=== PATIENT | female | born 1970 | race Caucasian/White ===

== ENCOUNTER → 2018-04-10 10:36 | Outpatient (REF) | payer MEDICAID, SELFPAY | LOC: LBN 10:36 | PROVIDERS: PCP Internal Medicine; Visit Provider Nurse Practitioner Family | DX: N30.90 Cystitis, unspecified without hematuria (principal) | CPT/HCPCS: 87077; 87086; 87186 ==

== ENCOUNTER 2019-05-18 11:45 | Outpatient (REF) | payer MEDICAID, SELFPAY ==
--- NOTE | 2019-05-18 10:34 | PAPFT_PTH ---
PATIENT: Giana Yeager LOC: [facility] U#:[id number] AGE/SX: 49/F ROOM: RE05/18/[address]: Elisha Martin NP : 1970 BED: DIS: 05/18/2019 SPEC #: [id number] RECD: 05/18/19 18:15 STATUS: JAYDENAugusto REQ #: [id number] CHIDI: 05/18/19 10:[address]: Elisha Martin NP DEPT: [facility] Cytology RECD BY: Brandy Allen ENTERED: 05/18/19 18:16 SP TYPE: PAPFT OTHR DR: Sonja Lopez MD Tissues: 1 - CX/ENDOCX FOR PAP SMEARS Procedures: PAP THIN PREP/UVM Screening HPV DNA PROBE Comments: [id number]
== END 2019-05-18 12:05 ==
LOC: LBN 11:45
PROVIDERS: PCP Internal Medicine; Visit Provider Nurse Practitioner Women's Health
DX: Z12.4 Encounter for screening for malignant neoplasm of cervix (principal); Z11.51 Encounter for screening for human papillomavirus (HPV)
CPT/HCPCS: 88142; 87624

== ENCOUNTER 2019-12-22 12:38 | Emergency (ER) | payer MEDICAID, SELFPAY ==
[2019-12-22 12:44] VITALS: BP 149/75; PULSE 84; RESP 16; TEMP 37; O2SAT 97
[2019-12-22] MEDS: Ondansetron O.D.T. 4 MG TABEF PO (12:54)
[2019-12-22] MEDS: HYDROmorphone 2 MG/ML VIAL 1 MG IM (12:54)
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
== END 2019-12-22 14:10 | disposition home or self-care (01) ==
LOC: ER 13:59
PROVIDERS: Emergency Provider Physician Assistant
DX: T24.211A Burn of second degree of right thigh, initial encounter (principal); T24.212A Burn of second degree of left thigh, initial encounter; T25.111A Burn of first degree of right ankle, initial encounter; X10.0XXA Contact with hot drinks, initial encounter
CPT/HCPCS: 16000; 96372; 99284

== ENCOUNTER 2020-03-10 13:31 | Emergency (ER) | payer MEDICAID, SELFPAY ==
[2020-03-10 13:50] VITALS: BP 126/77; PULSE 80; RESP 16; TEMP 36.7; O2SAT 97
--- NOTE | 2020-03-10 14:00 | DI.RAD_ITS ---
EXAM: XR FOREARM LT CLINICAL HISTORY: Pain, question foreign body TECHNIQUE: COMPARISON: No exams were available for comparison FINDINGS: Views were obtained. No bony abnormality seen. There is an apparent soft tissue defect over the ext ensor surface of the forearm. No foreign body seen. IMPRESSION:
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
[2020-03-10] MEDS: Cephalexin 500 MG CAP PO (14:35)
== END 2020-03-10 14:58 | disposition home or self-care (01) ==
PROVIDERS: Emergency Provider Emergency Medicine; PCP Nurse Practitioner Family
DX: S51.832A Puncture wound without foreign body of left forearm, initial encounter (principal); W45.0XXA Nail entering through skin, initial encounter
CPT/HCPCS: 90471; 99284; 73090; 99283

== ENCOUNTER 2020-05-30 01:39 | Outpatient (CLI) | payer MEDICAID, SELFPAY ==
[2020-05-30 08:59] LABS: Abs Immature Grans 0.03 10^3/uL (0.0-0.06); Absolute Basophil Count 0.02 10^3/uL (0.0-0.2); Absolute Eosinophil Count 0.17 10^3/uL (0.0-0.7); Absolute Lymphocyte Count 1.84 10^3/uL (1.2-3.4); Absolute Monocyte Count 0.57 10^3/uL (0.1-0.8); Absolute Neutrophil Count 4.82 10^3/uL (1.2-6.7); Basophils % 0.3; Eosinophils % 2.3; HCT 39.3 % (36.0-46.0); HGB 12.5 g/dL (11.2-15.7); Immature Grans % 0.4; Lymphocytes % 24.7; MCH 27.1 pg (27.0-33.0); MCHC 31.8 % (32.0-36.0); MCV 85.2 fL (80-95); MPV 9.3 fL (8.0-11.0); Monocytes % 7.7; Neutrophils % 64.6; Nucleated RBC 0 %; Platelet Count 340 10^3/uL (130-400); RBC 4.61 10^6/uL (3.93-5.22); RDW 14.1 % (11.7-14.6); RDW-SD 43.9 fL; WBC 7.45 10^3/uL (4.4-10.8)
[2020-05-30 09:02] LABS: PTT Activated 27.6 sec (21.0-31.4); Prothrombin Time 10.1 sec (9.3-11.0)
[2020-05-30 10:01] LABS: ALT 15 U/L (14-59); AST 24 U/L (15-37); Albumin 3.8 g/dL (3.4-5.0); Alkaline Phosphatase 69 U/L (46-116); Anion Gap 7.4 mmol/L (3-11); BUN 18 mg/dL (7-18); Bilirubin, Total 0.2 mg/dL (0.2-1.0); CO2 29.6 mmol/L (21.0-32.0); CREATININE 0.91 mg/dL (0.55-1.02); Calcium 9.1 mg/dL (8.5-10.1); Chloride 102 mmol/L (98-107); Glucose 60 mg/dL (74-106); Lipase 105 U/L (73-393); Potassium 4.2 mmol/L (3.5-5.1); Sodium 139 mmol/L (136-145); Total Protein 7.2 g/dL (6.4-8.2)
== END 2020-05-30 01:59 ==
PROVIDERS: PCP Nurse Practitioner Family; Visit Provider Physician Assistant
DX: R10.13 Epigastric pain (principal)
CPT/HCPCS: 36415; 80053; 83690; 85025; 85610; 85730

== ENCOUNTER 2020-07-08 15:13 | Outpatient (CLI) | payer MEDICAID, SELFPAY ==
[2020-07-12 15:51] LABS: Patient Race White; SARS-CoV-2 RNA Undetected (Undetected); SARS-CoV-2 Specimen Source Nasal
== END 2020-07-08 15:33 ==
PROVIDERS: PCP Nurse Practitioner Family; Visit Provider Nurse Practitioner Family
DX: Z11.59 Encounter for screening for other viral diseases (principal)
CPT/HCPCS: U0003

== ENCOUNTER 2020-11-10 09:03 | Outpatient (CLI) | payer MEDICAID, SELFPAY ==
[2020-11-11 13:08] LABS: COVID-19 RT-PCR UVMMC Result Negative (Negative)
== END 2020-11-10 09:04 | disposition home or self-care (01) ==
PROVIDERS: PCP Nurse Practitioner Family; Visit Provider Nurse Practitioner Family
DX: Z20.822 Contact with and (suspected) exposure to COVID-19 (principal)
CPT/HCPCS: U0003

== ENCOUNTER 2021-01-05 08:35 | Outpatient (CLI) | payer MEDICAID, SELFPAY ==
[2021-01-06 15:53] LABS: COVID-19 RT-PCR UVMMC Result Negative (Negative)
== END 2021-01-05 08:36 | disposition home or self-care (01) ==
LOC: LBO 08:35
PROVIDERS: PCP Nurse Practitioner Family; Visit Provider Nurse Practitioner Family
DX: Z20.822 Contact with and (suspected) exposure to COVID-19 (principal)
CPT/HCPCS: U0003

== ENCOUNTER 2021-01-10 01:49 | Outpatient (CLI) | payer MEDICAID, SELFPAY ==
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
== END 2021-01-10 02:09 ==
PROVIDERS: PCP Nurse Practitioner Family; Visit Provider Nurse Practitioner Family
DX: M67.472 Ganglion, left ankle and foot (principal); M20.12 Hallux valgus (acquired), left foot; M85.672 Other cyst of bone, left ankle and foot; M19.072 Primary osteoarthritis, left ankle and foot
CPT/HCPCS: 73630

== ENCOUNTER 2021-02-08 01:03 | Outpatient (CLI) | payer MEDICAID, SELFPAY ==
--- NOTE | 2021-02-08 06:45 | DI.MAMMO_ITS ---
Exam(s) MAMMO SCREENING EXAM: MAMMO SCREENING CLINICAL HISTORY: screening,Z12.39. TECHNIQUE: Bilateral full field digital CC and MLO mammographic images were obtained with 3D tomosyn thesis and utilizing computer aided detection (CAD). COMPARISON: Prior mammogram of 2017. FINDINGS: Fibroglandular tissue is dense, this somewhat decreasing the sensitivity mammogram for finding in und erlying lesions. There are no new obvious spiculated masses. Numerous benign-appearing microcalcifications are again noted scattered throughout both breasts. There are no new malignant-appearing microcalcification dian ups. There is no significant architectural distortion nor skin thickening-retraction. IMPRESSION: Dense bilateral fibroglandular tissue. Stable benign findings. No obvious radiographic evidence of malignancy. BI-RADS Category 2 - Benign Findings Breast Density - Category C - Heterogeneously dense Breast density Category C or D implies that the patient has dense breast tissue. Dense breast tissue can make it harder to find cancer on a mammogram. Dense breast tissue is also associated with an incr eased risk of breast cancer. This information about the result of the mammogram report was provided to the patient to raise their awareness. Use this report when you speak with the patient about their risks for breast cancer, which includes their family history. At that time, you may recommend additional screening tests (Ultrasoun d or MRI) as these tests may add significant information. A negative radiographic report should not delay biopsy if a dominant or clinically suspicious mass is present. Up to ten percent of cancers are not identified on mammography. A negative report may reinforce clinical impression. Adenosis and dense breasts may obscure an underlying neoplasm. False positive reports average 6 to 10%. Patient will receive a letter notifying them of these results.
== END 2021-02-08 01:23 ==
PROVIDERS: PCP Nurse Practitioner Family; Visit Provider Nurse Practitioner Family
DX: Z12.31 Encounter for screening mammogram for malignant neoplasm of breast (principal)
CPT/HCPCS: 77063; 77067

== ENCOUNTER 2021-11-22 02:53 | Outpatient (CLI) | payer MEDICAID, SELFPAY ==
[2021-11-22 10:20] LABS: Source Nasal/Nares
[2021-11-22 12:56] LABS: COVID-19 PCR Negative (Negative)
== END 2021-11-22 02:54 | disposition home or self-care (01) ==
LOC: LBO 02:53
PROVIDERS: PCP Nurse Practitioner Family; Visit Provider Surgery
DX: Z20.822 Contact with and (suspected) exposure to COVID-19 (principal)
CPT/HCPCS: 87635

== ENCOUNTER 2021-11-24 09:37 | Day surgery (SDC) | payer MEDICAID, SELFPAY ==
--- NOTE | 2021-11-23 15:13 | PDOC.DSDIS_ITS ---
Discharge Plan Disposition Patient Disposition: HOME Condition: Good Discharge Details Reason For Visit: colon scope Attending Provider: Vicenta Gordillo Primary Care Provider: Justina Juarez Home Meds and New Rx's Prescriptions: Continued cyanocobalamin (vitamin B-12) [Vitamin B-12] 1,000 MCG tablet extended release 1 tab PO DAILY 0RF cholecalciferol (vitamin D3) 1,000 UNIT capsule 1,000 unit PO DAILY 0RF Discontinued polyethylene glycol 3350 17 gram/dose powder 238 g PO ONCE Qty: 238 0RF Rx Instructions: take per colonoscopy instructions bisacodyl [Dulcolax (bisacodyl)] 5 mg tablet,delayed release (DR/EC) 5 mg PO ONCE Qty: 4 0RF Rx Instructions: take per colonoscopy instructions Discharge Instructions Additional Instructions: DSU Colonoscopy Post- Op Instructions Instructions for Everyone who is given Anesthesia: For your safety, please do the following for the next twenty-four (24) hours: *Do Not operate a motor vehicle (car, truck, motorcycle, etc.) *Do Not drink alcoholic beverages or use any recreational drugs for the first 24 hours or while taking pain medications. The medications in your body may have a reaction that can be dangerous. *Do Not make any important decisions or sign any important papers. Findings: x1 small polyps Follow up: -My office will send a letter in 2 to 3 weeks time detailing as to what type of polyp it was and when we want you to read the colonoscopy. Probably 7 to 10 years time. 1. No lifting over 20 pounds or strenuous activity for the first 24 hours after your procedure. After 24 hours there are no restrictions on your activity but you may feel fatigued for a few days. 2. After you arrive home you may have a light meal and return to your normal diet as you can tolerate it without feeling sick to your stomach. 3. You may have a bloated, gaseous feeling in your belly (abdomen) after a colonoscopy. Passing gas and belching will help. Walking or lying down on your left side with your knees flexed may relieve the discomfort. Call the office at [phone] (Office) or [phone] (Hospital) right away if you notice any of the following: a.Vomiting of blood or ?coffee ground stools?. b.Rectal bleeding 1Tbsp, blood clots or continuous bleeding. c.Severe belly (abdominal) pain. d.A hard distended belly (abdomen) and an inability to pass gas. 4. Please don?t expect to have a normal BM (bowel movement) for 2-3 days after your procedure. 5. If there are questions regarding the findings of your procedure, please contact your doctor 6. If you are unable to contact your doctor with a problem, contact the hospital at [phone]. 7. Continue all your regular medications unless directed otherwise. I understand the above instructions and have no questions. Signature of Patient or Adult Escort Name of Responsible Adult Escort Signature of Nurse Date/Time Activity:: see above Diet:: see above Discharge Orders Discharge Orders: Discharge Order (Routine); Ordered 11/23/21 Ordered By: Vicenta Gordillo
--- NOTE | 2021-11-23 15:13 | COLE_ITS ---
Colonoscopy Report Date of procedure: 11/24/21 Pre-op diagnosis general: crc screening Post-op diagnosis procedure note: other (small polyp) Surgeon: Vicenta Gordillo Anesthesia Type: General:No Airway Estimated blood loss (mL): 0 Pathology: other Complications: None Disposition: same day Prep: Miralax/Dulcolax Retraction Time: 10 Procedure Description: After informed consent was obtained the patient was taken to the procedure room and placed in a left decubitous position. Monitors were applied and a time out was done. The patients name, date of , procedure, allergies to medications and metal in their body was reviewed. The patient was then sedated. Once sedat ed and comfortable a rectal exam was done. External exam was normal. Internal exam revealed a normal sphincter tone and no palpable masses. The scope was then introduced and retrofelexed. NO internal hemorrhoids were identified. The scope was then advanced to the cecum w/out difficulty. The TI and appendiceal orifice were identified. The prep was bps 3 in all segments for a total of 9.. The scope was then slowly retracted over 10 minutes back into the rectum. Polyps were at 20 cm. It is a small flat 5 mm polyp. It is removed with one bite of cold forcep. All specimen is retrieved and no bleeding is noted. There are no AVMs or diverticula visualized today. Was removed and the patient was woken up and taken back to Same day surgery in stable condition. The patient tolerated the procedure well and there were no immediate complications. Follow up: The patient should follow up in 7-10 years, path pd, unless they develop changes in bowel habits or other new gastrointestinal complaints.
[2021-11-24 09:51] VITALS: BP 109/74; PULSE 77; RESP 18; TEMP 36.8; O2SAT 99
--- NOTE | 2021-11-24 10:12 | ANES.PREOP_ITS ---
General Info Date of Service Date Performed: 11/24/21 Height: 5 ft 7 in Weight: 88.6 kg Body Mass Index (BMI): 30.6 Surgical Procedure: Operation Date: 11/24/21 10:35 Proposed Procedure Side Surgeon silvio Gordillo, DO Meds Allergies and Home Medications Allergies Allergy/AdvReac Type Severity Reaction Status Date / Time NSAIDS (Non-Steroidal Allergy Unknown unexplained Unverified 11/24/21 10:09 Anti-Inflamma bleed post birthing Pyrazolones [Pyrazoles] Allergy Unknown unknown Unverified 11/24/21 10:09 Salicylates * Allergy Unknown unexplained Unverified 11/24/21 10:09 [Salicylates bleed post *RETIRED-02/20/16] birthing Home Medication Medication Instructions Recorded cyanocobalamin (vitamin B-12) 1 tab PO DAILY 12/16/12 1,000 mcg tablet,extended release (Vitamin B-12 ER) cholecalciferol (vitamin D3) 25 1,000 unit PO DAILY 03/22/16 mcg (1,000 unit) capsule Current Visit Medications: Current Medications Generic Name Dose Route Start Last Admin Trade Name Freq PRN Reason Stop Dose Admin Hyoscyamine Sulfate 0.125 mg 11/23/21 14:53 Hyoscyamine 0.125 Mg Sl/Oral/Chew SL 11/24/21 16:00 DIRECTED PRN Ringer's Solution 1,000 mls @ 80 mls/hr 11/24/21 06:00 IV 12/23/21 23:59 INFUSION [facility] IV Miscellaneous Supplies 1 each 11/24/21 06:00 Iv Access IV 12/23/21 23:59 DIRECTED [facility] Ondansetron HCl 4 mg 11/23/21 14:53 Ondansetron 4 Mg/2 Ml Vial IVP 11/24/21 16:00 Q4H PRN PRN Nausea / Vomiting Sodium Chloride 0 ml 11/24/21 06:00 Normal Saline Flush 10 Ml Syr IV 12/23/21 23:59 PRN PRN Sodium Chloride 0 ml 11/24/21 06:00 Normal Saline 10 Ml Vial IJ 12/23/21 23:59 DIRECTED PRN Sterile Water 0 ml 11/24/21 06:00 Water,Injection,Sterile 10 Ml Vial IJ 12/23/21 23:59 DIRECTED PRN PFSH Active Problems Active Problems: Problem Status Onset Code Hyperlipidemia E78.5 Vitamin D deficiency E55.9 GERD (gastroesophageal reflux disease) K21.9 Medical History Medical History Depressive disorder Gastrointestinal hemorrhage Post UGI. Small bowel F/thru=neg. Colonoscopy neg 08/2003 Migraine headache with aura Ocular migraine Vitamin B12 deficiency Surgical History Surgical History (Updated 11/24/21 @ 10:07 by Patricia Gomez RN) History of bilateral ligation of fallopian tubes History of repair of anterior cruciate ligament of left knee Hx of removal of cyst Left wrist (ovarian cyst), left ganglion cyst, left chest sebaceous cyst S/P section x3 Tobacco Smoking/Tobacco Use Status: Never Second hand exposure: Yes Alcohol Alcohol Intake: never Substance Use Substance use: Never Substance use type: does not use Prental History History 6 Para 3 Hx # Term Pregnancies Multiple births Hx # Pregnancies Ectopic pregnancies AB induced 3 Hx Number of Living Children 3 AB spontaneous Vital Signs and Lab Results Vital Signs Most Recent Vital Signs in EMR: Most Recent Vital Signs Temp Pulse Resp BP Pulse Ox 36.8 C 77 18 109/74 99 11/24/21 09:51 11/24/21 09:51 11/24/21 09:51 11/24/21 09:51 11/24/21 09:51 Lab Results Blood Type / Crossmatch: No Data to Display Complete Blood Count: No Data to Display Complete Metabolic Panel: No Data to Display Liver Function Panel: No Data to Display Coagulation Panel: No Data to Display Cardiac Panel: No Data to Display Arterial Blood Gas: No Data to Display Venous Blood Gas: No Data to Display Pancreas Panel: No Data to Display Thyroid Panel: No Data to Display Infectious Disease: Coronavirus (COVID-19)(PCR) Negative (Negative) 11/22/21 08:55 11/22/21 Coronavirus 2019 Source Nasal/Nares 11/22/21 08:55 11/22/21 Blood Cultures: No Data to Display Toxicology Panel: No Data to Display Panel: No Data to Display Anesthesia Assessment and Plan Anesthesia History Personal History: No History of Anesthesia Complications Family History: No Family History of Anesthesia Complications Exercise Tolerance Exercise Tolerance: Metabolic Equivalents>4 Pertinent Negatives Pertinent Negatives: No Symptoms of GERD (Remote hx), No Major Cardiovascular Symptoms or Complaints, No Major Pulmonary Symptoms or Complaints and No History of CVA/TIA Cardiac & Pulmonary Exam Cardiac Exam: Normal S1/S2 Heart Sounds Pulmonary Exam: Clear Bilateral Breath Sounds Implantable Cardiac Device Does patient have a Pacemaker or an ICD?: No Airway Exam Known Difficult Airway: No Mallampati Class: 1 Mouth Opening: Normal (> 3cm) Thyromental Distance: Greater than 3 cm Neck Range of Motion: Full ROM Neck Circumference: Normal Teeth Condition: Normal Dentition ASA Classification ASA Score: ASA 2 Emergency Case?: No NPO Status NPO Status: NPO Clears >2 hours, Solids >8 hours Status Status: Negative HCG Anesthesia Plan Resuscitation Status: Full Code Anesthesia Technique: General Anesthesia Airway Planned: Natural Airway Monitors Used: Standard Monitors
[2021-11-24 10:14] VITALS: BMI 30.6
[2021-11-24] MEDS: Lactated Ringers 1,000 ML 80 ML IV (10:20)
--- NOTE | 2021-11-24 10:57 | BOWEL_PTH ---
PATIENT: Giana Yeager LOC: [facility] U#:[id number] AGE/SX: 51/F ROOM: RE11/24/[address]: Vicenta Gordillo : 1970 BED: DIS: 11/24/2021 SPEC #: [id number] RECD: 11/24/21 12:32 STATUS: NATHANIEL REQ #: [id number] CHIDI: 11/24/21 10:[address]: Vicenta Gordillo DEPT: Surgical Specimen RECD BY: Brandy Allen ENTERED: 11/24/21 12:33 SP TYPE: Bowel OTHR DR: JUAN JOSÉ Hunter Tissues: 1 - BIOPSY BOWEL Procedures: GROSS AND MICRO LEVEL 4 Comments: [id number]
[2021-11-24 11:06] VITALS: BP 98/63; PULSE 77; RESP 16; TEMP 36.2; O2SAT 97
--- NOTE | 2021-11-24 11:21 | W.ANESPOSTOP ---
Postoperative Evaluation Date, Time and Location Date Performed: 11/24/21 Time Performed: 11:35 Patient Location: Day Surgery Unit Vital Signs Most Recent Imported Vital Signs: Most Recent Vital Signs Temp Pulse Resp BP Pulse Ox 36.2 C L 77 16 98/63 L 97 11/24/21 11:06 11/24/21 11:06 11/24/21 11:06 11/24/21 11:06 11/24/21 11:06 Pain Score Most Recent Pain Score: Most Recent Pain Score Pain Level 0 11/24/21 11:06 Assessment Mental Status: Awake (Alert & Oriented to Patient Baseline) Airway and Respiratory Function: Patent airway with normal (patient baseline) respiratory exam Cardiovascular Function: Hemodynamically Stable Hydration Status: Adequately Hydrated Nausea & Vomiting: No Nausea or Vomiting Pain: Pt. Denies Any Pain Peripheral Nerve Block: Patient did not receive a nerve block
[2021-11-24 11:36] VITALS: BP 104/67; PULSE 67; RESP 17; TEMP 36.3; O2SAT 99
== END 2021-11-24 12:28 | disposition home or self-care (01) ==
LOC: SUR 09:37
PROVIDERS: PCP Nurse Practitioner Family; Visit Provider Surgery
PROC: 0DJD8ZZ Inspection of Lower Intestinal Tract, Via Natural or Artificial Opening Endoscopic (ICD-10-PCS; CPT 45378; principal; 2021-11-24 10:30)
DX: Z12.11 Encounter for screening for malignant neoplasm of colon (principal); K63.5 Polyp of colon; E55.9 Vitamin D deficiency, unspecified; E78.5 Hyperlipidemia, unspecified; K21.9 Gastro-esophageal reflux disease without esophagitis
CPT/HCPCS: 45380; 81025; 88305

== ENCOUNTER → 2022-05-04 15:18 | Outpatient (CLI) | payer MEDICAID, SELFPAY ==
--- NOTE | 2022-05-04 10:30 | DI.RAD_ITS ---
Exam(s) XR FOOT LT COMPLETE EXAM: XR FOOT LT COMPLETE CLINICAL HISTORY: Left foot pain,m79.672. TECHNIQUE: 2D digital imaging was performed of the left foot. Three images were obtained. AP, obli que and lateral views were obtained. COMPARISON: CR XR FOOT LT COMPLETE from 01/10/2021 FINDINGS: BONES: No acute fracture is present. No bony destructive lesion is seen. There is a tiny spur at the plantar surface of the calcaneus. There is an enthesophyte at the Achilles insertion site. JOINTS: No dislocation present. There is a hallux valgus deformity. Moderate degenerative changes ar e seen at the 1st MTP joint. SOFT TISSUE: Normal. IMPRESSION: No acute abnormality. DATA REPOSITORY: RADIATION DOSE DELIVERED:
== END ==
PROVIDERS: PCP Nurse Practitioner Family; Visit Provider Nurse Practitioner Family
DX: M79.672 Pain in left foot (principal)
CPT/HCPCS: 73630

== ENCOUNTER 2022-06-06 02:21 | Outpatient (CLI) | payer MEDICAID, SELFPAY ==
[2022-06-06 10:15] LABS: Calculated LDL 190 mg/dL (<100); Cholesterol 276 mg/dL (<200); HDL Cholesterol 43 mg/dL (40-60); Triglyceride 218 mg/dL (<150); Vitamin B12 995 pg/mL (193-986)
== END 2022-06-06 02:22 | disposition home or self-care (01) ==
LOC: LBO 02:21
PROVIDERS: Nurse Practitioner; PCP Nurse Practitioner Family; Visit Provider Nurse Practitioner Family
DX: E78.5 Hyperlipidemia, unspecified (principal); E53.8 Deficiency of other specified B group vitamins
CPT/HCPCS: 36415; 80061; 82607

== ENCOUNTER 2023-03-12 01:26 | Outpatient (CLI) | payer MEDICAID, SELFPAY ==
--- NOTE | 2023-03-12 06:45 | DI.MAMMO_ITS ---
Exam(s) MAMMO SCREENING EXAM: MAMMO SCREENING CLINICAL HISTORY: screening,z12.39 TECHNIQUE: Bilateral full field digital CC and MLO mammographic images were obtained with 3D tomosyn thesis and utilizing computer aided detection (CAD). COMPARISON: Available for comparison. FINDINGS: Masses/Architectural Distortion: There is a 5 mm nodule in the upper posterior left breast on the MLO view not present on the prior examination. Microcalcifications: No suspicious pleomorphic-type are seen. Stable numerous punctate calcifications are seen throughout both breasts. Skin Thickening/Nipple Retraction: None. IMPRESSION: 1. New 5 mm nodule in the upper posterior left breast. 2. Spot compression views requested for further evaluation. Ultrasound may be indicated at that time . BI-RADS Category 0 - Assessment Incomplete: Need additional imaging evaluation Breast Density - Category C - Heterogeneously dense Breast density category C or D implies that the patient has dense breast tissue. Dense breast tissue is very common and is not abnormal but dense breast tissue can make it harder to find cancer on a ma mmogram. Also, dense breast tissue may increase their breast cancer risk. This information about the result of the mammogram report was provided to the patient to raise their awareness. Use this report when you speak with the patient about their risks for breast cancer, which includes their family hist ory. At that time, you may recommend for more screening tests (Ultrasound or MRI) as they might be us eful based on their risk. A negative radiographic report should not delay biopsy if a dominant or clinically suspicious mass is present. Up to ten percent of cancers are not identified on mammography. A negative report may reinforce clinical impression. Adenosis and dense breasts may obscure an underlying neoplasm. False positive reports average 6 to 10%. Patient will receive a letter notifying them of these results.
== END 2023-03-12 01:46 ==
LOC: DI 01:26
PROVIDERS: PCP Nurse Practitioner Family; Visit Provider Nurse Practitioner Family
DX: Z12.31 Encounter for screening mammogram for malignant neoplasm of breast (principal)
CPT/HCPCS: 77063; 77067

== ENCOUNTER 2023-03-18 03:21 | Outpatient (CLI) | payer MEDICAID, SELFPAY ==
--- NOTE | 2023-03-18 | DI.MAMMO_ITS ---
Exam(s) MG MAMMO SCREEN CALL BACK UNI US BREAST LT LIMITED EXAM: MG MAMMO SCREEN CALL BACK UNI and U/S breast LT limited CLINICAL HISTORY: 5 MM NODULE UPPER POSTERIOR LEFT BREAST R92.8 ABNL MAMMO. TECHNIQUE: Craniocaudal and mediolateral oblique Full Field Digital Mammography views of the left br east with Computer Aided Diagnosis followed by Tomosynthesis and left breast ultrasound. COMPARISON: Comparison is made with prior examinations. FINDINGS: Mammography/Tomosynthesis: Masses/Architectural Distortion: The nodule is not identified on the additional views. No evidence o f architectural distortion is seen. Microcalcifictions: No suspicious pleomorphic-type are seen. Skin Thickening/Nipple Retraction: None. Limited left breast US: Echotexture: Normal appearance of the glandular tissue. Shadowing: No suspicious foci. Cyst: There is a 0.3 cm cyst at the 1 o'clock position of the left breast 6 cm from the nipple. Solid lesions: None seen. Ductal dilation: None. IMPRESSION: 1. No evidence of malignancy is noted. 2. Unless there is more urgent need, follow-up screening mammography is recommended, as per [place] [employer] guidelines. 3. The findings were discussed with the patient on the date of the examination. BI-RADS Category 2 - Benign Findings Breast Density - Category C - Heterogeneously dense Breast density Category C or D implies that the patient has dense breast tissue. Dense breast tissue can make it harder to find cancer on a mammogram. Dense breast tissue is also associated with an incr eased risk of breast cancer. This information about the result of the mammogram report was provided to the patient to raise their awareness. Use this report when you speak with the patient about their risks for breast cancer, which includes their family history. At that time, you may recommend additional screening tests (Ultrasoun d or MRI) as these tests may add significant information. A negative radiographic report should not delay biopsy if a dominant or clinically suspicious mass is present. Up to ten percent of cancers are not identified on mammography. A negative report may reinforce clinical impression. Adenosis and dense breasts may obscure an underlying neoplasm. False positive reports average 6 to 10%. Patient will receive a letter notifying them of these results.
== END 2023-03-18 03:41 ==
LOC: DI 03:21
PROVIDERS: PCP Nurse Practitioner Family; Visit Provider Nurse Practitioner Family
DX: Z12.31 Encounter for screening mammogram for malignant neoplasm of breast (principal); R92.8 Other abnormal and inconclusive findings on diagnostic imaging of breast
CPT/HCPCS: 76642; 77063; 77067

== ENCOUNTER 2023-11-11 10:13 | Outpatient (REF) | payer MEDICAID, SELFPAY ==
[2023-11-12 14:20] LABS: Helicobacter pylori Ag, Feces Negative (Negative)
[2023-11-13 21:24] LABS: Calprotectin <50.0 mcg/g
== END 2023-11-11 10:14 | disposition home or self-care (01) ==
LOC: LBN 10:13
PROVIDERS: PCP Nurse Practitioner Family; Visit Provider Nurse Practitioner Family
DX: K62.5 Hemorrhage of anus and rectum (principal); R14.0 Abdominal distension (gaseous)
CPT/HCPCS: 87338; 83993

== ENCOUNTER 2023-11-13 05:06 | Outpatient (CLI) | payer MEDICAID, SELFPAY ==
[2023-11-13 08:34] LABS: Abs Immature Grans 0.04 10^3/uL (0.0-0.06); Absolute Basophil Count 0.03 10^3/uL (0.0-0.2); Absolute Eosinophil Count 0.11 10^3/uL (0.0-0.7); Absolute Lymphocyte Count 1.74 10^3/uL (1.2-3.4); Absolute Monocyte Count 0.65 10^3/uL (0.1-0.8); Absolute Neutrophil Count 4.69 10^3/uL (1.2-6.7); Basophils % 0.4; Eosinophils % 1.5; HCT 43.3 % (36.0-46.0); HGB 14.2 g/dL (11.2-15.7); Immature Grans % 0.6; MCH 29.3 pg (27.0-33.0); MCHC 32.8 % (32.0-36.0); MCV 90 fL (80-95); MPV 9.2 fL (8.0-11.0); Neutrophils % 64.5; Platelet Count 352 10^3/uL (130-400); RBC 4.84 10^6/uL (3.93-5.22); RDW-SD 42.4 fL; WBC 7.26 10^3/uL (4.4-10.8)
[2023-11-13 09:01] LABS: Hemoglobin A1C 6.1 % (<5.7)
[2023-11-13 09:30] LABS: ALT 20 U/L (14-59); AST 22 U/L (15-37); Albumin 4.1 g/dL (3.4-5.0); Alkaline Phosphatase 77 U/L (46-116); Anion Gap 10.1 mmol/L (3-11); BUN 13 mg/dL (7-18); Bilirubin, Total 0.3 mg/dL (0.2-1.0); CO2 29.9 mmol/L (21.0-32.0); CREATININE 0.7 mg/dL (0.55-1.02); Calcium 9.6 mg/dL (8.5-10.1); Chloride 103 mmol/L (98-107); Cholesterol 303 mg/dL (<200); Glucose 107 mg/dL (74-106); HDL Cholesterol 42 mg/dL (40-60); Potassium 3.9 mmol/L (3.5-5.1); Sodium 143 mmol/L (136-145); TSH (W/Ref FT4) 3.83 uIU/mL (0.36-3.74); Triglyceride 418 mg/dL (<150)
[2023-11-13 09:43] LABS: LDL CHOLESTEROL 171 mg/dL (<100)
[2023-11-13 10:03] LABS: Lipase 34 U/L (16-77)
[2023-11-13 18:00] LABS: FSH 47.4 mIU/mL (See Note)
[2023-11-14 10:52] LABS: IgA 195 mg/dL (85-499); Interpretation (See Note); Tissue Transglutaminase IgA <4.0 CU (<20.0)
== END 2023-11-13 05:07 | disposition home or self-care (01) ==
LOC: LBO 05:06
PROVIDERS: PCP Nurse Practitioner Family; Visit Provider Nurse Practitioner Family
DX: E78.5 Hyperlipidemia, unspecified (principal); R14.0 Abdominal distension (gaseous); R10.9 Unspecified abdominal pain; R79.89 Other specified abnormal findings of blood chemistry; K62.5 Hemorrhage of anus and rectum; R19.4 Change in bowel habit
CPT/HCPCS: 36415; 80053; 80061; 82784; 83516; 83690; 83721; 83001; 83002; 83036; 84439; 84443; 85025

== ENCOUNTER 2023-12-04 05:46 | Outpatient (CLI) | payer MEDICAID, SELFPAY ==
--- NOTE | 2023-12-04 14:38 | W.NUTRFU ---
Date of service: 12/04/23 Time of Service: 09:30 Nutrition Note NOTE: PT referred to nutrition for gas, unspecified abd pain. Pal looking for some help in managing and wondering if diet changes may help. She denies etoh use or tobacco use. 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 She reports lifelong belly stuffwith 1 BM per week as a kid - still deals with constipation but moves her bowels daily. likes to cook and enjoys food but gets abd pain easily. She takes a b12 and D3 supplement currently. She denies significant weight changes in the last 2 years. Reviewed with her that food intolerances (if that might be contributing) are best determined by keeping a journal of intake and symptoms to see if there are any specific foods. Sounds like most her her issues are from inconsistent fiber intake and possibly slower gut motility. Reviewed increasing fiber slowly to consistent 25grams per day and ensure good water intake with recommendation of 2L per day. Encouraged scheduled exercise at least 3 times per week and enjoy moving often with walks etc... REviewed drinking warm/hot beverages can help stimulate BM's and self abd massage going clockwise to follow colon Would consider motility stimulant if dietary and lifestyle measures dont help Time Spent in Nutritional Counseling and Treatment: 45 minutes
== END 2023-12-04 05:47 | disposition home or self-care (01) ==
LOC: DS 05:46
PROVIDERS: PCP Nurse Practitioner Family; Visit Provider Dietitian, Registered
DX: R10.9 Unspecified abdominal pain (principal); R14.0 Abdominal distension (gaseous); Z71.3 Dietary counseling and surveillance
CPT/HCPCS: 00123; 97802

== ENCOUNTER 2023-12-31 09:11 | Outpatient (REF) | payer MEDICAID, SELFPAY ==
[2024-01-02 18:49] LABS: Calprotectin <50.0 mcg/g
== END 2023-12-31 09:12 | disposition home or self-care (01) ==
LOC: LBN 09:11
PROVIDERS: PCP Nurse Practitioner Family; Visit Provider Surgery
DX: K62.5 Hemorrhage of anus and rectum (principal); R19.4 Change in bowel habit; R14.0 Abdominal distension (gaseous)
CPT/HCPCS: 83630; 83993

== ENCOUNTER 2024-03-04 14:02 | Outpatient (REF) | payer MEDICAID, SELFPAY ==
--- NOTE | 2024-03-04 13:00 | PAPFT_PTH ---
PATIENT: Giana Yeager LOC: [facility]#:[id number] AGE/SX: 53/F ROOM: RE03/04/[address]: JUAN JOSÉ Hunter : 1970 BED: DIS: 03/04/2024 SPEC #: [id number] RECD: 03/05/24 12:29 STATUS: NATHANIEL REShyanne #: [id number] CHIDI: 03/04/24 13:[address]: Justina Juarez DEPT: [facility] Cytology RECD BY: Monica Vee Tissues: 1 - CX/ENDOCX FOR PAP SMEARS Procedures: PAP THIN PREP/UVM Screening HPV DNA PROBE Comments: [id number] (HPV 16 & 18/45)
== END 2024-03-04 14:03 | disposition home or self-care (01) ==
LOC: LBN 14:02
PROVIDERS: PCP Nurse Practitioner Family; Visit Provider Nurse Practitioner Family
DX: Z00.00 Encounter for general adult medical examination without abnormal findings (principal); E78.5 Hyperlipidemia, unspecified; R73.03 Prediabetes; R14.0 Abdominal distension (gaseous); K62.5 Hemorrhage of anus and rectum; Z71.89 Other specified counseling; L91.8 Other hypertrophic disorders of the skin
CPT/HCPCS: 88142; 87624

== ENCOUNTER 2024-03-19 08:50 | Outpatient (REF) | payer MEDICAID, SELFPAY ==
--- NOTE | 2024-03-19 08:15 | SKI_PTH ---
PATIENT: Giana Yeager LOC: [facility] U#:[id number] AGE/SX: 54/F ROOM: RE03/19/[address]: JUAN JOSÉ Hunter : 1970 BED: DIS: 03/19/2024 SPEC #: [id number] RECD: 03/19/24 12:49 STATUS: NATHANIEL REShyanne #: [id number] CHIDI: 03/19/24 08:[address]: Justina Juarez DEPT: Surgical Specimen RECD BY: Brandy Allen Tissues: 1 - SKIN BIOPSY(SHAVE/PUNCH) Procedures: GROSS AND MICRO LEVEL 3 Comments: [id number]
--- OUTSIDE RECORDS SUMMARY | 2024-03-19 08:52 | XMS_ITS | Encounter Summary ---
Author Organization [facility] Address [facility] [place] [address] Care Team Providers Care Stone Unloader Name Role Phone Sonja Cannon MD Primary Care Provider [phone] Reason for Visit * Reason Comments Suture / Staple Removal Encounter Details Date Type Department Care Team (Latest Contact Info) Description 09/11/2019 1:00 PM EST Clinical Support Dermatology at [facility] [address] [place] [address] CallLeón MD [facility] DR KAM[place] [address] Visit for suture removal Social History Tobacco Use Types Packs/Day Years Used Date Smoking Tobacco: Never Smokeless Tobacco: Never Alcohol Use Standard Drinks/Week Comments No 0 (1 standard drink = 0.6 oz pur e alcohol) Sex and Gender Information Value Date Recorded Sex Assigned at Not on file Gender Identity Not on file Sexual Orientation Not on file documented as of this encounter Progress Notes * León Gibson - 09/11/2019 1:00 PM EST Images from the original note were not included. Date of service: 09/11/2019 Giana Yeager : 1970, 49 y.o. Suture Removal: 1. Here for scheduled suture removal, status post excision of: Location: Left chest Epidermal inclusion cyst prior pathology ?? History: Patient has had no problems or concerns since the procedure. ?? Examination: Wound edges show good apposition and a healthy wound. No sign of infection or dehiscence. ?? Diagnosis: 1. Appropriate for suture removal. ?? Plan/Procedure: 1. Sutures removed without complication. 2. Steri-strips placed for good measure. 3. Follow up as scheduled. ?? The following photos were obtained with patient consent: ??I was not present for this encounter during the suture removal although was directly available for any questions or concerns. Reviewed and signed by Addy Gibson MD Resident in Dermatology [facility] Staff player development manager: Angelica White MD Section of Dermatology [facility] ? Jerrica Whitney MD Section of Dermatology [facility] * Angelica White MD - 09/11/2019 1:00 PM EST I was the supervising physician working with dermatology resident Dr. Gibson in the dermatology clinic during this patient visit. The level of Resident supervision for this patient visit was indirect supervision with direct supervision immediately available. (definition: [facility] GME Policy Statement on G raduate Medical Education, Supervision of Graduate Medical Trainees) I was immediately available toDr. Gibson for questions and discussion regarding this visit. I have reviewed his encounter note details and level of service. Angelica White MD Staff Physician documented in this encounter Plan of Treatment Not on file documented as of this encounter Visit Diagnoses Diagnosis Visit for suture removal Encounter for removal of sutures documented in this encounter Care Teams Stone Unloader Relationship Specialty Start Date End Date Sonja Cannon MD [address] [place] [id number] PCP - General Internal Medicine 09/27/16 03/03/22 documented as of this encounter
--- OUTSIDE RECORDS SUMMARY | 2024-03-19 08:52 | XMS_ITS | Encounter Summary ---
Author Organization [facility] Address [address] [place] [address] Care Team Providers Care Acute Care Nurse Name Role Phone Sonja Causey MD Primary Care Provider [phone] Encounter Details Date Type Department Care Team (Late st Contact Info) Description 05/08/2016 Results Only [facility] [phone] Waleska Bender Jr., MD [address] [place] [phone] Social History Tobacco Use Types Packs/Day Years Used Date Smoking Tobacco: Never Assessed Sex and Gender Information Value Date Recorded Sex Assigned at Not on file Gender Identity Not on file Sexual Orientation Not on file documented as of this encounter Plan of Treatment Not on file documented as of this encounter Procedures Procedure Name Priority Date/Time Associated Diagnosis Comments SURGICAL PATHOLOGY Routine 05/08/2016 14 :55 EDT documented in this encounter Results * SURGICAL PATHOLOGY (05/08/2016 14:55 EDT) Pathology Report: SURGICAL PATHOLOGY REPORT Reports generated via electronic interface contain original data; however they are lacking the format of the original report. Caution should be taken when reading/interpreti ng unformatted reports. Name: ? GIANA YEAGER ? Accession #: ? [id number] ? : ? 1970 (Age: 46) ??F ? Collect Date: ? 05/08/2016 ? Location: ? [facility] ? Receive Date: ? 05/09/2016 ? Provider: WALESKA BENDER MD Copy to: SONJA MELENDEZ MD ? Final Pathologic Diagnosis: SOFT TISSUE OF WRIST, LEFT, CYST, EXCISION: - Ganglion cyst. Document reviewed and electronically signed by: CAROL WOODS MD Report ??Date: 05/11/2016 16:27 By the signature above, the attending physician certifies that he/she has personally conducted a gross and/or microscopic examination of the described specimens and rendered or confirmed the above diagnosis. Specimen(s) Received: Left wrist cyst Clinical History: Left wrist mass Gross Description: ? Received in formalin labelled with proper patient identification (initials O, T) and left wrist cyst are two pieces of glistening white fibromembranous tissue (0.8 cm and 1.9 cm in greatest dimension). The cut surface shows a cystic structure (0.1 cm in thickness) with a smooth surface. The specimens are entirely submitted as 1. Dr. Armenta 05/09/2016 4:26 PM End of Report [facility] 05/08/2016 14:5 5 EDT 05/09/2016 14:55 EDT Waleska Bender Jr., MD PATHOLO GY ORDERABLES [facility] [address] [place] [address] documented in this encounter Visit Diagnoses Not on filedocumented in this encounter Care Teams Acute Care Nurse Relationship Specialty Start Date End Date Sonja Causey MD [address] [place] [address] PCP - General 07/06/15 documented as of this encounter
--- OUTSIDE RECORDS SUMMARY | 2024-03-19 08:52 | XMS_ITS | Encounter Summary ---
Author Organization [facility] Address [address] [place] [address] Care Team Providers Care Tobacco Drummer Name Role Phone Unavailable Primary Care Provider Unavailabl e Encounter Details Date Type Department Care Team (Late st Contact Info) Description 09/08/2002 Results Only [facility] [address] [place] [address] Remington Alcala [address] [place] [address] Social History Tobacco Use Types Packs/Day Years Used Date Smoking Tobacco: Never Assessed Sex and Gender Information Value Date Recorded Sex Assigned at Not on file Gender Identity Not on file Sexual Orientation Not on file documented as of this encounter Plan of Treatment Not on file documented as of this encounter Procedures Procedure Name Priority Date/Time Associated Diagnosis Comments CYTOPATHOLOGY Routine 09/08/2002 0:00 EST documented in this encounter Results * CYTOPATHOLOGY (09/08/2002 0:00 EST) Pathology Report: CYTOPATHOLOGY REPORT Reports generated via electronic interface contain original data; however they are lacking the format of the original report. Caution should be taken when reading/interpreti ng unformatted reports. Name: ? GIANA YEAGER ? Accession #: ? [id number] : ? 1970 (Age: 32) ??F ?Collect Date: ? 09/08/2002 Location: ? [facility] ? Receive Date: ? 09/09/2002 Provider: ?HANGElgin GAYLA CNM Copy to: ? Specimen/Source: ?ThinPrep Pap Test, Cervix/Endocervix Last Menstrual Period: ? 07/07/02 Menstrual/Pregnanc y Status: ? SPECIMEN ADEQUACY ? Satisfactory for Evaluation - transformation zone component present GENERAL CATEGORIZATION ? Negative for Intraepithelial Lesion or Malignancy INTERPRETATION ? Fungal organisms present morphologically consistent with Denise species. ? Document reviewed and electronically signed by: ? ETHAN Robison(ASCP) ? Report Date: ??09/10/2002 10:31 End of Report SANDY PIERSON 09/08/2002 09/09/2002 Remington Alcala CNM PATHOLOGY ORDERABLES Performing Organization Address City/State/[facility] Co de Phone Number SANDY PIERSON [address] [place] [address] documented in this encounter Visit Diagnoses Not on filedocumented in this encounter
--- OUTSIDE RECORDS SUMMARY | 2024-03-19 08:52 | XMS_ITS | Encounter Summary ---
Author Organization [facility] Address [address] [place] [address] Care Team Providers Care Field Training Manager Name Role Phone Unavailable Primary Care Provider Unavailabl e Encounter Details Date Type Department Care Team (Late st Contact Info) Description 11/15/2014 Results Only [facility] [phone] Lani Martinez MD [address] [place] [address] Social History Tobacco Use Types Packs/Day Years Used Date Smoking Tobacco: Never Assessed Sex and Gender Information Value Date Recorded Sex Assigned at Not on file Gender Identity Not on file Sexual Orientation Not on file documented as of this encounter Plan of Treatment Not on file documented as of this encounter Procedures Procedure Name Priority Date/Time Associated Diagnosis Comments PAP TEST- RESULT ONLY Routine 11/15/2014 0:00 EDT documented in this encounter Results * PAP TEST- RESULT ONLY (11/15/2014 0:00 EDT) Pathology Report: CYTOPATHOLOGY REPORT Reports generated via electronic interface contain original data; however they are lacking the format of the original report. Caution should be taken when reading/interpreti ng unformatted reports. Name: ? MARCELL YEAGER ? Accession #: ? [id number] ? : ? 1970 (Age: 44) ??F ?Collect Date: ? 11/15/2014 ? Location: ? [facility] ? Receive Date: ? 11/16/2014 ? Provider: LANI MARTINEZ MD Copy to: ? Final Report SPECIMEN ADEQUACY ? Satisfactory for Evaluation - transformation zone component absent GENERAL CATEGORIZATION ? Negative for Intraepithelial Lesion or Malignancy ?? Specimen/Source: ??Pap Test, Cervix/Endocervix, ThinPrep Imaging System with manual evaluation Document reviewed and electronically signed by: ? ETHAN De La Vega(ASCP) ? Report ??Date: 11/19/2014 14:55 HPV with Pap Test ? Date Ordered: ? 11/19/2014 ? Status: ?? Signed Out ?Date Complete: ? 11/23/2014 ? By: ??System Interface ? Date Reported: ? 11/23/2014 ? Interpretation RESULT: Negative for HPV. No E6 or E7 mRNA is detected from HPV types 16,18,31,33,35, 39,45,51,52,56,58, 59,66, and 68 by sql ssis developer mediated amplification. Comments Document reviewed and electronically signed by: ? System Interface ? Report date: 11/23/2014 By the signature above, the attending physician certifies that he/she has personally conducted a gross and/or microscopic examination of the described specimens and rendered or confirmed the above diagnosis. End of Report [facility] 11/15/2014 11/16/2014 Lani Martinez MD PATHOLOGY ORDERABLES [facility] [address] [place] [address] documented in this encounter Visit Diagnoses Not on filedocumented in this encounter
--- OUTSIDE RECORDS SUMMARY | 2024-03-19 08:52 | XMS_ITS | Encounter Summary ---
Author Organization [facility] Address [facility] [place] [address] Care Team Providers Care Crankshaft Grinder Name Role Phone Justina Juarez APRN Primary Care Provider [phone] Reason for Visit * Reason Comments Advice Only BBR - has met previo usly for same thing * Consultation (Routine) - Closed Specialty Diagnoses / Procedures Referred By Tomasa t Referred To Contact Plastic Surgery Diagnoses Macromastia BBR Consult Justina Juarez APRN [address] [place] [address] [facility] [place] [place] Plastic Surg [address] [place] [address] Referral ID Status Reason Start Date Expiration Date V isits Requested Visits Authorized [id number] Closed Consult, Test & Treat PCP Updated and/or Approved 07/09/2022 07/09/2023 6 6 Encounter Details Date Type Department Care Team (Late st Contact Info) Description 01/10/2023 10:00 AM EDT Office [place] [address] [facility] [place] [address] Macromastia Social History Tobacco Use Types Packs/Day Years Used Date Smoking Tobacco: Never Smokeless Tobacco: Never Alcohol Use Standard Drinks/Week Comments No 0 (1 standard drink = 0.6 oz pur e alcohol) Sex and Gender Information Value Date Recorded Sex Assigned at Not on file Gender Identity Not on file Sexual Orientation Not on file documented as of this encounter Last Filed Vital Signs Vital Sign Reading Time Taken Comments Blood Pressure - - Pulse - - Temperature - - Respiratory Rate - - Oxygen Saturation - - Inhaled Oxygen Concentration - - Weight 92.5 kg (204 lb) 01/10/2023 10:13 AM EDT Height 170.2 cm (5' 7) 01/10/2023 10:13 AM EDT Body Mass Index 31.95 01/10/2023 10:13 AM EDT documented in this encounter Patient Instructions * Patient Instructions* Sandra Worthington RN - 01/10/2023 10:00 AM EDT Preoperative Instructions You have been scheduled to have plastic surgery. The instructions below are specific to your procedure. If you are a smoker, we ask that you stop at least 2 months prior to your surgical date and remain nicotine free for at least a month after surgery. Smoking can impair healing and increase your chance of infection. Due to a strong risk for delayed healing, we will preform a CO2 test on the day of your surgery to test for byproducts of smoking.If the test is positive your surgery will be cancelled. If you are 40 years old or older, please remember to have a mammogram with in one year prior to your upcoming breast reduction surgery as we advise not having one for at least six months after surgery. Two Weeks prior to Surgery Do not take any Aspirin or aspirin containing products for the 2 weeks leading up to surgery. You may resume taking 48 hours after surgery. Do not take medications containing Ibuprofen. Do not take any anti-steroidal's such as Advil, Aleve, Celebrex, Daypro, Indocin, Midol, Motrin, Naproxen, Nuprinand Toradol. These medications increase your risk of bleeding. You may resume taking any of these medications 48 hours after surgery. Stop Vitamin E, Garlic supplements, Ginseng, Fish Oil tablets, Ginkgo and Cher's Wort and any other herbals. You may resume taking 48 hours after surgery. If you need medication for pain, you may take Tylenol or extra strength Tylenol during this two week period. One Week prior to Surgery Please call if you feel ill, have cold or fever, have a rash or breaks in the skin near your surgical site. Stay hydrated. Avoid alcohol and recreational drugs Three Days before Surgery Do not shave near your surgical site One Day before Surgery Breast Surgery - Wash your chest and underarms for several minutes the night before and the morningof surgery using an antibacterial soap (Dial or Lever 2000) or Hibiclens wash. The Same Day Surgery Team will call you the business day before your surgery to give you instructions specific to your procedure and your surgical time. Generally, you will be asked not to eat any solids after midnight. You are allowed clear liquids (water, chloé joe, apple juice, black coffee andplain tea) until 2 hours prior to your surgery. Day of Surgery A van driver helper is required at time of discharge. If you are a Same Day procedure and do not have a driveryour surgery will be canceled. DO NOT wear any jewelry, makeup or artificial nails the day of surgery. DO NOT apply any lotions, powders or deodorants on or near the surgical site the day of surgery. Do wear comfortable, loose fitting clothes. Anesthesia will meet with you the morning of surgery. They will perform an assessment and review your history with you. Contact Information: During regular office hours (Saturday- Saturday, non-holiday 8:00 am- 5:00 pm) For an appointment or insurance questions For questions pertaining to your surgical date [phone] For nursing related questions [phone] On weekends, holidays or after office hours: Call and ask the chucking machine set up operator tool to page the Plastic Surgery Resident product introduction manager. documented in this encounter Progress Notes * Lesley Dailey MD - 01/10/2023 10:00 AM EDT Plastic Surgery Consultation Note Lesley Dailey MD. PCP: Justina Juarez APRN Requesting Physician: None CC: Symptomatic macromastia HPI: Trenholm Baylow Toy is a 52 y.o. female who presents today for evaluation of symptomaticmacromastia. Her PCP is Justina Juarez APRN and has requested the consultation. She is unaccompanied for today???s visit. She reports that she had consulted for this in 2017, however get nervous and cancelled her surgery. Patient admits to having back, neck, and shoulder pain, painful grooves in her shoulders from the weight of her breasts, rashes under her breasts, difficulty with vigorous activities, trouble finding bras and clothes that fit. She wears a 36M and would like to be a ~D cup. She reports that her cup size has been stable for at least 6 months. Her most recent mammogram was in the past year and was normal. She admits to a history of migraines, hypothyroidism, depression and hyperlipidemia. The patient isotherwise healthy. No heart, lung, breathing, liver, kidney, hepatitis, diabetes, seizure issues, bleeding or blood clotting disorder. The patient has had surgeries in the past, with no anesthesia com plications. She does house renovations with her . She has completed a breast specific questionnaire: 09/27/2016 9:46 AM PLASTICS BREAST QUESTIONS Headaches? Some of the time Pain in your breast area? A little of the time Lack of energy? Some of the time Difficulty doing vigorous physical activities (e.g. running or exercising)? Most of the time Feeling physically unbalanced? Most of the time Shoulder pain? None of the time Difficulty sleeping because of discomfort in your breast area? None of the time Neck pain? A little of the time Painful gouges or grooves in your shoulders from your bra straps? All of the time Feeling physically uncomfortable? Some of the time Rashes under your breasts? A little of the time Back pain? Most of the time Arm pain? A little of the time Pain, numbness or tingling in your hands because of your breast size? A little of the time Satisfaction with Breasts 34 PsychoSocial Well-being 51 Sexual Well-being 40 Physical Well-being 56 09/27/2016 9:46 AM Breast Q Reduction PreOp How your breasts look in clothes? Somewhat satisfied How your breast size matches the rest of your body? Somewhat dissatisfied The size of your breasts? Somewhat dissatisfied The shape of your breasts when you are wearing a bra? Somewhat satisfied How equal in size your breasts are to each other? Somewhat satisfied How comfortably your bras fit? Somewhat satisfied The shape of your breasts when you are not wearing a bra? Very dissatisfied How you look in the mirror clothed? Very dissatisfied How your breasts sit/hang on your chest? Very dissatisfied How normal your breasts look? Very dissatisfied How you look in the mirror unclothed? Very dissatisfied Confident in a social setting? Most of the time Of equal worth to other women? Some of the time Good about yourself? Some of the time Self-assured? Some of the time Confident in your clothes? Most of the time Accepting of your body? Most of the time Confident about your body? Some of the time Attractive? Most of the time Conservative Therapy Treatments: 09/27/2016 9:47 AM MYD-H PLASTICS CONSERVATIVE THERAPY TREATMENTS Physical therapy was effective at relieving my symptoms. No Relief How many months did you try this treatment? Less than 3 months Use of custom support bras relieved my symptoms. Never Tired Treatment by a chiropractor relieved my symptoms. Never Tried Weight loss relieved my symptoms. Some Relief How many months did you try this treatment? Less than 3 months Non-narcotic medications (such as Tylenol, Aspirin, Ibuprofen, Aleve, etc) have relieved my symptoms. Never Tried Narcotic pain relievers (such as Tylenol #3, Percocet, etc) have relieved my symptoms. Never Tried Other Treatments have relieved my symptoms. Never Tried Over the counter or prescription medication has relieved the rashes under my breasts. Some Relief How many months did you try this treatment? Less than 3 months Past Medical History: Diagnosis Date ??? 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 Pap smear abnormality of cervix 1998 ??? Urticaria ??? Vitamin B12 deficiency Past Surgical History: Procedure Laterality Date ??? SECTION ??? GYNECOLOGIC CRYOSURGERY 1998 ??? PRO DELIVERY ONLY 06/14/2011 ?? DELIVERY performed by V[facility]CTOR GOODWIN at [facility] ??? PRO LIGATE FALLOPIAN TUBE 06/14/2011 FALLOPIAN TUBE(S), TRANSECTION OR LIGATION, ABD APPROACH performed by VÍCTOR GOODWIN at [facility] ROS: HEENT, GI, /Renal, Psych, Card, Pulm, Endo, Heme, Immun, Neuro: negative Examination: BMI: Ht 170.2 cm (5' 7) Wt 92.5 kg (204 lb) BMI 31.95 kg/m?? BSA: Body surface area is 2.09 meters squared. General: On my examination today, the patient appears to be in good health. Her emotional outlook is positive and she asked appropriate questions throughout the visit. 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 BSA [employer]/[place] All other / Schnur 2.09 2.10 1000 750 Impression: Symptomatic bilateral breast hypertrophy. Bilateral breast reduction is medically indicated for relief of her breast-related symptoms. She watched the [facility] video on breast reduction, and was provided with an ASPS brochure and informed consent on breast reduction. It reviews the surgicalrisks, alternate skin incisions and pedicle versus free nipple graft techniques. It also discusses the option of volume reduction by liposuction alone, which does not alter the nipple-areolar complexposition. It talks about the impact of this surgery on decreasing breast cancer risk. We reviewed the timing of surgery relative to weight fluctuations and I've advised that surgery is best done at a realistic long-term stable weight. We talked about the outpatient nature of the surgery, drains, postoperative recovery, and time required off work. Post- operative restrictions include no lifting, pushing, or pulling more than 5lbs for 4-6 weeks. Walking is fine and encouraged. We discussed that they should expect 70% of their result at 3 month's post op. I discussed with the patient that I cannotguarantee a cup size after surgery. I think Giana Yeager would receive significant symptomatic relief from a bilateral breast reduction. We spoke about the expected outcomes as well as potential risks of surgery, includingwound healing complications and changes to nipple sensation. The following risks were reviewed in the video or in our discussion: Breast Feeding Discussion: Although, not all women experience difficulty with breast feeding after breast reduction, we discussed the potential risk. We also discussed the potential risk in breast enlargement, should she decide to have children in the future. Surgical Risks which are greater with open reduction: bleeding with risk of hematoma (<5%); numbness, which may be temporary or permanent; scarring, including abnormal scarring; infection (5-10%);fat necrosis resulting in a breast mass and possible need for revision. I stressed the likelihood of minor problems with delayed wound healing (~30%) and the rare complication of nippleareolar necrosis. She is also aware that there may be some residual pain after the surgery and that there may possibly be some asymmetry. Yepez, [place], or Spair Pattern Incision: More scarring on breast, but lower risk for scar revision.(She was informed that her insurer might not cover secondary revisions for scarring or asymmetry.) Pedicle Technique: volume of reduction may be limited by need to provide an adequate blood supply to the nipple. There is a very small risk of nipple loss. Most women (~60%) will be able to breast-feed. Free Nipple Graft: The grafts will initially have no sensation and once fully healed may not respond to temperature and touch as they do now. She has also been informed that they may not look entirely normal and may have patchy hypopigmentation. She will not be able to breast feed with this technique. After fully discussing the options, she has opted to pursue a: Bilateral Breast Reduction Yepez, Pedicle Bilateral Breast Reduction Yepez, Spair X Bilateral Breast Reduction Yepez, FNG She would like to proceed with surgery and I will inform her PCP of this plan. Surgical consent wassigned. Photos taken today with informed signed consent. Plan: 1. Schedule surgery. Surgical Grid: Duration: 2-2.5 hours Timeframe: Elective Procedure: Bilateral breast reduction CPT: 54395, 01883 Surgical Technique: Yepez, FNG Surgical site: Breasts Side: Bilateral Anesthesia: General Follow up: 7-10 days for HCK and possible drain removal with JULIUS PAT: H&P PCP Marla Karimi am acting as scribe for Dr. Dailey. All work documented was performed by Dr. Dailey. ILESLEY MD, performed the services which were documented by the scribe, and I agree withthe accuracy of the documentation in this encounter. documented in this encounter Plan of Treatment Not on file documented as of this encounter Visit Diagnoses Diagnosis Macromastia Hypertrophy of breast documented in this encounter Care Teams Crankshaft Grinder Relationship Specialty Start Date End Date Justina Juarez APRN [address] [place], [place] [address] [address] [place] [address] PCP - General Family Medicine 03/04/22 documented as of this encounter
--- OUTSIDE RECORDS SUMMARY | 2024-03-19 08:52 | XMS_ITS | Encounter Summary ---
Author Organization [facility] [place] [address] Care Team Providers Care Armhole Presser Name Role Phone Justina Juarez APRN Primary Care Provider Reason for Referral * Consultation (Routine) - Closed Specialty Diagnoses / Procedures Referred By Tomasa ledesma Referred To Contact Dermatology Diagnoses Melanocytic nevus, unspecified location Sofia Delaney APRN [address] [place] [address] [facility] Dermatology [address] [place] [address] Referral ID Status Reason Start Date Expiration Date V isits Requested Visits Authorized [id number] Closed Consult, Test & Treat PCP Updated and/or Approved 03/05/2022 03/05/2023 6 6 Encounter Details Date Type Department Care Team (Late st Contact Info) Description 03/05/2022 Transcribe Orders eDH Incoming Referrals [phone] Sofia Delaney APRN [address] [place], [place] [id number] Melanocytic nevus, unspecified location Social History Tobacco Use Types Packs/Day Years Used Date Smoking Tobacco: Never Smokeless Tobacco: Never Alcohol Use Standard Drinks/Week Comments No 0 (1 standard drink = 0.6 oz pur e alcohol) Sex and Gender Information Value Date Recorded Sex Assigned at Not on file Gender Identity Not on file Sexual Orientation Not on file documented as of this encounter Plan of Treatment Scheduled Referrals Name Type Priority Associated Diagnoses Orde r Schedule Referral to Dermatology Outpatient Referral Routine Melanocytic nevus, unspecified location Ordered: 03/05/2022 documented as of this encounter Visit Diagnoses Diagnosis Melanocytic nevus, unspecified location documented in this encounter Care Teams Armhole Presser Relationship Specialty Start Date End Date Justina Juarez APRN [address] [place] [address] [address] [place] [address] PCP - General Family Medicine 03/04/22 documented as of this encounter
--- OUTSIDE RECORDS SUMMARY | 2024-03-19 08:52 | XMS_ITS | Encounter Summary ---
Author Organization [facility] Address [address] [place] [address] Care Team Providers Care Plumbing Engineer Name Role Phone Sonja Causey MD Primary Care Provider [phone] Encounter Details Date Type Department Care Team (Latest Contact Info) Description 05/08/2016 11:26 EDT - 05/08/2016 23:59 EDT Hospital Encounter [address] [address] Unknown, Provider, Discharge Disposition: Auto Discharge Social History Tobacco Use Types Packs/Day Years Used Date Smoking Tobacco: Never Assessed Sex and Gender Information Value Date Recorded Sex Assigned at Not on file Gender Identity Not on file Sexual Orientation Not on file documented as of this encounter Discharge Diagnoses Diagnosis Z01.89 Encounter for other specified special examinations-Z01.89[ICD-10-CM] documented in this encounter Discharge Disposition Disposition Code Departure Means Destination Auto Discharge Home documented in this encounter Plan of Treatment Not on file documented as of this encounter Visit Diagnoses Not on filedocumented in this encounter Care Teams Plumbing Engineer Relationship Specialty Start Date End Date Sonja Causey MD [address] [place] [address] PCP - General 07/06/15 documented as of this encounter
--- OUTSIDE RECORDS SUMMARY | 2024-03-19 08:52 | XMS_ITS | Clinical Summary ---
[place] [address] Care Team Providers Care Physical Chemistry Professor Name Role Phone Justina Juarez APRN Primary Care Provider Allergies Active Allergy Reactions Criticality Noted Date Comments Aspirin Other (See Comments) High Unexplained GI bleed in 2002 Ibuprofen Other (See Comments) High unexplained GI bleed Nsaids (Non-Steroidal Anti-Inflammatory Drug) 07/02/2016 Other reaction(s): unexplained bleed post birthing Pyrazolones 07/02/2016 Other reaction(s): unknown Medications No known medications Active Problems Problem Noted Date Diagnosed Date Migraine headache 01/10/2023 Depression 01/10/2023 Hyperlipidemia 01/10/2023 Sciatica 01/10/2023 Macromastia 09/27/2016 Vitamin D deficiency 07/02/2016 Ganglion of wrist 03/26/2016 Acquired hypothyroidism 03/22/2016 Chronic urticaria 11/26/2012 Alopecia 11/26/2012 Rubella non-immune status 12/06/2010 Overview (12/06/2010): Needs to be offered MMR post Vitamin B12 deficiency 11/24/2010 Family or maternal historic risk of congenital anomaly, antepartum 11/24/2010 Overview (11/24/2010): First child: VSD Second child: club foot Assessment & Plan (01/23/2011 5:12 PM EDT): The patient's first child was born with a VSD that spontaneously closed. This places future pregnancies at risk and a echocardiogram is recommended. The feet could not be well visualized today secondary to position, but no clear evidence of clubbing was seen. 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 Gastrointestinal hemorrhage 04/26/2003 Immunizations Name Administration Dates Next Due Influenza PF, Split 05/24/2011 MMR Vaccine LIVE 06/16/2011 Td Adult, Absorbed, Preservative Free 06/16/2011 Tdap 06/16/2011 Family History Medical History Relation Comments Defects Son 1 club foot Congenital Anomalies Son 1 VSD Defects Son 2 VSD spontaneousl y closed Congenital Anomalies Son 2 club foot Angioedema Neg Hx Urticaria Neg Hx Relation Status Comments Son 1 Son 2 Social History Tobacco Use Types Packs/Day Years Used Date Smoking Tobacco: Never Smokeless Tobacco: Never Alcohol Use Standard Drinks/Week Comments No 0 (1 standard drink = 0.6 oz pur e alcohol) Sex and Gender Information Value Date Recorded Sex Assigned at Not on file Gender Identity Not on file Sexual Orientation Not on file Last Filed Vital Signs Vital Sign Reading Time Taken Comments Blood Pressure 113/68 11/26/2012 9:42 AM EDT Pulse 81 11/26/2012 9:42 AM EDT Temperature 37 ??C (98.6 ??F) 06/16/2011 9:00 AM EDT Respiratory Rate 20 11/26/2012 9:42 AM EDT Oxygen Saturation 98% 06/16/2011 9:00 AM EDT Inhaled Oxygen Concentration - - Weight 92.5 kg (204 lb) 01/10/2023 10:13 AM EDT Height 170.2 cm (5' 7) 01/10/2023 10:13 AM EDT Body Mass Index 31.95 01/10/2023 10:13 AM EDT Plan of Treatment Health Maintenance Due Date Last Done Comments CT Colonography 1971 Colonoscopy 1971 Colorectal Cancer Screening 1970 FIT DNA 1971 FIT 1971 Sigmoidoscopy (10 year) with FIT yearly 1971 Sigmoidoscopy 1971 Hepatitis C Screening 1989 Lipid Screening 1989 Hepatitis B vaccine (0-59 yrs) (1) 1990 Breast Cancer Share Decision Needed 2011 Breast Cancer screening 2011 PAP Smear 07/26/2014 07/26/2011 Diabetes Screening (HgbA1C or Glucose) 11/27/2015 Zoster vaccine (1 of 2) 2021 Tetanus vaccine 06/16/2021 06/16/2011, 06/16/2011 Covid-19 Vaccine (1 - 2022-24 season) 2023 Influenza (Flu) vaccine (1 o f 1 - Influenza standard series) 04/26/2024 05/24/2011 HIV screen Completed 12/05/2010 Tdap adult Completed 06/16/2011 Procedures Procedure Name Priority Date/Time Associated Diagnosis Comments COMPREHENSIVE METABOLIC PANEL (NON-FASTING) Routine 11/26/2012 11:21 AM EDT Chronic urticaria RECEPTIONIST NURSE CYTOLOGY FINAL REPORT Routine 07/26/2011 3:26 PM EST HIV SCREEN, 4TH GENERATION ([facility]/CGP/APD/NLH) Routine 12/05/2010 9:13 AM EDT from Last 3 Months or Most Recently Relevant to Health Maintenance Results * Comprehensive metabolic panel (non-fasting) (11/26/2012 11:21 AM EDT) Glucose Lvl 83 60 - 199 mg/dL CERNER MILLENNIUM Comment:Diabetes: >=200 mg/d L plus symptoms BUN 14 8 - 18 mg/dL CERNER MILLENNIUM Creatinine 0.70 0.70 - 1.20 mg/dL CERNER MILLENNIUM Comment: Please note that the pediatric reference intervals supplied above were not validated at [facility]. Results from pediatric patients should be interpreted in conjunction to the patient's age, height and muscle mass. Sodium 141 135 - 145 mmol/L CERNER MILLENNIUM Potassium 3.9 3.5 - 5.0 mmol/L CERNER MILLENNIUM Comment: Please note: ??Patients with WBC >100,000 may have falsely elevated Potassium levels. ??For accurate Potassium quantification in these patients send serum separator tube (gold top) for subsequent determinations. ??Contact the Clinical Chemistry Laboratory if there are any questions. Chloride 104 98 - 107 mmol/L CERNER MILLENNIUM CO2 26 22 - 31 mmol/L CERNER MILLENNIUM Anion Gap 11 5 - 15 mmol/L CERNER MILLENNIUM Calcium 9.1 8.5 - 10.5 mg/dL CERNER MILLENNIUM Total Protein 7.4 6.4 - 8.3 gm/dL CERNER MILLENNIUM Albumin 4.6 3.2 - 5.2 gm/dL CERNER MILLENNIUM AST 17 0 - 30 unit/L CERNER MILLENNIUM ALT 9 0 - 30 unit/L CERNER MILLENNIUM Alk Phos 66 40 - 104 unit/L CERNER MILLENNIUM Total Bilirubin 0.2 0.2 - 1.3 mg/dL CERNER MILLENNIUM Bili, Direct <0.1 0.0 - 0.3 mg/dL CERNER MILLENNIUM Estimated GFR >60 >=60 CERNER MILLENNIUM Comment: The National Kidney Disease Education Program (NKDEP) has recommended all laboratories report estimated GFR (eGFR) along with plasma creatinine measurements to assist you with recognition of early kidney disease. Caveats: ??Plasma creatinine should be at steady-state (unchanged within the past week). For patients multiply eGFR by 1.2. The MDRD equation was developed using patients between the ages of 18 and 70 years. ?? The MDRD equation has not been validated for patients < 18 years of age and should not be used to assess renal function in the pediatric population. ??The MDRD eGFR equation will also overestimate the true GFR of patients above the age of 70. ??This overestimation is variable but increases with age. At present, NKDEP does NOT recommend using the MDRD equation for drug dosing purposes and pharmacists should continue to use their current dosing methods. In addition, numerical eGFR values greater than 60 ml/min/1.73 square meters should be treated as > 60, and not an exact number due to greater inaccuracies at these higher values. Per NKDEP, they classify normal renal function as any GFR >60ml/min/1.73 square meters; chronic kidney disease when GFR <60, and renal failure when GFR <15. ??This calculation may not be valid for patients with atypical muscle mass (very lean or obese), acute renal failure, and in patients with diabetic kidney disease. References: http://nkdep.nih.gov/resources/NKDEP_Suggestn4Labs_0606_508.pdf http://www.kidney.org/professionals/kls/pdf/faq_gfr.pdf Yamile K, Harry NA, Ricardo AK, Ivan TS, Madhuri AD, Milly ZANE. Relative performance of the MDRD and CKD-EPI equations for estimating glomerular filtration rate among patients with varied clinical presentations. Clin J Am Soc Nephrol;6:1963-72. Blood specimen (specimen) 11/26/2012 11:21 AM EDT 11/26/2012 11:26 AM EDT Narrative Resulting Agency Comment Spec In Lab Tete Moseley MD CHEMISTRY ORDERABLES [facility] * RECEPTIONIST NURSE CYTOLOGY FINAL REPORT (07/26/2011 3:26 PM EST) Outside Collector Cytology Final Report ? [facility] ? Provider: ?? PSCHIRRER, E ?Pt. Name: ?? RAE YEAGERNAVDEEPMatilda GOLDMAN ?PRIYANKA ? Acc #: ?[id number] ?Pt. ? Col Date: ?? 07/26/2011 ? /Sex: ?1970,(41 years),Female ? Rec Date: ?? 07/26/2011 ? LOC: ?5L ? CYTOPATHOLOGY: ??RECEPTIONIST NURSE ? ---Adequacy--- ? Specimen submitted is satisfactory for evaluation. ??No endocervical ? component present . ? Note: ??Initial cross-sectional studies suggested that LAVON cells were more ? commonly identified when an endocervical component was present, however ? subsequent longitudinal studies fail to show that women lacking an ? endocervical component in a Pap smear are at increased risk for LAVON. ? ---Cytopathologic Diagnosis--- ? NORMAL ? Negative for Intraepithelial Lesion or Malignancy (NILM). ? 07/30/11 ?? Screened by: ??SLA ? 07/30/11 ?? Verified by: ??ETHAN Kenny(ASCP), Sonja Duarte - ? Staff Analyst ? ---Clinical Information--- ? HPV Option: ? Reflex HPV ? Preparation: ?Liquid Based Pap ? Specimen Source: ?Cervical Endocervical LBP ? LMP: ?Unknown ? Hormones?: ?No ? Hysterectomy?: ?No ?: ?Yes ?: ?No ? I.U.D.?: ?No ? Pelvic Radiation: ? No ? Prior RECEPTIONIST NURSE Therapy?: ? No ? Hist Abnl Pap/Biopsy?: ??No ? Hist of HPV Vaccine?: ?? No ? Hist of Smoking?: ? No ? Hist of MCKENZIE exposure?: ??No ? Clinical Data, Significant Therapy and Clinical Impression: ? Note: ? [facility] ? Provider: ?? PSCHIRRER, E ?Pt. Name: ?? MARCELL YEAGER ?PRIYANKA ? Acc #: ?[id number] ?Pt. ? Col Date: ?? 07/26/2011 ? /Sex: ?1970,(41 years),Female ? Rec Date: ?? 07/26/2011 ? LOC: ?5L ? The Pap test is a screening test for cervical cancer with an inherent ? false-negative rate dependent upon several variables. ??For further ? information please contact the [facility] Laboratory. ? CYTOPATHOLOGY: ??RECEPTIONIST NURSE ? Reference: ??Abendroth CS. ??Pharmacy Technologist of Pap Smear Results. ??In: ? Leonid BS, Juno [facility], ed. ??The Pap Smear. ??[place]: ??Hermelindo, 2002: ? 71-77. CERNER MILLENNIUM 07/26/2011 3:26 PM EST E Priyanka New MD PATHOLOGY/CYTOLOG Y ORDERABLES [facility] * HIV (12/05/2010 9:13 AM EDT) HIV 1/2 Ab Negative CERNER MILLENNIUM Blood specimen (specimen) 12/05/2010 9:13 AM EDT 12/05/2010 9:17 AM EDT Roshan Mcdaniel MD IMMUNOLOGY ORDERABLE S [facility] from Last 3 Months or Most Recently Relevant to Health Maintenance Advance Directives * Full Code (Latest Code Status on File) Date Activated Date Inactivated Comments 06/14/2011 10:15 AM 06/14/2011 4:04 PM Question Answer Comments Order Status: Initial Order Does patient have decision m aking capacity? Yes, Order is based on Patients wishes. Care Teams Physical Chemistry Professor Relationship Specialty Start Date End Date Jusitna Juarez APRN [address] [place] [address] [address] [place] [address] PCP - General Family Medicine 03/04/22
--- OUTSIDE RECORDS SUMMARY | 2024-03-19 08:52 | XMS_ITS | Encounter Summary ---
Author Organization [facility] Address [address] [place] [address] Care Team Providers Care Control Manager Name Role Phone Unavailable Primary Care Provider Unavailabl e Encounter Details Date Type Department Care Team (Late st Contact Info) Description 04/23/2003 Results Only [facility] - Maple conversion [address] [place] [address] Joey Mendoza, DO [address] [facility] [address] [place] [id number] Social History Tobacco Use Types Packs/Day Years Used Date Smoking Tobacco: Never Assessed Sex and Gender Information Value Date Recorded Sex Assigned at Not on file Gender Identity Not on file Sexual Orientation Not on file documented as of this encounter Plan of Treatment Not on file documented as of this encounter Procedures Procedure Name Priority Date/Time Associated Diagnosis Comments SURGICAL PATHOLOGY Routine 04/23/2003 0:00 EDT documented in this encounter Results * SURGICAL PATHOLOGY (04/23/2003 0:00 EDT) Pathology Report: SURGICAL PATHOLOGY REPORT Reports generated via electronic interface contain original data; however they are lacking the format of the original report. Caution should be taken when reading/interpreti ng unformatted reports. Name: ? TOYGIANA ? Accession #: ? [id number] ? : ? 1970 (Age: 33) ??F ? Collect Date: ? 04/23/2003 ? Location: ? [facility] ? Receive Date: ? 04/27/2003 ? Provider: JOEY MENDOZA DO Copy to: GLADYS CULP MD ? Final Pathologic Diagnosis: ? Stomach, antrum, biopsy: 1. ?Benign antral mucosa. ??See comment. 2. ?No evidence of Helicobacter pylori-like microorganisms on H&E-stained slide. Comment: ? Focal mild capillary congestion is seen in the subepithelial lamina propria. ??This area might have been seen as erythematous on endoscopic examination. ??([place])/[facility] Document reviewed and electronically signed by: Silvio Webber MD Report ??Date: 04/29/2003 14:52 By the signature above, the attending physician certifies that he/she has personally conducted a gross and/or microscopic examination of the described specimens and rendered or confirmed the above diagnosis. Specimen(s) Received: ? Antral biopsy Clinical History: ? Melena Gross Description: ? Received in Hollande's fixative labelled Pforzheimer and bx of antrum is a parikh-pink 0.3 x 0.2 x 0.2 cm soft tissue fragment. ??The specimen is entirely submitted in one cassette. ??([place])/[facility] End of Report SANDY PIERSON 04/23/2003 04/27/2003 15: 41 EDT Joey Mendoza DO PATHOLOGY ORDER FAVIO SANDY PIERSON [address] [place] [address] documented in this encounter Visit Diagnoses Not on filedocumented in this encounter
--- OUTSIDE RECORDS SUMMARY | 2024-03-19 08:52 | XMS_ITS | Encounter Summary ---
Author Organization [facility] Address [address] [place] [address] Care Team Providers Care Receiving Dock Checker Name Role Phone Unavailable Primary Care Provider Unavailabl e Encounter Details Date Type Department Care Team (Late st Contact Info) Description 02/05/2006 Results Only [facility] - Maple conversion [address] [place] [address] Argelia Willingham, [address] [place] [id number] Social History Tobacco Use Types Packs/Day Years Used Date Smoking Tobacco: Never Assessed Sex and Gender Information Value Date Recorded Sex Assigned at Not on file Gender Identity Not on file Sexual Orientation Not on file documented as of this encounter Plan of Treatment Not on file documented as of this encounter Procedures Procedure Name Priority Date/Time Associated Diagnosis Comments CYTOPATHOLOGY Routine 02/05/2006 0:00 EDT documented in this encounter Results * CYTOPATHOLOGY (02/05/2006 0:00 EDT) Pathology Report: CYTOPATHOLOGY REPORT Reports generated via electronic interface contain original data; however they are lacking the format of the original report. Caution should be taken when reading/interpreti ng unformatted reports. Name: ? RAE YEAGERCHENTENika Nixon ? Accession #: ? [id number] : ? 1970 (Age: 35) ??F ?Collect Date: ? 02/05/2006 Location: ? [facility] ? Receive Date: ? 02/06/2006 Provider: ?ARGELIA WILLINGHAM RADARMAN Copy to: ? Specimen/Source: ?ThinPrep Pap Test, Cervix/Endocervix, processed on [employer] ThinPrep Imaging System, with manual evaluation Last Menstrual Period: ? 12/15/05 Other: ? HPVA - HPV testing requested if ASC-US on the current ThinPrep Pap test. ? SPECIMEN ADEQUACY ? Satisfactory for Evaluation - transformation zone component present GENERAL CATEGORIZATION ? Negative for Intraepithelial Lesion or Malignancy INTERPRETATION ? Shift in aba present suggestive of bacterial vaginosis. ? Document reviewed and electronically signed by: ? ETHAN Dunn(ASCP) ? Report Date: ??02/11/2006 08:29 End of Report SANDY PIERSON 02/05/2006 02/06/2006 Argelia Willingham RADARMAN PATHOLOGY ORDERABLES [facility] [address] [place] [address] documented in this encounter Visit Diagnoses Not on filedocumented in this encounter
--- OUTSIDE RECORDS SUMMARY | 2024-03-19 08:52 | XMS_ITS | Encounter Summary ---
[place] [address] Care Team Providers Care Level Glass Forming Machine Operator Name Role Phone Justina Juarez APRN Primary Care Provider [phone] Reason for Referral * Consultation (Routine) - Closed Specialty Diagnoses / Procedures Referred By Tomasa ledesma Referred To Contact Plastic Surgery Diagnoses Macromastia BBR Consult Justina Juarez APRN [address] [place] [address] [facility] [place] [address] [address] Referral ID Status Reason Start Date Expiration Date V isits Requested Visits Authorized [id number] Closed Consult, Test & Treat PCP Updated and/or Approved 07/09/2022 07/09/2023 6 6 Encounter Details Date Type Department Care Team (Late st Contact Info) Description 07/09/2022 Transcribe Orders eDH Incoming Referrals [phone] Justina Juarez APRN [address] [place], [place] [id number] Macromastia Social History Tobacco Use Types Packs/Day [...] Associated Diagnoses Orde r Schedule Referral to Plastic Surgery Outpatient Referral Routine Macromastia Ordered: 07/09/2022 documented as of this encounter Visit Diagnoses Diagnosis Macromastia Hypertrophy of breast documented in this encounter Care Teams Level Glass Forming Machine Operator Relationship Specialty Start Date End Date Justina Juarez APRN [address] [place] [address] PCP - General Family Medicine 03/04/22 documented as of this encounter
--- OUTSIDE RECORDS SUMMARY | 2024-03-19 08:52 | XMS_ITS | Encounter Summary ---
Author Organization [facility] Address [address] [place] [address] Care Team Providers Care Rehabilitation Program Manager Name Role Phone Sonja Causey MD Primary Care Provider [phone] Encounter Details Date Type Department Care Team (Late st Contact Info) Description 01/05/2021 Lab Requisition [facility] Pathology & Laboratory Medicine - [address] [address] Outr Resulting Lab, Provider Social History Tobacco Use Types Packs/Day Years Used Date Smoking Tobacco: Never Assessed Sex and Gender Information Value Date Recorded Sex Assigned at Not on file Gender Identity Not on file Sexual Orientation Not on file documented as of this encounter Plan of Treatment Not on file documented as of this encounter Procedures Procedure Name Priority Date/Time Associated Diagnosis Comments [facility]COVID-19 TEST [facility] Today 01/05/2021 8:45 EDT COVID-19 TESTING Routine 01/05/2021 8:45 EDT documented in this encounter Results * COVID-19 TEST [facility] PCR (01/05/2021 8:45 EDT) Swab ENTIRE NASOPHARYNX / Unknown 01/05/2021 8:45 EDT 01/05/2021 17:10 EDT Provider Outr Resulting Lab MICROBIOLOGY - GENERAL ORDERABLES [facility] [address] [place] [address] * COVID-19 TESTING (01/05/2021 8:45 EDT) COVID-19 rt-PCR Result Negative Negative 01/06/2021 15:49 EDT [facility] Comment: This test has not been FDA cleared or approved. This test has been authorized by FDA under an EUA for use by authorized laboratories. This test has been authorized only for detection of nucleic acid from 2019-nCoV, not for any other viruses or pathogens. This test is only authorized for the duration of the declaration that circumstances exist justifying the authorization of emergency use of in vitro diagnostic tests for detection and/or diagnosis of 2019-nCoV under section 564(b)(1) of Act, 21 U.S.C ?? 360bbb-3(b) (1), unless the authorization is terminated or revoked sooner. Negative results do not preclude 2019-nCoV infection and should not be used as the sole basis for treatment or other patient management decisions. Negative results must be combined with clinical observations, patient history, and epidemiological information. This test was developed and its performance characteristics determined by [facility]. It has not been cleared or approved by the US Food and Drug Administration. FDA does not require this test to go through premarket FDA review. This test is used for clinical purposes. It should not be regarded as investigational or for research. This laboratory is certified under the Clinical Laboratory Improvement Amendments (CLIA) as qualified to perform high complexity clinical laboratory testing. This test is based on the [facility] COVID-19 Emergency Use Authorization (EUA) assay, with minor modification as defined by the FDA Performed on the [employer] 7 Flex RT-PCR System. Performing Lab [facility] 01/06/2021 15:49 EDT [facility] Swab 01/05/2021 8:45 EDT 01/05/2021 17:10 EDT Provider Outr Resulting Lab MICROBIOLOGY - GENERAL ORDERABLES [facility] [address] [place] [address] documented in this encounter Visit Diagnoses Not on filedocumented in this encounter Care Teams Rehabilitation Program Manager Relationship Specialty Start Date End Date Sonja Causey MD [address] [place] [address] PCP - General 07/06/15 documented as of this encounter
--- OUTSIDE RECORDS SUMMARY | 2024-03-19 08:52 | XMS_ITS | Encounter Summary ---
Author Organization [facility] Address [address] [place] [address] Care Team Providers Care Despatch Clerk Name Role Phone Sonja Causey MD Primary Care Provider [phone] Encounter Details Date Type Department Care Team (Late st Contact Info) Description 05/18/2019 Results Only [facility] [phone] Franca Briceno, ROADWAY ENGINEER [address] [place] [id number] Social History Tobacco Use Types Packs/Day Years [...] Diagnosis Comments PAP TEST- RESULT ONLY Routine 05/18/2019 0:00 EDT documented in this encounter Results * PAP TEST- RESULT ONLY (05/18/2019 0:00 EDT) Pathology Report: CYTOPATHOLOGY REPORT Reports generated via electronic interface contain original data; however they are lacking the format of the original report. Caution should be taken when reading/interpreti ng unformatted reports. Name: ? GIANA YEAGER ? Accession #: ? [id number] ? : ? 1970 (Age: 49) ??F ?Collect Date: ? 05/18/2019 ? Location: ? [facility] ? Receive Date: ? 05/19/2019 ? Provider: FRANCA BRICENO APRN Copy to: SONJA MAC MD ? Final Report SPECIMEN ADEQUACY ? Satisfactory for Evaluation - transformation zone component absent GENERAL CATEGORIZATION ? Negative for Intraepithelial Lesion or Malignancy INTERPRETATION ? Shift in aba present suggestive of bacterial vaginosis. Last Menstrual Period: 04/29/2019 Hormonal/Contracep tive status: Tubal ligation Specimen/Source: ??Pap Test, Cervix, ThinPrep Imaging System with manual evaluation Document reviewed and electronically signed by: ? Grover Antoine, [place](ASCP) ? Report ??Date: 05/20/2019 15:33 HPV with Pap Test ? Date Ordered: ? 05/20/2019 ? Status: ?? Signed Out ?Date Complete: ? 05/21/2019 ? By: ??System Interface ? Date Reported: ? 05/21/2019 ? Interpretation RESULT: Negative for HPV. No E6 or E7 mRNA is detected from HPV types 16,18,31,33,35, 39,45,51,52,56,58, 59,66, and 68 by internal grinder mediated amplification. Comments Document reviewed and electronically signed by: ? System Interface ? Report date: 05/21/2019 By the signature above, the attending physician certifies that he/she has personally conducted a gross and/or microscopic examination of the described specimens and rendered or confirmed the above diagnosis. End of Report [facility] 05/18/2019 05/19/2019 Franca Briceno APRN PATHOLOGY ORDERAB LES [facility] [address] [place] [address] documented in this encounter Visit Diagnoses Not on filedocumented in this encounter Care Teams Despatch Clerk Relationship Specialty Start Date End Date Sonja Causey MD [address] [place], [place] [id number] PCP - General 07/06/15 documented as of this encounter
--- OUTSIDE RECORDS SUMMARY | 2024-03-19 08:52 | XMS_ITS | Encounter Summary ---
Author Organization [facility] Address [facility] [place] [address] Care Team Providers Care Plaster Model And Mold Maker Name Role Phone Justina Juarez APRN Primary Care Provider Reason for Visit * Consultation (Routine) - Closed Specialty Diagnoses / Procedures Referred By Tomasa ledesma Referred To Contact Dermatology Diagnoses Melanocytic nevus, unspecified location Sofia Delaney L, WEATHERSEAL TECHNICIAN [address] [place] [address] [facility] Dermatology [address] [place] [address] Referral ID Status Reason Start Date Expiration Date V isits Requested Visits Authorized [id number] Closed Consult, Test & Treat PCP Updated and/or Approved 03/05/2022 03/05/2023 6 6 Encounter Details Date Type Department Care Team (Late st Contact Info) Description 03/29/2022 1:20 PM EDT Office Visit Dermatology at [facility] [address] [place] [address] Lashay Reed MD [facility] [address] [address] Multiple benign nevi; Seborrheic keratoses; Dermatofibroma; Chambers angioma; Inflamed seborrheic keratosis; Skin tags, multiple acquired Social History Tobacco Use Types Packs/Day Years Used Date Smoking Tobacco: Never Smokeless Tobacco: Never Alcohol Use Standard Drinks/Week Comments No 0 (1 standard drink = 0.6 oz pur e alcohol) Sex and Gender Information Value Date Recorded Sex Assigned at Not on file Gender Identity Not on file Sexual Orientation Not on file documented as of this encounter Progress Notes * Lashay Reed - 03/29/2022 1:20 PM EDT Images from the original note were not included. DEPARTMENT OF DERMATOLOGY [facility] D[facility]atology [facility] Provider: Lashay Reed MD Patient's preferred name Pal Preferred contact method for results []Phone []myD-H []Letter Detailed phone message OK? Are there any other people with whom we may discuss your care? Past Medical History Date, location, treatment Melanoma No Dysplastic nevi No SCC No BCC No No UV Exposure & Protection N Other relevant past medical history Cyst, left chest s/p excision 09/02/2019 Family History Details Melanoma No NMSC Other relevant family history Grandmother and mother - unknown NMSC Social History Occupation: Hobbies: Other: Pre-Procedure Screening Details Allergy to lidocaine, epinephrine, Dermabond, chlorhexidine, or adhesives Bleeding disorder or blood thinners Implanted devices (Pacemaker, defibrillator, deep brain stimulator, cochlear implant) History of Present Illness: Giana Yeager is a 52 y.o. Patient returns to clinic today for a FSE with the following concerns: - Spot on the left lower leg. Has previously been looked at - Many spots all over - back and legs - Skin tag in groin area that is irritated - Has noticed hair thinning Last visit at Dermatology: 09/11/2019 Last visit with this provider: Visit date not found Medications: Reviewed in eD-H Allergies: Reviewed in eD-H Skin Examination: Full skin examination: Patient asked to undress to their comfort level. Verbalized that the provider's preference is that patient remove all clothing and that the provider will not examine areas patient elects to keep covered. Examination of the scalp, hair, head, face, ears, neck, chest, axillae, abdomen, back, buttocks, and upper and lower extremities was normal with the exception of the findings below. Genitalia not examined. Assessment/Plan #. Dermatofibroma - firm pink papule with peripheral pigmentation on the right knee - Reviewed benign nature of these skin lesions. No treatment necessary. If they become irritated, punch removal is an option but would be trading the papule for a scar. - Patient opted for no treatment at this time. #. Inflamed seborrheic keratosis - stuck on rough papule with erythema located on the abdomen x 1, left mons pubis x 1 - Reassured of the benign nature of these lesions, given irritation plan on treatment with LN2 today - Will plan to treat irritated SK under the breasts at f/u Destruction with Liquid Nitrogen - two freeze thaw cycles Number of lesions - 2 The patient's verbal consent for liquid nitrogen was obtained. Risks and benefits were explained. The possible need for additional liquid nitrogen was reviewed. Risks of increased pigmentation, decreased pigmentation, blister formation, scar, infection, pain, and recurrence were all discussed. The patient tolerated the procedure well. Wound care was reviewed. #. Skin tags - pedunculated flesh colored papules located on the axillae - Reviewed benign nature of these lesions. Discussed treatment options and possible cost. #.Seborrheic Keratoses - stuck on, waxy papules on the trunk and extremities - Benign. No treatment needed. #. Benign Nevi - Scattered light to medium brown macules on the trunk and extremities with reassuring pigment pattern on dermoscopy. - Reassured of benign appearance on exam today. - Advised patient to watch for any new or changing lesions. - Reviewed warning signs of skin cancer. #. Chambers Angioma(s) - 0.2-0.4cm bright red, well-demarcated papule(s). - Benign. No treatment needed. #. Irritated Nevus - flesh colored, pedunculated papule on the mons pubis - Will plan to schedule removal at a later date due to national lidocaine shortage Other: ??? N/A RTC: PRN for irritated nevus/ISK removal [x]Note routed to secretary of state []Recall placed in scheduling system []Appointment scheduled at checkout Scribe attestation: Liliana Gregory has performed the documentation for this encounter in the presence of and acting as a scribe for Lashay Reed MD. I performed the above scribed service and agree with the accuracy of the documentation in this encounter. Reviewed and signed by: Lashay Reed MD Dermatology [facility] Patient seen and evaluated with staff freight sorter: Liliana Marrero MD Dermatology [facility] * Liliana Marrero MD - 03/29/2022 1:20 PM EDT I directly supervised the resident during this office visit. The resident physician presented the history and physical exam to me. I then saw and examined this patient with the resident. We reviewed the history and pertinent details and I confirmed the physical exam findings. I agree with the details of the history and physical exam as documented in the resident physician's note. Liliana Marrero MD Staff Physician [facility] documented in this encounter Plan of Treatment Scheduled Referrals Name Type Priority Associated Diagnoses Orde r Schedule Referral to Dermatology Outpatient Referral Routine Melanocytic nevus, unspecified location Ordered: 03/05/2022 documented as of this encounter Visit Diagnoses Diagnosis Multiple benign nevi Benign neoplasm of skin, site unspecified Seborrheic keratoses Dermatofibroma Benign neoplasm of skin, site unspecified Chambers angioma Nevus, non-neoplastic Inflamed seborrheic keratosis Skin tags, multiple acquired documented in this encounter Care Teams Plaster Model And Mold Maker Relationship Specialty Start Date End Date ShaylamaxineJustina sanKEVON [address] [place] [address] PCP - General Family Medicine 03/04/22 documented as of this encounter
--- OUTSIDE RECORDS SUMMARY | 2024-03-19 08:52 | XMS_ITS | Encounter Summary ---
Author Organization [facility] Address [address] [place] [address] Care Team Providers Care Finance Manager Name Role Phone Unavailable Primary Care Provider Unavailabl e Encounter Details Date Type Department Care Team (Late st Contact Info) Description 05/24/2008 Before PRISM Converted Visit (Maple) [facility] - Maple conversion [address] [place] [address] Sonja Causey MD [address] [place], [place] [id number] Social History Tobacco Use Types Packs/Day Years Used Date Smoking Tobacco: Never Assessed Sex and Gender Information Value Date Recorded Sex Assigned at Not on file Gender Identity Not on file Sexual Orientation Not on file documented as of this encounter Plan of Treatment Not on file documented as of this encounter Procedures Procedure Name Priority Date/Time Associated Diagnosis Comments HPV DETECTION, HIGH RISK TYPES Routine 05/24/2008 11:00 EDT CYTOPATHOLOGY Routine 05/24/2008 0:00 EDT documented in this encounter Results * HUMAN PAPILLOMA VIRUS DNA TEST (05/24/2008 11:00 EDT) Specimen Description Cervix, ThinPrep vial [facility] Result Negative for HPV types 16, 18, 31, 33, 35, 39, 45, 51, 52, 56, 58, 59, and 68. [facility] Report Status Final 06/03/2008 [facility] 05/24/2008 11:0 0 EDT 05/31/2008 11:00 EDT Sonja Causey MD MICROBIOLOGY - GENER AL ORDERABLES [facility] [address] [place] [address] * CYTOPATHOLOGY (05/24/2008 0:00 EDT) Pathology Report: CYTOPATHOLOGY REPORT ? Reports generated via electronic interface contain original data; ? however they are lacking the format of the original report. ? Caution should be taken when reading/interpreti ng unformatted reports. ? Name: ? GIANA YEAGER ? Accession #: ? [id number] ? : ? 1970 (Age: 38) ??F ?Collect Date: ? 05/24/2008 ? Location: ? [facility] ? Receive Date: ? 05/25/2008 ? Provider: ?SONJA GRESSER MD ? Copy to: ? Specimen/Source: ?Pap Test, Cervix/Endocervix, ThinPrep Imaging System ? with manual evaluation ? Last Menstrual Period: ? 09/12/08 ? Other: ? HPVDX - HPV testing requested regardless of diagnosis on current ThinPrep Pap ?? test. ? SPECIMEN ADEQUACY ? Satisfactory for Evaluation ? - transformation zone component present ? GENERAL CATEGORIZATION ? Negative for Intraepithelial Lesion or Malignancy ? INTERPRETATION ? Reactive cellular changes associated with inflammation present (includes ?? repair). ? Document reviewed and electronically signed by: ? Gosia L. Powers, MD ? Report Date: ??05/28/2008 15:34 ? End of Report ? [facility] 05/24/2008 05/25/2008 Sonja Causey MD PATHOLOGY ORDERABLES Performing Organization Address City/State/[facility] Co de Phone Number [facility] [address] [place] [address] documented in this encounter Visit Diagnoses Not on filedocumented in this encounter
--- OUTSIDE RECORDS SUMMARY | 2024-03-19 08:52 | XMS_ITS | Encounter Summary ---
Author Organization [facility] Address [address] [place] [address] Care Team Providers Care Mobility Architect Name Role Phone Sonja Causey MD Primary Care Provider [phone] Encounter Details Date Type Department Care Team (Late st Contact Info) Description 11/10/2020 Lab Requisition [facility] Pathology & Laboratory Medicine - [address] [address] Outr Resulting Lab, Provider Social History Tobacco [...] Priority Date/Time Associated Diagnosis Comments ZZCOVID-19 TEST [facility] PCR Today 11/10/2020 9:41 EDT COVID-19 TESTING Routine 11/10/2020 9:41 EDT documented in this encounter Results * COVID-19 TEST [facility] PCR (11/10/2020 9:41 EDT) Swab ENTIRE NASOPHARYNX / Unknown 11/10/2020 9:41 EDT 11/10/2020 16:16 EDT Provider Outr Resulting Lab MICROBIOLOGY - GENERAL ORDERABLES [facility] [address] [place] [address] * COVID-19 TESTING (11/10/2020 9:41 EDT) COVID-19 rt-PCR Result Negative Negative 11/11/2020 13:01 EDT [facility] Comment: This test has [...] developed and its performance characteristics determined by [facility]. It has not been cleared or approved [...] testing. This test is based on the [facility] COVID-19 Emergency Use Authorization (EUA) assay, with minor modification as defined by the FDA Performed on the TPACKo 7 Pro RT-PCR System. Performing Lab [facility] 11/11/2020 13:01 EDT [facility] Swab 11/10/2020 9:41 EDT 11/10/2020 16:16 EDT Provider Outr Resulting Lab MICROBIOLOGY - GENERAL ORDERABLES [facility] [address] [place] [address] documented in this encounter Visit Diagnoses Not on filedocumented in this encounter Care Teams Mobility Architect Relationship Specialty Start Date End Date Sonja Causey MD [address] [place] [address] PCP - General 07/06/15 documented as of this encounter
--- OUTSIDE RECORDS SUMMARY | 2024-03-19 08:52 | XMS_ITS | Encounter Summary ---
Author Organization [facility] Address [address] [place] [address] Care Team Providers Care Clinical Director Name Role Phone Unavailable Primary Care Provider Unavailabl e Encounter Details Date Type Department Care Team (Late st Contact Info) Description 02/17/2007 Results Only [facility] - Maple conversion [address] [place] [address] Sonja Charles MD [address] [place], [place] [id number] Social History Tobacco Use Types Packs/Day Years Used Date Smoking Tobacco: Never Assessed Sex and Gender Information Value Date Recorded Sex Assigned at Not on file Gender Identity Not on file Sexual Orientation Not on file documented as of this encounter Plan of Treatment Not on file documented as of this encounter Procedures Procedure Name Priority Date/Time Associated Diagnosis Comments CYTOPATHOLOGY Routine 02/17/2007 0:00 EDT documented in this encounter Results * CYTOPATHOLOGY (02/17/2007 0:00 EDT) Pathology Report: CYTOPATHOLOGY REPORT Reports generated via electronic interface contain original data; however they are lacking the format of the original report. Caution should be taken when reading/interpreti ng unformatted reports. Name: ? CHRISTELLEGIANA ? Accession #: ? [id number] : ? 1970 (Age: 36) ??F ?Collect Date: ? 02/17/2007 Location: ? [facility] ? Receive Date: ? 02/19/2007 Provider: ?SONJA CHARLES MD Copy to: ? Specimen/Source: ?ThinPrep Pap Test, Cervix/Endocervix, processed on [employer] ThinPrep Imaging System, with manual evaluation Last Menstrual Period: ? 02/01/07 Previous Gynecologic Pathology: ? ASC-US: 1998 Other: ? HPVA - HPV testing requested if ASC-US on the current ThinPrep Pap test. ? SPECIMEN ADEQUACY ? Satisfactory for Evaluation - transformation zone component present GENERAL CATEGORIZATION ? Negative for Intraepithelial Lesion or Malignancy INTERPRETATION ? Shift in aba present suggestive of bacterial vaginosis. ? Document reviewed and electronically signed by: ? ETHAN Rahman(ASCP) ? Report Date: ??02/27/2007 14:19 End of Report [facility] 02/17/2007 02/19/2007 Sonja Charles MD PATHOLOGY ORDERABLES [facility] [address] [place] [address] documented in this encounter Visit Diagnoses Not on filedocumented in this encounter
--- OUTSIDE RECORDS SUMMARY | 2024-03-19 08:52 | XMS_ITS | Encounter Summary ---
Author Organization [facility] Address [address] [place] [address] Care Team Providers Care Applications Sales Consultant Name Role Phone Sonja Causey MD Primary Care Provider [phone] Encounter Details Date Type Department Care Team (Late st Contact Info) Description 11/11/2023 Lab Requisition [facility] Pathology & Laboratory Medicine - [address] [address] Outr Resulting Lab, Provider Social History Tobacco [...] Procedure Name Priority Date/Time Associated Diagnosis Comments H. PYLORI ANTIGEN Routine 11/11/2023 6:45 EDT documented in this encounter Results * H. PYLORI ANTIGEN (11/11/2023 6:45 EDT) H. Pylori Negative Negative 11/12/2023 14:15 EDT [facility] Comment:Indicates the absenc e of H. pylori stool antigen, (or the level of antigen is below that which can be detected by the assay) Feces SPECIMEN FROM RECTUM / Unknown 11/11/2023 6:45 EDT 11/11/2023 21:38 EDT Narrative [facility] - 11/12/2023 14:15 EDT New Liaison XL testing method used as of 06/17/2023 Provider Outr Resulting Lab MICROBIOLOGY - GENERAL ORDERABLES [facility] [address] [place], [place] [address] documented in this encounter Visit Diagnoses Not on filedocumented in this encounter Care Teams Applications Sales Consultant Relationship Specialty Start Date End Date Sonja Causey MD [address] [place], [place] [address] PCP - General 07/06/15 documented as of this encounter
--- OUTSIDE RECORDS SUMMARY | 2024-03-19 08:52 | XMS_ITS | Encounter Summary ---
Author Organization [facility] Address [address] [place] [address] Care Team Providers Care Computed Tomography Technician Name Role Phone Sonja Causey MD Primary Care Provider [phone] Encounter Details Date Type Department Care Team (Late st Contact Info) Description 2024 Lab Requisition [facility] Pathology & Laboratory Medicine - [facility] [address] [place] [address] Adjovu, Justina, ACT ENGLISH TUTOR [address] [place] [address] Encounter for other general examination Social History Tobacco Use Types Packs/Day Years Used Date Smoking Tobacco: Never Assessed Sex and Gender Information Value Date Recorded Sex Assigned at Not on file Gender Identity Not on file Sexual Orientation Not on file documented as of this encounter Plan of Treatment Not on file documented as of this encounter Procedures Procedure Name Priority Date/Time Associated Diagnosis Comments PAP TEST Today 03/04/2024 13:00 EDT Encounter for other general examination HPV DNA DETECTION WITH GENOTYPING, PCR Today 03/04/2024 13:00 EDT Encounter for other general examination documented in this encounter Results * HPV DNA DETECTION WITH GENOTYPING, PCR (03/04/2024 13:00 EDT) HPV High Risk type 16, PCR Negative Negative 03/12/2024 14:24 EDT [facility] HPV High Risk type 18, PCR Negative Negative 03/12/2024 14:24 T [facility] HPV other High Risk types, PCR Negative Negative 03/12/2024 14:24 T [facility] Comment: The following Other High Risk HPV types were not detected: ??31,33, 35, 39, 45, 51, 52, 56, 58, 59, 66 and 68. Pap Test CERVIX UTERI STRUCTURE / Unknown 03/04/2024 13:00 EDT 03/11/2024 14:28 EDT uJstina Juarez NP MICROBIOLOGY - GENER AL ORDERABLES [facility] [address] [place], [place] [id number] * PAP TEST (03/04/2024 13:00 EDT) Specimens A. Cervix and/or Endocervix , ThinPrep Imaging System with Manual Evaluation 03/12/2024 14:24 [facility] Specimen Adequacy Satisfactory for Evaluation - transformation zone component present 03/12/2024 14:24 [facility] General Categorization Negative for intraepithelial lesion or malignancy 03/12/2024 14:24 [facility] Descriptive Diagnosis Reactive cellular changes associated with inflammation present (includes repair). 03/12/2024 14:24 [facility] Attestation By the signature below, the attending physician certifies that they have personally conducted a gross and/or microscopic examination of the described specimens and rendered or confirmed the above diagnosis. 03/12/2024 14:24 [facility] at 1424 Clinical History SEE BELOW 03/12/20 14:24 [facility] Performing Lab [facility] 03/12/2024 14:24 [facility] Scanned Images 03/12/2024 14:24 [facility] HPV High Risk type 16, PCR Negative 03/12/2024 14:24 EDT [facility] HPV High Risk type 18, PCR Negative 03/12/2024 14:24 EDT [facility] HPV Other High Risk Types, PCR Negative The following Other High Risk HPV types were not detected: 31,33, 35, 39, 45, 51, 52, 56, 58, 59, 66 and 68. 03/12/2024 14:24 EDT [facility] Pap Test CERVIX UTERI STRUCTURE / Unknown 03/04/2024 13:00 EDT 2024 11:27 EDT Justina Juarez ACT ENGLISH TUTOR PATHOLOGY ORDERABLES Performing Organization Address City/State/[facility] Co de Phone Number [facility] [address] [place] [phone] documented in this encounter Visit Diagnoses Diagnosis Encounter for other general examination documented in this encounter Care Teams Computed Tomography Technician Relationship Specialty Start Date End Date Sonja Causey MD [address] [place] [address] PCP - General 07/06/15 documented as of this encounter
--- OUTSIDE RECORDS SUMMARY | 2024-03-19 08:52 | XMS_ITS | Referral Summary ---
Author Organization [facility] Address [address] [place] [address] Care Team Providers Care Multimedia Designer Name Role Phone Sonja Causey MD Primary Care Provider [phone] Encounters Date Type Department Care Team Description 2024 Lab Requisition [facility] Pathology & Laboratory Medicine - [address] [address] Justina Juarez NP Encounter for other general examination from Last 3 Months Social History Tobacco Use Types Packs/Day Years Used Date Smoking Tobacco: Never Assessed Sex and Gender Information Value Date Recorded Sex Assigned at Not on file Gender Identity Not on file Sexual Orientation Not on file Plan of Treatment Not on file Procedures Procedure Name Priority Date/Time Associated Diagnosis Comments PAP TEST Today 03/04/2024 13:00 EDT Encounter for other general examination HPV DNA DETECTION WITH GENOTYPING, PCR Today 03/04/2024 13:00 EDT Encounter for other general examination from Last 3 Months Results * PAP TEST (03/04/2024 13:00 EDT) Specimens A. Cervix and/or Endocervix , ThinPrep Imaging System with Manual Evaluation 03/12/2024 14:24 EDT [facility] Specimen Adequacy Satisfactory for Evaluation - transformation zone component present 03/12/2024 14:24 EDT [facility] General Categorization Negative for intraepithelial lesion or malignancy 03/12/2024 14:24 EDT [facility] Descriptive Diagnosis Reactive cellular changes associated with inflammation present (includes repair). 03/12/2024 14:24 T [facility] Attestation By the signature below, the attending physician certifies that they have personally conducted a gross and/or microscopic examination of the described specimens and rendered or confirmed the above diagnosis. 03/12/2024 14:24 EDT [facility] at 1424 Clinical History SEE BELOW 03/12/20 14:24 EDT [facility] Performing Lab [facility] 03/12/2024 14:24 T [facility] Scanned Images 03/12/2024 14:24 [facility] HPV High Risk type 16, PCR Negative 03/12/2024 14:24 EDT [facility] HPV High Risk type 18, PCR Negative 03/12/2024 14:24 T [facility] HPV Other High Risk Types, PCR Negative The following Other High Risk HPV types were not detected: 31,33, 35, 39, 45, 51, 52, 56, 58, 59, 66 and 68. 03/12/2024 14:24 T [facility] Pap Test CERVIX UTERI STRUCTURE / Unknown 03/04/2024 13:00 EDT 2024 11:27 EDT Justina Juarez NP PATHOLOGY ORDERABLES Performing Organization Address City/State/[facility] Co de Phone Number [facility] [address] [place] [address] [phone] * HPV DNA DETECTION WITH GENOTYPING, PCR (03/04/2024 13:00 EDT) HPV High Risk type 16, PCR Negative Negative 03/12/2024 14:24 EDT [facility] HPV High Risk type 18, PCR Negative Negative 03/12/2024 14:24 EDT [facility] HPV other High Risk types, PCR Negative Negative 03/12/2024 14:24 EDT [facility] Comment: The following Other High Risk HPV types were not detected: ??31,33, 35, 39, 45, 51, 52, 56, 58, 59, 66 and 68. Pap Test CERVIX UTERI STRUCTURE / Unknown 03/04/2024 13:00 EDT 03/11/2024 14:28 EDT Justina Juarez AUTOMOTIVE GLASS SPECIALIST MICROBIOLOGY - GENER AL ORDERABLES [facility] [address] [place] [address] from Last 3 Months Care Teams Multimedia Designer Relationship Specialty Start Date End Date Sonja Causey MD [address] [place] [address] PCP - General 07/06/15
--- OUTSIDE RECORDS SUMMARY | 2024-03-19 08:52 | XMS_ITS | Encounter Summary ---
[place] [address] Care Team Providers Care Addiction Specialist Name Role Phone Justina Juarez APRN Primary Care Provider Encounter Details Date Type Department Care Team (Latest Contact Info) Description 01/10/2023 Travel Social History Tobacco Use Types Packs/Day Years [...] on filedocumented in this encounter Care Teams Addiction Specialist Relationship Specialty Start Date End Date Justina Juarez APRN [address] [place] [address] PCP - General Family Medicine 03/04/22 documented as of this encounter
--- OUTSIDE RECORDS SUMMARY | 2024-03-19 08:52 | XMS_ITS | Encounter Summary ---
Author Organization [facility] Address [address] [place] [id number] Care Team Providers Care [employer] Name Role Phone Unavailable Primary Care Provider Unavailabl e Encounter Details Date Type Department Care Team (Late st Contact Info) Description 09/02/2012 Results Only [facility] [phone] Lani Martinez MD [address] [place] [address] Social History Tobacco Use Types Packs/Day Years [...] Diagnosis Comments PAP TEST- RESULT ONLY Routine 09/02/2012 0:00 EST documented in this encounter Results * PAP TEST- RESULT ONLY (09/02/2012 0:00 EST) Pathology Report: CYTOPATHOLOGY REPORT Reports generated via electronic interface contain original data; however they are lacking the format of the original report. Caution should be taken when reading/interpreti ng unformatted reports. Name: ? GIANA YEAGER ? Accession #: ? [id number] ? : ? 1970 (Age: 42) ??F ?Collect Date: ? 09/02/2012 ? Location: ? [facility] ? Receive Date: ? 09/03/2012 ? Provider: LANI MARTINEZ MD Copy to: GLADYS CHARLES MD ? Final Report SPECIMEN ADEQUACY ? Satisfactory for Evaluation - transformation zone component present GENERAL CATEGORIZATION ? Negative for Intraepithelial Lesion or Malignancy ?? Specimen/Source: ??Pap Test, Cervix/Endocervix, ThinPrep Imaging System with manual evaluation Document reviewed and electronically signed by: ? ETHAN Robison(ASCP) ? Report ??Date: 09/05/2012 15:56 HPV with Pap Test ? Date Ordered: ? 09/05/2012 ? Status: ?? Signed Out ?Date Complete: ? 09/09/2012 ? By: ??System Interface ? Date Reported: ? 09/09/2012 ? Interpretation RESULT: Negative for HPV. No E6 or E7 mRNA is detected from HPV types 16,18,31,33,35, 39,45,51,52,56,58, 59,66, and 68 by activities concierge mediated amplification. Comments Document reviewed and electronically signed by: ? System Interface ? Report date: 09/09/2012 By the signature above, the attending physician certifies that he/she has personally conducted a gross and/or microscopic examination of the described specimens and rendered or confirmed the above diagnosis. End of Report [facility] 09/02/2012 09/03/2012 Lani Martinez MD PATHOLOGY ORDERABLES [facility] [address] [place] [address] documented in this encounter Visit Diagnoses Not on filedocumented in this encounter
--- OUTSIDE RECORDS SUMMARY | 2024-03-19 08:52 | XMS_ITS | Encounter Summary ---
Author Organization [facility] Address [address] [place] [address] Care Team Providers Care Amphibian Crewmember Name Role Phone Unavailable Primary Care Provider Unavailabl e Encounter Details Date Type Department Care Team (Late st Contact Info) Description 09/13/2003 Results Only [facility] [address] [place] [address] Pal Zuleta MD [address] [place] [address] Social History Tobacco Use Types Packs/Day Years Used Date Smoking Tobacco: Never Assessed Sex and Gender Information Value Date Recorded Sex Assigned at Not on file Gender Identity Not on file Sexual Orientation Not on file documented as of this encounter Plan of Treatment Not on file documented as of this encounter Procedures Procedure Name Priority Date/Time Associated Diagnosis Comments CYTOPATHOLOGY Routine 09/13/2003 0:00 EST documented in this encounter Results * CYTOPATHOLOGY (09/13/2003 0:00 EST) Pathology Report: CYTOPATHOLOGY REPORT Reports generated via electronic interface contain original data; however they are lacking the format of the original report. Caution should be taken when reading/interpreti ng unformatted reports. Name: ? GIANA YEAGER ? Accession #: ? [id number] : ? 1970 (Age: 33) ??F ?Collect Date: ? 09/13/2003 Location: ? [facility] ? Receive Date: ? 09/14/2003 Provider: ?PAL ZULETA MD Copy to: ? Specimen/Source: ?ThinPrep Pap Test, Source Not Provided Last Menstrual Period: ? Other: ? Additional clinical information: nl pap 09/08/02 ? SPECIMEN ADEQUACY ? Satisfactory for Evaluation - transformation zone component present GENERAL CATEGORIZATION ? Negative for Intraepithelial Lesion or Malignancy ? Document reviewed and electronically signed by: ? ETHAN Muñoz(ASCP) ? Report Date: ??09/20/2003 09:11 End of Report [facility] 09/13/2003 09/14/2003 Pal Zuleta MD PATHOLOGY ORDERABLES [facility] [address] [place] [address] documented in this encounter Visit Diagnoses Not on filedocumented in this encounter
--- OUTSIDE RECORDS SUMMARY | 2024-03-19 08:52 | XMS_ITS | Encounter Summary ---
[place] [address] Care Team Providers Care Flight Physician Name Role Phone Justina Juarez APRN Primary Care Provider Encounter Details Date Type Department Care Team (Late st Contact Info) Description 09/06/2022 Notes [place] [id number] Marla Barrett Social History Tobacco Use Types Packs/Day Years [...] on filedocumented in this encounter Care Teams Flight Physician Relationship Specialty Start Date End Date Justina Juarez APRN [address] [place], [place] [id number] PCP - General Family Medicine 03/04/22 documented as of this encounter
--- OUTSIDE RECORDS SUMMARY | 2024-03-19 08:52 | XMS_ITS | Encounter Summary ---
Author Organization [facility] Address [facility] [place] [address] Care Team Providers Care Pediatric Physical Therapy Assistant Name Role Phone Sonja Cannon MD Primary Care Provider [phone] Reason for Visit * Reason Comments Procedure Encounter Details Date Type Department Care Team (Latest Contact Info) Description 09/02/2019 11:00 AM EST Procedure visit Dermatology at [facility] [address] [place] [address] León Gibson MD [facility] [address] [address] Neoplasm of uncertain behavior of skin Social History Tobacco Use Types Packs/Day Years Used Date Smoking Tobacco: Never Smokeless Tobacco: Never Alcohol Use Standard Drinks/Week Comments No 0 (1 standard drink = 0.6 oz pur e alcohol) Sex and Gender Information Value Date Recorded Sex Assigned at Not on file Gender Identity Not on file Sexual Orientation Not on file documented as of this encounter Patient Instructions * Patient Instructions* Kathie Mathews LPN - 09/02/2019 11:00 AM EST Your staff surgeon today was León Gibson MD. Instructions for the post-operative period are as below. Please keep as a reference: After Surgery 1. Avoid tobacco, smoking/vapors, cigars, and cannabis (marijuana) for at least 3 weeks after your surgery. These prevent proper healing and lead to worse scarring. Cutting back on tobacco is helpfulif you cannot abstain completely. 2. Do not drink alcohol for roughly 3 days as this can slow healing or cause bleeding. 3. Do not participate in athletic activities for 1 week, unless you were told a different timeline during your visit. Athletic activity is a relative term, but this is considered to be anything that could potentially raise your heartrate or blood pressure. Elevating your heart rate and blood pressure increases the risk of swelling, bleeding, wound opening, and it could lead to worse scarring. Walk ing at a leisurely pace is fine for most people, but not if you are walking for the purpose of exercise. When in doubt, take it easy or call us. 4. Do not lift anything heavier than 10 pounds for the first week unless told differently. 5. Some pen and pencil repairer may need to be delayed or delegated such as vacuuming, mowing the lawn, snow shoveling, or caring for young children that need to be carried/lifted. Working any major muscle groups increases your heart rate and can increasing bleeding. 6. Avoid swimming, hot tubs, and direct water pressure for 3 weeks after surgery. You may shower, however, once your initial bandage comes off in 48 hours. 7. Avoid antibiotic ointments such as triple antibiotic creams. 8. Whenever possible, it is helpful to take photographs with your camera or cell phone of any problems or concerns you see with your wound. We often ask for photos when you call with questions. 9. Starting 2 months following surgery, you can begin firm massage to any areas of firm scar along your incision to soften the scar and reduce bumpiness. Do this 3 times per day, 3 minutes each time.Do not start massage before 2 months. 10. Your wound will appear almost completely healed soon after sutures are removed (about 1 week), but incisions can remain bright red for several weeks. Then the scarring and healing process continues under the skin for 6 months until to 2 years. The scar may become less red, less firm, and more subtle during this time; please note that the rate of improvement varies depending on the person. Most redness, discoloration, bumpiness resolves by 6 months, and most patients will look presentable within a few weeks after surgery. 11. Keep your follow-up appointments and make sure to continue to have your skin checked, as often as is recommended by your concrete tile machine operator, for new skin cancers. This is once per year for most patients. 12. Your can expect your scar to be red for several weeks with gradual fading of the redness. Your scar will also be raised and lumpy until the dissolvable sutures under the skin get absorbed by yourbody which can take 3-4 months. The scar will flatten eventually. a. If you have a skin condition called rosacea, the redness can last long-term, or you can get an increased appearance of red vessels to the skin. The appearance of vessels slightly improves, but tends to respond well to laser treatments. 13. Occasionally, about 10-20% of the time on the face, the stitches under the skin can spit out of the incision to the surface. It can start out looking like a pimple or blemish directly on your incision. Sometimes you can feel something poking through the incision. it can look also minic a small area of infection, so please let us know before you go to another provider for antibiotics. Thismeans that the suture may need to be trimmed or removed when you return for your wound check. This typically occurs a few weeks after surgery if it does occur. 14. To optimize your scar, and best cosmetic result, please avoid direct sunlight to your incision for the first 6 months following surgery. UV ray exposure to your incision may cause the redness to last longer, or to cause permanent darkening of your scar. You can avoid sun by covering your incision with a bandage when outdoors, wearing broad-rimmed hats, and wearing SPF 30 to 50 sunscreen (broad spectrum). 15. Your incision may still be healing up to 2 weeks after surgery. Because of this, avoid make-up and sunscreen until approximately 2 weeks after surgery. You can begin sooner if your skin edges look completely sealed. 16. Any time you have skin surgery or any type of surgery, you can experience mild sensation loss (numbness) in the area of surgery. Massage starting at 8 weeks after surgery can help. 17. Swelling and bruising is common, and expected, especially if your surgery site was on the forehead, cheeks, temples, nose, or eyelids. . Sometimes it can be quite profound, where the eyelids swell shut, or getting black eyes. This is especially true if you are on blood thinners such as aspirin. Swelling and bruising will peak at about 48 hours after surgery. Bruising and swelling will gradually resolve. You can use ice packs or a bag of frozen peas for 15-20 minutes, 20 minutes off, up to3-4 times daily to areas of swelling on the face. Use caution not to put the icy item directly ontoyour incision, or directly in contact with your skin as this can damage skin. Avoid prolonged use more than 20 minutes. The best way to use ice packs is over the bandage, or using a light cloth/papertowel barrier between the ice pack and your skin. You can ice for as many days as needed until swelling has resolved. Eyelid and lip swelling is typically the last type of swelling to resolve. Wound Care ??? Gently remove your initial bandage (after 48 hours from surgery). It is normal to have swellingand bruising. ??? Begin wound care as below. ??? If your initial bandage only stayed on for 24 hours (for example, falls off sooner), this is okay. Resume your wound care and bandaging instructions as below. ??? Change your bandage once a day (and whenever it becomes wet or soaks through) until your sutures are removed. If you have absorbable sutures, you do wound care for 1 week and then stop. ??? For bandage changes: o Wash hands with soap and water, or use gloves that you can purchase at a local pharmacy or drug store. o Clean the surgical area with cotton-tipped swabs or soft gauze dipped in soapy water (recommend liquid soap in clean room temperature water). Roll the cotton swab over the incision with soapy water, then with plain water, and then gently pat dry. Do not scrub the area with a washcloth. Do not putdirect shower water pressure onto your wound. Do not pick off any scabs. It is okay to allow soapy w ater to run over your wound in the shower, however. o If you cannot remove any bloody or crusted areas, you may soak the area with wet gauze first for 15 to 20 minutes to help soften it o Pat the area dry with clean gauze or cotton swabs. Do not rub. o Use a cotton swab to apply a generous layer of petrolatum over the incision lines and any open-wound areas. o Make sure your tube or jar of petrolatum is new or unused to prevent prior contamination from entering your wound. Avoid double dipping. o After applying petrolatum, use a clean nonstick gauze or other nonstick dressing, such as Telfa. This may be purchased over the counter at a drug store. Do not use regular gauze as it will stick toyour wound and can peel off healing skin with bandage changes. o Secure the bandage with paper tape or a bandage. Band-aids are okay, but typically have more adhesive that can irritate the skin compared to paper tape. This can be purchased at a drug store. o Continue this wound care daily until stitches are removed. This is typically for 5-7 days. If youhad absorbable stitches used, you will do wound care for 1 week then stop. Keep in mind that if you do not want to use a bandage at all due to difficulty, allergies, irritation of skin, cost, time, or inconvenience --- you can certainly avoid bandages altogether. However, it is imperative that you continue with topical petrolatum ointment or Aquaphor (plain, fragrance-free). This may need to be applied several times daily if it gets wiped off, washed off, or dries out. Things to purchase for wound care: -Nonstick gauze -A tube or tub of petrolatum jelly (fragrance-free, no dye, not lotion) -paper tape -cotton swabs -gloves (optional) -Dial or other antibacterial liquid soap If you have specific questions or instructions, it can be written/typed by your nurse or doctor here: Antibiotics: If you were given antibiotic prescription, it is important to start them the evening of your surgery date. However, most patients do not need antibiotics after surgery. For pain: Most patients of different ages do not require pain medications. If you do feel soreness, throbbingor sharp pains, start by taking over the counter extra strength acetaminophen (up to 3000 mg in a 24 hour period). Generally, we like you to avoid NSAIDS (non-steroid anti-inflammatory drugs such as ibuprofen) for the first 48 hours after surgery as this can increase risk of bleeding. However, if acetaminophen is not helping with pain, you can alternate acetaminophen with ibuprofen or other NSAID. Ice packs over your bandage without getting your bandage wet can also help with pain and swelling.Frozen peas work well as ice packs. THIS IS AN EXAMPLE OF A PAIN TREATMENT SCHEDULE: 1) You can take 500 mg acetaminophen one tablet by mouth at 6:00pm. This is over the counter. 2) You can take 400 mg of ibuprofen two hours later, at 8:00 pm, or other NSAID such as naproxen, as long as it does not interact with your other medications and your other doctors have not told you to avoid this. This is over the counter. Check to see how many milligrams (mg) each of your ibuprofen tablets are. Most of the time, ibuprofen comes in 200 mg tablets, so 400 mg would mean taking two of these tablets or capsules. 3) You can take 500 mg of acetaminophen at 10:00 pm. Keep track of your total acetaminophen in a 24hour period as your maximum should be 3000 mg total in a 24 hour period of this medication. 4) At midnight, you can take another 400 mg of ibuprofen. 5) you can continue on this schedule over the next 2 days, making sure to keep tabs of your total acetaminophen. If you are still in pain after trying the above, please call us. When to call your surgeon: ??? Fever of 100.4 degrees Fahrenheit or higher ??? Bleeding not controlled with direct firm pressure to your wound. Bleeding is most common in thefirst 48 hours. ??? Pain that is worsening and not relieved by over the counter medications such as acetaminophen (up to 3000 mg in a 24 hour period) ??? Wound reopening after stitching ??? Pus or bad odor from your wound ??? Worsening redness and warmth around your wound ??? If you think your surgery site is infected, please call us before seeking care or antibiotics from other providers ??? Please call us before seeking care in an emergency room or primary care. ??? If you do call, please leave your full name, phone number, date of , date of surgery, and medical record number if you have it. If after hours, please call the crystallizer operator or [phone] and ask for the concrete tile machine operator on-call. If you have any non-urgent questions or concerns, please feel free to call my office or contact me through our patient portal, [employer], at [email or web address] How to contact us during business hours Dermatology at [facility]: documented in this encounter Progress Notes * Kathie Mathews LPN - 09/02/2019 11:00 AM EST Pre Procedure Nurse Intake: Provider: León Gibson MD Giana Yeager is a 49 y.o. female presents to the clinic today for a procedure visit. Reviewed surgery expectations and after visit wound care instructions with patient. Patient verbalized understanding. Confirmed location with patient. Prepared patient for surgery. Kathie Mathews LPN * León Gibson - 09/02/2019 11:00 AM EST Images from the original note were not included. Dermatology Procedure Note Surgeon: León Gibson MD Managing Broker: Kathie Mathews LPN Preferred name: Giana Preferred contact method with results: Yes Message okay? Yes HPI/CC: Giana Yeager is a 49 y.o. female here today for treatment of a cyst. Examination & Findings: Skin exam: A focused skin exam was performed of the left chest. Skin findings: 2.8cm nodule on the left chest Time Out Questions: A time out was performed including patient full name, date of and site. YES//NO If YES: details Any blood thinners? no Defibrillator or pacemaker? no Artificial heart valves? no Prosthetic devices or implants? no Abx prior to procedure? no If yes: Time taken? Allergies: Local anesthetics? Latex? Glue/adhesive? Chlorhexidine? no Patient Counseling & Consent: I previously explained the diagnosis to Giana and discussed treatment options. I explained the risks associated with his procedure, including but not limited to: incomplete removal, recurrence, scar, keloid/hypertrophic scar, bleeding, infection, nerve damage, and bruising. A mutual decision wasmade to proceed after Giana expressed verbal understanding and agreement. Written consent obtained today. Procedure Details: Name of procedure Excision w/ intermediate repair Location Left chest Pre-op diagnosis EIC Size (maximal) (cm) 2.8 cm Margins (cm) No margins Size + margins (cm) 2.8 cm Sterile prep Chloraprep Anesthesia 1% lidocaine with epinephrine 10 cc Suture (adipose/dermis) Monocryl Suture (epidermis) Prolene Final wound length 4.0 cm Procedure Notes: The patient was prepared and draped in a sterile manner. Anesthesia was administered by local infiltration. A fusiform shape was drawn around the lesion, and the margins were incised to the level of the fat with a # 15 blade. The tissue was removed with sharp and blunt dissection. The lateral margins of the the resulting defect were minimally undermined with sharp and blunt dissection, and hemostasis was obtained with electrocautery. The deeper layers of the defect including subcutaneous fat were approximated to reduce tension on the suture line. A layered wound closure was performed, as above. Post-Operative Details: Specimen in formalin and sent to Pathology Yes Wound dressing Vaseline and pressure dressing Post-op pain 0/10 Complications None Blood loss <1mL Suture removal (days) 10 days Post-Operative Photo: Patient Instructions: Wound care reviewed with patient and AVS provided. In the event of a suspected infection, the patient knows to call the clinic or the on-call concrete tile machine operator over the weekend. Follow up: 10 days for suture removal or sooner as needed. Instructed patient to call with any questions or concerns. Signatures: Kathie Karimi LPN, have performed the documentation for this encounter in the presence of andacting as a scribe for León Gibson MD. Reviewed and signed by Addy Gibson MD Resident in Dermatology [facility] Patient seen in conjunction with staff concrete tile machine operator: Jerrica Aviles MD Section of Dermatology [facility] * Jerrica Aviles MD - 09/02/2019 11:00 AM EST I directly supervised Dr. Gibson during this office visit. Dr. Gibson presented the history and physical exam to me. I then saw and examined this patient with Dr. Gibson. We reviewed the history and pertinent details and I confirmed the physical findings. I agree with the details of the history and physical exam as documented in Dr. Gibson's note. JERRICA AVILES MD Staff Physician documented in this encounter Plan of Treatment Not on file documented as of this encounter Procedures Procedure Name Priority Date/Time Associated Diagnosis Comments SURGICAL PATHOLOGY REPORT Routine 09/02/2019 1:43 PM EST SPECIMEN TO PATHOLOGY Routine 09/02/2019 1:43 PM EST Neoplasm of uncertain behavior of skin documented in this encounter Results * Surgical Pathology Report (09/02/2019 1:43 PM EST) FINAL DIAGNOSIS (AP) [id number] ? Location: [facility] The signing pathologist has (i) examined the relevant preparation(s) for the specimen(s) and (ii) rendered or confirmed the diagnosis(es). . ?Surgical Pathology DIAGNOSIS A. Skin, left chest, ?? excision: - Epidermal inclusion cyst with rupture and inflammatory reaction Electronically signed by: ??Charley Chin MD Verified: ??09/05/2019 ?Dermatopatholo gist Performed at: ??-[facility] Dept. [place], [place], [place] CLINICAL INFORMATION Specimen Submitted: A - Skin, left chest, excision (1) Clinical History and Diagnosis: 2.8 cm nodule on the left chest; rule out epidermal inclusion cyst SPECIMEN PROCESSING A - Labeled/Fixative : Patient demographics, formalin. Quantity/Size: ??Single, 3.5 x 2.0 x 1.5 cm. Tissue Description: Narrow ellipse of parikh-white skin and underlying fatty subcutaneous tissue. No definitive cystic structure is grossly identified. Sections/Process ing: Entirely submitted in 8 cassettes labeled A1-A8. ??ejr 09/05/2019 2:40 PM EST [facility] 09/02/2019 1:43 PM EST León Gibson MD PATHOLOGY/CYTOLOGY O JOSE Performing Organization Address [facility] Co de Phone Number [facility] [place] [address] * Specimen to Pathology (09/02/2019 1:43 PM EST) AP Specimen 09/02/2019 1:43 PM EST 09/03/2019 10:01 AM EST Narrative [facility] - 09/03/2019 10:01 AM EST Specimen requisition ordered. ??Separate Pathology report to follow Resulting Agency Comment Spec In Lab Jerrica Aviles MD PATHOLOGY/CYTOLOGY Ezio GARCIA Performing Organization Address [facility] Co de Phone Number [facility] [place] [address] documented in this encounter Visit Diagnoses Diagnosis Neoplasm of uncertain behavior of skin documented in this encounter Care Teams Pediatric Physical Therapy Assistant Relationship Specialty Start Date End Date Sonja Cannon MD [address] [place] [address] PCP - General Internal Medicine 09/27/16 03/03/22 documented as of this encounter
--- OUTSIDE RECORDS SUMMARY | 2024-03-19 08:52 | XMS_ITS | Encounter Summary ---
Author Organization [facility] Address [address] [place] [address] Care Team Providers Care Primer Waterproofing Machine Adjuster Name Role Phone Unavailable Primary Care Provider Unavailabl e Encounter Details Date Type Department Care Team (Late st Contact Info) Description 10/13/2004 Results Only [facility] [address] [place] [address] Pal Zuleta MD [address] [place] [address] Social History Tobacco Use Types Packs/Day Years Used Date Smoking Tobacco: Never Assessed Sex and Gender Information Value Date Recorded Sex Assigned at Not on file Gender Identity Not on file Sexual Orientation Not on file documented as of this encounter Plan of Treatment Not on file documented as of this encounter Procedures Procedure Name Priority Date/Time Associated Diagnosis Comments CYTOPATHOLOGY Routine 10/13/2004 0:00 EST documented in this encounter Results * CYTOPATHOLOGY (10/13/2004 0:00 EST) Pathology Report: CYTOPATHOLOGY REPORT Reports generated via electronic interface contain original data; however they are lacking the format of the original report. Caution should be taken when reading/interpreti ng unformatted reports. Name: ? GIANA YEAGER ? Accession #: ? [id number] : ? 1970 (Age: 34) ??F ?Collect Date: ? 10/13/2004 Location: ? [facility] ? Receive Date: ? 10/16/2004 Provider: ?PAL ZULETA MD Copy to: ? Specimen/Source: ?ThinPrep Pap Test, Cervix/Endocervix Last Menstrual Period: ? 09/16/04 Other: ? Additional clinical information: 09/13/03 normal pap HPVA - HPV testing requested if ASC-US on the current ThinPrep Pap test. ? SPECIMEN ADEQUACY ? Satisfactory for Evaluation - transformation zone component absent GENERAL CATEGORIZATION ? Negative for Intraepithelial Lesion or Malignancy INTERPRETATION ? Fungal organisms present morphologically consistent with Denise species. ? Document reviewed and electronically signed by: ? ETHAN Muñoz(ASCP) ? Report Date: ??10/18/2004 11:44 End of Report [facility]ERSON 10/13/2004 10/16/2004 Pal Zuleta MD PATHOLOGY ORDERABLES Performing Organization Address City/State/[facility] Co de Phone Number [facility] PIERSON [address] [place] [address] documented in this encounter Visit Diagnoses Not on filedocumented in this encounter
--- OUTSIDE RECORDS SUMMARY | 2024-03-19 08:52 | XMS_ITS | Encounter Summary ---
Author Organization [facility] Address [address] [place] [address] Care Team Providers Care Culinary Arts Instructor Name Role Phone Sonja Causey MD Primary Care Provider [phone] Encounter Details Date Type Department Care Team (Late st Contact Info) Description 11/24/2021 Lab Requisition [facility] Pathology & Laboratory Medicine - [facility] [address] [place] [address] Vicenta Gordillo, DO [address] [place], [place] [id number] Encounter for other general examination Social History [...] Priority Date/Time Associated Diagnosis Comments SURGICAL PATHOLOGY Today 11/24/2021 10 :57 EDT Encounter for other general examination documented in this encounter Results * SURGICAL PATHOLOGY (11/24/2021 10:57 EDT) Note to Patient The following pathology results have been interpreted by your pathologist and may be available to you before your health provider has had the opportunity to review them. Please allow time for your provider to receive these results and explore management options, if applicable. 11/30/2021 13:13 [facility] Final Diagnosis A. COLON, 20CM, BIOPSY: - Hyperplastic polyp 11/30/2021 13:13 [facility] Attestation By the signature below, the attending physician certifies that they have 1) personally conducted a gross and/or microscopic examination of the described specimen(s), and/or personally interpreted the results of laboratory testing of the described specimen(s), and 2) personally rendered or confirmed the above diagnosis. 11/30/2021 13:13 [facility] at 1313 Clinical History CRC screen 11/30/2021 13:13 [facility] Gross Description A. Received in formalin labelled with proper patient identification (initials O, T) and polyp at 20 cm is a single fragment of parikh soft tissue (0.3 x 0.2 x 0.2 cm). The specimen is entirely submitted in A1. VILMA ELIZONDO(ASCP) 11/27/2021 11:34 11/30/2021 13:13 [facility] Performing Lab [facility] 11/30/2021 13:13 [facility] Scanned Images 11/30/2021 13:13 [facility] Tissue ENTIRE COLON / Unknown 11/24/2021 10:57 EDT 11/24/2021 16:53 EDT Vicenta Gordillo DO PATHOLOGY ORDERABLES [facility] [address] [place] [address] documented in this encounter Visit Diagnoses Diagnosis Encounter for other general examination documented in this encounter Care Teams Culinary Arts Instructor Relationship Specialty Start Date End Date Sonja Causey MD [address] [place] [address] PCP - General 07/06/15 documented as of this encounter
--- OUTSIDE RECORDS SUMMARY | 2024-03-19 08:52 | XMS_ITS | Encounter Summary ---
Author Organization [facility] Address [address] [place] [address] Care Team Providers Care Mud Analysis Operator Name Role Phone Sonja Causey MD Primary Care Provider [phone] Encounter Details Date Type Department Care Team (Late st Contact Info) Description 04/19/2005 Before PRISM Converted Visit ([facility] conversion [address] [place] [address] Pal Mantilla MD Social History Tobacco Use Types Packs/Day Years Used Date Smoking Tobacco: Never Assessed Sex and Gender Information Value Date Recorded Sex Assigned at Not on file Gender Identity Not on file Sexual Orientation Not on file documented as of this encounter Plan of Treatment Not on file documented as of this encounter Procedures Procedure Name Priority Date/Time Associated Diagnosis Comments LONG TERM DETAILED 04/19/2005 16:57 EDT documented in this encounter Results * LONG TERM DETAILED (04/19/2005 16:57 EDT) Anatomical Region Laterality Modality Other 04/19/2005 16:5 7 EDT Narrative 03/31/2009 5:21 EDT detailed Please refer to the separate [facility] report. Please see separate Echocardiography report. Procedure Note Maria Del Carmen Alcala MD - 03/31/2009 detailed Please refer to the separate [facility] report. Please see separate Echocardiography report. Pal Mantilla MD IMG US LONG TERM ORDERABLE S documented in this encounter Visit Diagnoses Not on filedocumented in this encounter Care Teams Mud Analysis Operator Relationship Specialty Start Date End Date Sonja Causey MD [address] [place] [address] PCP - General 07/06/15 documented as of this encounter
--- OUTSIDE RECORDS SUMMARY | 2024-03-19 08:52 | XMS_ITS | Clinical Summary ---
Author Organization [facility] Address [address] [place] [address] Care Team Providers Care Philosophy Professor Name Role Phone oSnja Causey MD Primary Care Provider Encounters Date Type Department Care Team Description 2024 Lab Requisition [facility] Pathology & Laboratory Medicine - [address] [address] Justina Juarez NP Encounter for other general examination from Last 3 Months Social History Tobacco Use Types Packs/Day Years Used Date Smoking Tobacco: Never Assessed Sex and Gender Information Value Date Recorded Sex Assigned at Not on file Gender Identity Not on file Sexual Orientation Not on file Plan of Treatment Health Maintenance Due Date Last Done Comments Hepatitis C Screen 1970 Hepatitis B Vaccine (1 of 3 - 19+ 3-dose series) 03/06 COVID-19 Vaccine ( season) 2023 Procedures Procedure Name Priority Date/Time Associated Diagnosis Comments PAP TEST Today 03/04/2024 13:00 EDT Encounter for other general examination HPV DNA DETECTION WITH GENOTYPING, PCR Today 03/04/2024 13:00 EDT Encounter for other general examination from Last 3 Months Results * PAP TEST (03/04/2024 13:00 EDT) Specimens A. Cervix and/or Endocervix , ThinPrep Imaging System with Manual Evaluation 03/12/2024 14:24 [facility] Specimen Adequacy Satisfactory for Evaluation - transformation zone component present 03/12/2024 14:24 [facility] General Categorization Negative for intraepithelial lesion or malignancy 03/12/2024 14:24 [facility] Descriptive Diagnosis Reactive cellular changes associated with inflammation present (includes repair). 03/12/2024 14:24 [facility] Attestation By the signature below, the attending physician certifies that they have personally conducted a gross and/or microscopic examination of the described specimens and rendered or confirmed the above diagnosis. 03/12/2024 14:24 [facility] at 1424 Clinical History SEE BELOW 03/12/20 14:24 [facility] Performing Lab [facility] 03/12/2024 14:24 [facility] Scanned Images 03/12/2024 14:24 [facility] HPV High Risk type 16, PCR Negative 03/12/2024 14:24 [facility] HPV High Risk type 18, PCR Negative 03/12/2024 14:24 [facility] HPV Other High Risk Types, PCR Negative The following Other High Risk HPV types were not detected: 31,33, 35, 39, 45, 51, 52, 56, 58, 59, 66 and 68. 03/12/2024 14:24 [facility] Pap Test CERVIX UTERI STRUCTURE / Unknown 03/04/2024 13:00 EDT 2024 11:27 EDT Justina Juarez NP PATHOLOGY ORDERABLES [facility] [address] [place] [address] * HPV DNA DETECTION WITH GENOTYPING, PCR (03/04/2024 13:00 EDT) HPV High Risk type 16, PCR Negative Negative 03/12/2024 14:24 T [facility] HPV High Risk type 18, PCR Negative Negative 03/12/2024 14:24 EDT [facility] HPV other High Risk types, PCR Negative Negative 03/12/2024 14:24 EDT [facility] Comment: The following Other High Risk HPV types were not detected: ??31,33, 35, 39, 45, 51, 52, 56, 58, 59, 66 and 68. Pap Test CERVIX UTERI STRUCTURE / Unknown 03/04/2024 13:00 EDT 03/11/2024 14:28 EDT Justina Juarez ACCOUNT SUPPORT SPECIALIST MICROBIOLOGY - GENER AL ORDERABLES [facility] [address] [place] [address] from Last 3 Months Care Teams Philosophy Professor Relationship Specialty Start Date End Date Sonja Causey MD [address] [place], [place] [id number] PCP - General 07/06/15
--- OUTSIDE RECORDS SUMMARY | 2024-03-19 08:52 | XMS_ITS | Encounter Summary ---
[place] [address] Care Team Providers Care Production Miner Name Role Phone Justina Juarez APRN Primary Care Provider Encounter Details Date Type Department Care Team (Late st Contact Info) Description 10/19/2022 Telephone [place] [id number] Marla Barrett Social History Tobacco Use Types Packs/Day Years Used Date Smoking Tobacco: Never Smokeless Tobacco: Never Alcohol Use Standard Drinks/Week Comments No 0 (1 standard drink = 0.6 oz pur e alcohol) Sex and Gender Information Value Date Recorded Sex Assigned at Not on file Gender Identity Not on file Sexual Orientation Not on file documented as of this encounter Miscellaneous Notes * Telephone Encounter - Marla Barrett - 10/19/2022 11:22 AM EST jean-pierre info. documented in this encounter Plan of Treatment Not on file documented as of this encounter Visit Diagnoses Not on filedocumented in this encounter Care Teams Production Miner Relationship Specialty Start Date End Date Justina Juarez APRN [address] [place] [address] PCP - General Family Medicine 03/04/22 documented as of this encounter
--- OUTSIDE RECORDS SUMMARY | 2024-03-19 08:52 | XMS_ITS | Encounter Summary ---
Author Organization [facility] Address [address] [place] [address] Care Team Providers Care Career Education Teacher Name Role Phone Sonja Causey MD Primary Care Provider [phone] Encounter Details Date Type Department Care Team (Late st Contact Info) Description 11/13/2023 Lab Requisition [facility] Pathology & Laboratory Medicine - [address] [address] Outr Resulting Lab, Provider Social History Tobacco [...] Procedure Name Priority Date/Time Associated Diagnosis Comments CELIAC DISEASE PANEL Routine 11/13/2023 8:21 EDT LH Routine 11/13/2023 8:21 EDT FSH Routine 11/13/2023 8:21 EDT documented in this encounter Results * LH (11/13/2023 8:21 EDT) Luteinizing Hormone 24.0 See Note mIU/mL 11/13/2023 17:55 EDT [facility] Comment: NOTE: Female Reference Ranges: Pre-Pubertal: ?<6.0 mIU/mL Menstruating: Follicular Phase(-12 to -4 days: ??1.9 - 12.5 mIU/mL Midcycle(-3 to +2 days): ?8.7 - 76.3 mIU/mL Luteal Phase(+4 to +12 days): ? 0.5 - 16.9 mIU/mL Post Menopausal: 15.9 - 54.0 mIU/mL Blood VENOUS BLOOD / Unknown 11/13/2023 8:21 EDT 11/13/2023 16:58 EDT Provider Outr Resulting Lab CHEMISTRY & BLOOD GAS ORDERABLES [facility] [address] [place] [id number] * FSH (11/13/2023 8:21 EDT) FSH 47.4 See Note mIU/mL 11/13/2023 17:55 EDT [facility] Blood VENOUS BLOOD / Unknown 11/13/2023 8:21 EDT 11/13/2023 16:58 EDT Narrative [facility] - 11/13/2023 17:55 EDT NOTE: Female FSH Reference Ranges (Menstruating): PHYSIOLOGICAL STATUS ? REFERENCE RANGE ? Follicular (-12 to -4 days): ?? 2.5 - 10.2 mIU/mL Midcycle (-3 to +2 days): ?3.4 - 33.4 mIU/mL Luteal (+4 to +12 days): ? 1.5 - 9.1 mIU/mL Postmenopausal: ?23.0 - 116.3 mIU/mL Reference Ranges for pediatric non-menstruating female patients have not been established. Provider Outr Resulting Lab CHEMISTRY & BLOOD GAS ORDERABLES Performing Organization Address [facility] Co de Phone Number [facility] [address] [place] [address] * CELIAC DISEASE PANEL (11/13/2023 8:21 EDT) Tissue Transglutaminase Antibody, IgA <4.0 <20.0 CU 11/14/2023 10:48 EDT [facility] Comment: A negative result may be due to IgA deficiency and does not rule out celiac disease. Negative: <20.0 CU Weak Positive: 20.0-30.0 CU Positive: >30.0 CU Results were obtained with the JybeA Flash h-tTG IgA chemiluminescent immunoassay. Values obtained with different manufacturers' assay methods may not be used interchangeably. IgA 195 85 - 499 mg/dL 11/14/2023 10:48 EDT [facility] Celiac Disease Interpretation Negative Serology. Celiac disease unlikely. Approximately 10% of patients with celiac disease are seronegative. Patients who are already adhering to a gluten-free diet may also be seronegative. If celiac disease is highly clinically suspected, referral to gastroenterology for additional evaluation is recommended. 11/14/2023 10:48 EDT [facility] Blood VENOUS BLOOD / Unknown 11/13/2023 8:21 EDT 11/13/2023 16:58 EDT Provider Outr Resulting Lab IMMUNOLOGY A ND SEROLOGY ORDERABLES Performing Organization Address [facility] Co de Phone Number [facility] [address] [place] [address] documented in this encounter Visit Diagnoses Not on filedocumented in this encounter Care Teams Career Education Teacher Relationship Specialty Start Date End Date Sonja Causey MD [address] [place], [place] [address] PCP - General 07/06/15 documented as of this encounter
--- OUTSIDE RECORDS SUMMARY | 2024-03-19 08:52 | XMS_ITS | Encounter Summary ---
Author Organization [facility] Address [facility] [place] [address] Care Team Providers Care Machine Clothing Man Name Role Phone Sonja Cannon MD Primary Care Provider Reason for Visit * Reason Comments Wound Check Encounter Details Date Type Department Care Team (Late st Contact Info) Description 09/07/2019 11:00 AM EST Office Visit Dermatology at [facility] [address] [place] [address] León Gibson MD [facility] [address] KAMALA [place] [address] Hematoma Social History Tobacco Use Types Packs/Day Years [...] encounter Progress Notes * León Gibson - 09/07/2019 11:00 AM EST Images from the original note were not included. DERMATOLOGY - ESTABLISHED PATIENT FOLLOW-UP Date of service: 09/07/2019 Giana Yeager : 1970, 49 y.o. Chief Complaint: Chief Complaint Patient presents with ??? Wound Check HPI: Giana Yeager is a 49 y.o. female last seen by myself on 09/02/2019. Ms. Yeager returns today for a check of a previously removed cyst from the left chest, it was excised on 09/02/2019, she notes that it was swollen this morning though it has gone down since then, she notes that the wound has been healing well except since last night it has been sore, no drainage. Relevant Skin History: - Skin cancer (including type): None - Okay to leave a detailed message with results? Yes - Cyst, left check s/p excision 09/02/2019 ?? Family History: Melanoma: None Grandmother on nose, Mother on the eyelid: unknown type ?? 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 levothyroxine (SYNTHROID) 50 mcg Tablet Daily ??? cholecalciferol, Vitamin D3, 400 unit Capsule Take by mouth. ??? MULTIVITAMIN ORAL ??? CYANOCOBALAMIN, VITAMIN B-12, (VITAMIN B-12 ORAL) No current facility-administered medications for this visit. Allergies: Allergies Allergen Reactions ??? Aspirin Other (See Comments) Unexplained GI bleed in 2002 ??? Ibuprofen Other (See Comments) unexplained GI bleed Review of Systems: - General: Feels well. - Skin: No other skin concerns. Examination: - Constitutional: Patient was alert, well-appearing and in no noticeable distress. - Skin: Skin examination of the left chest was normal with the exception of the findings listed below. - A female nurse was present and on standby during my examination. Diagnosis/Skin findings/Assessment/Plan: # Favor small stable hematoma vs seroma -left chest: tender subtle subcutaneous nodule next to medial superior portion of the incision, top sutures are intact although incision is slightly edematous along this portion. No fluctuance appreciated. No warmth, purulence, or signs of infection. - Joint decision made to treat symptomatically today with ILK and recommended warm compresses dailyat home - Kenalog 5 mg/mL injected intralesionally, total 0.3 mL. Discussed indication for this procedure and potential side effects including ulceration and skin atrophy. LOT: [id number] EXP: December 2020 RTC: 09/11/2019 for suture removal The following photos were obtained with patient consent: Note initiated by CHEYANNE Romano. I, CHEYANNE Romano, have performed the documentation for this encounter in the presence of and acting as a scribe for León Gibson MD. I performed the services which were documented by the scribe, and I agree with the accuracy of the documentation in this encounter. León Gibson MD Reviewed and signed by: León Gibson MD Resident in Dermatology [facility] Patient seen and evaluated with staff calendering supervisor: Johny Tolbert MD Section of Dermatology [facility] * Johny Tolbert MD - 09/07/2019 11:00 AM EST I directly supervised Dr. Gibson during this office visit. Dr. Gibson presented the history and physical exam to me. I then saw and examined this patient with Dr. Gibson. We reviewed the history and pertinent details and I confirmed the physical findings. I agree with the details of the history and physical exam as documented in Dr. Gibson's note. JOHNY TOLBERT MD Staff Physician documented in this encounter Plan of Treatment Not on file documented as of this encounter Visit Diagnoses Diagnosis Hematoma Contusion of unspecified site documented in this encounter Care Teams Machine Clothing Man Relationship Specialty Start Date End Date Sonja Cannon MD [address] [place] [address] PCP - General Internal Medicine 09/27/16 03/03/22 documented as of this encounter
--- OUTSIDE RECORDS SUMMARY | 2024-03-19 08:53 | XMS_ITS | Encounter Summary ---
Author Organization [facility] [place] [address] Care Team Providers Care Stock Fitter Name Role Phone Sonja Causey MD Primary Care Provider [phone] Reason for Visit * Reason Comments Pre-op Exam 1 WEEK , H&P FOR C/S f/u u/s Encounter Details Date Type Department Care Team (Late st Contact Info) Description 06/07/2011 2:00 PM EDT Routine Obstetrics [place] [address] Dilma Desai MD [facility] OBSTETRICS & [place] [address] GA: 38w2d Discharge Disposition: Home Social History Tobacco Use Types Packs/Day Years Used Date Smoking Tobacco: Never Smokeless Tobacco: Never Alcohol Use Standard Drinks/Week Comments No 0 (1 standard drink = 0.6 oz pur e alcohol) Comments Yes Sex and Gender Information Value Date Recorded Sex Assigned at Not on file Gender Identity Not on file Sexual Orientation Not on file documented as of this encounter Last Filed Vital Signs Vital Sign Reading Time Taken Comments Blood Pressure 126/66 06/07/2011 2:38 PM EDT Pulse 72 06/07/2011 2:38 PM EDT Temperature 36.7 ??C (98.1 ??F) 06/07/2011 2:38 PM ED T Respiratory Rate 18 06/07/2011 2:38 PM EDT Oxygen Saturation - - Inhaled Oxygen Concentration - - Weight 101 kg (222 lb 9.6 oz) 06/07/2011 2:38 PM EDT Height 170.2 cm (5' 7) 06/07/2011 2:38 PM EDT Body Mass Index 34.86 06/07/2011 2:38 PM EDT documented in this encounter Progress Notes * Dilma Desai MD - 06/13/2011 4:22 PM EDT Attempted to edit not but unable to edit due to eDH. Date of ERCS is 06/14 not 07/15 as I erroneously documented. * Dilma Desai MD - 06/13/2011 4:19 PM EDT * Dilma Desai MD - 06/07/2011 4:51 PM EDT No c/o's today. Had US today. AMIRA 10cm, cephalic, RUPERT myometrial thickness 4.6- 5.2mm. Still desiresVBAC. She has reviewed a study on myometrial thickness and uterine rupture and quoted that a myometrial > 3mm was lower risk of uterine rupture. I reviewed that the literature is limited and likely based on a small sample. This is the last that she plans and is planning a BTL. Just wants to be given a chance to deliver vaginally. I explained that all of the [facility] providers recommend against trial of labor but that we would not force her to have against her will. I explained that the risks associated with failed trail of labor are higher than a scheduled ERCS. She is currently scheduled for ERCS BTL on 07/15. She thought the date was 07/16 and preferred 07/16. There are no available slots on 07/16. Completed H&P and consent for ERCS/ BTL. documented in this encounter H&P Notes * Dilma Desai MD - 06/08/2011 10:41 AM EDT Marcell Yeager is a 41 y.o. year old female with an LEORA of 06/19/2011 who is at 39 weeks gestation being admitted for ERCS BTL. General ROS Review of Systems No c/o's Obstetric ROS Total Weight Gain this 16.148 kg (35 lb 9.6 oz) Movement: normal Contractions: No c/o's Leaking: Denies Bleeding; None Preeclampsia signs and symptoms: None Active Problems There are no hospital problems to display for this patient. Active Non-Hospital Problems Diagnoses ??? Tubal ligation status ??? Low Sherly-A 0.29 MoM ??? Second trimester bleeding ??? Pelviectasis ??? Threatened labor ??? state, incidental ??? Rubella non-immune status ??? Vitamin B12 deficiency ??? AMA (advanced maternal age) multigravida 35+ ??? Previous delivery affecting , antepartum ??? Family or maternal historic risk of congenital anomaly, antepartum Past Medical History Past Medical History Diagnosis Date ??? Pap smear abnormality of cervix ??? Vitamin B12 deficiency ??? 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 Gynecologic cryosurgery ??? section OB History OB History Grav Para Term Abortions TAB SAB Ect Mult Living 3 2 2 2 # Outc Date GA Lbr Milton/2nd Wgt Sex Del Anes PTL Lv 1 TRM 03/28 38w0d 3.515kg(1oz06gt) M LTCS Spinal Yes Comments: congenital VSD 2 TRM 06/30 39w0d 3.685kg(8lb2oz) M LTCS Spinal Yes Comments: failed - child has club foot 3 CUR Prior to Admission Medications (Not in a hospital admission) Allergies Allergies Allergen Reactions ??? Ibuprofen Other (See Comments) unexplained GI bleed ??? Aspirin Other (See Comments) Unexplained GI bleed Family History Family History Problem Relation Age of Onset ??? Congenital Anomalies Son VSD ??? Defects Son club foot ??? Congenital Anomalies Son club foot ??? Defects Son VSD spontaneously closed Social History Social History Occupational History ??? Not on file. Social History Main Topics ??? Smoking status: Never Smoker ??? Smokeless tobacco: Never Used ??? Alcohol Use: No ??? Drug Use: No ??? Sexually Active: Not on file Relevant Immunizations Immunization History Administered Date(s) Administered ??? Influenza PF, Split 05/24/2011 Last Set of Vitals: BP 126/66 Pulse 72 Temp(Src) 36.7 ??C (98.1 ??F) (Oral) Resp 18 Ht 170.2 cm (5' 7) Wt 100.971 kg (222 lb 9.6 oz) BMI 34.86 kg/m2 LMP 09/12/2010 Weight - Scale: 100.971 kg (222 lb 9.6 oz) Physical Exam NAD Lungs CTA CV RRR no MRG Abdomen soft, NT, gravid Uterus 41cm, FHR 140's Pelvis: deferred Lab Review Recent Labs Basename 03/21/11 12/05/10 0913 11/23/10 1445 11/23/10 1315 ??? ABORH -- A Pos -- -- ??? HEPBDNAQUANT -- -- -- -- ??? HCT -- 35.1 -- -- ??? HGB -- 12.2 -- -- ??? MCV -- 86.7 -- -- ??? RUBLIGG -- Negative* -- -- ??? URINECULTURE -- -- -- Patient Name: MARCELL YEAGER Ordered By: SULEMA PAM NEWJOSE MR#: [id number] LOC: 5L /Sex: 1970 (40 years), Female PROCEDURE: Urine Culture SOURCE: T CC COLLECTED: 11/23/2010 13:15 STARTED: 11/23/2010 14:36 FINAL REPORT Final Report Verified:11/24/2010 08:48 1,000-9,000 cfu/ml Gram Positive organisms , probable contaminant ??? HIV12 -- Negative -- -- ??? TSH -- -- -- -- ??? GCAMP -- -- Negative -- ??? CHLMGENE -- -- Negative -- ??? GLUCFASTING -- -- -- -- ??? LJLY6IO 116 -- -- -- ??? HA1C -- -- -- -- ??? H60FYEAGOJ -- -- -- -- ??? M12OJCJZ -- -- -- -- ??? AST -- -- -- -- ??? ALT -- -- -- -- ??? URICACID -- -- -- -- Recent Labs Basename 01/01/11 1113 12/05/10 0913 ??? IST1 -- See Note ??? IST2 Screen Negative -- ??? SEQ1 -- -- ??? SEQ2 -- -- ??? AFPMS -- -- ??? TRIM1 -- -- ??? AFP4 -- -- ??? CFREPORT -- -- Most Recent Ultrasound Date: 06/07/2011 Amniotic fluid volume 10cm, RUPERT thickness 4.2-5.2mm Assessment 41 y.o. year old female with an EDC 06/19/2011 who is at 39 weeks gestation being admitted for ERCS BTL. Consents signed Plan: ERCS BTL on 06/14/2011 DILMA DESAI MD 06/07/2011 * Dilma Desai MD - 06/07/2011 5:22 PM EDT Obstetrical Term Admission Note Marcell Yeager is a 41 y.o. year old female with an LEORA of 06/19/2011 who is at 39 weeks gestation being admitted for ERCS BTL. General ROS Review of Systems No c/o's Obstetric ROS Total Weight Gain this 16.148 kg (35 lb 9.6 oz) Movement: normal Contractions: No c/o's Leaking: Denies Bleeding; None Preeclampsia signs and symptoms: None Active Problems There are no hospital problems to display for this patient. Active Non-Hospital Problems Diagnoses ??? Tubal ligation status ??? Low Sherly-A 0.29 MoM ??? Second trimester bleeding ??? Pelviectasis ??? Threatened labor ??? state, incidental ??? Rubella non-immune status ??? Vitamin B12 deficiency ??? AMA (advanced maternal age) multigravida 35+ ??? Previous delivery affecting , antepartum ??? Family or maternal historic risk of congenital anomaly, antepartum Past Medical History Past Medical History Diagnosis Date ??? Pap smear abnormality of cervix ??? Vitamin B12 deficiency ??? 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 Gynecologic cryosurgery ??? section OB History OB History Grav Para Term Abortions TAB SAB Ect Mult Living 3 2 2 2 # Outc Date GA Lbr Milton/2nd Wgt Sex Del Anes PTL Lv 1 TRM 8 38w0d 3.515kg(0hs65nx) M LTCS Spinal Yes Comments: congenital VSD 2 TRM 11/ 39w0d 3.685kg(8lb2oz) M LTCS Spinal Yes Comments: failed - child has club foot 3 CUR Prior to Admission Medications (Not in a hospital admission) Allergies Allergies Allergen Reactions ??? Ibuprofen Other (See Comments) unexplained GI bleed ??? Aspirin Other (See Comments) Unexplained GI bleed Family History Family History Problem Relation Age of Onset ??? Congenital Anomalies Son VSD ??? Defects Son club foot ??? Congenital Anomalies Son club foot ??? Defects Son VSD spontaneously closed Social History Social History Occupational History ??? Not on file. Social History Main Topics ??? Smoking status: Never Smoker ??? Smokeless tobacco: Never Used ??? Alcohol Use: No ??? Drug Use: No ??? Sexually Active: Not on file Relevant Immunizations Immunization History Administered Date(s) Administered ??? Influenza PF, Split 05/24/2011 Last Set of Vitals: BP 126/66 Pulse 72 Temp(Src) 36.7 ??C (98.1 ??F) (Oral) Resp 18 Ht 170.2 cm (5' 7) Wt 100.971 kg (222 lb 9.6 oz) BMI 34.86 kg/m2 LMP 09/12/2010 Weight - Scale: 100.971 kg (222 lb 9.6 oz) Physical Exam NAD Lungs CTA CV RRR no MRG Abdomen soft, NT, gravid Uterus 41cm, FHR 140's Pelvis: deferred Lab Review Recent Labs Basename 03/21/11 12/05/10 0913 11/23/10 1445 11/23/10 1315 ??? ABORH -- A Pos -- -- ??? HEPBDNAQUANT -- -- -- -- ??? HCT -- 35.1 -- -- ??? HGB -- 12.2 -- -- ??? MCV -- 86.7 -- -- ??? RUBLIGG -- Negative* -- -- ??? URINECULTURE -- -- -- Patient Name: MARCELL YEAGER Ordered By: PAM LEONE MR#: [id number] LOC: 5L /Sex: 1970 (40 years), Female PROCEDURE: Urine Culture SOURCE: Augusto MAYS COLLECTED: 11/23/2010 13:15 STARTED: 11/23/2010 14:36 FINAL REPORT Final Report Verified:11/24/2010 08:48 1,000-9,000 cfu/ml Gram Positive organisms , probable contaminant ??? HIV12 -- Negative -- -- ??? TSH -- -- -- -- ??? GCAMP -- -- Negative -- ??? CHLMGENE -- -- Negative -- ??? GLUCFASTING -- -- -- -- ??? CMNG4ZT 116 -- -- -- ??? HA1C -- -- -- -- ??? K14UHZGANQ -- -- -- -- ??? J02IGBGJ -- -- -- -- ??? AST -- -- -- -- ??? ALT -- -- -- -- ??? URICACID -- -- -- -- Recent Labs Basename 01/01/11 1113 12/05/10 0913 ??? IST1 -- See Note ??? IST2 Screen Negative -- ??? SEQ1 -- -- ??? SEQ2 -- -- ??? AFPMS -- -- ??? TRIM1 -- -- ??? AFP4 -- -- ??? CFREPORT -- -- Most Recent Ultrasound Date: 06/07/2011 Amniotic fluid volume 10cm, RUPERT thickness 4.2-5.2mm Assessment 41 y.o. year old female with an 06/19/2011 who is at 39 weeks gestation being admitted for ERCS BTL. Consents signed Desires but advised against it by MFM given 2 prior C/S, failed attempted and documented thin RUPERT at prior Plan: ERCS BTL on 07/15/2011 T+S on admission Prior GI bleed following , avoid NSAID's DILMA DESAI MD 06/07/2011 documented in this encounter Plan of Treatment Not on file documented as of this encounter Visit Diagnoses Diagnosis Unspecified high-risk - Primary documented in this encounter Care Teams Stock Fitter Relationship Specialty Start Date End Date Sonja Causey MD [address] [place] [address] PCP - General 07/18/10 09/26/16 documented as of this encounter
--- OUTSIDE RECORDS SUMMARY | 2024-03-19 08:53 | XMS_ITS | Encounter Summary ---
Author Organization [facility] Address [facility] [place] [address] Care Team Providers Care Lead Producer Name Role Phone Sonja Cannon MD Primary Care Provider Reason for Visit * Reason Comments Advice Only BBR * Consultation (Routine) - Closed Specialty Diagnoses / Procedures Referred By Tomasa ldeesma Referred To Contact Plastic Surgery Diagnoses Breast reduction Mariama Dugan APRN [address] [facility] [place] [address] [facility] Pl[facility] Surg [address] [place] [address] Referral ID Status Reason Start Date Expiration Date V isits Requested Visits Authorized [id number] Closed Evaluate and [facility] 07/03/2016 07/03/2017 1 1 Encounter Details Date Type Department Care Team (Late st Contact Info) Description 09/27/2016 9:30 AM EST Office [place] [address] Riki Berkowitz MD [facility] [place] [address] Macromastia Social History Tobacco Use Types Packs/Day [...] - Inhaled Oxygen Concentration - - Weight 86.6 kg (191 lb) 09/27/2016 9:59 AM EST Height 170.2 cm (5' 7) 09/27/2016 9:59 AM EST Body Mass Index 29.91 09/27/2016 9:59 AM EST documented in this encounter Patient Instructions * Patient Instructions* Clair Magana RN - 09/27/2016 9:30 AM EST You were given written and verbal preoperative instructions today. To prepare for your upcoming surgery, please review the Pre-Operative Instruction brochure that youwere given at today's appointment. Feel free to call our office [phone] if you have any questions or concerns. We monitor the phones from 8-5 Saturday through Saturday. documented in this encounter Progress Notes * Riki Berkowitz MD - 09/27/2016 9:30 AM EST Plastic Surgery Consultation Note Riki berkowitz MD. PCP: Sonja Cannon MD Requesting Physician: as above Reason for office visit: Symptomatic macromastia HPI: Giana Yeager is a 46 y.o. female who presents today for evaluation of symptomaticmacromastia. Her PCP is Sonja Cannon MD and has requested the consultation. She is unaccompanied for today???s visit. She reports that she went to a doctor when she was 20 years old for a breast red uction. She learned that she may not be able to breastfeed post operatively and decided to postponesurgery until after having children. She has had three children and is unable to have any more. Shefinds it difficult to exercise because the weight and size of her breasts. She has tried weight loss in the past but it did not change the size of her breasts. She has engaged in physical therapy which has not provided her with much relief. She would like to proceed with surgical correction. She has completed a breast specific questionnaire: Pertinent findings to emphasize are: PLASTICS BREAST QUESTIONS 09/27/2016 Headaches? Some of the time Pain in [...] 51 Sexual Well-being 40 Physical Well-being 57 Conservative Therapy Treatments: MYD-H PLASTICS CONSERVATIVE THERAPY TREATMENTS 09/27/2016 Physical therapy was effective at relieving my [...] treatment? Less than 3 months Past Medical History Diagnosis Date ??? 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 Pap smear abnormality of cervix 1998 ??? Urticaria ??? Vitamin B12 deficiency Past Surgical History Procedure Laterality Date ??? Gynecologic cryosurgery 1998 ??? section ??? Pro delivery only 06/14/2011 ?? DELIVERY performed by V[facility]CTOR GOODWIN at [facility] ??? Pro ligate fallopian tube 06/14/2011 FALLOPIAN TUBE(S), TRANSECTION OR LIGATION, ABD APPROACH performed by VÍCTOR GOODWIN at [facility] Family History Problem Relation Age of Onset ??? Congenital Anomalies Son VSD ??? Defects Son club foot ??? Congenital Anomalies Son club foot ??? Defects Son VSD spontaneously closed ??? Urticaria Neg Hx ??? Angioedema Neg Hx ROS: System Constitutional neg Eye neg ENT neg CV neg Resp neg GI neg neg Skin neg Allergy neg Endocrine neg Neurologic neg Musculoskeletal neg Lymph neg Psych neg Y N All other systems reviewed and negative. x Examination: BMI: Ht 170.2 cm (5' 7) Wt 86.6 kg (191 lb) BMI 29.91 kg/m2 BSA: Body surface area is 2.02 meters squared. General: On my examination today, the patient appears to be in good health. Her emotional outlook is positive and she asked appropriate questions throughout the visit. Breasts: Bra size: 38 H Breast Measurements Right Left SN-N (cm) 34 33 Base diameter 19 18 NAC 6 7 Shoulder grooves ++ ++ Rash - - Breast Vol (estimate in cc) Impression: Symptomatic bilateral breast hypertrophy. Bilateral breast reduction is indicated for relief of her breast-related symptoms. She watched the [employer] video on breast reduction, and was provided with an [facility] brochure and informed consent on breast reduction. It reviews the surgical risks, alternate skin incisions and pedicle versus free nipple graft techniques. It also discusses the option of volume reduction by liposuction alone, which does not alter the nipple-areolar complex position. It talks about the impact of this surgery on decreasing breast cancer risk. We reviewed the timingof surgery relative to weight fluctuations and I've advised that surgery is best done at a realistic mcfp stable weight. We talked about the outpatient nature of the surgery, drains, postoperative recovery, and time required off work. I explained that we will need a letter of support from her PCP explaining that this procedure is medically necessary. I also suggest she obtain a letter from her physical therapist for insurance reasons. I explained that because her breasts are so large, she would most likely need a free nipple graft in order to obtain the best result. The following risks were reviewed in the video or in our discussion: Surgical Risks which are greater with open [...] that there may possibly be some asymmetry. Vertical or Lollipop Incision: Less scarring on breast, but slightly greater risk for delayed healing and desire for scar revision. (She was informed that her insurer might not cover secondary revisions for scarring or asymmetry.) Yepez or [place] Pattern Incision: More scarring on breast, but lower risk for scar revision. (She was informed that her insurer might not [...] opted to pursue a: Bilateral Breast Reduction Vertical, Pedicle Bilateral Breast Reduction Yepez, Pedicle X Bilateral Breast Reduction Yepez, FNG Anticipated resection: 1100 grams right breast 1100 grams left breast BSA [employer]/[place] Medicaid All other / Schnur 2.00 [id number] 2.01 950 2.02 965 2.03 985 She would like to proceed with surgery and I will inform her PCP of this plan. Photos taken today with informed signed consent Surgery Booking Information: Surgeon: Woo Duration: 3 hours Timeframe: Elective Procedure: Bilateral breast reduction CPT: 02995 Surgical Technique: Yepez w/ FNG Surgical site: Breasts Side: Bilateral Anesthesia: General Follow up: 1-3 days for drain removal; 7-10 days for HCK ( FNG 1-3 day f/u for drain removal and a 4-7 day f/u for bolster removal) PAT: Charlotte Karimi, Terrie Briones, am acting as scribe for Dr. Berkowitz. All work documented was performed by Dr. Berkowitz. ???I performed the above scribed service and agree with the accuracy of the note?? RIKI BERKOWITZ MD. * Clair Magana RN - 09/27/2016 9:30 AM EST Pre-Op Teaching for Surgery Surgery: BBR Written and verbal pre-operative instructions were given and reviewed with patient: Patient was advised to perform the pre-op scrub, and to coordinate a ride home following surgery. Smoking status and medications were further reviewed to rule out/address current use of Nicotine, Coumadin, Plavix, Estrogen or Tamoxifen. Photos were taken Patient was instructed to call the clinic at with any questions or concerns prior tosurgery. documented in this encounter Plan of Treatment Not on file documented as of this encounter Visit Diagnoses Diagnosis Macromastia Hypertrophy of breast documented in this encounter Care Teams Lead Producer Relationship Specialty Start Date End Date Sonja Cannon MD [address] [place] [address] PCP - General Internal Medicine 09/27/16 03/03/22 documented as of this encounter
--- OUTSIDE RECORDS SUMMARY | 2024-03-19 08:53 | XMS_ITS | Encounter Summary ---
Author Organization [facility] Address [facility] Scarlett sánchezann[place] [address] Care Team Providers Care Marina Sales And Service Supervisor Name Role Phone Sonja Cannon MD Primary Care Provider [phone] Reason for Visit * Reason Comments Cyst * Consultation (Routine) - Closed Specialty Diagnoses / Procedures Referred By Tomasa ledesma Referred To Contact Dermatology Diagnoses skin lesion of chest wall Kalpana Holcomb J, CAMPUS COORDINATOR [address] [place] [address] [facility] Dermatology [address] [place] [address] Referral ID Status Reason Start Date Expiration Date V isits Requested Visits Authorized [id number] Closed Consult, Test & Treat Connection Center 07/08/2018 07/08/2019 1 1 Encounter Details Date Type Department Care Team (Late st Contact Info) Description 08/13/2018 10:30 AM EST Office Visit Dermatology at [address] [place] [address] Lexi Araujo MD [facility] [address] [place] [address] Sharri Ayala PA [facility] [address] [place] [address] Seborrheic keratoses; EIC (epidermal inclusion cyst) Social History Tobacco Use Types Packs/Day Years Used Date Smoking Tobacco: Never Smokeless Tobacco: Never Alcohol Use Standard Drinks/Week Comments No 0 (1 standard drink = 0.6 oz pur e alcohol) Sex and Gender Information Value Date Recorded Sex Assigned at Not on file Gender Identity Not on file Sexual Orientation Not on file documented as of this encounter Progress Notes * Sharri Ayala PA - 08/13/2018 10:30 AM EST Images from the original note were not included. DERMATOLOGY - NEW PATIENT CONSULT NOTE Date of service: 08/13/2018 Giana Yeager : 1970, 48 y.o. CC: Chief Complaint Patient presents with ??? Cyst HPI: Giana Yeager is a 48 y.o. female seen in consultation at the request of Kalpana Holcomb for a skin lesion on the chest. She reports that it seemed to become infected in April or May. She would also like a waist up exam today. Relevant Skin History: - Okay to leave detailed message with results? Yes - None Medications: Current Outpatient Medications Medication Sig Dispense Refill ??? levothyroxine (SYNTHROID) 50 mcg Tablet Daily ??? cholecalciferol, Vitamin D3, 400 unit Capsule Take by mouth. ??? UNKNOWN TO PATIENT Indications: thyroid medication ??? MULTIVITAMIN ORAL ??? CYANOCOBALAMIN, VITAMIN B-12, [...] and in no noticeable distress. - Skin: Examination of skin from the waist up was performed. This includes examination of the skin of the face, ears, neck, chest, axillae, left and right upper extremities, hands, back, and abdomen. Diagnosis/Skin findings/Assessment/Plan: 1. Epidermal inclusion cyst (EIC) - Left upper chest: 1.5cm cyst. - Patient reassured of benign nature. - Patient declines treatment with [place] Kenalog at this time. - Discussed excision if the lesion becomes bothersome or irritated. Photos taken (by Luciana Ayala) and documented with patient consent. 2. Seborrheic keratoses - Scattered: Multiple 0.4-0.6cm brown papules with waxy, stuck-on appearance. Milia-like cysts, comedone-like openings and/or fissuring on dermoscopy. - Patient reassured of benign nature. - Advised patient to call if areas become inflamed or irritated. LOS: [id number] RTC: PRN Note initiated by Bridget Echeverria CMA. I, Carolyn Simon, have performed the documentation for this encounter in the presence of and acting as a scribe for Sharri Ayala PA-C (Bri). I performed the services which were documented by the scribe, and I agree with the accuracy of the documentation in this encounter. Sharri Ayala PA-C (Bri) Reviewed and signed by Sharri Ayala PA-C [facility] Patient seen in conjunction with staff mail courier: Lexi Araujo MD Section of Dermatology [facility] * Lexi Araujo MD - 08/13/2018 10:30 AM EST Patient referred for approx 1.5 cm EIC on the left upper chest Discussed dx, tx options, currently asymptomatic and no intervention today Otherwise benign waist up skin exam including SKs and few benign nevi as outlined in PA note Patient seen in conjunction with Sharri Ayala PA-C (Bri) Signed by: LEXI ARAUJO MD Section of Dermatology [facility] documented in this encounter Plan of Treatment Not on file documented as of this encounter Visit Diagnoses Diagnosis Seborrheic keratoses Other seborrheic keratosis EIC (epidermal inclusion cyst) Sebaceous cyst documented in this encounter Care Teams Marina Sales And Service Supervisor Relationship Specialty Start Date End Date Sonja Cannon MD [address] [place] [address] [address] [place] [address] PCP - General Internal Medicine 09/27/16 03/03/22 documented as of this encounter
--- OUTSIDE RECORDS SUMMARY | 2024-03-19 08:53 | XMS_ITS | Encounter Summary ---
Author Organization [facility] [place] [address] Care Team Providers Care Employee Relations Director Name Role Phone Sonja Causey MD Primary Care Provider [phone] Reason for Visit * Reason Onset Date Comments Emesis 04/07/2011 Encounter Details Date Type Department Care Team (Late st Contact Info) Description 04/07/2011 Telephone Obstetrics [place] [address] Fernando Cummings MD [facility] DR OBSTETRICS & [place] [address] Emesis Social History Tobacco Use Types Packs/Day Years Used Date Smoking Tobacco: Never Alcohol Use Standard Drinks/Week Comments No 0 (1 standard drink = 0.6 oz pur e alcohol) Comments Yes Sex and Gender Information Value Date Recorded Sex Assigned at Not on file Gender Identity Not on file Sexual Orientation Not on file documented as of this encounter Miscellaneous Notes * Telephone Encounter - Fernando Cummings - 04/07/2011 10:01 AM EDT TELEPHONE NOTE Date of call: 04/07/2011 Time of call: 9:57 AM Caller: Patient Reason for call: Patient is 29w4d . She had one episode of vomiting and diarrhea last night. She is feeling well this morning. She denies other symptoms. No fever. No one else in the family has been sick. She has not had any take out food or undercooked food. She has not had any unpasteurized dairy products. She reports active movement and denies vaginal bleeding. Assessment: Reassured that most likely symptoms were due to a viral illness. Plan/Instructions: Instructed to make sure she keeps well hydrated. If she starts to feel unwell again or notes reduced movement or other symptoms, she will call back. FERNANDO CUMMINGS 04/07/2011 documented in this encounter Plan of Treatment Not on file documented as of this encounter Visit Diagnoses Not on filedocumented in this encounter Care Teams Employee Relations Director Relationship Specialty Start Date End Date Sonja Causey MD [address] [place] [address] PCP - General 07/18/10 09/26/16 documented as of this encounter
--- OUTSIDE RECORDS SUMMARY | 2024-03-19 08:53 | XMS_ITS | Encounter Summary ---
Author Organization [facility] [place] [address] Care Team Providers Care Client Account Representative Name Role Phone Sonja Causey MD Primary Care Provider [phone] Reason for Visit * Reason Comments Skin Lesion left face and back Skin Check Encounter Details Date Type Department Care Team (Late st Contact Info) Description 04/08/2012 1:00 PM EDT [place] [address] Orville Ahumada MD [facility] DR [address]AM[place] [address] SK (seborrheic keratosis) (Primary Dx); FH: skin cancer; Congenital nevus of face Discharge Disposition: Home Social History Tobacco Use [...] as of this encounter Progress Notes * Alejandro Dias III, MD - 04/09/2012 10:56 AM EDT I directly supervised Dr. Ahumada during this office visit. Dr. Ahumada presented the historyand physical exam to me. I then saw and examined this patient with Dr. Ahumada . We reviewed thehistory and pertinent details and I confirmed the physical findings. I agree with the details of the history and physical exam as documented in Dr. Ahumada's note. * Orville Ahumada MD - 04/08/2012 1:10 PM EDT DERMATOLOGY - NEW PATIENT NOTE Date of service: 04/08/2012 Giana Yeager : 1970 Dermatology Resident Note: Orville Ahumada MD Chief Problem: spot check and skin exam Chief Complaint Patient presents with ??? Skin Lesion left face HPI: Ms. Giana Yeager is a 42 y.o. female, new patient to me, seen in consultation at the request of Sonja Causey specifically for the evaluation and management of the lesion on her left face and back. She was previously seen by Drs. Dias and Corie in 2009. Today she reports that she is concerned about a spot on the left side of her nose. This spot has been present since and the patient does not feel like it has significantly changed in size. She does endorse that for the past 4-6 weeks it has started bleeding with minimal trauma. The patient is also concerned about a very dark spot on the back of her neck. This spot has been present for over one year and has not changed in size. It does not itch and is not painful. She is frequently outside gardening but endorses poor compliance with sun protection. Past Skin History: No prior skin cancers Medical History: Patient Active Problem List Diagnoses Code ??? Vitamin B12 deficiency 266.2AM ??? Family or maternal historic risk of congenital anomaly, antepartum 655.23G ??? Rubella non-immune status V49.89CX Medications: Current outpatient prescriptions ordered prior to encounter Medication Sig Dispense Refill ??? MULTIVITAMIN ORAL ??? CYANOCOBALAMIN, VITAMIN B-12, (VITAMIN B-12 ORAL) Allergies: Allergies Allergen Reactions ??? Ibuprofen Other (See Comments) unexplained GI bleed ??? Aspirin Other (See Comments) Unexplained GI bleed Family History: No family h/o melanoma, Grandmother and Mother have H/O of Non Melanoma Skin Cancer Social/Occupational History: , 3 children, does not smoke, lives in [facility] Does not smoke Review of Systems: General: Feels well Skin: As per HPI; no other skin concerns Examination: Constitutional: Patient was alert, well-appearing and in no noticeable distress. Skin: A full skin examination was performed. This includes the head, neck, face and scalp includingbehind the ears. The chest, abdomen, back, and axillae, as well as the arms, hands, palms, fingers.Legs, feet, toes and soles were also examined. Genitalia were not examined. Specific skin findings: 1. 0.4 cm hyperkeratotic, dark brown papule on the left posterior neck with clinical and dermoscopic appearance of seborrheic keratosis 2. 0.3 cm erythematous papule with scattered pigment 3. 0.3-0.6 cm scattered hyperkeratotic, stuck on appearing papules consistent with seborrheic keratosis Diagnosis/Assessment/Treatment Plan: 1. Seborrheic Keratosis - reassured about benign nature of these skin findings. 2. 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 The presence of bleeding with minimal trauma is concerning however and suggests that this may be a skin neoplasm. Discussed shave biopsy with patient but she does not wish to have the lesion removed at this time. She wishes to continue to watch it clinically and follow up in 1-2 months if it continues to bleed and be irritated. The nature of sun-induced photo-aging and skin cancers is discussed. Sun avoidance, protective clothing, and the use of 30-SPF sunscreens is advised. Observe closely for skin damage/changes, and callif such occurs. Follow-up: RTC 2 months . Instructed to call for questions or concerns. Orville Ahumada MD Resident in Dermatology [facility] Patient seen and evaluated with staff stitch cleaner: Alejandro Dias MD Section of Dermatology [facility] documented in this encounter Plan of Treatment Not on file documented as of this encounter Visit Diagnoses Diagnosis SK (seborrheic keratosis)- Primary Other seborrheic keratosis FH: skin cancer Family history of other specified malignant neoplasm Congenital nevus of face Benign neoplasm of skin of other and unspecified parts of face documented in this encounter Care Teams Client Account Representative Relationship Specialty Start Date End Date Sonja Causey MD [address] [place] [address] PCP - General 07/18/10 09/26/16 documented as of this encounter
--- OUTSIDE RECORDS SUMMARY | 2024-03-19 08:53 | XMS_ITS | Encounter Summary ---
Author Organization [facility] [place] [address] Care Team Providers Care Manager Of It Name Role Phone Sonja Causey MD Primary Care Provider [phone] Encounter Details Date Type Department Care Team (Late st Contact Info) Description 03/16/2011 1:00 PM EDT Routine [address] [address] Dilma Gallego MD [facility] OBSTETRICS & [place] [address] GA: 26w3d Discharge Disposition: Home Social History Tobacco Use [...] Sign Reading Time Taken Comments Blood Pressure 102/58 03/16/2011 1:50 PM EDT Pulse - - Temperature - - Respiratory Rate - - Oxygen Saturation - - Inhaled Oxygen Concentration - - Weight 95.2 kg (209 lb 12.8 oz) 03/16/2011 1:50 PM EDT Height - - Body Mass Index 31.9 01/24/2011 3:57 PM EDT documented in this encounter Progress Notes * Dilma Gallego MD - 03/16/2011 1:52 PM EDT No c/o. Reports good movement, denies LOF, bleeding and cramping. US today EFW 1131gm, AMIRA cm Needs 1hr GCT but would like it done in [facility]. Plan f/u US in ~ 6 weeks. documented in this encounter Plan of Treatment Not on file documented as of this encounter Visit Diagnoses Diagnosis Threatened labor Threatened premature labor, unspecified as to episode of care Pelviectasis Hydronephrosis Second trimester bleeding Unspecified antepartum hemorrhage, unspecified as to episode of care macrosomia Excessive growth affecting management of mother, antepartum Low Sherly-A 0.29 MoM Abnormal findings on screening documented in this encounter Care Teams Manager Of It Relationship Specialty Start Date End Date Sonja Causey MD [address] [place] [address] PCP - General 07/18/10 09/26/16 documented as of this encounter
--- OUTSIDE RECORDS SUMMARY | 2024-03-19 08:53 | XMS_ITS | Encounter Summary ---
[place] [address] Care Team Providers Care Inspector Wreath Name Role Phone Sonja Causey MD Primary Care Provider [phone] Encounter Details Date Type Department Care Team (Late st Contact Info) Description 06/22/2011 Telephone Obstetrics [place] [address] Fernando Cummings MD [facility] DR OBSTETRICS & [place] [address] Social History Tobacco Use Types Packs/Day Years [...] encounter Miscellaneous Notes * Telephone Encounter - Rosie Victoria MD - 06/24/2011 1:29 PM EDT I agree with Dr. Cummings's suggestions and plan. * Telephone Encounter - Fernando Cummings - 06/22/2011 6:44 PM EDT TELEPHONE NOTE Date of call: 06/22/2011 Time of call: 6:39 PM Caller: Patient Reason for call: 'Fever and cramps'. She is POD#8 s/p scheduled repeat section. She was feeling well up until today. She calls with feeling of chills and a temperature of 100.1. She states she has some cramps. She has minimal bleeding (using 2 pads per day). She had her quoc removed yesterday without difficulty and says that her incision does not appear red. She denies dysuria or flank pain. She is and states this is going well. Her infant is well. She does not have any breast pain or redness. She also states that she has had mastitis in the past and does not think she has that now. She denies any leg swelling or pain. She has no cough or URT symptoms. Assessment: 41 y.o. female POD#8 with cramps and low grade temp. She [place] [address] [place] from the hospital. Possible endometritis versus viral infection. Plan/Instructions: Recommended Tylenol initially, consider antibiotics - will call back in the morning if she is not feeling better, and would then need further assessment. FERNANDO CUMMINGS MD 06/22/2011 documented in this encounter Plan of Treatment Not on file documented as of this encounter Visit Diagnoses Diagnosis Threatened labor Threatened premature labor, unspecified as to episode of care Pelviectasis Hydronephrosis Second trimester bleeding Unspecified antepartum hemorrhage, unspecified as to episode of care Endometritis Unspecified inflammatory disease of uterus documented in this encounter Care Teams Inspector Wreath Relationship Specialty Start Date End Date Sonja Causey MD [address] [place] [address] PCP - General 07/18/10 09/26/16 documented as of this encounter
--- OUTSIDE RECORDS SUMMARY | 2024-03-19 08:53 | XMS_ITS | Encounter Summary ---
[place] [address] Care Team Providers Care Patient Flow Coordinator Name Role Phone Sonja Causey MD Primary Care Provider [phone] Encounter Details Date Type Department Care Team (Late st Contact Info) Description 03/16/2011 2:00 PM EDT Clinical Support Obstetrics [place] [address] Social History Tobacco Use Types Packs/Day Years [...] on filedocumented in this encounter Care Teams Patient Flow Coordinator Relationship Specialty Start Date End Date Sonja Causey MD [address] [place] [address] PCP - General 07/18/10 09/26/16 documented as of this encounter
--- OUTSIDE RECORDS SUMMARY | 2024-03-19 08:53 | XMS_ITS | Encounter Summary ---
Author Organization [facility] [place] [address] Care Team Providers Care Security Control Room Officer Name Role Phone Sonja Causey MD Primary Care Provider Encounter Details Date Type Department Care Team (Latest Contact Info) Description 02/07/2011 1:02 PM EDT - 02/07/2011 11:59 PM EDT Hospital Encounter Non-[place] [phone] CARDIO, ECHO SIXTY MIN APPT None Renzo Martinez MD [facility] [place] [address] Family or maternal historic risk of congenital anomaly, antepartum Discharge Disposition: Home Social History Tobacco Use Types Packs/Day Years Used Date Smoking Tobacco: Never Alcohol Use Standard Drinks/Week Comments No 0 (1 standard drink = 0.6 oz pur e alcohol) Comments Yes Sex and Gender Information Value Date Recorded Sex Assigned at Not on file Gender Identity Not on file Sexual Orientation Not on file documented as of this encounter Medications at Time of Discharge Medication Sig Dispensed Refills Start Date End Date docusate sodium (COLACE) 100 mg capsule Take 1 capsule by mouth 2 times daily for 10 days. 20 capsule 2 06/16/2011 06/26/2011 OXYcodone (ROXICODONE) 5 mg immediate release tablet Take 1 tablet by mouth every 4 hours as needed for Pain. 30 tablet no 06/16/2011 07/26/2011 MULTIVITAMIN ORAL 04/20/2010 01/10/2023 CYANOCOBALAMIN, VITAMIN B-12, (VITAMIN B-12 ORAL) 04/20/2010 01/10/2023 documented as of this encounter Plan of Treatment Not on file documented as of this encounter Procedures Procedure Name Priority Date/Time Associated Diagnosis Comments ECHOCARDIOGRAM Routine 02/07/2011 1:56 PM EDT Family or maternal historic risk of congenital anomaly, antepartum documented in this encounter Results * Echocardiogram (02/07/2011 1:56 PM EDT) Anatomical Region Laterality Modality Other 02/09/2011 Narrative 02/09/2011 8:32 AM EDT Procedure: ? Pediatric Echocardiogram ? Patient: ? CHRISTELLE GOLDMAN ? (Age): 1970(40) Med Rec#: ?[id number] ?Sex: ?F ? Site Loc: ?[facility] ?Ht / Wt: ??(cm)/(kg) ? Pt. Loc: ? Echo Lab ?BSA: ? Study Date: ?02/07/2011 ?Pt. Type: Outpatient Study Quality: ? Tape: ? Referring: Renzo Martinez Design Cell Engineer: Carlin Amado Diagnosis:CPT Code(s): ?? Echo Full (68888), ?? Doppler Full (87082), ??Color Doppler (15550), Indication(s): ??Family hx of CHD Rhythm: SUMMARY: 1. A echocardiogram was performed at 21 weeks gestation due to history of prior child with ventricular septal defect. ??Yshq-uf-[id number] quality images were obtained. ?? 2. No cardiac structural abnormalities are identified. ??Chamber sizes, ventricular function, arterial and venous connections are all normal. The Doppler exam is normal. ??No arrhythmias are noted during the exam. There is no evidence of hydrops. ??This is a normal echocardiogram. ?? 3. The limitations of echocardiography include the inability to diagnose patent ductus arteriosus, some atrial and ventricular septal defects, minor valve abnormalities and coarctation. ??No specific or cardiac follow-up is required on the basis of this study. FINDINGS: Atria And Veins ?At least one pulmonary vein from each side enters the left atrium. ?No pulmonary venous anomalies are detected. Atrioventricular Valves ?The tricuspid valve appears normal. ?The annulus measures approximately 6 mm. (Z-Score: 0.06). ?No tricuspid valve structural abnormality is identified. ?The mitral valve structure appears normal. ?The annulus measures approximately 5.7 mm. (Z-Score: -0.38). ?No mitral valve structural abnormality is identified. Ventricles ?The right ventricle is normal sized. ?Right ventricular systolic function is normal. ?The left ventricle is normal sized. ?Left ventricular systolic function is normal. Ventricular Septum ?The interventricular septum appears to be intact. Semilunar Valves ?No pulmonary valve structural abnormalities seen. ?No aortic valve structural abnormalities seen. Great Vessels ?The great arteries appear normally related. ?The aortic arch appears to be intact. Effusion ?There is no evidence of a pericardial effusion. ?No evidence of hydrops. All Z scores are estimated This report has been electronically signed by: Jass ??Alessandra Allen MD ? 02/09/2011 08:31:26 Images reviewed and interpretation verified [facility] Cardiac Ultrasound Laboratory Procedure Note 02/09/2011 Procedure: Pediatric Echocardiogram Patient: CHRISTELLE GOLDMAN (Age): 1970(40) Med Rec#: [id number] Sex: F [place] Loc: [facility] Ht / Wt: (cm)/(kg) Pt. Loc: Echo Lab BSA: Study Date: 02/07/2011 Pt. Type: Outpatient Study Quality: Tape: Referring: Renzo Martinez Design Cell Engineer: Carlin Amado Diagnosis:CPT Code(s): Echo Full (28511), Doppler Full (19756), Color Doppler (04678), Indication(s): Family hx of CHD Rhythm: SUMMARY: 1. A echocardiogram was performed at 21 weeks gestation due to history of prior child with ventricular septal defect. Oyzw-cr-[id number] quality images were obtained. 2. No cardiac structural abnormalities are identified. Chamber sizes, ventricular function, arterial and venous connections are all normal. The Doppler exam is normal. No arrhythmias are noted during the exam. There is no evidence of hydrops. This is a normal echocardiogram. 3. The limitations of echocardiography include the inability to diagnose patent ductus arteriosus, some atrial and ventricular septal defects, minor valve abnormalities and coarctation. No specific or cardiac follow-up is required on the basis of this study. FINDINGS: Atria And Veins At least one pulmonary vein from each side enters the left atrium. No pulmonary venous anomalies are detected. Atrioventricular Valves The tricuspid valve appears normal. The annulus measures approximately 6 mm. (Z-Score: 0.06). No tricuspid valve structural abnormality is identified. The mitral valve structure appears normal. The annulus measures approximately 5.7 mm. (Z-Score: -0.38). No mitral valve structural abnormality is identified. Ventricles The right ventricle is normal sized. Right ventricular systolic function is normal. The left ventricle is normal sized. Left ventricular systolic function is normal. Ventricular Septum The interventricular septum appears to be intact. Semilunar Valves No pulmonary valve structural abnormalities seen. No aortic valve structural abnormalities seen. Great Vessels The great arteries appear normally related. The aortic arch appears to be intact. Effusion There is no evidence of a pericardial effusion. No evidence of hydrops. All Z scores are estimated This report has been electronically signed by: Jass Allen MD 02/09/2011 08:31:26 Images reviewed and interpretation verified [facility] Cardiac Ultrasound Laboratory Renzo Martinez MD ECHO ORDERABLES documented in this encounter Visit Diagnoses Diagnosis Family or maternal historic risk of congenital anomaly, antepartum Hereditary disease in family possibly affecting fetus, affecting management of mother, antepartum condition or complication documented in this encounter Care Teams Security Control Room Officer Relationship Specialty Start Date End Date Sonja Causey MD [address] [place] [address] PCP - General 07/18/10 09/26/16 documented as of this encounter
--- OUTSIDE RECORDS SUMMARY | 2024-03-19 08:53 | XMS_ITS | Encounter Summary ---
[place] [address] Care Team Providers Care Tea Tree Farm Worker Name Role Phone Sonja Causey MD Primary Care Provider [phone] Encounter Details Date Type Department Care Team (Latest Contact Info) Description 06/07/2011 12:57 PM EDT - 06/07/2011 11:59 PM EDT Hospital [place] [phone] Previous section Social History Tobacco Use Types Packs/Day Years [...] Procedure Name Priority Date/Time Associated Diagnosis Comments US OB FOLLOW UP Routine 06/07/2011 2:35 PM EDT Previous section documented in this encounter Results * US OB follow up evaluation (06/07/2011 2:35 PM EDT) Anatomical Region Laterality Modality Pelvis, Abdomen Ultrasound 06/07/2011 2:35 PM EDT Narrative 06/07/2011 2:39 PM EDT ?OBSTETRICS REPORT ? (Signed Final 06/07/2011 02:39 pm) Patient Info ID: ? [id number] ? : ??[birth year] (41 yrs) Name: ? MARCELL GOLDMAN ? Visit Date: 06/07/2011 02:21 pm ? TOY Performed By Performed By: ?? ALICIA Haas ??Madelyn Attending: ?Naty CLINTON, Julieta Mcleod Referred By: ?BURAK Kahn MD Accession#: ? [id number] Service(s) Provided UOBFOL - Efw - Growth - Reevaluation - Carney ?[id number] - [id number] Indications Patient would like assessment of the width of lower uterine segment for her to decide on mode of delivery as she has had 2 previous cesarian sections. Evaluation Num Of Fetuses: ?1 Heart Rate: ??132 ?bpm Presentation: ?Cephalic Placenta: ?Anterior AMIRA Sum: ? 10.85 ?? cm ? Larg Pckt: ?3.63 ??cm RUQ: ?? 3.63 ?cm ?LUQ: ?? 2.5 ?cm RLQ: ?? 2.72 ?cm ?LLQ: ?? 2 ?cm -------- Biometry -------- Gestational Age LMP: ? 38w 2d ?Date: ??09/12/10 ? LEORA: ?? 06/19/11 Best: ?38w 2d ?? Det. By: ??LMP ??(09/12/10) ?LEORA: ?? 06/19/11 ------- Anatomy ------- Stomach: ?Visualized Kidneys: ?Visualized Bladder: ?Visualized Spine: ?Visualized Impression 3rd Trimester Summary Single intrauterine with a gestational age of 38w 2d based on LMP. Amniotic fluid volume is , AMIRA = 10.85 cm Anatomical survey is limited due to the late gestational age, however no structural abnormalities are noted. Lower uterine segment ??wall measured 4.2mm to 5.2mm. I ??viewed the images and agree with the above interpretation. Thank you for allowing us to participate in the care of MARCELL YEAGER. Please do not hesitate to call if you have any questions. ? Julieta Gomez MD Electronically Signed Final Report ?? 06/07/2011 02:39 pm Procedure Note Julieta Gaxiola MD - 06/07/2011 OBSTETRICS REPORT (Signed Final 06/07/2011 02:39 pm) Patient Info ID: [id number] : [birth year] (41 yrs) Name: MARCELL GOLDMAN Visit Date: 06/07/2011 02:21 pm TOY Performed By Performed By: ALICIA Haas Attending: Julieta Alfonso MD Referred By: BURAK Kahn MD Service(s) Provided UOBFOL - Efw - Growth - Reevaluation - Carney [id number] - [id number] Indications Patient would like assessment of the width of lower uterine segment for her to decide on mode of delivery as she has had 2 previous cesarian sections. Evaluation Num Of Fetuses: 1 Heart Rate: 132 bpm Presentation: Cephalic Placenta: Anterior AMIRA Sum: 10.85 cm Larg Pckt: 3.63 cm RUQ: 3.63 cm LUQ: 2.5 cm RLQ: 2.72 cm LLQ: 2 cm -------- Biometry -------- Gestational Age LMP: 38w 2d Date: 09/12/10 LEORA: 06/19/11 Best: 38w 2d Det. By: LMP (09/12/10) LEORA: 06/19/11 ------- Anatomy ------- Stomach: Visualized Kidneys: Visualized Bladder: Visualized Spine: Visualized Impression 3rd Trimester Summary Single intrauterine with a gestational age of 38w 2d based on LMP. Amniotic fluid volume is , AMIRA = 10.85 cm Anatomical survey is limited due to the late gestational age, however no structural abnormalities are noted. Lower uterine segment wall measured 4.2mm to 5.2mm. I viewed the images and agree with the above interpretation. Thank you for allowing us to participate in the care of [facility] CENTER[facility]ilda GOLDMAN TOY. Please do not hesitate to call if you have any questions. Julieta Gomez MD Electronically Signed Final Report 06/07/2011 02:39 pm Angelica Monroe MD IMG OB ORDERABLES documented in this encounter Visit Diagnoses Diagnosis Previous section Other postprocedural status documented in this encounter Care Teams Tea Tree Farm Worker Relationship Specialty Start Date End Date Sonja Causey MD [address] [place] [address] PCP - General 07/18/10 09/26/16 documented as of this encounter
--- OUTSIDE RECORDS SUMMARY | 2024-03-19 08:53 | XMS_ITS | Encounter Summary ---
[place] [address] Care Team Providers Care Community Product Specialist Name Role Phone Sonja Causey MD Primary Care Provider [phone] Reason for Visit * Reason Onset Date Comments Care 06/21/2011 Encounter Details Date Type Department Care Team (Late st Contact Info) Description 06/21/2011 Telephone [place]stetrics [place] [phone] Jeimy Lion, recreation establishment manager Care Social History Tobacco Use Types Packs/Day Years [...] encounter Miscellaneous Notes * Telephone Encounter - Jeimy Lion RN - 06/21/2011 10:12 AM EDT Team Julián/Kim, delivered by repeat c/section with BTL on 06/14/11, male Pal reports that everything is OK. There are some weight concerns with the baby and she will be bringing him today to the customer accounts advisor for the third time for a weight check. She is experienced at nursing and doesn't feel there is a latching problem, but she does have a sore on one nipple. She is applying a balm to it and it is improving and healing. She will also be going to her PCP to have her quoc removed. Her incision is dry and seems to be healing well. Her post op pain is minimal. Pal does note her lochia is still moderate and bright red. We discussed that this may be due to her activity level. Her Mom is here for a few days and this will allow her to focus on just resting and nursing. She is aware that she should call if she is soaking her heavy pads or passes plum size clots. We discussed post blues/depression and she is in good spirits. She did not have any problems with post depression with either of her previous pregnancies. documented in this encounter Plan of Treatment Not on file documented as of this encounter Visit Diagnoses Diagnosis Threatened labor Threatened premature labor, unspecified as to episode of care Pelviectasis Hydronephrosis Second trimester bleeding Unspecified antepartum hemorrhage, unspecified as to episode of care documented in this encounter Care Teams Community Product Specialist Relationship Specialty Start Date End Date Sonja Causey MD [address] [place] [address] PCP - General 07/18/10 09/26/16 documented as of this encounter
--- OUTSIDE RECORDS SUMMARY | 2024-03-19 08:53 | XMS_ITS | Encounter Summary ---
Author Organization [facility] Address [facility] [place] [address] Care Team Providers Care Commercial Real Estate Assistant Name Role Phone Sonja Cannon MD Primary Care Provider [phone] Reason for Visit * Reason Comments Skin Lesion Encounter Details Date Type Department Care Team (Late st Contact Info) Description 08/11/2019 9:00 AM EST Office Visit Dermatology at [facility] [address] [place] [address] León Gibson MD [facility] [address] [address] EIC (epidermal inclusion cyst) Social History Tobacco [...] encounter Progress Notes * León Gibson - 08/11/2019 9:00 AM EST Images from the original note were not included. DERMATOLOGY - ESTABLISHED PATIENT FOLLOW-UP Date of service: 08/11/2019 Giana Yeager : 1970, 49 y.o. Chief Complaint: Chief Complaint Patient presents with ??? Skin Lesion HPI: Giana Yeager is a 49 y.o. female last seen by Lexi Rai on 08/13/2018. Ms. Yeager returns today for painful cyst on the left chest that has been inflamed for a few days now. Relevant Skin History: - Skin cancer (including type): None - Okay to leave a detailed message with results? 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 - Skin: Focused skin examination of the left chest was normal with the exception of the findings listed below. - A female nurse was present and on standby during my examination. Diagnosis/Skin findings/Assessment/Plan: 1. Epidermal Inclusion Cyst- 2 cm subcutaneous flesh colored cystic nodule with central punctum on the left chest. Painful and inflamed at this time. - Discussed treatment options, and patient elects to have Kenalog injection today and to follow up with surgery. Procedure Note Kenalog injection:? Location: Left chest Kenalog??10 mg/mL, total??0.4 mL Verbal consent obtained. Reviewed side effects of skin atrophy, telangiectasia, hypopigmentation, and striae.??The area was cleaned with alcohol and kenalog injected intralesionally.??The patient tolerated the procedure well and follow up care reviewed.? RTC: Follow up as needed. The following photos were obtained with patient consent: Note initiated by Kathie Mathews LPN. I, Kathie Mathews LPN, have performed the documentation for this encounter in the presence of andacting as a scribe for León Gibson MD. I performed the services which were documented by the scribe, and I agree with the accuracy of the documentation in this encounter. León Gibson MD Reviewed and signed by: León Gibson MD Resident in Dermatology [facility] Patient seen and evaluated with staff almond cutting machine tender: Johny Tolbert MD Section of Dermatology [facility] * Johny Tolbert MD - 08/11/2019 9:00 AM EST I directly supervised Dr. Gibson [...] as of this encounter Visit Diagnoses Diagnosis EIC (epidermal inclusion cyst) Sebaceous cyst documented in this encounter Administered Medications Inactive Administered Medications - up to 3 most recent administrations Medication Order MAR Action Action Date Dose Rate Site triamcinolone acetonide (KENALOG) injection 10 mg 10 mg, Intra-Lesional, ONCE, 1 dose, On Sat08/11/19 at 0945, Routine Given 08/11/2019 9:28 AM EST 10 mg documented in this encounter Care Teams Commercial Real Estate Assistant Relationship Specialty Start Date End Date Sonja Cannon MD [address] [place] [address] PCP - General Internal Medicine 09/27/16 03/03/22 documented as of this encounter
--- OUTSIDE RECORDS SUMMARY | 2024-03-19 08:53 | XMS_ITS | Encounter Summary ---
Author Organization [facility] Address [facility] [place] [address] Care Team Providers Care Dry Clipper Tender Name Role Phone Sonja Causey MD Primary Care Provider [phone] Encounter Details Date Type Department Care Team (Late st Contact Info) Description 06/14/2011 12:40 PM EDT - 06/14/2011 2:28 PM EDT [place] [id number] Rosie Hastings MD [facility] [place] [address] @ DELIVERY (WRVU 16.13) Social History Tobacco Use Types Packs/Day Years [...] Sign Reading Time Taken Comments Blood Pressure 110/57 06/16/2011 9:00 AM EDT Pulse 68 06/16/2011 9:00 AM EDT Temperature 37 ??C (98.6 ??F) 06/16/2011 9:00 AM EDT Respiratory Rate 16 06/16/2011 9:00 AM EDT Oxygen Saturation 98% 06/16/2011 9:00 AM EDT Inhaled Oxygen Concentration - - Weight 85.8 kg (189 lb 1.4 oz) 11/23/2010 1:40 P M EDT Height 170.2 cm (5' 7) 11/23/2010 1:40 PM EDT Body Mass Index 29.62 11/23/2010 1:40 PM EDT documented in this encounter Discharge Instructions * Discharge Instructions* Paige Rashid RN - 06/16/2011 10:51 AM EDT Nursing Inpatient Progress C - Section Follow-up Follow-ups: You will be mailed out a 6 week follow up. Immunizations Received: [ x] MMR [x ] Tdap Additional Instructions: Call PCP or [facility] to have your quoc removed on Saturday or Sat next week. If any questions or concerns, please don't hesitate to call. Maternal Discharge Instructions: May continue to take Tylenol 1000mg every 6hr as needed for pain, as well as Oxycodone 5mg every 4-6hr as needed for more acute pain. Continue the stool softner as needed and drink plenty of water. Rest: Although it may seem impossible to get enough rest, simple planning will help. Try to get at least one four hour block of uninterrupted sleep in 24 hours; then plan to rest, and/or sleep when your baby does. Limiting visitors also helps. Fathers and other family members can help by doing housework, caring for other children and/or helping limit visitors. Activity: After delivery, it is safe to climb stairs at home. Do not lift anything heavierthan your baby for two weeks. Do not drive for two weeks or while taking pain medicine that contains a narcotic as your reaction time may be decreased. Nutrition: Your diet following the of your baby is as important as it was before the baby wasborn. Drink a minimum of 6-8 glasses a day. Do not attempt to lose weight during the first six weeks. Continue taking your vitamins until they are gone. Lochia: (Flow) Your flow should be no heavier than a normal period. It will be bright red for 2-3 days and then pinkish and finally colorless. If your flow becomes bright red again, decrease your activity. Do not use tampons until your care provider advises you it is OK. Incision: Wash the incision with soap and water and pat dry. It is normal to have clear or pinkish fluid seep from the incision. Gauze pads or sanitary napkins may help to keep the incision dry if itis located in a fold under your tummy. If the incision has more redness, yellow drainage, or becomes more painful, contact the obstetrics clinic. Breast feeding mothers: Practice careful positioning and frequent feeding as demonstrated in the hospital. The printed information in your packet covers this in detail. Call your doctor or assistant manager airside operations for: Fever more than 100.5 Heavy bleeding that saturates a pad an hour Clots larger than a plum Increased abdominal pain, nausea, shaking chills Increased redness or soreness over your incision Breast with hot, hard, tender areas on the breast plus flu-like symptom depression occurs in a large percentage of women. We encourage you to contact your provider or a member of the nursing staff if you are feeling so overwhelmed that you are unable to care for yourself or your baby. Keep your follow up appointment. You may call the [facility] at any time for guidance or for answers to questions that come up prior to you follow up appointment. Your [facility] Provider can be reached during office hours at [facility] Follow[facility]up Clinic AFTER OFFICE HOURS for the weighter or assistant manager airside operations technical sales consultant Provider electronic signature confirms that discharge instructions were reviewed with the patient. A copy was printed and given to the patient. documented in this encounter Medications at Time of Discharge [...] 04/20/2010 01/10/2023 documented as of this encounter Progress Notes * Nash Beaulieu MD - 06/16/2011 7:50 AM EDT OB Note Giana Yeager is a 41 y.o. POD#2 s/p ERCS and BTL at 39w4d. S: Patient doing well today. Reports minimal incisional site pain, well controlled with pain medications. She is complaining of bloating and gas pain. She has been ambulatory without dizziness/weakness. Tolerating regular diet, denies nausea/vomiting. Has not had BM, but reports flatus. Urinating without difficulty. Reports reducing vaginal bleeding. She denies SOB/CP/calf tenderness or ankle edema. She is well. Had a bilateral tubal ligation for contraception. O: Last value Range last 24 hrs Temperature Temp: 37 ??C (98.6 ??F) Temp: [36.7 ??C (98.1 ??F)-37 ??C (98.6 ??F)] Heart Rate Heart Rate: 68 Heart Rate: [68-93] Blood Pressure BP: 114/51 mmHg BP: (104-114)/(51-58) Respiratory Rate Resp: 18 Resp: [18] SpO2 SpO2: 95 % SpO2: [95 %] Heart: RRR, normal S1 S2 Lungs: CTAB, no wheezes/crackles Abdomen: active BS, soft, mildly tender to palpation near incision site, uterine fundus firm, dressing removed - incision site clean, well-healing with quoc intact Extremities: no tenderness/edema noted A/P: Giana Yeager is a 41 y.o. POD#2 s/p ERCS and BTL at 39w4d. Recovering well 1) Pain - Currently well controlled on tylenol, oxycodone prn pain. 2) CVS - HR/BP within normal limits 3) Resp - Encourage ambulation 4) GI/FEN - Regular diet. Simethicone written for gas pain. 5) - Voiding spontaneously 6) - Going well 7) Routine care - anticipate d/c on POD#3 8) Contraceptive plan - s/p BTL Patient discussed on rounds. PERLA SIBLEY 06/16/2011 Maternal Medicine Note: I have personally reviewed the patient's symptoms, history and physical status and agreewith the resident physician's assessment and plan as documented. Nash Beaulieu MD, MS 06/16/2011 * Jeimy Kuhn RN - 06/15/2011 2:27 PM EDT Care Management Assessment Patient Information has been reviewed in multi-disciplinary rounds with OB and pediatric providers,in medical record, and through patient interview. Introduced self and CRC role to patient and services accepted. Living Situation: Pal is a 41 y.o. delivered by Repeat C/Section at term on 06/14/11. Her was complicated by: 2 prior C/Sections, + CF carrier With Whom: Jerome and two older sons Martha and Doreen Where: [place], [place] Approx time in community: Years Social Resources: Intact couple. employed. 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 Have [place] Medicaid and WIC in place. Have local family support : Grandparents. Extended family in area for support: YES Cognitive Resources: Intact Childbirth Education: Yes/No Educational level: High School Functional Status: Ambulatory, Independent, Without limitations. C/S recovery with limitations on lifting/driving x 2 weeks. Complications requiring follow-up: Financial Resources: [place] Health Insurance Coverage: [place] Medicaid Fashion Buying Internship Chosen: Dr. James Mathews MD Baby's Name: Patrick Yeager Anticipated Continuing Care Needs: Physical: Recovery from . Initiation of . Emotional: Adjustment to period Psychological: No known hx of anxiety/depression. Educational: Parenting Continuing Care Plan Development: At home resources/Discharge supports suggested. Printed materials and suggested community resourcesprovided to patient: Visiting Nurse visits: Offered services of VNA post discharge. Patient declined (has with first child, does not feel necessary this time.) [facility] (n/a) [facility]: Referral to [facility]: [facility] DME ordered : None Breast Pump: N/A Other: Have car seat, own transportation, and adequate family support. No direct referrals made at this time. . CRC: Rosie Kuhn RNC/ Jackelyn Flores. Beeper [id number] * Nash Beaulieu MD - 06/15/2011 5:36 AM EDT Delivery Note Patient ID: Pal Yeager is a 41 year old who is PPD#1 after an elective repeat cs and BTL. Subjective: Very little pain, is not taking medication. Light lochia, no nausea, has not yet had a full meal. Argueta still in, has ambulated. General ROS: Review of Systems Abdominal pain, as above Lochia: moderate Physical Exam: Last Set of Vitals and range of vital over past 24 hours: BP 94/55 Pulse 95 Temp(Src) 36.8 ??C (98.2 ??F) (Oral) Resp 18 Ht 170.2 cm (5' 7) Wt 85.77 kg (189 lb 1.4 oz) BMI 29.62 kg/m2 SpO2 99% LMP 09/12/2010 Physical Exam Gen: CV: Regular rate and rhythm, no murmurs, rubs or gallops. Pulm: breath sounds heard in all larson, clear to auscultation bilaterally. Abd: soft, non-distended, tender to palpation, dressing clean dry and intact Ext: no edema, SCDs off. Significant Labs: None to report Assessment: Pal Yeager is a 41 year old who is PPD#1 after an elective repeat cs and BTL. Recovering well. Plan: - continue routine care - anticipate dc PPD#3 -6 wk PPV This patient was seen and discussed on rounds. PATTY JONES MD 06/15/2011 Maternal Medicine Note: I have personally reviewed the patient's symptoms, history and physical status and agreewith the resident physician's assessment and plan as documented. Nash Beaulieu MD, MS 06/15/2011 documented in this encounter H&P Notes * Rosie Victoria MD - 06/14/2011 1:02 PM EDT Inpatient EARLY CHILDHOOD EDUCATOR AIDE - Admission Interval Note I have reviewed the pre-procedure H&P completed by Dr. Gallego on 06/08/2011. (X) Condition unchanged since H&P originally performed. Proceed with planned repeat section and BTL PERLA SIBLEY MD 06/14/2011 I evaluated the patient prior to her scheduled R C/S and BLT. I have reviewed the resident's and prior attending (Dr. Gallego's) history and confirmed it with the pateint and I agree with the detailsas written. The patient is here for a R C/S #2 (this will be her third C/S) and desires BTL. The patient had a failed attempt and though she desired TOLAC, she was advised against after findingsnoted in her last C/S including a very thin lower segment of her uterus. The patient was given a opportunity to ask questions about the scheduled C/S and BLT. We reviewed the risks of BTL again, suchas regret, failure, risk of ectopic but the patient elects to continue with the plan. documented in this encounter Miscellaneous Notes * Miscellaneous - Provider, Michelle - 08/17/2011 9:05 AM EST * Discharge Summary - Faye Huffman - 06/16/2011 12:00 AM EDT Patient Name: Giana Yeager Admit date: 06/14/2011 Discharge date: 06/16/2011 Attending Physician: Dr. Beaulieu [facility] Term Delivery Discharge Summary Discharge Diagnoses: Primary Diagnosis: term IUP, history of prior delivery times 2 Secondary Diagnosis: see below Operations and Major Procedures this Hospitalization: repeat low trasverse section and bilateral tubal ligation Problem List: No resolved problems to display. Active Hospital Problems Diagnoses ??? Tubal ligation status ??? Low Sherly-A 0.29 MoM ??? Second trimester bleeding ??? Pelviectasis ??? Threatened labor ??? state, incidental ??? Rubella non-immune status ??? Vitamin B12 deficiency ??? AMA (advanced maternal age) multigravida 35+ ??? Previous delivery affecting , antepartum ??? Family or maternal historic risk of congenital anomaly, antepartum Resolved Hospital Problems Diagnoses Date Resolved History of Presentation: per admit note Pt was admitted for scheduled delivery at 39 2/7 weeks gestation. She had a reactive NST on admission. She was without complaint on admission and denied contractions, bleeding or loss of fluid. Hospital Course: Pal was admitted and underwent uncomplicated delivery and tubal ligation. Her course was uncomplicated. She was ambulating, tolerating a regular diet and voiding. At her request she was discharge to home on POD #[address] her [address] in place. Her pain was well c ontrolled Pertinent Studies and Lab Data: Lab Results Component Value Date WBC 14.0* 06/15/2011 RBC 3.30* 06/15/2011 HGB 9.3* 06/15/2011 HCT 27.7* 06/15/2011 MCV 83.9 06/15/2011 MCH 28.2 06/15/2011 MCHC 33.6 06/15/2011 PLATELET 251 06/15/2011 RDWCV 14.5* 06/15/2011 Pending Studies and Lab Data at Discharge: placental pathology Discharge Medications Giana Yeager Home Medication Instructions TAMIR:[id number] Printed on:06/17/11 3759 Medication Information MULTIVITAMIN ORAL CYANOCOBALAMIN, VITAMIN B-12, (VITAMIN B-12 ORAL) OXYcodone (ROXICODONE) 5 mg immediate release tablet Take 1 tablet by mouth every 4 hours as needed for Pain. docusate sodium (COLACE) 100 mg capsule Take 1 capsule by mouth 2 times daily for 10 days. Allergies at Discharge Allergies Allergen Reactions ??? Ibuprofen Other (See Comments) unexplained GI bleed ??? Aspirin Other (See Comments) Unexplained GI bleed Contraception Plans: s/p tubal ligation Provider Instructions None General Instructions Nursing Inpatient Progress C - Section Follow-up Follow-ups: You will be mailed out a 6 week follow up. Immunizations Received: [ x] MMR [x ] Tdap Additional Instructions: Call PCP or [facility] to have your quoc removed on Saturday or Sat week. If any questions or concerns, please don't hesitate to call. Maternal Discharge Instructions: May continue to take Tylenol 1000mg every 6hr as needed for pain, as well as Oxycodone 5mg every 4-6hr as needed for more acute pain. Continue the stool softner as needed and drink plenty of water. Rest: Although it may seem impossible to get enough rest, simple planning will help. Try to get at least one four hour block of uninterrupted sleep in 24 hours; then plan to rest, and/or sleep when your baby does. Limiting visitors also helps. Fathers and other family members can help by doing housework, caring for other children and/or helping limit visitors. Activity: After delivery, it is safe to climb stairs at home. Do not lift anything heavierthan your baby for two weeks. Do not drive for two weeks or while taking pain medicine that contains a narcotic as your reaction time may be decreased. Nutrition: Your diet following the of your baby is as important as it was before the baby wasborn. Drink a minimum of 6-8 glasses a day. Do not attempt to lose weight during the first six weeks. Continue taking your vitamins until they are gone. Lochia: (Flow) Your flow should be no heavier than a normal period. It will be bright red for 2-3 days and then pinkish and finally colorless. If your flow becomes bright red again, decrease your activity. Do not use tampons until your care provider advises you it is OK. Incision: Wash the incision with soap and water and pat dry. It is normal to have clear or pinkish fluid seep from the incision. Gauze pads or sanitary napkins may help to keep the incision dry if itis located in a fold under your tummy. If the incision has more redness, yellow drainage, or becomes more painful, contact the obstetrics clinic. Breast feeding mothers: Practice careful positioning and frequent feeding as demonstrated in the hospital. The printed information in your packet covers this in detail. Call your doctor or assistant manager airside operations for: Fever more than 100.5 Heavy bleeding that saturates a pad an hour Clots larger than a plum Increased abdominal pain, nausea, shaking chills Increased redness or soreness over your incision Breast with hot, hard, tender areas on the breast plus flu-like symptom depression occurs in a large percentage of women. We encourage you to contact your provider or a member of the nursing staff if you are feeling so overwhelmed that you are unable to care for yourself or your baby. Keep your follow up appointment. You may call the [facility] at any time for guidance or for answers to questions that come up prior to you follow up appointment. Your [facility] Provider can be reached during office hours at [facility] Follow[facility]up Clinic AFTER OFFICE HOURS for the weighter or assistant manager airside operations technical sales consultant Provider electronic signature confirms that discharge instructions were reviewed with the patient. A copy was printed and given to the patient. * Miscellaneous - Provider, Scanning - 06/15/2011 3:25 PM EDT * OR Attestation - Rosie Victoria MD - 06/15/2011 2:40 PM EDT Attestation: Case Date: 06/14/2011 I was present and I participated during the entire procedure (does not need to include opening and closing). ROSIE VICTORIA MD 06/15/2011 I supervised the delivery described above. I was present and I participated during the entire delivery (does not to include opening and closing) and there were no overlapping cases. * Op Note - Faye Huffman - 06/14/2011 4:09 PM EDT [facility] Operative Note Patient Name: Giana Yeager : [id number] MR#: [id number] Case Date: 06/14/2011 Surgeon: Surgeon(s) and Role: * PERLA SIBLEY MD - Resident-Surgeon Jesse * FAYE HUFFMAN MD - Resident-Surgeon Chief * ROSIE VICTORIA MD - Primary Preoperative diagnosis: prior delivery times 2, desires permanent sterilization Postoperative diagnosis: same Procedure(s): Repeat low transverse DELIVERY FALLOPIAN TUBE(S), TRANSECTION OR LIGATION, ABD APPROACH Other Estimated Blood Loss: 1000cc Drains: Argueta - UOP 100cc clear urine at end of procedure Disposition: To LDRP room in stable condition Condition: doing well without problems (Please see the Surgical Encounter Summary for any Implant and Specimen details pertinent to this patient.) Findings 1. 3640 gram male infant with 's of 8 and 9. 2. Placenta intact with a three-vessel cord 3. Normal appearing uterus, tubes, and ovaries. 4. Intact prior scar although very thin lower uterine segment. Specimens: Placenta and 3 vessel cord Bilateral segments of fallopian tubes Procedure in Detail: The patient was taken to the operating room with her IV running. Spinal anesthesia was induced. She was then placed in the dorsal supine position with a leftward tilt and a Foleycatheter was inserted in her bladder. She was prepped and draped in the usual sterile fashion and asurgical timeout was performed with all members of the team in agreement. After spinal anesthesia was confirmed adequate, a Pfannenstiel incision was made and carried down to the underlying fascia. The fascia was sharply incised in the midline and the incision was extendedbilaterally with curved Greenfield scissors. Superior aspect of the fascial incision was grasped with Eric clamps and elevated. The rectus muscles were dissected off with the Bovie. Attention was then turned to the inferior aspects of the fascial incision and this was grasped with Eric clamps, elevated, and the underlying rectus muscle was again dissected off with the Bovie. There was thick scarring of the rectus muscles in the midline and this was with the scalpel. The peritoneum was scarred to the rectus muscles and was entered at the same time. The metzenbaum scissors were then used to separate the remainder of the peritoneum. A bladder blade was then inserted. The bladder was noted to be slightly tacked up on the uterus but not adherent to the anterior uterine wall. The vesicouterine peritoneum was grasped with pickups and entered sharply with Metzenbaum scissors. This incision was extended laterally and bladder flap created digitally The bladder blade was then replaced. The lower uterine segment was bulging and quite thin. A low-transverse incision was made in the uterus with the scalpel. Hysterotomy reveals clear fluid. The hysterotomy was then stretched to accommodate the head, a hand was inserted into the uterus, grasped the head and the head was delivered with the help of fundal pressure. The shoulders and body followed easily. The cord was then clamped and cut and the was handed off to pediatricians. The placenta was extracted and the uterus cleaned out with a dry lap. The uterine incision was repaired with 0-Vicryl in a continuous locking fashion. In the middle of the hysterotomy on the lower aspect of the incision a thin area was r einforced with a running locked suture of 3-0 Chromic as the Vicryl had pulled through. There was not sufficient tissue to allow for imbrication. The hysterotomy was noted to be hemostatic and a piece of gel foam was placed over the lower aspect of the hysterotomy. At this time bilateral tubal ligation was performed [facility]. The fallopian tubes were individually identified and followed to their fimbriated ends. The mid isthmic portion of the tube was grasped with a [place] and elevated to form a knuckle of tube. Two sutures of 3-0 chromic were placed to form a knuckle of tube. The tube was transected with the metzenbaum scissors. The ends were noted to be hemostatic. The fascia was closed with 0-Vicryl and the skin closed with quoc. Sterile bandages were placed. The uterus was expressed and clot was removed. She was then transferred off the operating table, and returned to her room in stable condition with her infant. All counts were correct times two. Dr. Victoria was present for and participated in the whole procedure without conflicting clinical responsibility. FAYE HUFFMAN MD * L&D Delivery Note - Perla Sibley - 06/14/2011 3:37 PM EDT Delivery Note Giana Yeager is a 41 y.o. year old woman at 39w2d weeks gestational age, presenting for elective repeat section and bilateral tubal ligation. Please see OP note for operative details. Delivery Summary for Giana Yeager Labor Events: labor: Rupture date: 06/14/2011 Rupture time: 1:58 PM Rupture type: Artificial Fluid Color: Clear Induction: Augmentation: None Complications: Cervical ripening: Delivery: Episiotomy: Lacerations: Repair suture: Repair # of packets: Blood loss (ml): 1000 Information for the patient's : Gio Yeager [[id number]] Delivery 06/14/2011 1:58 PM by Lower Segment Transverse Sex: male Gestational Age: <None> Delivery Clinician: Rosie Victoria Living?: Yes APGARS One minute Five minutes Ten minutes Skin color: 0 1 Heart rate: 2 2 Grimace: 2 2 Muscle tone: 2 2 Breathin 2 Totals: 8 9 Presentation/position: Vertex Right Occiput Anterior Resuscitation: Suctioning Cord information: 3 Vessels Disposition of cord blood: Lab Blood gases sent? No Complications: None Placenta: Delivered: appearance [place] Measurements: Weight: 8 lb 0.4 oz (3640 g) Height: 20.08 Head circumference: 36 cm Chest circumference: Other providers: Delivery Assist Delivery Nurse Registered Nurse Lockstitch Sleeve Maker Surgeon Fashion Buying Internship Faye Arora Additional information: Forceps: Vacuum: Breech: Observed anomalies documented in this encounter Plan of Treatment Not on file documented as of this encounter Procedures Procedure Name Priority Date/Time Associated Diagnosis Comments DIFFERENTIAL, AUTOMATED Routine 06/15/2011 5:10 AM EDT CBC (WITH DIFF) Routine 06/15/2011 5:10 AM EDT SURGICAL PATHOLOGY REPORT Routine 06/14/2011 4:12 PM EDT SPECIMEN TO PATHOLOGY Routine 06/14/2011 4:10 PM EDT SPECIMEN TO PATHOLOGY Routine 06/14/2011 4:03 PM EDT SPECIMEN TO PATHOLOGY Routine 06/14/2011 4:03 PM EDT SPECIMEN TO PATHOLOGY Routine 06/14/2011 1:52 PM EDT SPECIMEN TO PATHOLOGY Routine 06/14/2011 1:49 PM EDT FALLOPIAN TUBE(S), TRANSECTION OR LIGATION, ABD APPROACH (WRVU 5.91) 06/14/2011 1:22 PM EDT pepeat c/s with bitubal ligation @ DELIVERY (WRVU 16.13) 06/14/2011 1:22 PM EDT pepeat c/s with bitubal ligation DIFFERENTIAL, AUTOMATED Routine 06/14/2011 10:50 AM EDT ABO/RH TYPING Routine 06/14/2011 10:50 AM EDT CBC (WITH DIFF) Routine 06/14/2011 10:50 AM EDT ANTIBODY SCREEN Routine 06/14/2011 10:50 AM EDT TYPE AND SCREEN ([facility] [place]/CGP/GIUSEPPE) Routine 06/14/2011 10:50 AM EDT SURGICAL PATHOLOGY REPORT Routine 06/14/2011 10:23 AM EDT documented in this encounter Results * (ABNORMAL) A-DIFF (06/15/2011 5:10 AM EDT) Neutrophils % 82.0(H) 34.0 - 71.0 % JULIUS MILLENNIUM Neutr Abs (ANC) 11.46(H) 1.50 - 6.30 x10(3)/mc L CERNER MILLENNIUM Lymphocytes % 8.7(L) 19.0 - 53.0 % CERNER MILLENNIUM Lymphocytes Abs 1.2 1.0 - 3.6 x10(3)/mc L CERNER MILLENNIUM Monocytes % 8.4 4.0 - 13.0 % CERNER MILLENNIUM Monocyte Abs 1.2(H) 0.2 - 1.0 x10(3)/mc L CERNER MILLENNIUM Eosinophils % 0.6 0.0 - 7.0 % CERNER MILLENNIUM Eosinophils Abs 0.1 0.0 - 0.5 x10(3)/mc L CERNER MILLENNIUM Basophils % 0.1 0.0 - 2.0 % CERNER MILLENNIUM Basophils Abs 0.0 0.0 - 0.2 x10(3)/mc L CERNER MILLENNIUM Immature Gran % 0.20 0.00 - 0.66 % CERNER MILLENNIUM Comment: Immature granulocytes(IG's)percentage and absolute count will include metamyelocytes, myelocytes, and promyelocytes. Blood smears from CBCs yielding IG's will be scanned manually for concordance. If this scan disagrees with the automated IG or if promyelocytes are noted, a manual differential will be performed. Calli Gran Abs 0.03 0.00 - 0.05 x10(3)/mc L CERNER MILLENNIUM Blood specimen (specimen) 06/15/2011 5:10 AM EDT 06/15/2011 5:23 AM EDT Rosie Hastings MD HEMATOLOGY ORDERABL ES CERNER PIETROENNIUM * (ABNORMAL) CBC (with Diff) (06/15/2011 5:10 AM EDT) WBC 14.0(H) 4.0 - 10.0 x10(3)/mcL CERNER MILLENNIUM RBC 3.30(L) 3.93 - 5.22 x10(6)/mcL CERNER MILLENNIUM Hemoglobin 9.3(L) 11.2 - 15.7 gm/dL CERNER MILLENNIUM Hematocrit 27.7(L) 34.0 - 45.0 % CERNER MILLENNIUM MCV 83.9 79.0 - 94.0 fL JULIUS WESTBROOKENNIUM MCH 28.2 26.6 - 32.2 pg JULIUS WESTBROOKENNIUM MCHC 33.6 32.0 - 36.5 gm/dL JULIUS WESTBROOKENNIUM Platelets 251 145 - 370 x10(3)/mcL CERDAVID WESTBROOKENNIUM RDWSD 44.5 35.0 - 46.0 fL JULIUS WESTBROOKENNIUM RDWCV 14.5(H) 10.9 - 14.4 % JULIUS WESTBROOKENNIUM MPV 10.2 9.0 - 12.0 fL JULIUS WESTBROOKENNIUM Blood specimen (specimen) 06/15/2011 5:10 AM EDT 06/15/2011 5:23 AM EDT Rosie Hastings MD HEMATOLOGY ORDERABL ES JULIUS CRUM * Surgical Pathology Report (06/14/2011 4:12 PM EDT) Surgical Pathology Report [id number] ? Location: BP; BP18; B The signing pathologist has (i) examined the relevant preparation(s) for the specimen(s) and (ii) rendered or confirmed the diagnosis(es). . ?Pathology Surgical Pathology Final Report Clinical Information Specimen Submitted: A - R fallopian tube B - L fallopian tube Clinical History/Diagnos is: Bilateral tubal ligation Gross Description A - Labeled/Fixativ e: R, formalin. Qty/Size/Weight : ?One, 1.3 x 1.0 x 0.6 cm. Tissue Description: ?? Dunne-pink tubular portion of tissue. Sections/Proces sing: ??(R1) B - Labeled/Fixativ e: L, formalin. Qty/Size/Weight : ?One, 2.0 x 1.0 x 0.6 cm. Tissue Description: ?? Dunne-pink tubular portion of tissue. ??Also received in ?the same container is a 0.4-cm, white, nodular soft ?tissue. Sections/Proces sing: ??(R1) ??aje/SNS Microscopic Description Slides reviewed, microscopic description not recorded. Diagnosis A - Right fallopian tube: ?Benign fallopian tube; complete cross-section represented. B - Left fallopian tube: ?Benign fallopian tube; complete cross-section represented. CR-0 06/15/11 SAVANAH 06/15/11 Verified by: ? Lon CLINTON, Alexandre Pantoja ?Pathologist ?(Electronic Signature) The attending pathologist whose signature appears on this report has reviewed all diagnostic slides and has edited the gross and/or microscopic portion of the report in rendering the final pathologic diagnosis. JULIUS CRUM 06/14/2011 4:12 PM EDT Rosie Hastings MD PATHOLOGY/CYTOLOGY ORDERABLES Performing Organization Address [facility] de Phone Number JULIUS CRUM * Specimen to Pathology (surgical or derm) (06/14/2011 4:10 PM EDT) AP Specimen 06/14/2011 4:10 PM EDT 06/14/2011 4:10 PM EDT Narrative CERNER MILLENNIUM - 06/14/2011 4:10 PM EDT Specimen requisition ordered. ??Separate Pathology report to follow Rosie Hastings MD PATHOLOGY/CYTOLOGY ORDERABLES Performing Organization Address [facility] Co de Phone Number JULIUS CRUM * Specimen to Pathology (surgical or derm) (06/14/2011 4:03 PM EDT) AP Specimen 06/14/2011 4:03 PM EDT 06/14/2011 4:04 PM EDT Narrative JULIUS SMITHIUM - 06/14/2011 4:04 PM EDT Specimen requisition ordered. ??Separate Pathology report to follow Rosie Hastings MD PATHOLOGY/CYTOLOGY ORDERABLES Performing Organization Address [facility] de Phone Number JULIUS CRUM * Specimen to Pathology (surgical or derm) (06/14/2011 4:03 PM EDT) AP Specimen 06/14/2011 4:03 PM EDT 06/14/2011 4:04 PM EDT Narrative JULIUS SMITHIUM - 06/14/2011 4:04 PM EDT Specimen requisition ordered. ??Separate Pathology report to follow Rosie Hastings MD PATHOLOGY/CYTOLOGY ORDERABLES Performing Organization Address [facility] Phone Number [facility] * Specimen to Pathology (surgical or derm) (06/14/2011 1:52 PM EDT) AP Specimen 06/14/2011 1:52 PM EDT 06/14/2011 1:52 PM EDT Narrative JULIUS SMITHIUM - 06/14/2011 1:52 PM EDT Specimen requisition ordered. ??Separate Pathology report to follow Rosie Hastings MD PATHOLOGY/CYTOLOGY ORDERABLES Performing Organization Address [facility] Phone Number [facility] * Specimen to Pathology (surgical or derm) (06/14/2011 1:49 PM EDT) AP Specimen 06/14/2011 1:49 PM EDT 06/14/2011 1:49 PM EDT Narrative JULIUS SMITHIUM - 06/14/2011 1:49 PM EDT Specimen requisition ordered. ??Separate Pathology report to follow Rosie Hastings MD PATHOLOGY/CYTOLOGY ORDERABLES Performing Organization Address [facility] de Phone Number [facility] * (ABNORMAL) A-DIFF (06/14/2011 10:50 AM EDT) Neutrophils % 77.0(H) 34.0 - 71.0 % CERNER MILLENNIUM Neutr Abs (ANC) 7.63(H) 1.50 - 6.30 x10(3)/mc L CERNER MILLENNIUM Lymphocytes % 13.5(L) 19.0 - 53.0 % CERNER MILLENNIUM Lymphocytes Abs 1.3 1.0 - 3.6 x10(3)/mc L CERNER MILLENNIUM Monocytes % 8.2 4.0 - 13.0 % CERNER MILLENNIUM Monocyte Abs 0.8 0.2 - 1.0 x10(3)/mc L CERNER MILLENNIUM Eosinophils % 0.8 0.0 - 7.0 % CERNER MILLENNIUM Eosinophils Abs 0.1 0.0 - 0.5 x10(3)/mc L CERNER MILLENNIUM Basophils % 0.2 0.0 - 2.0 % CERNER MILLENNIUM Basophils Abs 0.0 0.0 - 0.2 x10(3)/mc L CERNER MILLENNIUM Immature Gran % 0.30 0.00 - 0.66 % CERNER MILLENNIUM Comment: Immature granulocytes(IG's)percentage and absolute count will include metamyelocytes, myelocytes, and promyelocytes. Blood smears from CBCs yielding IG's will be scanned manually for concordance. If this scan disagrees with the automated IG or if promyelocytes are noted, a manual differential will be performed. Calli Gran Abs 0.03 0.00 - 0.05 x10(3)/mc L CERNER PIETROENNIUM Blood specimen (specimen) 06/14/2011 10:50 AM EDT 06/14/2011 11:13 AM EDT Rosie Hastings MD HEMATOLOGY ORDERABL ES JULIUS SMITHIUM * ANTIBODY SCREEN (06/14/2011 10:50 AM EDT) Ab Screen Interp Negative CERNER PIETROENNIUM Expires at [id number] on: [id number] UNANER PIETROENNIUM Blood specimen (specimen) 06/14/2011 10:50 AM EDT 06/14/2011 11:13 AM EDT Rosie Hastings MD BLOOD BANK LAB ARIJonathan WARREN CERDAVID [facility]OOK[facility] * ABO/RH TYPING (06/14/2011 10:50 AM EDT) ABORH Type A Pos CERNER MILLENNIUM Blood specimen (specimen) 06/14/2011 10:50 AM EDT 06/14/2011 11:13 AM EDT Rosie Hastings MD BLOOD BANK LAB ORDJonathan ALISADONG Performing Organization Address [facility]/ZIP Co de Phone Number CERDAVID MILLENNIUM * (ABNORMAL) CBC (with Diff) (06/14/2011 10:50 AM EDT) WBC 9.9 4.0 - 10.0 x10(3)/mcL CERNER MILLENNIUM RBC 3.99 3.93 - 5.22 x10(6)/mcL CERNER MILLENNIUM Hemoglobin 11.3 11.2 - 15.7 gm/dL CERNER MILLENNIUM Hematocrit 33.5(L) 34.0 - 45.0 % CERNER MILLENNIUM MCV 84.0 79.0 - 94.0 fL CERNER MILLENNIUM MCH 28.3 26.6 - 32.2 pg CERNER MILLENNIUM MCHC 33.7 32.0 - 36.5 gm/dL CERNER MILLENNIUM Platelets 298 145 - 370 x10(3)/mcL CERNER MILLENNIUM RDWSD 43.9 35.0 - 46.0 fL CERNER MILLENNIUM RDWCV 14.4 10.9 - 14.4 % CERNER MILLENNIUM MPV 10.6 9.0 - 12.0 fL CERNER MILLENNIUM Blood specimen (specimen) 06/14/2011 10:50 AM EDT 06/14/2011 11:13 AM EDT Rosie Hastings MD HEMATOLOGY ORDERABL ES Performing Organization Address City/[facility]/ZIP Co de Phone Number CERDAVID WESTBROOKENNIUM * Surgical Pathology Report (06/14/2011 10:23 AM EDT) Surgical Pathology Report [id number] ? Location: BP; BP18; B The signing pathologist has (i) examined the relevant preparation(s) for the specimen(s) and (ii) rendered or confirmed the diagnosis(es). . ?Pathology Surgical Pathology Final Report Clinical Information Specimen Submitted: A - Placenta Clinical History/Diagnosis: 41-yr-old S/P ERCS Gross Description Labeled/Fixative: ? Placenta, fresh. Qty/Size/Weight: ?Single, 17.0 x 15.5 x 2.4 cm, 477 g. Tissue Description: ?? Carney discoid placenta. ?? Membranes: ? [place], semitransparent with marginal insertion. ?? Cord: ?62.0 x 1.4 cm; three vessels; eccentric insertion. ?? Surface: ? [place]-purple, smooth, and glistening, with prominent ?vasculature, unremarkable. ?? Maternal Surface: ??Intact, red-brown, and spongy with diffuse ?calcification. ?? Parenchyma: ?The specimen is serially sectioned at 0.5-cm to ?1.0-cm intervals. ??Sections show red, hemorrhagic, ?spongy, unremarkable parenchyma. Sections/Processing : ??[employer] sections are submitted as follows: ?(1) membrane roll; (2) cord; (3) surface; (4) ?maternal surface. ??(R4) ??aje/EGJ Microscopic Description Slides reviewed, microscopic description not recorded. Diagnosis Third trimester placenta, cord and membranes: Negative for chorioamnionitis or funisitis. CR-0 06/22/11 KO 06/22/11 Verified by: ? Leticia Mejia MD ?Pathologist ?(Electronic Signature) The attending pathologist whose signature appears on this report has reviewed all diagnostic slides and has edited the gross and/or microscopic portion of the report in rendering the final pathologic diagnosis. [facility] 06/14/2011 10:2 3 AM EDT Rosie Hastings MD PATHOLOGY/CYTOLOGY ORDERABLES Performing Organization Address City/State/[facility] Co de Phone Number [facility] documented in this encounter Visit Diagnoses Not on filedocumented in this encounter Active and Recently Administered Medications Times are shown in EDT. Scheduled Medication Order 06/14/2011 06/15/2011 06/16/2011 ceFAZolin (ANCEF) 1g in dextrose 5% 50mL (COMPLETED) 1,000 mg (1 g), Intravenous, ONCE, 1 dose, On Emelia 06/14/11 at 1030, Administer over 30 Minutes, For section prophylaxis 1030 (Due)1314 (New Bag - Provider: Paige Rashid, BONY) citric acid-sodium citrate (BICITRA) oral solution 30 mL (CANCELED) 30 mL, Oral, CADASTRAL SURVEYOR TO O.R., On Emelia 06/14/11 at 1030, Routine 1030 (Due)1314 (Given - Provider: Paige Rashid, BONY) docusate sodium (COLACE) capsule 100 mg 100 mg, Oral, 2 TIMES DAILY, First dose on Emelia 11 at 2100, Until Discontinued, Routine 2100 (Not Given - Provider: Rosalia Hale RN - Reason: See comment - Comment: pt nauseated) 0103 (Given - Provider: Renzo Villafana RN)0810 (Given - Provider: Tequila Parmar RN) 0900 (Given - Provider: Paige Rashid, BONY) lactated ringers 500 mL IV bolus (COMPLETED) 500 mL, at 500 mL/hr, Intravenous, ONCE, 1 dose, On Emelia 06/14/11 at 1030, Prior to epidural placement or concerning heart rate pattern or maternal condition 1050 (Given - Provider: Paige Rashid, BONY) PRN Medication Order 06/14/2011 06/15/2011 06/16/2011 acetaminophen (TYLENOL) tablet 1,000 mg (CANCELED)(Linked Group 1) 1,000 mg, Oral, EVERY 6 HOURS PRN, Starting on Emelia 06/14/11 at 1503, Until 06/16/11 at 1611, Pain, moderate pain, Maximum dose of acetaminophen is 4000 mg from all sources in 24 hours., Routine 0810 (Given - Provider: Tequila Parmar RN)1610 (Given - Provider: Tequila Parmar RN)2300 (Given - Provider: Renzo Villafana RN) measles, mumps and rubella vaccine (MMR) vaccine injection 0.5 mL (COMPLETED) 0.5 mL, Subcutaneous, PRIOR TO DISCHARGE, 1 dose, Starting on Emelia 06/14/11 at 1604, Until 06/16/11 at 0944, Per Protocol, Routine 0944 (Given - Provider: Paige Rashid, BONY) ondansetron (ZOFRAN) injection 4 mg (CANCELED) 4 mg, Intravenous, EVERY 8 HOURS PRN, Starting on Emelia 06/14/11 at 1848, Until 06/16/11 at 1611, Nausea, Routine 1409 (Given by Other - Provider: Paige Rashid RN - Comment: Given intra-op by Anesthesiologist)1900 (Due) OXYcodone (ROXICODONE) immediate release tablet 5 mg 5 mg, Oral, EVERY 4 HOURS PRN, Starting on Emelia 1011 at 1609, Until 06/16/11 at 1611, Pain, Routine 1025 (Given - Provider: Tequila Parmar RN) 0102 (Given - Provider: Renzo Villafana RN)0940 (Given - Provider: Paige Rashid, BONY) simethicone (MYLICON) chewable tablet 40 mg (CANCELED) 40 mg, Oral, EVERY 6 HOURS PRN, Starting on 06/16/11 at 0755, Until 06/16/11 at 1611, Cramping, Routine 0927 (Given - Provider: Paige Rashid RN) Linked Groups Order Group 1: acetaminophen (TYLENOL) tablet 650 mg (CANCELED) 650 mg, Oral, EVERY 4 HOURS PRN, Starting on Emelia 06/14/11 at 1503, Until 06/16/11 at 1611, Pain, mild pain, Maximum dose of acetaminophen is 4000 mg from all sources in 24 hours., Routine Or acetaminophen (TYLENOL) tablet 1,000 mg (CANCELED)Jump to med 1,000 mg, Oral, EVERY 6 HOURS PRN, Starting on Emelia 06/14/11 at 1503, Until 06/16/11 at 1611, Pain, moderate pain, Maximum dose of acetaminophen is 4000 mg from all sources in 24 hours., Routine documented in this encounter Care Teams Dry Clipper Tender Relationship Specialty Start Date End Date Sonja Causey MD [address] [place] [address] PCP - General 07/18/10 09/26/16 documented as of this encounter
--- OUTSIDE RECORDS SUMMARY | 2024-03-19 08:53 | XMS_ITS | Encounter Summary ---
[place] [address] Care Team Providers Care Marketing Operations Consultant Name Role Phone Sonja Cannon MD Primary Care Provider [phone] Encounter Details Date Type Department Care Team (Late st Contact Info) Description 06/04/2017 [place] [address] Kaitlyn Aguirre Social History Tobacco Use Types Packs/Day Years [...] on filedocumented in this encounter Care Teams Marketing Operations Consultant Relationship Specialty Start Date End Date Sonja Cannon MD [address] [place] [address] PCP - General Internal Medicine 09/27/16 03/03/22 documented as of this encounter
--- OUTSIDE RECORDS SUMMARY | 2024-03-19 08:53 | XMS_ITS | Encounter Summary ---
[place] [address] Care Team Providers Care Cabinet Assembler Name Role Phone Sonja Causey MD Primary Care Provider [phone] Encounter Details Date Type Department Care Team (Late st Contact Info) Description 04/12/2011 Abstract [place]stetrics [place] [address] Dilma Paul, RN Social History Tobacco Use Types Packs/Day Years [...] on filedocumented in this encounter Care Teams Cabinet Assembler Relationship Specialty Start Date End Date Sonja Causey MD [address] [place] [address] PCP - General 07/18/10 09/26/16 documented as of this encounter
--- OUTSIDE RECORDS SUMMARY | 2024-03-19 08:53 | XMS_ITS | Encounter Summary ---
[place] [address] Care Team Providers Care Shellfish Checker Name Role Phone Sonja Causey MD Primary Care Provider [phone] Reason for Visit * Reason Comments Routine Visit Encounter Details Date Type Department Care Team (Latest Contact Info) Description 05/31/2011 2:00 PM EDT Routine Obstetrics [place] [address] Angelica Monroe MD [facility] [place] [address] GA: [id number] Discharge Disposition: Home Social History Tobacco Use [...] Sign Reading Time Taken Comments Blood Pressure 114/70 05/31/2011 1:51 PM EDT Pulse - - Temperature - - Respiratory Rate - - Oxygen Saturation - - Inhaled Oxygen Concentration - - Weight 98.8 kg (217 lb 14.4 oz) 05/31/2011 1:51 PM EDT Height - - Body Mass Index 33.13 01/24/2011 3:57 PM EDT documented in this encounter Progress Notes * Angelica Monroe MD - 05/31/2011 2:17 PM EDT Denies bleeding, leaking of fluid, pain or contractions. No gush of fluid, occasional mildly wet underwear. Not when she wakes up. documented in this encounter Plan of Treatment Not on file documented as of this encounter Results * US OB follow up evaluation (06/07/2011 2:35 PM EDT) Anatomical Region Laterality Modality Pelvis, Abdomen Ultrasound 06/07/2011 2:35 PM EDT Narrative 06/07/2011 2:39 PM EDT ?OBSTETRICS REPORT ? (Signed Final 06/07/2011 02:39 pm) Patient Info ID: ? [id number] ? : ??[birth year] (41 yrs) Name: ? GIANA GOLDMAN ? Visit Date: 06/07/2011 02:21 pm ? [facility]ELLE Performed By Performed By: ?? ALICIA Haas ??Madelyn Attending: ?Naty CLINTON, Julieta Mcleod Referred By: ?BURAK Kahn MD Accession#: ? [id number] Service(s) Provided UOBFOL - Efw - Growth - Reevaluation - Carney ?[id number] - [id number] Indications Patient would like assessment of the width of lower uterine segment for her to decide on mode of delivery as she has had 2 previous cesarian sections. Evaluation Num Of Fetuses: ?1 Heart Rate: ??132 ?bpm Presentation: ?Cephalic Placenta: ?Anterior AMIRA Sum: ? 10.85 ?? cm ? Kelsie Pckt: ?3.63 ??cm RUQ: ?? 3.63 ?cm [...] us to participate in the care of GIANA YEAGER. Please do not hesitate to call if you have any questions. ? Julieta Gomez MD Electronically Signed Final Report ?? 06/07/2011 02:39 pm Procedure Note Julieta Gaxiola MD - 06/07/2011 OBSTETRICS REPORT (Signed Final 06/07/2011 02:39 pm) Patient Info ID: [id number] : [birth year] (41 yrs) Name: GIANA GOLDMAN Visit Date: 06/07/2011 02:21 pm CHRISTELLE Performed By Performed By: ALICIA Haas Attending: Julieta Alfonso MD Referred By: BURAK Kahn MD Service(s) Provided UOBFOL - Efw - Growth - Reevaluation - Carney [id number] - [id number] Indications Patient would like assessment of the [...] us to participate in the care of GIANA YEAGER. Please do not hesitate to call if you have any questions. Julieta Gomez MD Electronically Signed Final Report 06/07/2011 02:39 pm Angelica Monroe MD IMG US OB ORDERABLES documented in this encounter Visit Diagnoses Diagnosis Previous section- Primary Other postprocedural status Previous section Other postprocedural status documented in this encounter Care Teams Shellfish Checker Relationship Specialty Start Date End Date Sonja Causey MD [address] [place] [address] PCP - General 07/18/10 09/26/16 documented as of this encounter
--- OUTSIDE RECORDS SUMMARY | 2024-03-19 08:53 | XMS_ITS | Encounter Summary ---
[place] [address] Care Team Providers Care Paperboard Machine Operator Name Role Phone Sonja Cannon MD Primary Care Provider [phone] Reason for Visit * Reason Comments Skin Check Encounter Details Date Type Department Care Team (Late st Contact Info) Description 10/09/2016 10:00 AM EST Office Visit Dermatology at [address] [phone] Nikhil Calles MD [address] [facility] [place] [address] Nevus; Seborrheic keratosis Social History Tobacco Use Types Packs/Day Years Used Date Smoking Tobacco: Never Smokeless Tobacco: Never Alcohol Use Standard Drinks/Week Comments No 0 (1 standard drink = 0.6 oz pur e alcohol) Sex and Gender Information Value Date Recorded Sex Assigned at Not on file Gender Identity Not on file Sexual Orientation Not on file documented as of this encounter Progress Notes * Nikhil Calles MD - 10/09/2016 10:00 AM EST PROBLEM: Skin checkup. Pal is a 46-year-old woman who would like to have a general skin checkup. She is not aware of any personal history of skin cancer or melanoma. Has noticed numerous new nevi developing. They do not bleed or scab. They are asymptomatic. Physical examination reveals a brown-eyed, dark-haired woman with type IV Solorzano pigmentation who has benign melanocytic nevi present on her arms, her legs. These seem to be junctional, small, unremarkable by the ABC criteria. She is also developing some seborrheic keratoses, the largest of which is on her right flank. 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 Fortunately, careful examination of the head and the neck, the chest and the back, hands, arms, forearms, legs and calves is benign. ASSESSMENT/PLAN: Skin examination. a. Reassured about benign skin examination. b. Reinforced sun avoidance precautions. c. Reviewed recognition of skin cancer and [employer] brochure on skin cancer and melanoma was given today. Return to clinic p.r.n. CC: MD Mariama Bowman NP documented in this encounter Plan of Treatment Not on file documented as of this encounter Visit Diagnoses Diagnosis Nevus Benign neoplasm of skin, site unspecified Seborrheic keratosis Other seborrheic keratosis documented in this encounter Care Teams Paperboard Machine Operator Relationship Specialty Start Date End Date Sonja Cannon MD [address] [place] [address] PCP - General Internal Medicine 09/27/16 03/03/22 documented as of this encounter
--- OUTSIDE RECORDS SUMMARY | 2024-03-19 08:53 | XMS_ITS | Encounter Summary ---
Author Organization Formerly [facility] [place] [address] Care Team Providers Care Machining Manager Name Role Phone Sonja Causey MD Primary Care Provider [phone] Reason for Visit * Reason Comments Urticaria Encounter Details Date Type Department Care Team (Late st Contact Info) Description 11/26/2012 9:15 AM EDT [place] [address] Tete Moseley MD [facility] [address] [place] [address] Chronic urticaria (Primary Dx); Alopecia Discharge Disposition: Home Social History Tobacco Use [...] Pulse 81 11/26/2012 9:42 AM EDT Temperature - - Respiratory Rate 20 11/26/2012 9:42 AM EDT Oxygen Saturation - - Inhaled Oxygen Concentration - - Weight 79.4 kg (175 lb) 11/26/2012 9:42 AM EDT Height 171.5 cm (5' 7.5) 11/26/2012 9:42 AM EDT Body Mass Index 27 11/26/2012 9:42 AM EDT documented in this encounter Progress Notes * Tete Moseley MD - 11/26/2012 11:05 AM EDT I have seen the patient and reviewed the resident's above history and I agree with the details as written. The assessment and plan were formulated in discussion with me and I agree with them as documented. Summary of outside records: Pt seen by Dr. Causey on 02/05/12 for abnormal moles. She was not on any medications at the time. She is allergic to NSAIDs. No hives noted on exam. Patient referred to dermatology for management of abnormal moles on face. Pertinent History: Patient with chronic urticaria since May 2011. Occur 2-4 times per week. No change in severity. Started 2-3 weeks after delivering her son. Continues to breastfeed. No associated angioedema, respiratory symptoms, abdominal pain, diarrhea or joint swelling. Last <24h. No scars or bruises. Worse at antecubital fossae, underarms, shoulders, abdomen and back of neck. Occur mostly in the evening. No association with NSAID use, exercise, stress, foods or meds. 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 No changes in menstrual cycle. Tried Claritin but stopped because of nausea and concern of excretion into breastmilk. Has thinning of hair since teens. No patches of alopecia. No personal or family history of autoimmune or thyroid disorder, hematologic malignancy, chronic urticaria or angioedema. Pertinent Exam: Physical Exam: Vital signs reviewed. Normal Except General: - No apparent distress Eyes: - Conjunctivae without injection; - No eyelid swelling ENT: - No erythema of the tympanic membranes - Normal external ear canals - Nl nasal mucosa, septum, and turbinates; - Oropharynx well hydrated without lesions or exudates; Neck: - Symmetrical, no masses, trachea midline; Resp: - Unlabored breathing with symmetrical and equal bilateral expansion; - CTA w/o wheezes, rales, or rhonchi; CV: - Regular rate and rhythm - No pedal swelling GI: - Abdomen soft - Bowel sounds present - No hepatosplenomegaly Lymph: - No significant cervical, supraclavicular, infraclavicular, axillary or inguinal lymphadenopathy Musculoskeletal: - Nl gait and station Extremities: - No clubbing, cyanosis, or edema Skin: - No rashes - No dermatographism - Thinning hair. No patches of alopecia. Neuro/Psych: - Nl and age appropriate mood and affect - Judgement and insight intact Major issues addressed: Patient has chronic urticaria. Reviewed that most cases are idiopathic. Herhives primarily occur at pressure sites, but are not limited to those areas, thus pressure urticaria is included in the differential. Underlying systemic disorder including thyroid, autoimmune, hematologic, renal or hepatic disorder can be present in patients with chronic urticaria. An underlying autoimmune disease is possible considering her history of alopecia and associated joint pain. Allergic triggers can present with hives. Also, hormonal changes which occur post and during can trigger hives. Discussed medical management including antihistamines. Advised patient that ant ihistamines are excreted into the breastmilk. Ms. Yeager declined medical therapy, since she is . Plan: - Will check: CU index, TSH, TPO ab, CBC with diff, FRANNIE, CMP, IgE, IgE- cat, dog, dust mites - Return to clinic if hives worsen and patient is interested in medical therapy Outside records were reviewed. Written instructions were reviewed and provided to the patient. No learning barriers were identified. The patient understood and agreed with what was discussed. All questions were answered. * Star Martínez MD - 11/26/2012 9:46 AM EDT Subjective: Patient ID: Giana Yeager is a 42 y.o. female. HPI 42 yo F presenting for evaluation of hives. Essentially has had hives off and on since giving to son last May 2011 - started a few weeks after he was born. Now gets these 4 Times a week. Last occurrence was 5 days ago - they happen in evening and disappear by morning leaving no scar. None today. Looks like raised lesions or sometimes a cluster/plaque, raised red itchy lesions, sometimes painful, enlarge to the point of causing achy joints. Under bra strap, or on side, or feet, back of neck. Never on legs, but has had them on ankles. Mostly shoulders and elbow, and one time so swollen thought it was cellulitis. First one was over C section scar. No ingestion of specific food in evening or winter, no new medications, no temperature changes in the evening, no emotion, no exercise at evening. No tongue or lip swelling, no throat tightness or shortness of breath. No nausea, vomiting or crampy abdominal pain but is constantly bloated and gassy. Does not take anything because she breast feeds, also tried Claritin once and it made her sick and feel awful - nausea etc. Had hives once as a child, does not rememebr why. Never took NSAIDS even before GI bleed in 2002 (now listed as a severe allergy). No recent travel. Has 2 cats and a 1 dog no reactions to these, has had them for years. Works as a kim at home. No documented allergies but sometimes during hay season gets stuffier. looked online and saw something about women who breastfeed getting hives. She does not knowhow much longer she is planning to breast feed. She breast fed her first son for 2.5 years and the second one for 3.5 years. Current Outpatient Prescriptions on File Prior to Visit Medication Sig Dispense Refill ??? MULTIVITAMIN ORAL ??? CYANOCOBALAMIN, VITAMIN B-12, (VITAMIN B-12 ORAL) Allergies Allergen Reactions ??? Aspirin Other (See Comments) Unexplained GI bleed in 2002 ??? Ibuprofen Other (See Comments) unexplained GI bleed Family History Problem Relation Age of Onset ??? Congenital Anomalies Son VSD ??? Defects Son club foot ??? Congenital Anomalies Son club foot ??? Defects Son VSD spontaneously closed History Social History ??? Marital Status: Spouse Name: N/A Number of Children: N/A ??? Years of Education: N/A Occupational History ??? Not on file. Social History Main Topics ??? Smoking status: Never Smoker ??? Smokeless tobacco: Never Used ??? Alcohol Use: No ??? Drug Use: No ??? Sexually Active: Not on file Other Topics Concern ??? Not on file Social History Narrative ??? No narrative on file Past Medical History Diagnosis Date ??? Pap smear abnormality of cervix 1998 ??? Vitamin B12 deficiency ??? 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 Gynecologic cryosurgery 1998 ??? section ??? delivery only 06/14/2011 ?? DELIVERY performed by VÍCTOR GOODWIN at [facility] ??? Ligate fallopian tube 06/14/2011 FALLOPIAN TUBE(S), TRANSECTION OR LIGATION, ABD APPROACH performed by VÍCTOR GOODWIN at [facility] Review of Systems Constitutional: Negative for fever, chills, appetite change and fatigue. HENT: Positive for congestion. Negative for sore throat, rhinorrhea, sneezing, trouble swallowing and postnasal drip. Eyes: Negative for pain, discharge, redness and itching. Respiratory: Negative for cough, chest tightness, wheezing and stridor. Gastrointestinal: Positive for abdominal distention. Negative for nausea, vomiting and abdominal pain. Bloating common, a lot Belly feels like she has gas that she cannot get out Genitourinary: Negative for urgency and difficulty urinating. Musculoskeletal: Negative for myalgias and arthralgias. Skin: Negative for rash. Neurological: Negative for dizziness, light-headedness and headaches. Hematological: Bruises/bleeds easily. Objective: Physical Exam Constitutional: She appears well-developed. No distress. HENT: Mouth/Throat: No oropharyngeal exudate. Eyes: No scleral icterus. Neck: No JVD present. Cardiovascular: Normal rate and regular rhythm. No murmur heard. Pulmonary/Chest: Effort normal and breath sounds normal. No respiratory distress. She has no wheezes. She has no rales. She exhibits no tenderness. Abdominal: Soft. Bowel sounds are normal. She exhibits no distension and no mass. There is no tenderness. There is no rebound and no guarding. Musculoskeletal: Normal range of motion. She exhibits no edema and no tenderness. Lymphadenopathy: She has no cervical adenopathy. Neurological: She is alert. Skin: Skin is warm and dry. No rash noted. She is not diaphoretic. Psychiatric: She has a normal mood and affect. Her behavior is normal. Filed Vitals: 11/26/12 0942 BP: 113/68 Pulse: 81 Resp: 20 Assessment and Plan: 42 yo F with history of urticaria x 18 months which started after the of her 3rd child. No issues of hives prior to this. Usually happen over joints, elbows and shoulders, usually where she lifts her baby, and sounds like pressure could be the trigger, furthermore gets them under breasts, andover where she ties her belt and wears boots. She is and does not wish to take an antihistamine as these get excreted into breast milk, therefore will hold off on antihistamine for now which is what she is requesting anyway. She is a middle aged female therefore will obtain frannie to rule out autoimmune disorder, especially in setting of hair thinning/loss which she says was evaluated by way of a TSH but we do not have those results, therefore will repeat those, as well as TPO antibody as this can cause hives as well. Will do some RAST testing as well to make sure pets are not contributing to this. - CBC with diff - CMP - Chronic Uritcaria Index - TSH - TPO antibody - FRANNIE - IgE to house dust mites, cat and dog - RTC prelen Andersen) MD Mauricio PGY-2 Internal Medicine, Allergy/Immunology Elective Pager [phone] documented in this encounter Plan of Treatment Not on file documented as of this encounter Procedures Procedure Name Priority Date/Time Associated Diagnosis Comments [facility] Routine 11/26/2012 1 :06 PM EDT MISCELLANEOUS LAB REQUEST Routine 11/26/2012 11:21 AM EDT Chronic urticaria IMMUNOGLOBULIN E (IGE) Routine 3 11:21 AM EDT Chronic urticaria HOUSE DUST MITES/D.F., IGE Routine 11/26/2012 11:21 AM EDT Chronic urticaria HOUSE DUST MITES/D.P., IGE Routine 11/26/2012 11:21 AM EDT Chronic urticaria DIFFERENTIAL, AUTOMATED Routine 11/27/19 13 11:21 AM EDT THYROID PEROXIDASE ANTIBODY Routine 11/26/2012 11:21 AM EDT Chronic urticaria DOG EPITHELIUM IGE Routine 11/26/2012 11 :21 AM EDT Chronic urticaria CAT EPITHELIUM IGE Routine 11/26/2012 11 :21 AM EDT Chronic urticaria CBC (WITH DIFF) Routine 11/26/2012 11:21 AM EDT Chronic urticaria FRANNIE ANTIBODY SCREEN Routine 11/26/2012 1 1:21 AM EDT Chronic urticaria TSH Routine 11/26/2012 11:21 AM EDT Chronic urticaria COMPREHENSIVE METABOLIC PANEL (NON-FASTING) Routine 11/26/2012 11:21 AM EDT Chronic urticaria documented in this encounter Results * [facility] (11/26/2012 1:06 PM EDT) Pathologist [facility] Test ?Result ?Flag ??Unit ??RefValue --- CU Index ?2.4 ? <10.0 The CU Index test is the second generation Functional Anti-FcER test. Patients with a CU Index > or = 10 have basophil reactive factors in their serum which supports an autoimmune basis for disease. This test was developed and its performance characteristics determined by the [facility]. It has not been cleared or approved by the FDA. Test Performed by: [facility] [address] [place] [address] [facility] Blood specimen (specimen) 11/26/2012 1:06 PM EDT 11/26/2012 1:30 PM EDT Narrative Resulting Agency Comment Spec In Lab Tete Moseley MD CHEMISTRY ORDERABLES CERNER MILLENNIUM * Differential, Automated (11/26/2012 11:21 AM EDT) Neutrophils % 64.4 34.0 - 71.0 % CERNER MILLENNIUM Neutr Abs (ANC) 5.47 1.50 - 6.30 x10(3)/mcL CERNER MILLENNIUM Lymphocytes % 25.8 19.0 - 53.0 % CERNER MILLENNIUM Lymphocytes Abs 2.2 1.0 - 3.6 x10(3)/mcL CERNER MILLENNIUM Monocytes % 8.1 4.0 - 13.0 % CERNER MILLENNIUM Monocyte Abs 0.7 0.2 - 1.0 x10(3)/mcL CERNER MILLENNIUM Eosinophils % 1.4 0.0 - 7.0 % CERNER MILLENNIUM Eosinophils Abs 0.1 0.0 - 0.5 x10(3)/mcL CERNER MILLENNIUM Basophils % 0.2 0.0 - 2.0 % CERNER MILLENNIUM Basophils Abs 0.0 0.0 - 0.2 x10(3)/mcL CERNER MILLENNIUM Immature Gran % 0.10 0.00 - 0.66 % CERNER MILLENNIUM Comment: Immature granulocytes(IG's)percentage and absolute count will include metamyelocytes, myelocytes, and promyelocytes. Blood smears from CBCs yielding IG's will be scanned manually for concordance. If this scan disagrees with the automated IG or if promyelocytes are noted, a manual differential will be performed. Calli Gran Abs 0.01 0.00 - 0.05 x10(3)/mcL [facility] MILLENNIUM Blood specimen (specimen) 11/26/2012 11:21 AM EDT 11/26/2012 11:26 AM EDT Tete Moseley MD HEMATOLOGY ORDERABLE S JULIUS SMITHIUM * Miscellaneous Lab request (11/26/2012 11:21 AM EDT) Pathologist [facility] Result Request received in lab. CERNER MILLENNIUM Specimen of unknown material (specimen) 11/26/2012 11:21 AM EDT 11/26/2012 11:26 AM EDT Tete Moseley MD HEMATOLOGY ORDERABLE S CERNER MILLENNIUM * Comprehensive metabolic panel (non-fasting) (11/26/2012 11:21 AM EDT) [facility] Glucose Lvl 83 60 - 199 mg/dL CERNER MILLENNIUM Comment:Diabetes: >=200 mg/d L plus symptoms BUN 14 8 - 18 mg/dL CERNER MILLENNIUM Creatinine 0.70 0.70 - 1.20 mg/dL CERNER MILLENNIUM Comment: Please note that the pediatric reference intervals supplied above were not validated at [facility]. Results from pediatric patients should be interpreted [...] mg/dL CERNER MILLENNIUM Estimated GFR >60 >=60 [facility] Comment: The National Kidney Disease Education Program [...] In Lab Tete Moseley MD CHEMISTRY ORDERABLES [facility] * House Dust Mites/D.P., IgE (11/26/2012 11:21 AM EDT) Mites/D.P. IgE <0.35 kU/L CERNE R MILLENNIUM Comment: Class 0 (Negative <0.35) Test Performed by: [place] [address] Lead Nurse: Miko Clarke III, M.D. Blood specimen (specimen) 11/26/2012 11:21 AM EDT 11/26/2012 1:07 PM EDT Narrative Resulting Agency Comment Spec In Lab Tete Moseley MD IMMUNOLOGY ORDERABLE S Performing Organization Address City/[facility] Co de Phone Number [facility] * House Dust Mites/D.F., IgE (11/26/2012 11:21 AM EDT) Mites/D.F. IgE <0.35 kU/L CERNE R MILLENNIUM Comment: Class 0 (Negative <0.35) Test Performed by: [place] [address] Lead Nurse: Miko Clarke III, M.D. Blood specimen (specimen) 11/26/2012 11:21 AM EDT 11/26/2012 1:07 PM EDT Narrative Resulting Agency Comment Spec In Lab Tete Moseley MD IMMUNOLOGY ORDERABLE S Performing Organization Address City/[facility] Co de Phone Number [facility] * Dog Epithelium IgE (11/26/2012 11:21 AM EDT) Dog Epi IgE <0.35 kU/L CERNER MILLENNIUM Comment: Class 0 (Negative <0.35) Test Performed by: [place] [address] Lead Nurse: Miko Clarke III, M.D. Blood specimen (specimen) 11/26/2012 11:21 AM EDT 11/26/2012 1:07 PM EDT Narrative Resulting Agency Comment Spec In Lab Tete Moseley MD IMMUNOLOGY ORDERABLE S Performing Organization Address City/[facility]/ZIP Co de Phone Number JULIUS CRUM * Cat Epithelium IgE (11/26/2012 11:21 AM EDT) Cat Epi IgE <0.35 kU/L CERNER MILLENNIUM Comment: Class 0 (Negative <0.35) Test Performed by: [place] [address] Lead Nurse: Miko Clarke III, M.D. Blood specimen (specimen) 11/26/2012 11:21 AM EDT 11/26/2012 1:07 PM EDT Narrative Resulting Agency Comment Spec In Lab Tete Moseley MD IMMUNOLOGY ORDERABLE S Performing Organization Address [facility] de Phone Number JULIUS CRUM * Immunoglobulin E (IgE) (11/26/2012 11:21 AM EDT) IgE 15.9 kU/L [facility] Comment: -- REFERENCE VALUE -- Mean ??13.2 +1SD ??41.0 +2SD 127.0 Test Performed by: [place] [address] Lead Nurse: Miko Clarke III, M.D. REVISED RESULTS -- REFERENCE VALUE -- Mean ??13.2 +1SD ??41.0 +2SD 127.0 REVISED REPORT, Previously reported as: 13.2 (Reported 11/27/2012 09:32) Test Performed by: [place] [address] Lead Nurse: Miko Clarke III, M.D. Corrected from 13.2 kU/L [NA] on 12/01/12 17:26:21 EDT by Contributor_system, [place]. Blood specimen (specimen) 11/26/2012 11:21 AM EDT 11/26/2012 1:07 PM EDT Narrative Resulting Agency Comment Spec In Lab Tete Moseley MD IMMUNOLOGY ORDERABLE S CERNER PIETROENNIUM * FRANNIE (11/26/2012 11:21 AM EDT) FRANNIE Neg Neg CERNER MILLENNIUM Blood specimen (specimen) 11/26/2012 11:21 AM EDT 11/26/2012 2:19 PM EDT Narrative Resulting Agency Comment Spec In Lab Tete Moseley MD IMMUNOLOGY ORDERABLE S [facility] * Thyroid peroxidase antibody (11/26/2012 11:21 AM EDT) Thyroperox Ab <10 <=34 IU/mL CERNE R MILLENNIUM Blood specimen (specimen) 11/26/2012 11:21 AM EDT 11/26/2012 2:19 PM EDT Narrative Resulting Agency Comment Spec In Lab Tete Moseley MD IMMUNOLOGY ORDERABLE S [facility] * TSH (11/26/2012 11:21 AM EDT) TSH 3.58 0.27 - 4.20 mcIU/mL CERNER MILLENNIUM Blood specimen (specimen) 11/26/2012 11:21 AM EDT 11/26/2012 11:26 AM EDT Narrative Resulting Agency Comment Spec In Lab Tete Moseley MD CHEMISTRY ORDERABLES [facility] * CBC (with Diff) (11/26/2012 11:21 AM EDT) WBC 8.5 4.0 - 10.0 x10(3)/mcL CERNER MILLENNIUM RBC 4.71 3.93 - 5.22 x10(6)/mcL CERNER MILLENNIUM Hemoglobin 14.0 11.2 - 15.7 gm/dL CERNER MILLENNIUM Hematocrit 41.7 34.0 - 45.0 % CERNER MILLENNIUM MCV 88.5 79.0 - 94.0 fL CERNER MILLENNIUM MCH 29.7 26.6 - 32.2 pg CERNER MILLENNIUM MCHC 33.6 32.0 - 36.5 gm/dL CERNER MILLENNIUM Platelets 355 145 - 370 x10(3)/mcL CERNER MILLENNIUM RDWSD 42.5 35.0 - 46.0 fL CERNER MILLENNIUM RDWCV 13.1 10.9 - 14.4 % CERNER MILLENNIUM MPV 9.7 9.0 - 12.0 fL CERNER MILLENNIUM Blood specimen (specimen) 11/26/2012 11:21 AM EDT 11/26/2012 11:26 AM EDT Narrative Resulting Agency Comment Spec In Lab Tete Moseley MD HEMATOLOGY ORDERABLE S JULIUS CRUM documented in this encounter Visit Diagnoses Diagnosis Chronic urticaria- Primary Other specified urticaria Alopecia Alopecia, unspecified documented in this encounter Care Teams Machining Manager Relationship Specialty Start Date End Date Sonja Causey MD [address] [place] [address] PCP - General 07/18/10 09/26/16 documented as of this encounter
--- OUTSIDE RECORDS SUMMARY | 2024-03-19 08:53 | XMS_ITS | Encounter Summary ---
Author Organization Replaced By [facility] [place] [address] Care Team Providers Care Restaurant And Bar Manager Name Role Phone Sonja Causey MD Primary Care Provider [phone] Encounter Details Date Type Department Care Team (Latest Contact Info) Description 06/14/2011 8:53 AM EDT - 06/16/2011 2:09 PM EDT [place] [id number] Susanne Kerr MD [facility] OBSTETRICS & [place] [address] Rosie Hastings MD [facility] [place] [address] Discharge Disposition: Home Social History Tobacco Use [...] Sign Reading Time Taken Comments Blood Pressure 104/52 06/15/2011 12:30 PM EDT Pulse 86 06/15/2011 12:30 PM EDT Temperature 36.8 ??C (98.2 ??F) 06/15/2011 12:30 PM E DT Respiratory Rate 18 06/15/2011 12:30 PM EDT Oxygen Saturation 99% 06/15/2011 5:00 AM EDT Inhaled Oxygen Concentration - - [...] this in detail. Call your doctor or respiratory care faculty for: Fever more than 100.5 Heavy bleeding [...] follow up appointment. You may call the [facility] at any time for guidance or for answers to questions that come up prior to you follow up appointment. Your [facility] Provider can be reached during office hours at [facility] Follow-up Clinic AFTER OFFICE HOURS for the wage analyst or respiratory care faculty push button switch assembler Provider electronic signature confirms that discharge instructions [...] two older sons Martha and Doreen Where: [place], [place] Approx time in community: Years Social Resources: Intact couple. employed. 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 Have [place] Medicaid and WIC in place. Have local family support : Grandparents. Extended family in area for support: YES Cognitive Resources: Intact Childbirth Education: Yes/No Educational level: High School Functional Status: Ambulatory, Independent, Without limitations. C/S recovery with limitations on lifting/driving x 2 weeks. Complications requiring follow-up: Financial Resources: [place] Health Insurance Coverage: [place] Medicaid Renovator Machine Operator Chosen: Dr. James Mathews MD Baby's Name: [...] time.) [facility] (n/a) [facility] Babies: Referral to [facility]: [facility]; [facility] DME ordered : None Breast Pump: N/A Other: Have car seat, own transportation, and adequate family support. No direct referrals made at this time. . CRC: Rosie Kuhn RNC/ Jackelyn Flores. Beeper 6050 * Nash Beaulieu MD - 06/15/2011 5:36 [...] MD - 06/14/2011 1:02 PM EDT Inpatient APPLIER - Admission Interval Note I have reviewed [...] encounter Miscellaneous Notes * Miscellaneous - Provider, Scanning - 08/17/2011 9:05 AM EST * Discharge Summary - Faye Huffman Janay - 06/16/2011 12:00 AM EDT Patient Name: Giana Yeager Admit date: 06/14/2011 Discharge date: 06/16/2011 Attending Physician: Dr. Beaulieu [facility] Term Delivery Discharge Summary Discharge Diagnoses: Primary [...] Discharge Medications Giana Yeager Home Medication Instructions TAMIR:[id number] Printed on:06/17/11 6565 Medication Information MULTIVITAMIN ORAL CYANOCOBALAMIN, VITAMIN B-12, [...] this in detail. Call your doctor or respiratory care faculty for: Fever more than 100.5 Heavy bleeding [...] follow up appointment. You may call the [facility] at any time for guidance or for answers to questions that come up prior to you follow up appointment. Your [facility] Provider can be reached during office hours at [facility] Follow-up Clinic AFTER OFFICE HOURS for the wage analyst or respiratory care faculty push button switch assembler Provider electronic signature confirms that discharge instructions [...] Faye Huffman - 06/14/2011 4:09 PM EDT [facility] Operative Note Patient Name: Giana Yeager : [id number] MR#: [id number] Case Date: 06/14/2011 Surgeon: Surgeon(s) and Role: [...] this patient.) Findings 1. 3640 gram male with 's of 8 and 9. 2. [...] this time [facility] The fallopian tubes were individually identified and followed to their fimbriated ends. The mid isthmic portion of the tube was grasped with a Pala and elevated to form a knuckle of [...] All counts were correct times two. Dr. Vcitoria was present for and participated in the [...] Information for the patient's : Gio Yeager [[id number]] Delivery 06/14/2011 1:58 PM by Lower Segment [...] sent? No Complications: None Placenta: Delivered: appearance Measurements: Weight: 8 lb 0.4 oz (3640 g) Height: 20.08 Head circumference: 36 cm Chest circumference: Other providers: Delivery Assist Delivery Nurse Registered Nurse Circulation Manager Surgeon Renovator Machine Operator Faye Arora Additional information: Forceps: Vacuum: Breech: [...] 06/14/2011 10:50 AM EDT TYPE AND SCREEN ([facility]P/GIUSEPPE) Routine 06/14/2011 10:50 AM EDT SURGICAL PATHOLOGY REPORT Routine 06/14/2011 10:23 AM EDT documented in this encounter Results * (ABNORMAL) A-DIFF (06/15/2011 5:10 AM EDT) Neutrophils % 82.0(H) 34.0 - 71.0 % CERNER MILLENNIUM Neutr Abs (ANC) 11.46(H) 1.50 - [...] EDT Rosie Hastings MD HEMATOLOGY ORDERABL ES CERDAVID WESTBROOKENNIUM * (ABNORMAL) CBC (with Diff) (06/15/2011 5:10 AM EDT) WBC 14.0(H) 4.0 - 10.0 x10(3)/mcL CERNER MILLENNIUM RBC 3.30(L) 3.93 - 5.22 x10(6)/mcL CERNER MILLENNIUM Hemoglobin 9.3(L) 11.2 - 15.7 gm/dL CERNER MILLENNIUM Hematocrit 27.7(L) 34.0 - 45.0 % CERNER MILLENNIUM MCV 83.9 79.0 - 94.0 fL CERNER MILLENNIUM MCH 28.2 26.6 - 32.2 pg CERNER MILLENNIUM MCHC 33.6 32.0 - 36.5 gm/dL CERNER MILLENNIUM Platelets 251 145 - 370 x10(3)/mcL CERNER MILLENNIUM RDWSD 44.5 35.0 - 46.0 fL CERNER MILLENNIUM RDWCV 14.5(H) 10.9 - 14.4 % CERNER MILLENNIUM MPV 10.2 9.0 - 12.0 fL CERNER MILLENNIUM Blood specimen (specimen) 06/15/2011 5:10 AM EDT 06/15/2011 5:23 AM EDT Rosie Hastings MD HEMATOLOGY ORDERABL ES JULIUS CRUM * Surgical Pathology Report (06/14/2011 4:12 PM EDT) Surgical Pathology Report [id number] ? Location: ; [facility]; B The signing pathologist has (i) examined [...] in rendering the final pathologic diagnosis. JULIUS PIETROVAL 06/14/2011 4:12 PM EDT Rosie Hastings MD PATHOLOGY/CYTOLOGY ORDERABLES Performing Organization Address [facility] de Phone Number [facility] * Specimen to Pathology (surgical or derm) (06/14/2011 4:10 PM EDT) AP Specimen 06/14/2011 4:10 PM EDT 06/14/2011 4:10 PM EDT Narrative [facility] - 06/14/2011 4:10 PM EDT Specimen requisition ordered. ??Separate Pathology report to follow Rosie Hastings MD PATHOLOGY/CYTOLOGY ORDERABLES Performing Organization Address [facility] de Phone Number [facility] * Specimen to Pathology (surgical or derm) (06/14/2011 4:03 PM EDT) AP Specimen 06/14/2011 4:03 PM EDT 06/14/2011 4:04 PM EDT Narrative JULIUS CRUM - 06/14/2011 4:04 PM EDT Specimen requisition ordered. ??Separate Pathology report to follow Rosie Hastings MD PATHOLOGY/CYTOLOGY ORDERABLES Performing Organization Address [facility] de Phone Number JULIUS CRUM * Specimen to Pathology (surgical or derm) (06/14/2011 4:03 PM EDT) AP Specimen 06/14/2011 4:03 PM EDT 06/14/2011 4:04 PM EDT Narrative UNADAVID CRUM - 06/14/2011 4:04 PM EDT Specimen requisition ordered. ??Separate Pathology report to follow Rosie Hastings MD PATHOLOGY/CYTOLOGY ORDERABLES Performing Organization Address [facility] de Phone Number JULIUS CRUM * Specimen to Pathology (surgical or derm) (06/14/2011 1:52 PM EDT) AP Specimen 06/14/2011 1:52 PM EDT 06/14/2011 1:52 PM EDT Narrative JULIUS CRUM - 06/14/2011 1:52 PM EDT Specimen requisition ordered. ??Separate Pathology report to follow Rosie Hastings MD PATHOLOGY/CYTOLOGY ORDERABLES Performing Organization Address [facility] de Phone Number JULIUS CRUM * Specimen to Pathology (surgical or derm) (06/14/2011 1:49 PM EDT) AP Specimen 06/14/2011 1:49 PM EDT 06/14/2011 1:49 PM EDT Narrative JULIUS CRUM - 06/14/2011 1:49 PM EDT Specimen requisition ordered. ??Separate Pathology report to follow Rosie Hastings MD PATHOLOGY/CYTOLOGY ORDERABLES Performing Organization Address [facility] de Phone Number JULIUS CRUM * (ABNORMAL) A-DIFF (06/14/2011 10:50 AM EDT) [...] x10(3)/mc L CERNER MILLENNIUM Blood specimen (specimen) 06/14/2011 10:50 AM EDT 06/14/2011 11:13 AM EDT Rosie Hastings MD HEMATOLOGY ORDERABL ES JULIUS WESTBROOKENNIUM * ANTIBODY SCREEN (06/14/2011 10:50 AM EDT) Ab Screen Interp Negative CERNER PIETROENNIUM Expires at [id number] on: [id number] CERNER MILLENNIUM Blood specimen (specimen) 06/14/2011 10:50 AM EDT 06/14/2011 11:13 AM EDT Rosie Hastings MD BLOOD BANK LAB VIVI ALISADONG Performing Organization Address [facility] de Phone Number CERNER PIETROENNIUM * ABO/RH TYPING (06/14/2011 10:50 AM EDT) ABORH Type A Pos CERNER MILLENNIUM Blood specimen (specimen) 06/14/2011 10:50 AM EDT 06/14/2011 11:13 AM EDT Rosie Hastings MD BLOOD BANK LAB VIVI WARREN Performing Organization Address [facility] Phone Number CERNER MILLENNIUM * (ABNORMAL) CBC (with Diff) (06/14/2011 [...] Rosie Hastings MD HEMATOLOGY ORDERABL ES JULIUS Garza Surgical Pathology Report (06/14/2011 10:23 AM EDT) Surgical Pathology Report [id number] ? Location: BP; BP18; B The signing [...] ?? Carney discoid placenta. ?? Membranes: ? Devers, semitransparent with marginal insertion. ?? Cord: ?62.0 x 1.4 cm; three vessels; eccentric insertion. ?? Surface: ? Devers-purple, smooth, and glistening, with prominent ?vasculature, unremarkable. ?? Maternal Surface: ??Intact, red-brown, and spongy with diffuse ?calcification. ?? Parenchyma: ?The specimen is serially sectioned at 0.5-cm to ?1.0-cm intervals. ??Sections show red, hemorrhagic, ?spongy, unremarkable parenchyma. Sections/Processing : ??Audio Tape Librarian sections are submitted as follows: ?(1) membrane [...] in rendering the final pathologic diagnosis. [facility] 06/14/2011 10:2 3 AM EDT Rosie Hastings MD PATHOLOGY/CYTOLOGY ORDERABLES [facility] documented in this encounter Visit Diagnoses Not on filedocumented in this encounter Administered Medications Inactive Administered Medications - up to 3 most recent administrations Medication Order MAR Action Action Date Dose Rate Site acetaminophen (TYLENOL) tablet 1,000 mg 1,000 mg, Oral, EVERY 6 HOURS PRN, Starting on Emelia 06/14/11 at 1503, Until 06/16/11 at 1611, Pain, moderate pain, Maximum dose of acetaminophen is 4000 mg from all sources in 24 hours., Routine Given 06/15/2011 11:00 PM EDT 1,000 mg Given 06/15/2011 4:10 PM EDT 1,000 mg Given 06/15/2011 8:10 AM EDT 1,000 mg ceFAZolin (ANCEF) 1g in dextrose 5% 50mL 1,000 mg (1 g), Intravenous, ONCE, 1 dose, On Emelia 06/14/11 at 1030, Administer over 30 Minutes, For section prophylaxis New Bag 06/14/2011 1:14 PM EDT 1,000 mg 100 mL/hr citric acid-sodium citrate (BICITRA) oral solution 30 mL 30 mL, Oral, APPLIANCE INSTALLER TO O.R., On Emelia 06/14/11 at 1030, Routine Given 06/14/2011 1:14 PM EDT 30 mLs docusate sodium (COLACE) capsule 100 mg 100 mg, Oral, 2 TIMES DAILY, First dose on Emelia 06/14/11 at 2100, Until Discontinued, Routine Given 06/16/2011 9:00 AM EDT 100 mg Given 06/15/2011 8:10 AM EDT 100 mg Given 06/15/2011 1:03 AM EDT 100 mg lactated ringers 500 mL IV bolus 500 mL, at 500 mL/hr, Intravenous, ONCE, 1 dose, On Emelia 06/14/11 at 1030, Prior to epidural placement or concerning heart rate pattern or maternal condition Given 06/14/2011 10:50 AM EDT 500 mLs 500 mL/hr measles, mumps and rubella vaccine (MMR) vaccine injection 0.5 mL 0.5 mL, Subcutaneous, PRIOR TO DISCHARGE, 1 dose, Starting on Emelia 06/14/11 at 1604, Until 06/16/11 at 0944, Per Protocol, Routine Given 06/16/2011 9:44 AM EDT 0.5 mLs Left Arm ondansetron (ZOFRAN) injection 4 mg 4 mg, Intravenous, EVERY 8 HOURS PRN, Starting on Emelia 06/14/11 at 1848, Until 06/16/11 at 1611, Nausea, Routine Given by Other 06/14/2011 2:09 PM EDT 8 mg OXYcodone (ROXICODONE) immediate release tablet 5 mg 5 mg, Oral, EVERY 4 HOURS PRN, Starting on Emelia 06/14/11 at 1609, Until 06/16/11 at 1611, Pain, Routine Given 06/16/2011 9:40 AM EDT 5 mg Given 06/16/2011 1:02 AM EDT 5 mg Given 06/15/2011 10:25 AM EDT 5 mg simethicone (MYLICON) chewable tablet 40 mg 40 mg, Oral, EVERY 6 HOURS PRN, Starting on 06/16/11 at 0755, Until 06/16/11 at 1611, Cramping, Routine Given 06/16/2011 9:27 AM EDT 40 mg documented in this encounter Active and Recently Administered [...] solution 30 mL (CANCELED) 30 mL, Oral, APPLIANCE INSTALLER TO O.R., On Emelia 06/14/11 at 1030, Routine 1030 (Due)1314 (Given - Provider: Paige Rashid, RN) docusate sodium (COLACE) capsule 100 mg 100 mg, Oral, 2 TIMES DAILY, First dose on Emelia 06/14/11 at 2100, Until Discontinued, Routine 2100 (Not Given - Provider: Rosalia Hale RN - Reason: See comment - Comment: pt nauseated) 0103 (Given - Provider: Renzo Villafana, BONY)0810 (Given - Provider: Tequila Parmar RN) 0900 [...] Tequila Parmar RN)2300 (Given - Provider: Renzo L Broderick, RN) measles, mumps and rubella vaccine (MMR) vaccine injection 0.5 mL (COMPLETED) 0.5 mL, Subcutaneous, PRIOR TO DISCHARGE, 1 dose, Starting on Emelia 06/14/11 at 1604, Until 06/16/11 at 0944, Per Protocol, Routine 0944 (Given - Provider: Paige Rashid, RN) ondansetron (ZOFRAN) injection 4 mg (CANCELED) 4 mg, Intravenous, EVERY 8 HOURS PRN, Starting on Emelia 06/14/11 at 1848, Until 06/16/11 at 1611, Nausea, Routine 1409 (Given by Other - Provider: Paige Rashid, RN - Comment: Given intra-op by Anesthesiologist)1900 (Due) OXYcodone (ROXICODONE) immediate release tablet 5 mg 5 mg, Oral, EVERY 4 HOURS PRN, Starting on Emelia 06/14/11 at 1609, Until 06/16/11 at 1611, Pain, Routine 1025 (Given - Provider: Tequila Parmar RN) 0102 (Given - Provider: Renzo Villafana, BONY)0940 (Given - Provider: Paige Rashid, RN) simethicone (MYLICON) chewable tablet 40 mg (CANCELED) 40 mg, Oral, EVERY 6 HOURS PRN, Starting on 06/16/11 at 0755, Until 06/16/11 at 1611, Cramping, Routine 0927 (Given - Provider: Paige Rashid, BONY) Linked Groups Order Group 1: acetaminophen (TYLENOL) [...] EVERY 6 HOURS PRN, Starting on Emelia 11 at 1503, Until 06/16/11 at 1611, Pain, moderate pain, Maximum dose of acetaminophen is 4000 mg from all sources in 24 hours., Routine documented in this encounter Care Teams Restaurant And Bar Manager Relationship Specialty Start Date End Date Sonja Causey MD [address] [place] [address] PCP - General 07/18/10 09/26/16 documented as of this encounter
--- OUTSIDE RECORDS SUMMARY | 2024-03-19 08:53 | XMS_ITS | Encounter Summary ---
[place] [address] Care Team Providers Care Business Systems Architect Name Role Phone Sonja Causey MD Primary Care Provider [phone] Reason for Visit * Reason Comments Routine Visit Encounter Details Date Type Department Care Team (Latest Contact Info) Description 05/15/2011 3:30 PM EDT Routine Obstetrics [place] [address] Angelica Monroe MD [facility] [address] OBSTETRICS & [place] [address] GA: [id number] Discharge Disposition: Home Social History Tobacco Use [...] Sign Reading Time Taken Comments Blood Pressure 124/66 05/15/2011 3:07 PM EDT Pulse - - Temperature - - Respiratory Rate - - Oxygen Saturation - - Inhaled Oxygen Concentration - - Weight 98 kg (216 lb 1.6 oz) 05/15/2011 3:07 PM EDT Height - - Body Mass Index 32.86 01/24/2011 3:57 PM EDT documented in this encounter Progress Notes * Angelica Monroe MD - 05/15/2011 3:46 PM EDT Denies bleeding, leaking of fluid, pain or painful contractions. Does have intermittent ctx. I reviewed with her again the magnitude of risk associated with given her 2 prior and the verythin lower uterine segment. I recommended that she have a repeat section. She agreed to this. Will schedule for 06/14. Will need H&P. I encouraged her that even if she presents in labor and delivery is not imminent, I recommend a . RTC 1 week documented in this encounter Plan of Treatment Not on file documented as of this encounter Visit Diagnoses Diagnosis Previous section- Primary Other postprocedural status documented in this encounter Care Teams Business Systems Architect Relationship Specialty Start Date End Date Sonja Causey MD [address] [place] [address] PCP - General 07/18/10 09/26/16 documented as of this encounter
--- OUTSIDE RECORDS SUMMARY | 2024-03-19 08:53 | XMS_ITS | Encounter Summary ---
Author Organization Formerly [facility] [place] [address] Care Team Providers Care Phytopathology Teacher Name Role Phone Sonja Causey MD Primary Care Provider [phone] Reason for Visit * Reason Comments Routine Visit Encounter Details Date Type Department Care Team (Latest Contact Info) Description 05/24/2011 1:15 PM EDT Routine Obstetrics [place] [address] Aimee Beaulieu MD [facility] OBSTETRICS & [place] [address] GA: [id number] Discharge Disposition: Home Social History Tobacco Use [...] Sign Reading Time Taken Comments Blood Pressure 122/68 05/24/2011 1:24 PM EDT Pulse - - Temperature - - Respiratory Rate - - Oxygen Saturation - - Inhaled Oxygen Concentration - - Weight 98.9 kg (218 lb) 05/24/2011 1:24 PM EDT Height - - Body Mass Index 33.15 01/24/2011 3:57 PM EDT documented in this encounter Progress Notes * Aimee Beaulieu MD - 05/24/2011 1:47 PM EDT Feels well, some pressure in pelvis Reiterated recommendation for GBS today Agrees influenza vaccine * Madelyn Simpson LPN - 05/24/2011 1:35 PM EDT 37 wk pack with BF tips and LS documented in this encounter Plan of Treatment Not on file documented as of this encounter Procedures Procedure Name Priority Date/Time Associated Diagnosis Comments GROUP B STREP CULTURE SCREEN Routine 05/24/2011 2:00 PM EDT Flu (influenza vaccination) Previous delivery affecting , antepartum AMA (advanced maternal age) multigravida 35+ POCT URINE DIPSTICK Routine 05/24/2011 Flu (influenza vaccination) documented in this encounter Results * Group B Strep Culture Screen (05/24/2011 2:00 PM EDT) Group B Streptococcus Culture ? Patient Name: GIANA YEAGER ?Ordered By: AIMEE BEAULIEU ? [place] ? MR#: [id number] ?LOC: ??5L ? /Sex: ??1970 (41 years), ? Female ? PROCEDURE: Group B Streptococcus Culture ?SOURCE: Vag/Rectal ? COLLECTED: 05/24/2011 14:00 ? STARTED: 05/24/2011 15:43 ? FINAL REPORT ? Final Report ? Verified: 011 10:07 ? No Group B Streptococci isolated ? PRELIMINARY REPORT ? Preliminary Report ? Verified: 011 11:05 ? Culture in progress ? [facility] Pooled specimen from vaginal introitus and rectal swab (specimen) 05/24/2011 2:00 PM EDT 05/24/2011 3:42 PM EDT Aimee Beaulieu MD MICROBIOLOGY - GENER AL ORDERABLES [facility] * POCT urine dipstick (05/24/2011) POC Sp [place] 1.002 - 1.030 POC pH, UA 5.0 - 8.5 POC Leuk, UA Negative - Negative POC Nitrite, UA Negative - Negative POC Protein, UA neg Negative - Negative mg/dL POC Glucose, UA neg Normal - Normal mg/dL POC Ketone, UA Negative - Negative POC Urobil, UA 0.2 - 1.0 mg/dL POC Bili, UA Negative - Negative POC Blood, UA Negative - Negative connor/uL Aimee Beaulieu MD POINT OF CARE TEST O RDERABLES documented in this encounter Visit Diagnoses Diagnosis Flu (influenza vaccination)- Primary Need for prophylactic vaccination and inoculation against influenza state, incidental Previous delivery affecting , antepartum Previous delivery, antepartum condition or complication AMA (advanced maternal age) multigravida 35+ Elderly multigravida with antepartum condition or complication Need for prophylactic vaccination and inoculation against influenza documented in this encounter Care Teams Phytopathology Teacher Relationship Specialty Start Date End Date Sonja Causey MD [address] [place] [address] PCP - General 07/18/10 09/26/16 documented as of this encounter
--- OUTSIDE RECORDS SUMMARY | 2024-03-19 08:53 | XMS_ITS | Encounter Summary ---
[place] [address] Care Team Providers Care Title I Assistant Name Role Phone Sonja Causey MD Primary Care Provider [phone] Reason for Visit * Reason Comments LOW TAMMY-A Encounter Details Date Type Department Care Team (Late st Contact Info) Description 01/24/2011 11:00 AM EDT Office Visit Obstetrics [place] [address] Simi Gleason, [facility] OBSTETRICS & [place] [address] Positive screening test (Primary Dx) Social History Tobacco Use Types Packs/Day Years Used Date Smoking Tobacco: Never Alcohol Use Standard Drinks/Week Comments No 0 (1 standard drink = 0.6 oz pur e alcohol) Comments Yes Sex and Gender Information Value Date Recorded Sex Assigned at Not on file Gender Identity Not on file Sexual Orientation Not on file documented as of this encounter Progress Notes * Simi Nicole, MS - 02/21/2011 3:49 PM EDT Genetic Counseling Note I met with Giana Aguillon Toy for 25 minutes. history: Giana Aguillon is a 40 y.o. year old, currently 19.1wekks. Family history: Giana Aguillon's family history includes Defects in her sons and Congenital Anomalies in her sons. The remainder of the family history was unremarkable for any individuals withmental retardation, defects, recurrent loss, or known genetic conditions. Consanguinity denied.Giana Aguillon is of Nauruan, Chadian, Bangladeshi, Caodaism decent and Jerome is of Bangladeshi montserratian, Chadian,Nauruan and decent. Assessment and Plan: The patient???s screen revealed a low TAMMY-A level of 0.29 MoM, which is less than the first percentile (?0.29 MoM). In addition to its utility in aneuploidy screening, low TAMMY-A has been associated with an increased risk for adverse outcomes including spontaneous loss, low weight, preeclampsia, gestational hypertension, and . Follow-upultrasounds at 28 and 32 weeks may be indicated to assess growth. She came in today to discuss the implications of these results further. documented in this encounter Plan of Treatment Not on file documented as of this encounter Visit Diagnoses Diagnosis Positive screening test- Primary Abnormal findings on screening documented in this encounter Care Teams Title I Assistant Relationship Specialty Start Date End Date Sonja Causey MD [address] [place] [address] PCP - General 07/18/10 09/26/16 documented as of this encounter
--- OUTSIDE RECORDS SUMMARY | 2024-03-19 08:53 | XMS_ITS | Encounter Summary ---
[place] [address] Care Team Providers Care Heat Pump Installer Name Role Phone Sonja Causey MD Primary Care Provider [phone] Encounter Details Date Type Department Care Team (Late st Contact Info) Description 02/07/2011 2:18 PM EDT - 02/07/2011 11:59 PM EDT Hospital Encounter [place] [id number] Social History Tobacco Use Types Packs/Day Years [...] Priority Date/Time Associated Diagnosis Comments US OB LIMITED Routine 02/07/2011 2:43 PM EDT documented in this encounter Results * US OBS LIMITED (02/07/2011 2:43 PM EDT) Anatomical Region Laterality Modality Pelvis, Abdomen Ultrasound 02/07/2011 2:43 PM EDT Narrative 02/07/2011 2:52 PM EDT ?OBSTETRICS REPORT ? (Signed Final 02/07/2011 02:51 pm) Patient Info ID: ? [id number] ? : ??[birth year] (40 yrs) Name: ? MARCELL GOLDMAN ? Visit Date: 02/07/2011 02:39 pm ? CHRISTELLE Performed By Performed By: ?? ALICIA Haas ??Madelyn Attending: ?Pauly CLINTON, Anyi Bassett Referred By: ?HYACINTH Skaggs MD Accession#: ? [id number] Procedures UOBTV - Viability - Cervical Length - Transvaginal - ??[id number] UOBLIM - Amira - Postion Only ( 1 or more fetuses) - ?[id number] Indications Viability, transvaginal AFV only Evaluation Gest. Sac: ? Visualized Yolk Sac: ?Visualized Heart Rate: ??132 ?bpm Cardiac Activity: ??Observed, normal rhythm Presentation: ?Cephalic Placenta: ?Anterior Amniotic Fluid AMIRA FV: ?Appropriate for gestational age -------- Biometry -------- Gestational Age LMP: ? 21w 1d ?Date: ??09/12/10 ? LEORA: ?? 06/19/11 Best: ?21w 1d ?? Det. By: ??LMP ??(09/12/10) ?LEORA: ?? 06/19/11 ------- Anatomy ------- Heart: ?Limited Views Stomach: ?Visualized Kidneys: ?See below Bladder: ?Visualized Limbs: ?Limited views Targeted Anatomy Abdomen Lt Kidney: ?Pelviectasis, 6 mm Rt Kidney: ?Renal pelvis, 3 mm Cervix Uterus Adnexa Cervix: ?Closed, ??Length (cm)= 3.1 with fundal pressure ?(cm)= 3.2 Left Ovary: ?Not visualized Right Ovary: ?? Not visualized Impression 2nd Trimester - Cervical Length - Summary Single intrauterine with a gestational age of 21w 1d based on LMP. Amniotic fluid volume is subjectively appropriate for gestational age. Cervix closed, ??measures 3.1 cm in length, no change with fundal pressure. Stable left renal pelviectasis at 6 mm, slight decrease in right renal pelviectasis now 3 mm, both measurements within normal limits for gestational age. I ??viewed the images and agree with the above interpretation. Thank you for allowing us to participate in the care of MARCELL YEAGER. Please do not hesitate to call if you have any questions. ?Anyi Coats MD Electronically Signed Final Report ?? 02/07/2011 02:51 pm Procedure Note Anyi Coats MD - 02/07/2011 OBSTETRICS REPORT (Signed Final 02/07/2011 02:51 pm) Patient Info ID: [id number] : 72 (40 yrs) Name: MARCELL GOLDMAN Visit Date: 02/07/2011 02:39 pm CHRISTELLE Performed By Performed By: ALICIA Haas Attending: Anyi Coats MD Referred By: HYACINTH Skaggs MD Procedures UOBTV - Viability - Cervical Length - Transvaginal - [id number] UOBLIM - Amira - Postion Only ( 1 or more fetuses) - [id number] Indications Viability, transvaginal AFV only Evaluation Gest. Sac: Visualized Yolk Sac: Visualized Heart Rate: 132 bpm Cardiac Activity: Observed, normal rhythm Presentation: Cephalic Placenta: Anterior Amniotic Fluid AMIRA FV: Appropriate for gestational age -------- Biometry -------- Gestational Age LMP: 21w 1d Date: 09/12/10 LEORA: 06/19/11 Best: 21w 1d Det. By: LMP (09/12/10) LEORA: 06/19/11 ------- Anatomy ------- Heart: Limited Views Stomach: Visualized Kidneys: See below Bladder: Visualized Limbs: Limited views Targeted Anatomy Abdomen Lt Kidney: Pelviectasis, 6 mm Rt Kidney: Renal pelvis, 3 mm Cervix Uterus Adnexa Cervix: Closed, Length (cm)= 3.1 with fundal pressure (cm)= 3.2 Left Ovary: Not visualized Right Ovary: Not visualized Impression 2nd Trimester - Cervical Length - Summary Single intrauterine with a gestational age of 21w 1d based on LMP. Amniotic fluid volume is subjectively appropriate for gestational age. Cervix closed, measures 3.1 cm in length, no change with fundal pressure. Stable left renal pelviectasis at 6 mm, slight decrease in right renal pelviectasis now 3 mm, both measurements within normal limits for gestational age. I viewed the images and agree with the above interpretation. Thank you for allowing us to participate in the care of RAYMONMatilda JONES YEAGER. Please do not hesitate to call if you have any questions. Anyi Coats MD Electronically Signed Final Report 02/07/2011 02:51 pm Nash Beaulieu MD IMG OB ORDERABLES documented in this encounter Visit Diagnoses Diagnosis state, incidental documented in this encounter Care Teams Heat Pump Installer Relationship Specialty Start Date End Date Sonja Causey MD [address] [place] [address] PCP - General 07/18/10 09/26/16 documented as of this encounter
--- OUTSIDE RECORDS SUMMARY | 2024-03-19 08:53 | XMS_ITS | Encounter Summary ---
[place] [address] Care Team Providers Care Shank Boner Name Role Phone Sonja Causey MD Primary Care Provider [phone] Reason for Visit * Reason Onset Date Comments Results 12/05/2012 Encounter Details Date Type Department Care Team (Late st Contact Info) Description 12/05/2012 [place] [phone] Tete Moseley MD [facility] [place] [address] Results Social History Tobacco Use Types Packs/Day Years [...] encounter Miscellaneous Notes * Telephone Encounter - Tete Moseley MD - 12/05/2012 2:56 PM EDT Office Visit on 11/26/2012 Component Date Value Range Status ??? WBC 11/26/2012 8.5 4.0 - 10.0 x10(3)/mcL Final ??? RBC 11/26/2012 4.71 3.93 - 5.22 x10(6)/mcL Final ??? Hemoglobin 11/26/2012 14.0 11.2 - 15.7 gm/dL Final ??? Hematocrit 11/26/2012 41.7 34.0 - 45.0 % Final ??? MCV 11/26/2012 88.5 79.0 - 94.0 fL Final ??? MCH 11/26/2012 29.7 26.6 - 32.2 pg Final ??? MCHC 11/26/2012 33.6 32.0 - 36.5 gm/dL Final ??? Platelets 11/26/2012 355 145 - 370 x10(3)/mcL Final ??? RDWSD 11/26/2012 42.5 35.0 - 46.0 fL Final ??? RDWCV 11/26/2012 13.1 10.9 - 14.4 % Final ??? MPV 11/26/2012 9.7 9.0 - 12.0 fL Final ??? TSH 11/26/2012 3.58 0.27 - 4.20 mcIU/mL Final ? ? Thyroperox Ab 11/26/2012 <10 <=34 IU/mL Final ??? FRANNIE 11/26/2012 Neg Neg Final ??? IgE 11/26/2012 15.9 Corrected Comment: -- REFERENCE VALUE -- Mean 13.2 +1SD 41.0 +2SD 127.0 Test Performed by: [place] [address] Caramel Cutter Hand: Miko Clarke III, M.D. REVISED RESULTS -- REFERENCE VALUE -- Mean 13.2 +1SD 41.0 +2SD 127.0 REVISED REPORT, Previously reported as: 13.2 (Reported 11/27/2012 09:32) Test Performed by: [place] [address] Caramel Cutter Hand: Miko Clarke III, M.D. Corrected from 13.2 kU/L [NA] on 12/01/12 17:26:21 EDT by Contributor_system, ELM MOTT. ? ? Cat Epi IgE 11/26/2012 <0.35 Final Comment: Class 0 (Negative <0.35) Test Performed by: [place] [address] Caramel Cutter Hand: Miko Clarke III, M.D. ? ? Dog Epi IgE 11/26/2012 <0.35 Final Comment: Class 0 (Negative <0.35) Test Performed by: [place] [address] Caramel Cutter Hand: Miko Clarke III, M.D. ? ? Mites/D.F. IgE 11/26/2012 <0.35 Final Comment: Class 0 (Negative <0.35) Test Performed by: [place] [address] Caramel Cutter Hand: Miko Clarke III, M.D. ? ? Mites/D.P. IgE 11/26/2012 <0.35 Final Comment: Class 0 (Negative <0.35) Test Performed by: [place] [address] Caramel Cutter Hand: Miko Clarke III, M.D. ??? Glucose Lvl 11/26/2012 83 60 - 199 mg/dL Final Diabetes: >=200 mg/dL plus symptoms ??? BUN 11/26/2012 14 8 - 18 mg/dL Final ??? Creatinine 11/26/2012 0.70 0.70 - 1.20 mg/dL Final Comment: Please note that the pediatric reference intervals supplied above were not validated at [facility]. Results from pediatric patients should be interpreted in conjunction to the patient's age, height and muscle mass. ??? Sodium 11/26/2012 141 135 - 145 mmol/L Final ??? Potassium 11/26/2012 3.9 3.5 - 5.0 mmol/L Final Comment: Please note: Patients with WBC >100,000 may have falsely elevated Potassium levels. For accurate Potassium quantification in these patients send serum separator tube (gold top) for subsequent determinations. Contact the Clinical Chemistry Laboratory if there are any questions. ??? Chloride 11/26/2012 104 98 - 107 mmol/L Final ??? CO2 11/26/2012 26 22 - 31 mmol/L Final ??? Anion Gap 11/26/2012 11 5 - 15 mmol/L Final ??? Calcium 11/26/2012 9.1 8.5 - 10.5 mg/dL Final ??? Total Protein 11/26/2012 7.4 6.4 - 8.3 gm/dL Final ??? Albumin 11/26/2012 4.6 3.2 - 5.2 gm/dL Final ??? AST 11/26/2012 17 0 - 30 unit/L Final ??? ALT 11/26/2012 9 0 - 30 unit/L Final ??? Alk Phos 11/26/2012 66 40 - 104 unit/L Final ??? Total Bilirubin 11/26/2012 0.2 0.2 - 1.3 mg/dL Final ? ? Bili, Direct 11/26/2012 <0.1 0.0 - 0.3 mg/dL Final ? ? Estimated GFR 11/26/2012 >60 >=60 Final Comment: The National Kidney Disease Education Program (NKDEP) has recommended all laboratories report estimated GFR (eGFR) along with plasma creatinine measurements to assist you with recognition of early kidney disease. Caveats: Plasma creatinine should be at steady-state (unchanged within the past week). For patients multiply eGFR by 1.2. The MDRD equation was developed using patients between the ages of 18 and 70 years. The MDRD equation has not been validated for patients < 18 years of age and should not be used to assess renal function in the pediatric population. The MDRD eGFR equation will also overestimate the true GFR of patients above the age of 70. This overestimation is variable but increases with age. [...] <60, and renal failure when GFR <15. This calculation may not be valid for patients [...] clinical presentations. Clin J Am Soc Nephrol;6:1963-72. ??? Misc Lab Result 11/26/2012 Request received in lab. Final ??? Neutrophils % 11/26/2012 64.4 34.0 - 71.0 % Final ??? Neutr Abs (ANC) 11/26/2012 5.47 1.50 - 6.30 x10(3)/mcL Final ??? Lymphocytes % 11/26/2012 25.8 19.0 - 53.0 % Final ??? Lymphocytes Abs 11/26/2012 2.2 1.0 - 3.6 x10(3)/mcL Final ??? Monocytes % 11/26/2012 8.1 4.0 - 13.0 % Final ??? Monocyte Abs 11/26/2012 0.7 0.2 - 1.0 x10(3)/mcL Final ??? Eosinophils % 11/26/2012 1.4 0.0 - 7.0 % Final ??? Eosinophils Abs 11/26/2012 0.1 0.0 - 0.5 x10(3)/mcL Final ??? Basophils % 11/26/2012 0.2 0.0 - 2.0 % Final ??? Basophils Abs 11/26/2012 0.0 0.0 - 0.2 x10(3)/mcL Final ??? Immature Gran % 11/26/2012 0.10 0.00 - 0.66 % Final Comment: Immature granulocytes(IG's)percentage and absolute count will include metamyelocytes, myelocytes, and promyelocytes. Blood smears from CBCs yielding IG's will be scanned manually for concordance. If this scan disagrees with the automated IG or if promyelocytes are noted, a manual differential will be performed. ??? Calli Gran Abs 11/26/2012 0.01 0.00 - 0.05 x10(3)/mcL Final ??? Misc [place] 11/26/2012 Final Value: Test Result Flag Unit RefValue CU Index 2.4 <10.0 The CU Index test is the second generation Functional Anti-FcER test. Patients with a CU Index > or = 10 have basophil reactive factors in their serum which supports an autoimmune basis for disease. This test was developed and its performance characteristics determined by the [facility]. It has not been cleared or approved by the FDA. Test Performed by: [facility] [address] [place] [address] Test results reviewed with Ms. Yeager. Her CU index, TSH, TPO ab level, CMP, CBC with diff, FRANNIE,IgE- cat, dog and dust mites are unremarkable. It is unlikely that an underlying thyroid, renal, hepatic, autoimmune, or perennial allergies are contributing to her hives. She continues to have daily hives. She is not interested in medical therapy at the current time. The patient was contacted with the test results and recommendations. The patient understood and agreed with what was discussed. All questions were answered. documented in this encounter Plan of Treatment Not on file documented as of this encounter Visit Diagnoses Not on filedocumented in this encounter Care Teams Shank Boner Relationship Specialty Start Date End Date Sonja Causey MD [address] [place] [address] PCP - General 07/18/10 09/26/16 documented as of this encounter
--- OUTSIDE RECORDS SUMMARY | 2024-03-19 08:53 | XMS_ITS | Encounter Summary ---
Author Organization [facility] Address [facility] [place] [address] Care Team Providers Care Gastroenterology Nurse Name Role Phone Sonja Causey MD Primary Care Provider [phone] Encounter Details Date Type Department Care Team (Late st Contact Info) Description 05/24/2011 2:03 PM EDT - 05/24/2011 11:59 PM EDT Hospital Encounter ZUNSCHEDULED Angelica Monroe MD [facility] OBSTETRICS & [place] [address] Discharge Disposition: Home Social History Tobacco Use [...] on filedocumented in this encounter Care Teams Gastroenterology Nurse Relationship Specialty Start Date End Date Sonja Causey MD [address] [place] [address] PCP - General 07/18/10 09/26/16 documented as of this encounter
--- OUTSIDE RECORDS SUMMARY | 2024-03-19 08:53 | XMS_ITS | Encounter Summary ---
Author Organization [facility] [place] [address] Care Team Providers Care Back Joiner Name Role Phone Sonja Causey MD Primary Care Provider [phone] Reason for Visit * Reason Comments Routine Visit follow up ultraso und Encounter Details Date Type Department Care Team (Latest Contact Info) Description 02/07/2011 3:30 PM EDT Routine Obstetrics [place] [phone] CLINIC, Jonathan Malone MD [facility] OBSTETRICS [place] [address] GA: 21w1d Discharge Disposition: Home Social History Tobacco Use [...] Sign Reading Time Taken Comments Blood Pressure 104/58 02/07/2011 3:14 PM EDT Pulse - - Temperature - - Respiratory Rate - - Oxygen Saturation - - Inhaled Oxygen Concentration - - Weight 92.6 kg (204 lb 1.6 oz) 02/07/2011 3:14 P M EDT Height - - Body Mass Index 31.03 01/24/2011 3:57 PM EDT documented in this encounter Progress Notes * Jonathan New MD - 02/07/2011 3:43 PM EDT Good movement. No contractions/ leaking fluid / bleeding / pain. No bleeding since before last appointment with [facility]. Nl cervical length today. Reviewed recommendation for repeat delivery. Patient desires BTL at time of repeat c/s. Reviewed tubal ligation risks, benefits, alternatives, concepts of permanence, regret, and failure rate. Patient states she definitively desires no future fertility. RTC 5 weeks for PNV and f/u ultrasound for growth. documented in this encounter Plan of Treatment Not on file documented as of this encounter Results * US OB follow up evaluation (03/16/2011 1:46 PM EDT) Anatomical Region Laterality Modality Pelvis, Abdomen Ultrasound 03/16/2011 1:46 PM EDT Narrative 03/16/2011 2:04 PM EDT ? OBSTETRICS REPORT ? (Signed Final 03/16/2011 01:39 pm) Patient Info ID: ?[id number] ?: ??[birth year] (41 yrs) Name: ?MARCELL GOLDMAN ?Visit Date: 03/16/2011 01:21 pm ?CHRISTELLE Performed By Performed By: ?? Natividad Brock [facility] Associate: ?Martín CLINTON, Tish Cruz Attending: ?Julián CLINTON, Dilma Arce Referred By: ?KARLOS MATHEW MD Accession#: ? [id number] Procedures UOBFOL - Efw - Growth - Reevaluation - Carney ?[id number] - [id number] Indications Low TAMMY-A Evaluation Num Of Fetuses: ?1 Preg. Location: ?Uterus Gest. Sac: ? Visualized Heart Rate: ??138 ? bpm Cardiac Activity: ??Observed, normal rhythm Presentation: ?Cephalic Placenta: ?Anterior P. Cord ?Within Normal Limits Insertion: Amniotic Fluid AMIRA FV: ?Normal AMIRA Sum: ? 15.03 ?? cm ? Larg Pckt: ?? 4.33 ?? cm RUQ: ?? 3.74 ?? cm ? LUQ: ?? 4.33 ?? cm RLQ: ?? 3.88 ?? cm ? LLQ: ?? 3.08 ?? cm -------- Biometry -------- BPD: ?68.5 ??mm ?G. Age: ?? 27w 4d ? 77 ??% OFD: ?87.7 ??mm HC: ?247.7 ??mm ?G. Age: ?? 26w 6d ? 40 ??% AC: ?234.8 ??mm ?G. Age: ?? 27w 5d ? 80 ??% FL: ? 53 ??mm ?G. Age: ?? 28w 1d ? 83 ??% HUM: ?47.2 ??mm ?G. Age: ?? 27w 5d ? 76 ??% CI: ?78.1 ??% ? 70 - 86 FL/HC: ? 21.4 ??% ? 18.6 - 20.4 HC/AC: ? 1.05 ?1.04 - 1.22 FL/BPD: ?77.4 ??% ? 71 - 87 FL/AC: ? 22.6 ??% ? 20 - 24 Est. FW: ?1131 ??gm ?2 lb 8 oz ? 93 ??% Gestational Age LMP: ? 26w 3d ?Date: ??09/12/10 ? LEORA: ?? 06/19/11 U/S Today: ? 27w 4d ?LEORA: ?? 06/11/11 Best: ?26w 3d ?? Det. By: ??LMP ??(09/12/10) ?LEORA: ?? 06/19/11 ------- Anatomy ------- Cranium: ? Visualized Cavum: ? Visualized Ventricles: ?Visualized Choroid Plexus: ?Visualized Cerebellum: ?Visualized Posterior Fossa: ?? Limited Views Nuchal Fold: ? Not evaluated at this gestational age. Face: ?Limited Views Heart: ? 4-chamber view appears normal RVOT: ?Visualized LVOT: ?Visualized Diaphragm: ? Visualized Stomach: ? Visualized Abdomen: ? Within Normal Limits Abdominal Wall: ?Cord Insertion - WNL Cord Vessels: ?3-vessels- WNL Kidneys: ? Visualized Bladder: ? Visualized Spine: ? Limited views Limbs: ? Limited views Cervix Uterus Adnexa Left Ovary: ?? Not visualized Right Ovary: ??Not visualized Impression 2nd Trimester - Summary Single intrauterine with a gestational age of 26w 3d based on LMP. ??Composite age based on the current ultrasound alone is 27w 4d. ?? Current growth parameters are consistent indicating normal growth. Amniotic fluid volume is Normal, AMIRA = 15.03 cm. Limited anatomic evaluation was performed. I ??viewed the images and agree with the above interpretation. Thank you for allowing us to participate in the care of MARCELL YEAGER. Please do not hesitate to call if you have any questions. ? Dilma Gallego MD Electronically Signed Final Report ?? 03/16/2011 01:39 pm Film and interpretation reviewed by the attending Procedure Note Dilma Gallego MD - 03/16/2011 OBSTETRICS REPORT (Signed Final 03/16/2011 01:39 pm) Patient Info ID: [id number] : [birth year] (41 yrs) Name: MARCELL GOLDMAN Visit Date: 03/16/2011 01:21 pm CHRISTELLE Performed By Performed By: Natividad Brock [facility] Associate: Tish Resendiz MD Attending: Dilma Gallego MD Referred By: KARLOS MATHEW MD Procedures UOBFOL - Efw - Growth - Reevaluation - Carney [id number] - [id number] Indications Low TAMMY-A Evaluation Num Of Fetuses: 1 Preg. Location: Uterus Gest. Sac: Visualized Heart Rate: 138 bpm Cardiac Activity: Observed, normal rhythm Presentation: Cephalic Placenta: Anterior P. Cord Within Normal Limits Insertion: Amniotic Fluid AMIRA FV: Normal AMIRA Sum: 15.03 cm Larg Pckt: 4.33 cm RUQ: 3.74 cm LUQ: 4.33 cm RLQ: 3.88 cm LLQ: 3.08 cm -------- Biometry -------- BPD: 68.5 mm G. Age: 27w 4d 77 % OFD: 87.7 mm HC: 247.7 mm G. Age: 26w 6d 40 % AC: 234.8 mm G. Age: 27w 5d 80 % FL: 53 mm G. Age: 28w 1d 83 % HUM: 47.2 mm G. Age: 27w 5d 76 % CI: 78.1 % 70 - 86 FL/HC: 21.4 % 18.6 - 20.4 HC/AC: 1.05 1.04 - 1.22 FL/BPD: 77.4 % 71 - 87 FL/AC: 22.6 % 20 - 24 Est. FW: 1131 gm 2 lb 8 oz 93 % Gestational Age LMP: 26w 3d Date: 09/12/10 LEORA: 06/19/11 U/S Today: 27w 4d LEORA: 06/11/11 Best: 26w 3d Det. By: LMP (09/12/10) LEORA: 06/19/11 ------- Anatomy ------- Cranium: Visualized Cavum: Visualized Ventricles: Visualized Choroid Plexus: Visualized Cerebellum: Visualized Posterior Fossa: Limited Views Nuchal Fold: Not evaluated at this gestational age. Face: Limited Views Heart: 4-chamber view appears normal RVOT: Visualized LVOT: Visualized Diaphragm: Visualized Stomach: Visualized Abdomen: Within Normal Limits Abdominal Wall: Cord Insertion - WNL Cord Vessels: 3-vessels- WNL Kidneys: Visualized Bladder: Visualized Spine: Limited views Limbs: Limited views Cervix Uterus Adnexa Left Ovary: Not visualized Right Ovary: Not visualized Impression 2nd Trimester - Summary Single intrauterine with a gestational age of 26w 3d based on LMP. Composite age based on the current ultrasound alone is 27w 4d. Current growth parameters are consistent indicating normal growth. Amniotic fluid volume is Normal, AMIRA = 15.03 cm. Limited anatomic evaluation was performed. I viewed the images and agree with the above interpretation. Thank you for allowing us to participate in the care of MARCELL YEAGER. Please do not hesitate to call if you have any questions. Dilma Gallego MD Electronically Signed Final Report 03/16/2011 01:39 pm Film and interpretation reviewed by the attending E Dalila New MD IMG OB ORDERAB LES documented in this encounter Visit Diagnoses Diagnosis - Primary state, incidental state, incidental documented in this encounter Care Teams Back Joiner Relationship Specialty Start Date End Date Gresser, Sonja, MD [address] [place] [address] PCP - General 07/18/10 09/26/16 documented as of this encounter
--- OUTSIDE RECORDS SUMMARY | 2024-03-19 08:53 | XMS_ITS | Encounter Summary ---
Author Organization [facility] Address [facility] [place] [address] Care Team Providers Care Economic Research Analyst Name Role Phone Sonja Causey MD Primary Care Provider [phone] Reason for Visit * Reason Comments Routine Visit Encounter Details Date Type Department Care Team (Latest Contact Info) Description 01/24/2011 4:00 PM EDT Routine Obstetrics [place] [address] Nash Beaulieu MD [facility] OBSTETRICS & [place] [address] GA: 19w1d Discharge Disposition: Home Social History Tobacco Use [...] Sign Reading Time Taken Comments Blood Pressure 110/64 01/24/2011 3:57 PM EDT Pulse - - Temperature - - Respiratory Rate - - Oxygen Saturation - - Inhaled Oxygen Concentration - - Weight 90.8 kg (200 lb 1.6 oz) 01/24/2011 3:57 P M EDT Height 172.7 cm (5' 8) 01/24/2011 3:57 PM EDT Body Mass Index 30.43 01/24/2011 3:57 PM EDT documented in this encounter Progress Notes * Nash Beaulieu MD - 01/24/2011 4:33 PM EDT Stable Pt has had no bleeding in past 3 days. Some spotting previously Had Genetic Counselor visit today. Will recheck cervical status in two weeks documented in this encounter Plan of Treatment Not on file documented as of this encounter Visit Diagnoses Diagnosis state, incidental documented in this encounter Care Teams Economic Research Analyst Relationship Specialty Start Date End Date Sonja Causey MD [address] [place] [address] PCP - General 07/18/10 09/26/16 documented as of this encounter
--- OUTSIDE RECORDS SUMMARY | 2024-03-19 08:53 | XMS_ITS | Encounter Summary ---
[place] [address] Care Team Providers Care Gas Welder Apprentice Name Role Phone Sonja Charles MD Primary Care Provider [phone] Reason for Visit * Reason Comments Care Encounter Details Date Type Department Care Team (Latest Contact Info) Description 07/26/2011 11:30 AM EST Visit Obstetrics [place] [address] Jonathan New MD [facility] DR OBSTETRICS & [place] [address] care and examination (Primary Dx) Discharge Disposition: Home Social History Tobacco Use [...] Sign Reading Time Taken Comments Blood Pressure 120/76 07/26/2011 11:47 AM EST Pulse - - Temperature - - Respiratory Rate - - Oxygen Saturation - - Inhaled Oxygen Concentration - - Weight 87.5 kg (193 lb) 07/26/2011 11:47 AM EST Height - - Body Mass Index 30.23 06/07/2011 2:38 PM EDT documented in this encounter Progress Notes * Jonathan New MD - 07/26/2011 1:54 PM EST Subjective: The patient presents for a examination at 6 weeks after repeat . Her was complicated by history of two prior deliveries. Her delivery was uncomplicated. Since delivery she reports low grade fevers: 99 - 100. Her mood has been good. She has no symptoms of urine or fecal incontinence. She is breast feeding. Her menses have not resumed. She hasnot resumed intercourse. BTL for contraception. Ms. Yeager has a past medical history of Pap smear abnormality of cervix; Vitamin B12 deficiency; and Cystic fibrosis gene carrier. Shehas past surgical history that includes Gynecologic cryosurgery; section; Delivery Only (86335) (06/14/2011); and Ligate Fallopian Tube (35897) (06/14/2011). Patient Active Problem List Diagnoses Date Noted ??? Hospital-Rubella non-immune status [V49.89CX] 12/06/2010 ??? Hospital-Vitamin B12 deficiency [266.2AM] 11/24/2010 ??? Hospital-Family or maternal historic risk of congenital anomaly, antepartum [655.23G] 11/24/2010 OB History Grav Para Term Abortions TAB SAB Ect Mult Living 3 3 3 3 # Outc Date GA Lbr [place]/2nd Wgt Sex Del Anes PTL Lv 1 TRM 03/28 38w0d 3.515kg(0gu87kk) M LTCS Spinal Yes Comments: congenital VSD 2 TRM 06/30 39w0d 3.685kg(8lb2oz) M LTCS Spinal Yes Comments: failed - child has club foot 3 TRM 06/05 39w2d 00:00 3.64kg(8lb0.4oz) M LWR SEG ARZATE COMBINED SPI Yes Comments: BTL Objective: Filed Vitals: 07/26/11 1147 BP: 120/76 Examination General: Well appearing woman in no distress Abdomen: Nontender. No mass or HSM. Incision: Well healed. No erythema, exudate or induration. Pelvic: External normal, Speculum - normal discharge, cervix without lesions, uterus normal size, mobile, nontender, no adnexal masses. Extremities: No edema Assessment: Normal recovery from and delivery. Plan: Resume routine health maintenance care. Pap smear done today Contraception: S/p BTL at time of delivery. The patient was counseled regarding routine breast self exam, the age related recommendations re: mammogram screening, and the need for periodic pap smears and gynecologic evalation. The importance of good nutrition, maintaining weight control, and regular exercise were stressed. Ms. Yeager plans to resume routine BAIT DIGGER care with her PCP. Serina New MD, MPH Cc:SONJA CHARLES MD [address] / [facility] [address] documented in this encounter Miscellaneous Notes * Miscellaneous - Oscar Terminal Make Up Operator - 08/02/2011 11:26 AM EST documented in this encounter Plan of Treatment Not on file documented as of this encounter Procedures Procedure Name Priority Date/Time Associated Diagnosis Comments BAIT DIGGER CYTOLOGY FINAL REPORT Routine 07/26/2011 3:26 PM EST CYTOPATHOLOGY GYNECOLOGICAL Routine 07/26/2011 1:42 PM EST care and examination documented in this encounter Results * BAIT DIGGER CYTOLOGY FINAL REPORT (07/26/2011 3:26 PM EST) Manager Internet Retails Sales Cytology Final Report ? [facility] ? Provider: ?? Jonathan NEW ?Pt. Name: ?? MARCELL YEAGER ?PRIYANKA ? Acc #: ?[id number] ?Pt. ? Col Date: ?? 07/26/2011 ? /Sex: ?1970,(41 years),Female ? Rec Date: ?? 07/26/2011 ? LOC: ?5L ? CYTOPATHOLOGY: ??BAIT DIGGER ? ---Adequacy--- ? Specimen submitted is satisfactory [...] by: ??ETHAN Kenny(ASCP), Sonja Duarte - ? Senior Water/Wastewater Engineer ? ---Clinical Information--- ? HPV Option: ? Reflex HPV ? Preparation: ?Liquid Based Pap ? Specimen Source: ?Cervical Endocervical LBP ? LMP: ?Unknown ? Hormones?: ?No ? Hysterectomy?: ?No ?: ?Yes ?: ?No ? I.U.D.?: ?No ? Pelvic Radiation: ? No ? Prior BAIT DIGGER Therapy?: ? No ? Hist Abnl Pap/Biopsy?: ??No ? Hist of HPV Vaccine?: ?? No ? Hist of Smoking?: ? No ? Hist of MCKENZIE exposure?: ??No ? Clinical Data, Significant Therapy and Clinical Impression: ? Note: ? [facility] ? Provider: ?? Jonathan NEW ?Pt. Name: ?? MARCELL YEAGER ?PRIYANKA ? Acc #: ?[id number] ?Pt. ? Col Date: ?? 07/26/2011 ? /Sex: ?1970,(41 years),Female ? Rec Date: ?? 07/26/2011 ? LOC: ?5L ? The Pap test is a screening test for cervical cancer with an inherent ? false-negative rate dependent upon several variables. ??For further ? information please contact the [facility]. ? CYTOPATHOLOGY: ??BAIT DIGGER ? Reference: ??Mai CS. ??Paratransit Operator of Pap Smear Results. ??In: ? Leonid BS, [facility], ed. ??The Pap Smear. ??[place]: ??Hermelindo, 2002: ? 71-77. JULIUS SMITHCOSTA 07/26/2011 3:26 PM EST E Priyanka New MD PATHOLOGY/CYTOLOG Y ORDERABLES JULIUS CRUM * Cytopathology Gynecological (07/26/2011 1:42 PM EST) AP Specimen 07/26/2011 1:42 PM EST 07/26/2011 1:42 PM EST Narrative JULIUS CRUM - 07/26/2011 1:42 PM EST Specimen requisition ordered. ??Separate Pathology report to follow E Priyanka New MD PATHOLOGY/CYTOLOG Y ORDERABLES JULIUS [facility] documented in this encounter Visit Diagnoses Diagnosis care and examination- Primary Routine follow-up documented in this encounter Care Teams Gas Welder Apprentice Relationship Specialty Start Date End Date Sonja Charles MD [address] [place] [address] PCP - General 07/18/10 09/26/16 documented as of this encounter
--- OUTSIDE RECORDS SUMMARY | 2024-03-19 08:53 | XMS_ITS | Encounter Summary ---
[place] [address] Care Team Providers Care Customer Complaint Service Supervisor Name Role Phone Sonja Causey MD Primary Care Provider [phone] Encounter Details Date Type Department Care Team (Late st Contact Info) Description 03/16/2011 1:00 PM EDT - 03/16/2011 11:59 PM EDT Hospital [place] [id number] Social History Tobacco Use Types Packs/Day Years [...] Diagnosis Comments US OB FOLLOW UP Routine 03/16/2011 1:46 PM EDT documented in this encounter Results * US OB follow up evaluation (03/16/2011 1:46 PM EDT) Anatomical Region Laterality Modality Pelvis, Abdomen Ultrasound 03/16/2011 1:46 PM EDT Narrative 03/16/2011 2:04 PM EDT ? OBSTETRICS REPORT ? (Signed Final 03/16/2011 01:39 pm) Patient Info ID: ?[id number] ?: ??[birth year] (41 yrs) Name: ?MARCELL GOLDMAN ?Visit Date: 03/16/2011 01:21 pm ?CHRISTELLE Performed By Performed By: ?? Natividad Brock [facility] Associate: ?Martín CLINTON, Tish Cruz Attending: ?Julián CLINTON, Dilma Arce Referred By: ?KARLOS MATHEW MD Accession#: ? [id number] Procedures UOBFOL - Efw - Growth - Reevaluation - Carney ?[id number] - [id number] Indications Low TAMMY-A Evaluation Num Of Fetuses: [...] Final 03/16/2011 01:39 pm) Patient Info ID: [id number] : [birth year] (41 yrs) Name: MARCELL GOLDMAN Visit Date: 03/16/2011 01:21 pm CHRISTELLE Performed By Performed By: Natividad Brock [facility] Associate: Tish Resendiz MD Attending: Dilma Gallego MD Referred By: KARLOS MATHEW MD Procedures UOBFOL - Efw - Growth - Reevaluation - Carney [id number] - [id number] Indications Low TAMMY-A Evaluation Num Of Fetuses: [...] normal growth. Amniotic fluid volume is Normal, AMIAR = 15.03 cm. Limited anatomic evaluation was [...] the attending E Dalila New MD IMG US OB ORDERAB LES documented in this encounter Visit Diagnoses Diagnosis state, incidental documented in this encounter Care Teams Customer Complaint Service Supervisor Relationship Specialty Start Date End Date Sonja Causey MD [address] [place] [address] PCP - General 07/18/10 09/26/16 documented as of this encounter
--- OUTSIDE RECORDS SUMMARY | 2024-03-19 08:53 | XMS_ITS | Encounter Summary ---
[place] [address] Care Team Providers Care Supervisor Prop Making Name Role Phone Sonja Causey MD Primary Care Provider [phone] Encounter Details Date Type Department Care Team (Late st Contact Info) Description 04/16/2011 External Results Obstetrics [place] [address] Renzo Baptiste, RN Social History Tobacco Use Types Packs/Day [...] Procedure Name Priority Date/Time Associated Diagnosis Comments GLUCOSE 1 HOUR POST PRANDIAL Routine 03/21/2011 documented in this encounter Results * Glucose 1 Hour Post Prandial (03/21/2011) Glucose, 1Hr PP 116 Blood specimen (specimen) 03/21/2011 Dilma Gallego MD CHEMISTRY ORDERABL ES documented in this encounter Visit Diagnoses Not on filedocumented in this encounter Care Teams Supervisor Prop Making Relationship Specialty Start Date End Date Sonja Causey MD [address] [place] [address] PCP - General 07/18/10 09/26/16 documented as of this encounter
--- OUTSIDE RECORDS SUMMARY | 2024-03-19 08:53 | XMS_ITS | Encounter Summary ---
[place] [address] Care Team Providers Care Jelly Filter Tender Name Role Phone Sonja Causey MD Primary Care Provider [phone] Encounter Details Date Type Department Care Team (Late st Contact Info) Description 04/27/2011 3:15 PM EDT - 04/27/2011 11:59 PM EDT Hospital En[place] [id number] Social History Tobacco Use Types Packs/Day Years [...] Diagnosis Comments US OB FOLLOW UP Routine 04/27/2011 3:37 PM EDT documented in this encounter Results * US OB FOLLOW UP EVALUATION (04/27/2011 3:37 PM EDT) Anatomical Region Laterality Modality Pelvis, Abdomen Ultrasound 04/27/2011 3:37 PM EDT Narrative 04/27/2011 3:52 PM EDT ?OBSTETRICS REPORT ? (Signed Final 04/27/2011 03:51 pm) Patient Info ID: ? [id number] ? : ??[birth year] (41 yrs) Name: ? GIANA GOLDMAN ? Visit Date: 04/27/2011 03:36 pm ? CHRISTELLE Performed By Performed By: ?? Janina Edward RDMS Associate: ?Randolph CLINTON, Obdulio Lake Attending: ?Pauly CLINTON, Anyi Bassett Referred By: ?CALDERON Kahn MD Accession#: ? [id number] Procedures UOBFOL - Efw - Growth - Reevaluation - Carney ?[id number] - [id number] Indications Efw, Growth Evaluation Heart Rate: ??138 ?bpm Cardiac Activity: ??Observed, normal rhythm Presentation: ?Cephalic Placenta: ?Anterior Amniotic Fluid AMIRA FV: ?Normal AMIRA Sum: ? 15.88 ?? cm ? Larg Pckt: ? 6.2 ??cm RUQ: ?? 1.87 ?cm ?LUQ: ?? 6.2 ?cm RLQ: ?? 2.96 ?cm ?LLQ: ?? 4.85 ?? cm -------- Biometry -------- BPD: ?85.2 ??mm ?G. Age: ?? 34w 2d ? 90 ??% HC: ? 305 ?? mm ?G. Age: ?? 33w 6d ? 53 ??% AC: ? 297 ?? mm ?G. Age: ?? 33w 5d ? 82 ??% FL: ? 64.6 ??mm ?G. Age: ?? 33w 2d ? 62 ??% HUM: ?59.3 ??mm ?G. Age: ?? 34w 2d ? 94 ??% CI: ? 78.12 ??% ? 70 - 86 FL/HC: ? 21.2 ??% ? 19.1 - 21.3 HC/AC: ? 1.03 ?0.96 - 1.17 FL/BPD: ?75.8 ??% ? 71 - 87 FL/AC: ? 21.8 ??% ? - Est. FW: ?2248 ?? gm ?? 4 lb 15 oz ?88 ??% Gestational Age LMP: ? 32w 3d ?Date: ??09/12/10 ? LEORA: ?? 06/19/11 U/S Today: ? 33w 6d ?LEORA: ?? 06/09/11 Best: ?32w 3d ?? Det. By: ??LMP ??(09/12/10) ?LEORA: ?? 06/19/11 ------- Anatomy ------- Cranium: ?Visualized Cavum: ?Visualized Ventricles: ? Limited Views Choroid Plexus: ? Limited Views Cerebellum: ? Limited Views Posterior Fossa: ?Limited Views Nuchal Fold: ?Not evaluated at this gestational age Face: ? Limited views Heart: ?Limited Views Stomach: ?Visualized Abdomen: ?Within Normal Limits Kidneys: ?Visualized Spine: ?Limited views Limbs: ?Limbs seen but limited views of hands and feet Other: ?? gender: Male Cervix Uterus Adnexa Left Ovary: ?Not visualized Right Ovary: ?? Not visualized Impression 3rd Trimester Summary Single intrauterine with a gestational age of 32w 3d based on LMP. Composite age based on the current ultrasound alone is 33w 6d. Estimated weight corresponds to the 88th percentile for 32w 3d. Current growth parameters are consistent indicating normal growth. Amniotic fluid volume is Normal, AMIRA = 15.88 cm Anatomical survey is limited due to the late gestational age.. I ??viewed the images and agree with the above interpretation. Thank you for allowing us to participate in the care of GIANA YEAGER. Please do not hesitate to call if you have any questions. ?Anyi Coats MD Electronically Signed Final Report ?? 04/27/2011 03:51 pm Film and interpretation reviewed by the attending Procedure Note Anyi Coats MD - 04/27/2011 OBSTETRICS REPORT (Signed Final 04/27/2011 03:51 pm) Patient Info ID: [id number] : [birth year] (41 yrs) Name: GIANA GOLDMAN Visit Date: 04/27/2011 03:36 pm CHRISTELLE Performed By Performed By: Janina Edward RDMS Associate: Obdulio Dickson MD Attending: Anyi Coats MD Referred By: CALDERON Kahn MD Procedures UOBFOL - Efw - Growth - Reevaluation - Carney [id number] - [id number] Indications Efw, Growth Evaluation Heart Rate: 138 bpm Cardiac Activity: Observed, normal rhythm Presentation: Cephalic Placenta: Anterior Amniotic Fluid AMIRA FV: Normal AMIRA Sum: 15.88 cm Larg Pckt: 6.2 cm RUQ: 1.87 cm LUQ: 6.2 cm RLQ: 2.96 cm LLQ: 4.85 cm -------- Biometry -------- BPD: 85.2 mm G. Age: 34w 2d 90 % HC: 305 mm G. Age: 33w 6d 53 % AC: 297 mm G. Age: 33w 5d 82 % FL: 64.6 mm G. Age: 33w 2d 62 % HUM: 59.3 mm G. Age: 34w 2d 94 % CI: 78.12 % 70 - 86 FL/HC: 21.2 % 19.1 - 21.3 HC/AC: 1.03 0.96 - 1.17 FL/BPD: 75.8 % 71 - 87 FL/AC: 21.8 % 20 - 24 Est. FW: 2248 gm 4 lb 15 oz 88 % Gestational Age LMP: 32w 3d Date: 09/12/10 LEORA: 06/19/11 U/S Today: 33w 6d LEORA: 06/09/11 Best: 32w 3d Det. By: LMP (09/12/10) LEORA: 06/19/11 ------- Anatomy ------- Cranium: Visualized Cavum: Visualized Ventricles: Limited Views Choroid Plexus: Limited Views Cerebellum: Limited Views Posterior Fossa: Limited Views Nuchal Fold: Not evaluated at this gestational age Face: Limited views Heart: Limited Views Stomach: Visualized Abdomen: Within Normal Limits Kidneys: Visualized Spine: Limited views Limbs: Limbs seen but limited views of hands and feet Other: gender: Male Cervix Uterus Adnexa Left Ovary: Not visualized Right Ovary: Not visualized Impression 3rd Trimester Summary Single intrauterine with a gestational age of 32w 3d based on LMP. Composite age based on the current ultrasound alone is 33w 6d. Estimated weight corresponds to the 88th percentile for 32w 3d. Current growth parameters are consistent indicating normal growth. Amniotic fluid volume is Normal, AMIRA = 15.88 cm Anatomical survey is limited due to the late gestational age.. I viewed the images and agree with the above interpretation. Thank you for allowing us to participate in the care of GIANA YEAGER. Please do not hesitate to call if you have any questions. Anyi Coats MD Electronically Signed Final Report 04/27/2011 03:51 pm Film and interpretation reviewed by the attending Renzo Martinez MD IMG US OB ORDERABLES documented in this encounter Visit Diagnoses Not on filedocumented in this encounter Care Teams Jelly Filter Tender Relationship Specialty Start Date End Date Sonja Causey MD [address] [place] [address] PCP - General 07/18/10 09/26/16 documented as of this encounter
--- OUTSIDE RECORDS SUMMARY | 2024-03-19 08:53 | XMS_ITS | Encounter Summary ---
Author Organization [facility] [place] [address] Care Team Providers Care Sheet Metal Engineer Name Role Phone Sonja Causey MD Primary Care Provider [phone] Encounter Details Date Type Department Care Team (Late st Contact Info) Description 06/14/2011 1:13 PM EDT Anesthesia [place] [phone] Kirill Blandon MD [facility] DR [place] [address] Anesthesia Record Procedure Summary Procedure Name Responsible Anesthesiologist Anesthesia Start Time Anesthesia Stop Time @ DELIVERY (WRVU 16.13) (Abdomen) Kirill Blandon MD 06/14/11 1313 06/14/11 1459 Events Date Time Event Comment 06/14/2011 1313 Start 1343 1459 Stop Meds * Agents No agents on file. * Blood No blood administrations on file. Lines, Drains, and Airways Type Details Placement Removal (RETIRED) Peripheral IV Line - Single Lumen 06/14/11; 1050; 06/16/11; 1038 06/14/11 1050 by Paige Rashid, BONY 06/16/11 1038 by Paige Rashid RN (Retired) Epidural Lumbar 06/14/11 1333 by Aleja Almeida V, TRAVELING REPRESENTATIVE 06/16/11 1038 by Paige Rashid RN Urethral Catheter 06/14/11; 1336; indwelling double lumen catheter; 100% silicone; 16; inserted; 1; leg bag to dependent drainage; 06/15/11; 0636 06/14/11 1336 by Aleja Almeida V, TRAVELING REPRESENTATIVE 06/15/11 0636 by Pagie Adan RN documented in this encounter Social History Tobacco Use Types Packs/Day Years Used Date Smoking Tobacco: Never Smokeless Tobacco: Never Alcohol Use Standard Drinks/Week Comments No 0 (1 standard drink = 0.6 oz pur e alcohol) Comments Yes Sex and Gender Information Value Date Recorded Sex Assigned at Not on file Gender Identity Not on file Sexual Orientation Not on file documented as of this encounter OR Notes * Anesthesia Postprocedure Evaluation - Marla Whitney - 06/15/2011 9:06 AM EDT Patient: Giana Yeager Procedure(s) Performed: ?? DELIVERY - combined spinal/epidural; FALLOPIAN TUBE(S), TRANSECTION OR LIGATION, ABD APPROACH - combined spinal/epidural Patient location: Labor and Delivery Post-op pain: Adequate analgesia Post-op nausea: no nausea or vomiting Last Vitals: Filed Vitals: 06/15/11 0600 BP: Pulse: Temp: Resp: 18 Post-op cardiovascular and respiratory status: is stable Level of consciousness: awake, alert and oriented Complications: no apparent complications and tolerated the procedure well. Pt denies any numbness or weakness in LE. She is urinating without difficulty. She denies any symptoms similar to her radiculopathy after her last neuraxial anesthetic. Fluid Status: normal * Anesthesia Preprocedure Evaluation - Kirill Blandon MD - 06/14/2011 11:24 AM EDT Anesthesia Evaluation Patient summary reviewed and Nursing notes reviewed Hx of anesthetic complications (Pt had left leg symptoms consistent with TNS after an earlier spinal. for . She believes that this was done elsewhere (not at [facility]). No record of TNS at her last , which was done at [facility] [facility]. ) Airway Mallampati: II Dental - normal exam Pulmonary - negative ROS Cardiovascular - negative ROS Neuro/Psych GI/Hepatic/Renal (+) GERD, Endo/Other Abdominal (-) obese Anesthesia Plan ASA 2 Spinal and epidural with intravenous induction Discusses CSE with patient who agrees with this plan, and understands the risks. Discussed her history of likely TNS symptoms and that there is a risk of having those symptoms again, although unlikely given that we will use bupivicaine for her spinal. Pt is in agreement with this. Anesthetic plan and risks discussed with spouse and patient. Plan discussed with attending. documented in this encounter Miscellaneous Notes * Addendum Note - Jelly Frausto - 06/15/2011 2:28 PM EDT Addendum created 06/15/11 1428 by Jelly Frausto Modules edited:Anesthesia Events, Anesthesia Responsible Staff documented in this encounter Plan of Treatment Not on file documented as of this encounter Visit Diagnoses Not on filedocumented in this encounter Care Teams Sheet Metal Engineer Relationship Specialty Start Date End Date Sonja Causey MD [address] [place] [address] PCP - General 07/18/10 09/26/16 documented as of this encounter
--- OUTSIDE RECORDS SUMMARY | 2024-03-19 08:53 | XMS_ITS | Encounter Summary ---
[place] [address] Care Team Providers Care Elementary Instructional Coach Name Role Phone Sonja Causey MD Primary Care Provider [phone] Reason for Visit * Reason Comments Routine Visit Encounter Details Date Type Department Care Team (Latest Contact Info) Description 04/27/2011 4:15 PM EDT Routine Obstetrics [place] [address] Brian Mancera MD [facility] OBSTETRICS [place] [address] GA: 32w3d Discharge Disposition: Home Social History Tobacco Use [...] Sign Reading Time Taken Comments Blood Pressure 112/62 04/27/2011 4:27 PM EDT Pulse - - Temperature - - Respiratory Rate - - Oxygen Saturation - - Inhaled Oxygen Concentration - - Weight 97.3 kg (214 lb 8 oz) 04/27/2011 4:27 PM EDT Height - - Body Mass Index 32.61 01/24/2011 3:57 PM EDT documented in this encounter Progress Notes * Brian Mancera MD - 04/27/2011 4:44 PM EDT No complaints, good FM. Has an episode of abdominal pain this am that resovled BTL consent signed. US today normal growth adn fluid, no mention of pelviectasis. Previous delivery affecting , antepartum - BRIAN MANCERA MD 04/27/11 04:46 PM Signed consent signed today. Wants if JODI prior to scheduled c/s date. documented in this encounter Miscellaneous Notes * Assessment & Plan Note - Brian Mancera MD - 04/27/2011 4:46 PM EDT Associated Problem(s): Previous delivery affecting , antepartum (Deleted) consent signed today. Wants if JODI prior to scheduled c/s date. documented in this encounter Plan of Treatment Not on file documented as of this encounter Visit Diagnoses Diagnosis Previous delivery affecting , antepartum Previous delivery, antepartum condition or complication state, incidental Tubal ligation status Advanced maternal age in Elderly multigravida unspecified as to episode of care or not applicable documented in this encounter Care Teams Elementary Instructional Coach Relationship Specialty Start Date End Date Sonja Causey MD [address] [place] [address] PCP - General 07/18/10 09/26/16 documented as of this encounter
--- OUTSIDE RECORDS SUMMARY | 2024-03-19 08:53 | XMS_ITS | Encounter Summary ---
Author Organization [facility], [facility] [place] [address] Care Team Providers Care Litigation Associate Name Role Phone Sonja Causey MD Primary Care Provider [phone] Reason for Visit * Reason Comments Routine Visit Encounter Details Date Type Department Care Team (Latest Contact Info) Description 04/13/2011 4:45 PM EDT Routine Obstetrics [place] [address] Brian Mancera MD [facility] OBSTETRICS [place] [address] GA: 30w3d Discharge Disposition: Home Social History Tobacco Use [...] Sign Reading Time Taken Comments Blood Pressure 110/60 04/13/2011 4:54 PM EDT Pulse - - Temperature - - Respiratory Rate - - Oxygen Saturation - - Inhaled Oxygen Concentration - - Weight 96 kg (211 lb 11.2 oz) 04/13/2011 4:54 PM EDT Height - - Body Mass Index 32.19 01/24/2011 3:57 PM EDT documented in this encounter Progress Notes * Brian Mancera MD - 04/13/2011 5:16 PM EDT Good FM. 50 gram is 116. Hgb 12.5. Has had no problems, no further bleeding. Discussed indications for c/s with a CORRINE. Previous delivery affecting , antepartum - BRIAN MANCERA MD 04/13/11 05:09 PM Signed Had a repeat c/s with second delivery secondary to intolerance of labor. Desires a repeat delivery. Very thin lower segment described in operative report. Reveiwed Risks of uterine rupture and 10% chance of of catastrophic damage to leighton child. We discussed risk factors, wihich are 2 prior c/s and that maternal age of 41 may be another risk factor. The patient and her partner have different opinions. has f/u in 2 weeks. documented in this encounter Miscellaneous Notes * Assessment & Plan Note - Brian Mancera MD - 04/13/2011 5:09 PM EDT Associated Problem(s): Previous delivery affecting , antepartum (Deleted) Had a repeat c/s with second delivery secondary to intolerance of labor. Desires a repeat delivery. Very thin lower segment described in operative report. Reveiwed Risks of uterine rupture and 10% chance of of catastrophic damage to leighton child. We discussed risk factors, wihich are 2 prior c/s and that maternal age of 41 may be another risk factor. The patient and her partner have different opinions. documented in this encounter Plan of Treatment Not on file documented as of this encounter Visit Diagnoses Diagnosis Previous delivery affecting , antepartum Previous delivery, antepartum condition or complication documented in this encounter Care Teams Litigation Associate Relationship Specialty Start Date End Date Sonja Causey MD [address] [place] [address] PCP - General 07/18/10 09/26/16 documented as of this encounter
--- OUTSIDE RECORDS SUMMARY | 2024-03-19 08:54 | XMS_ITS | Encounter Summary ---
Author Organization [facility] [place] [address] Care Team Providers Care Trucker Hand Name Role Phone Sonja Causey MD Primary Care Provider [phone] Encounter Details Date Type Department Care Team (Late st Contact Info) Description 12/05/2010 Orders Only Obstetrics [place] [address] Roshan Mcdaniel MD [facility] OBSTETRICS & [place] [address] Social History Tobacco Use Types Packs/Day Years [...] Priority Date/Time Associated Diagnosis Comments US OB NUCHAL TRANSLUCENCY Routine 12/05/2010 8:46 AM EDT documented in this encounter Results * US OB NUCHAL TRANSLUCENCY (12/05/2010 8:46 AM EDT) Anatomical Region Laterality Modality Pelvis, Abdomen Ultrasound 12/05/2010 8:46 AM EDT Narrative 12/05/2010 9:50 AM EDT ?OBSTETRICS REPORT ? (Signed Final 12/05/2010 09:49 am) Patient Info ID: ? [id number] ? : ??[birth year] (40 yrs) Name: ? GIANA GOLDMAN ? Visit Date: 12/05/2010 08:45 am ? CHRISTELLE Performed By Performed By: ?? Kaitlyn Jules RDMS Associate: ?Jesus CLINTON, Mo Attending: ?Allen CLINTON, César White Referred By: ?SULEMA OROZCO MD Accession#: ? [id number] Procedures UNT - Nuchal Translucency - First Trimester ? 82326 Screening - [id number] Indications First ??Trimester Screening - Check Nuchal Translucency Evaluation Gest. Sac: ? Visualized Heart Rate: ??161 ?bpm Cardiac Activity: ??Observed, normal rhythm Presentation: ?Variable Placenta: ?Too early to evaluate Amniotic Fluid AMIRA FV: ?Too early to evaluate -------- Biometry -------- CRL: ?58 ??mm ?G. Age: ?? 12w 2d ?LEORA: ?? 06/17/11 NT: ?1.1 ??mm Gestational Age LMP: ? 12w 0d ?Date: ??09/12/10 ? LEORA: ?? 06/19/11 Best: ?12w 0d ?? Det. By: ??LMP ??(09/12/10) ?LEORA: ?? 06/19/11 Cervix Uterus Adnexa Left Ovary: ?Visualized Right Ovary: ?? Visualized Impression 1st Trimester NT Summary Single living intrauterine with a gestational age of 12w 0d based on LMP. The crown rump length corresponds to a gestational age of 12w 2d. Nuchal translucency examination was performed. ??The measurement is 1.1 mm. I ??viewed the images and agree with the above interpretation. Thank you for allowing us to participate in the care of [facility]. Please do not hesitate to call if you have any questions. ?César Villa MD Electronically Signed Final Report ?? 12/05/2010 09:49 am Film and interpretation reviewed by the attending Procedure Note César Villa MD - 12/05/2010 OBSTETRICS REPORT (Signed Final 12/05/2010 09:49 am) Patient Info ID: [id number] : [birth year] (40 yrs) Name: GIANA GOLDMAN Visit Date: 12/05/2010 08:45 am CHRISTELLE Performed By Performed By: Kaitlyn Jules RDMS Associate: Mo Lee MD Attending: César Villa MD Referred By: SULEMA OROZCO MD Procedures UNT - Nuchal Translucency - First Trimester 14649 Screening - [id number] Indications First Trimester Screening - Check Nuchal Translucency Evaluation Gest. Sac: Visualized Heart Rate: 161 bpm Cardiac Activity: Observed, normal rhythm Presentation: Variable Placenta: Too early to evaluate Amniotic Fluid AMIRA FV: Too early to evaluate -------- Biometry -------- CRL: 58 mm G. Age: 12w 2d LEORA: 06/17/11 NT: 1.1 mm Gestational Age LMP: 12w 0d Date: 09/12/10 LEORA: 06/19/11 Best: 12w 0d Det. By: LMP (09/12/10) LEORA: 06/19/11 Cervix Uterus Adnexa Left Ovary: Visualized Right Ovary: Visualized Impression 1st Trimester NT Summary Single living intrauterine with a gestational age of 12w 0d based on LMP. The crown rump length corresponds to a gestational age of 12w 2d. Nuchal translucency examination was performed. The measurement is 1.1 mm. I viewed the images and agree with the above interpretation. Thank you for allowing us to participate in the care of GIANA YEAGER. Please do not hesitate to call if you have any questions. César Villa MD Electronically Signed Final Report 12/05/2010 09:49 am Film and interpretation reviewed by the attending Roshan Mcdaniel MD IMG US OB ORDERABLES documented in this encounter Visit Diagnoses Not on filedocumented in this encounter Care Teams Trucker Hand Relationship Specialty Start Date End Date Sonja Causey MD [address] [place] [address] PCP - General 07/18/10 09/26/16 documented as of this encounter
--- OUTSIDE RECORDS SUMMARY | 2024-03-19 08:54 | XMS_ITS | Encounter Summary ---
[place] [address] Care Team Providers Care Door Maker Name Role Phone Sonja Causey MD Primary Care Provider [phone] Encounter Details Date Type Department Care Team (Late st Contact Info) Description 01/19/2011 Orders Only Obstetrics [place] [address] Corrie Alvarez MD [facility] [address] OBSTETRICS & [place] [address] (Primary Dx) Social History Tobacco Use Types [...] as of this encounter Visit Diagnoses Diagnosis - Primary state, incidental documented in this encounter Care Teams Door Maker Relationship Specialty Start Date End Date Sonja Causey MD [address] [place] [address] PCP - General 07/18/10 09/26/16 documented as of this encounter
--- OUTSIDE RECORDS SUMMARY | 2024-03-19 08:54 | XMS_ITS | Encounter Summary ---
[place] [address] Care Team Providers Care Fashion Design Professor Name Role Phone Sonja Causey MD Primary Care Provider [phone] Reason for Visit * Reason Comments Vaginal Bleeding spotting @ 18wks Encounter Details Date Type Department Care Team (Latest Contact Info) Description 01/19/2011 11:30 AM EDT Routine Obstetrics [place] [address] Linh Zimmer, [facility] OBSTETRICS & [place] [address] GA: 18w3d Discharge Disposition: Home Social History Tobacco Use [...] Sign Reading Time Taken Comments Blood Pressure 98/56 01/19/2011 11:48 AM EDT Pulse - - Temperature - - Respiratory Rate - - Oxygen Saturation - - Inhaled Oxygen Concentration - - Weight 89.9 kg (198 lb 4.8 oz) 01/19/2011 11:48 AM EDT Height - - Body Mass Index 31.06 11/23/2010 1:46 PM EDT documented in this encounter Progress Notes * Linh Zimmer CNM - 01/19/2011 12:52 PM EDT Seen today in [facility] appt for c/o spotting this am. Saw a little after voiding this am, no more since.Had intercourse 24 hrs ago. This same thing happened a few weeks ago, then resolved, also after intercourse. She denies cramps, pain, ctxn, LOF, abnormal discharge. Otherwise no problems. Blood type Rh pos. Exam: Abdomen soft, NT, +hr, u-2. Pelvic: ext wnl, no lesions/discharge; spec exam: serous discharge in vault, a little dark blood at os. Cervix post approx 2 cms long in front, a bit shorter in back, closed, RUPERT not full. Impression: second trimester bleeding, no evidence PTL or infection Plan: Discussed with Dr Alvarez. Will get US to evaluate today, and follow up afterwards. Pt agrees -US scheduled. documented in this encounter Plan of Treatment Not on file documented as of this encounter Results * US OBS limited (01/19/2011 2:42 PM EDT) Anatomical Region Laterality Modality Pelvis, Abdomen Ultrasound 01/19/2011 2:42 PM EDT Narrative 01/19/2011 2:51 PM EDT ?OBSTETRICS REPORT ? (Signed Final 01/19/2011 02:50 pm) Patient Info ID: ? [id number] ? : ??[birth year] (40 yrs) Name: ? MARCELL GOLDMAN ? Visit Date: 01/19/2011 02:35 pm ? CHRISTELLE Performed By Performed By: ?? Argelia Patricia RDMS Associate: ?Griffin CLINTON, Marissa Fishman Attending: ?Allen CLINTON, César White Referred By: ?BURAK Kahn MD Accession#: ? [id number] Procedures UOBTV - Viability - Cervical Length - Transvaginal - ??[id number] UOBLIM - Amira - Postion Only ( 1 or more fetuses) - ?[id number] Indications Cervical length Evaluate for abruption Bleeding at 18 weeks Evaluation Heart Rate: ??138 ?bpm Cardiac Activity: ??Observed, normal rhythm Presentation: ?Transverse, head to ?maternal left Placenta: ?Anterior P. Cord ?Within Normal Limits Insertion: Amniotic Fluid AMIRA FV: ?Within normal limits -------- Biometry -------- Gestational Age LMP: ? 18w 3d ?Date: ??09/12/10 ? LEORA: ?? 06/19/11 Best: ?18w 3d ?? Det. By: ??LMP ??(09/12/10) ?LEORA: ?? 10/25/11 ------- Anatomy ------- Cranium: ?Limited Views Cavum: ?Visualized Face: ? Limited Views Heart: ?4- chamber view appears normal RVOT: ? Visualized Diaphragm: ?Visualized Stomach: ?Visualized Abdomen: ?Limited Views Abdominal Wall: ? Visualized Cord Vessels: ? 3 Vessel Cord - WNL Kidneys: ?Left ??mild pylectasis = ??5.2 mm Bladder: ?Visualized Spine: ?Limited Views Limbs: ?Limited views Cervix Uterus Adnexa Cervical Length: ? 1.1 ?cm Cervix: ?Funneling Left Ovary: ?Not visualized Right Ovary: ?? Not visualized Impression 2nd Trimester - Summary Single intrauterine with a gestational age of 18w 3d based on LMP. Amniotic fluid volume is within normal limits. Limited anatomic evaluation was performed. ??The left renal pelvis is dilated, 5mm. ?? The cervix is shortened, 1.1-1.7 cm with mild funneling. Transvaginal ultrasound done for placenta location and cervical length. I ??viewed the images and agree with the above interpretation. Thank you for allowing us to participate in the care of MARCELL YEAGER. Please do not hesitate to call if you have any questions. ?César Villa MD Electronically Signed Final Report ?? 01/19/2011 02:50 pm Film and interpretation reviewed by the attending Procedure Note César Villa MD - 01/19/2011 OBSTETRICS REPORT (Signed Final 01/19/2011 02:50 pm) Patient Info ID: [id number] : [birth year] (40 yrs) Name: MARCELL GOLDMAN Visit Date: 01/19/2011 02:35 pm CHRISTELLE Performed By Performed By: Argelia Patricia RDMS Associate: Marissa Moya MD Attending: César Villa MD Referred By: BURAK Kahn MD Procedures UOBTV - Viability - Cervical Length - Transvaginal - [id number] UOBLIM - Amira - Postion Only ( 1 or more fetuses) - [id number] Indications Cervical length Evaluate for abruption Bleeding at 18 weeks Evaluation Heart Rate: 138 bpm Cardiac Activity: Observed, normal rhythm Presentation: Transverse, head to maternal left Placenta: Anterior P. Cord Within Normal Limits Insertion: Amniotic Fluid AMIRA FV: Within normal limits -------- Biometry -------- Gestational Age LMP: 18w 3d Date: 09/12/10 LEORA: 06/19/11 Best: 18w 3d Det. By: LMP (09/12/10) LEORA: 10/25/11 ------- Anatomy ------- Cranium: Limited Views Cavum: Visualized Face: Limited Views Heart: 4- chamber view appears normal RVOT: Visualized Diaphragm: Visualized Stomach: Visualized Abdomen: Limited Views Abdominal Wall: Visualized Cord Vessels: 3 Vessel Cord - WNL Kidneys: Left mild pylectasis = 5.2 mm Bladder: Visualized Spine: Limited Views Limbs: Limited views Cervix Uterus Adnexa Cervical Length: 1.1 cm Cervix: Funneling Left Ovary: Not visualized Right Ovary: Not visualized Impression 2nd Trimester - Summary Single intrauterine with a gestational age of 18w 3d based on LMP. Amniotic fluid volume is within normal limits. Limited anatomic evaluation was performed. The left renal pelvis is dilated, 5mm. The cervix is shortened, 1.1-1.7 cm with mild funneling. Transvaginal ultrasound done for placenta location and cervical length. I viewed the images and agree with the above interpretation. Thank you for allowing us to participate in the care of MARCELL YEAGER. Please do not hesitate to call if you have any questions. César Villa MD Electronically Signed Final Report 01/19/2011 02:50 pm Film and interpretation reviewed by the attending Angelica Monroe MD IMG US OB ORDERABLES documented in this encounter Visit Diagnoses Diagnosis state, incidental Antepartum bleeding Unspecified antepartum hemorrhage, unspecified as to episode of care state, incidental Antepartum bleeding Unspecified antepartum hemorrhage, unspecified as to episode of care documented in this encounter Care Teams Fashion Design Professor Relationship Specialty Start Date End Date Sonja Causey MD [address] [place] [address] PCP - General 07/18/10 09/26/16 documented as of this encounter
--- OUTSIDE RECORDS SUMMARY | 2024-03-19 08:54 | XMS_ITS | Encounter Summary ---
Author Organization [facility] [place] [address] Care Team Providers Care Consultant Electronics Name Role Phone Sonja Causey MD Primary Care Provider [phone] Encounter Details Date Type Department Care Team (Latest Contact Info) Description 01/01/2011 10:56 AM EDT - 01/01/2011 11:59 PM EDT Hospital [place] [address] Sigrid Denton MD [facility] OBSTETRICS & [place] [address] Discharge Disposition: Home Social History Tobacco Use [...] Procedure Name Priority Date/Time Associated Diagnosis Comments INTEGRATED SCREENING 2 Routine 01/01/2011 11:13 AM EDT documented in this encounter Results * INTEGRATED SCREENING 2 (01/01/2011 11:13 AM EDT) IST 2 Screen Negative [facility] Comment: Please see scanned report in Chart Review under the Non-DH Laboratory Heading. Test performed by [facility], [address], [place] [address] Blood specimen (specimen) 01/01/2011 11:13 AM EDT 01/04/2011 4:15 PM EDT Roshan Mcdaniel MD CHEMISTRY ORDERABLES [facility] documented in this encounter Visit Diagnoses Not on filedocumented in this encounter Care Teams Consultant Electronics Relationship Specialty Start Date End Date Sonja Causey MD [address] [place] [address] PCP - General 07/18/10 09/26/16 documented as of this encounter
--- OUTSIDE RECORDS SUMMARY | 2024-03-19 08:54 | XMS_ITS | Encounter Summary ---
Author Organization [facility] [place] [address] Care Team Providers Care Employee Benefits Coordinator Name Role Phone Sonja Causey MD Primary Care Provider [phone] Reason for Visit * Reason Comments Routine Visit Encounter Details Date Type Department Care Team (Latest Contact Info) Description 12/05/2010 10:00 AM EDT Routine Obstetrics [place] [address] Dalila Galicia MD [facility] [address] OBSTETRICS & [place] [address] GA: 12w0d Discharge Disposition: Home Social History Tobacco Use [...] Sign Reading Time Taken Comments Blood Pressure 92/52 12/05/2010 9:52 AM EDT Pulse - - Temperature - - Respiratory Rate - - Oxygen Saturation - - Inhaled Oxygen Concentration - - Weight 87.1 kg (192 lb 1.6 oz) 12/05/2010 9:52 A M EDT Height - - Body Mass Index 30.09 11/23/2010 1:46 PM EDT documented in this encounter Progress Notes * Kirill Seals MD - 12/07/2010 1:19 PM EDT The case was discussed at the time of the visit or immediately after the visit. The assessment and plan were formulated in discussion with me and I agree with them as documented. I have reviewed the history, physical exam, assessment and plan with the resident. KIRILL SEALS * Dalila Galicia MD - 12/07/2010 2:08 AM EDT Presents following 12 week NT u/s. Images reviewed with pt and . She denies bleeding or cramping. She would like to continue her B12 oral vitamin. She would also like a (following 2 c/s). documented in this encounter Plan of Treatment Not on file documented as of this encounter Visit Diagnoses Diagnosis - Primary state, incidental documented in this encounter Care Teams Employee Benefits Coordinator Relationship Specialty Start Date End Date Sonja Causey MD [address] [place] [address] PCP - General 07/18/10 09/26/16 documented as of this encounter
--- OUTSIDE RECORDS SUMMARY | 2024-03-19 08:54 | XMS_ITS | Encounter Summary ---
Author Organization [facility] [place] [address] Care Team Providers Care Sand Drier Name Role Phone Sonja Causey MD Primary Care Provider [phone] Encounter Details Date Type Department Care Team (Latest Contact Info) Description 12/05/2010 9:03 AM EDT - 12/05/2010 11:59 PM EDT Hospital [place] [address] Susanne Kerr MD [facility] OBSTETRICS & [place] [address] Discharge Disposition: Home Social History Tobacco Use [...] Date/Time Associated Diagnosis Comments DIFFERENTIAL, AUTOMATED Routine 12/05/2010 9:13 AM EDT INTEGRATED SCREENING 1 Routine 12/05/2010 9:13 AM EDT SYPHILIS ANTIBODY SCREEN WITH REFLEX Routine 12/05/2010 9:13 AM EDT ABO/RH TYPING Routine 12/05/2010 9:13 AM EDT RUBELLA ANTIBODY, IGG Routine 12/05/2010 9:13 AM EDT HIV SCREEN, 4TH GENERATION ([facility]/CGP/APD/NLH) Routine 12/05/2010 9:13 AM EDT HEPATITIS B SURFACE ANTIGEN Routine 12/05/2010 9:13 AM EDT CBC (WITH DIFF) Routine 12/05/2010 9:13 AM EDT ANTIBODY SCREEN Routine 12/05/2010 9:13 AM EDT documented in this encounter Results * (ABNORMAL) REFLEX LAB-A-DIFF (12/05/2010 9:13 AM EDT) Neutrophils % 76.5(H) 34.0 - 71.0 % CERNER MILLENNIUM Neutr Abs (ANC) 7.14(H) 1.50 - 6.30 x10(3)/mc L CERNER MILLENNIUM Lymphocytes % 16.3(L) 19.0 - 53.0 % CERNER MILLENNIUM Lymphocytes Abs 1.5 1.0 - 3.6 x10(3)/mc L CERNER MILLENNIUM Monocytes % 6.5 4.0 - 13.0 % CERNER MILLENNIUM Monocyte Abs 0.6 0.2 - 1.0 x10(3)/mc L CERNER MILLENNIUM Eosinophils % 0.4 0.0 - 7.0 % CERNER MILLENNIUM Eosinophils Abs 0.0 0.0 - 0.5 x10(3)/mc L CERNER MILLENNIUM [...] differential will be performed. Calli Gran Abs 0.02 0.00 - 0.05 x10(3)/mc L [facility] Blood specimen (specimen) 12/05/2010 9:13 AM EDT 12/05/2010 9:17 AM EDT Roshan Mcdaniel MD HEMATOLOGY ORDERABLE S [facility] * INTEGRATED SCREENING 1 (12/05/2010 9:13 AM EDT) IST 1 See Note [facility] Comment: Part 1 of the Integrated Screen was drawn. ??For results of the Integrated Screen a second serum sample drawn at 15-21 weeks gestation is required. Test performed by [facility], [facility] [address] [address] Blood specimen (specimen) 12/05/2010 9:13 AM EDT 12/05/2010 10:45 AM EDT Roshan Mcdaniel MD CHEMISTRY ORDERABLES [facility] * HIV (12/05/2010 9:13 AM EDT) Pathologist [facility] HIV 1/2 Ab Negative [facility] Blood specimen (specimen) 12/05/2010 9:13 AM EDT 12/05/2010 9:17 AM EDT Roshan Mcdaniel MD IMMUNOLOGY ORDERABLE S Performing Organization Address [facility] de Phone Number [facility] * (ABNORMAL) RUBELLA ANTIBODY, IGG (12/05/2010 9:13 AM EDT) Rubella IgG Negative(A ) Positive [facility] Blood specimen (specimen) 12/05/2010 9:13 AM EDT 12/05/2010 9:17 AM EDT Roshan Mcdaniel MD IMMUNOLOGY ORDERABLE S Performing Organization Address [facility] de Phone Number [facility] * HEPATITIS B SURFACE ANTIGEN (12/05/2010 9:13 AM EDT) HepB Surface Ag Negative Negative [facility] Blood specimen (specimen) 12/05/2010 9:13 AM EDT 12/05/2010 9:17 AM EDT Roshan Mcdaniel MD CHEMISTRY ORDERABLES Performing Organization Address [facility] Phone Number [facility] * SYPHILIS ANTIBODY, IGG (12/05/2010 9:13 AM EDT) Syphilis IgG Negative Negative [facility] Blood specimen (specimen) 12/05/2010 9:13 AM EDT 12/05/2010 11:27 AM EDT Roshan Mcdaniel MD IMMUNOLOGY ORDERABLE S Performing Organization Address [facility] Co de Phone Number [facility] * REFLEX LAB-ANTIBODY SCREEN (12/05/2010 9:13 AM EDT) Ab Screen Interp Negative [facility] Expires at [id number] on: [id number] [facility] Blood specimen (specimen) 12/05/2010 9:13 AM EDT 12/05/2010 9:17 AM EDT Roshan Mcdaniel MD BLOOD BANK LAB ORDER FAVIO [facility] * REFLEX LAB-ABO/RH TYPING (12/05/2010 9:13 AM EDT) ABORH Type A Pos [facility] Blood specimen (specimen) 12/05/2010 9:13 AM EDT 12/05/2010 9:17 AM EDT Roshan Mcdaniel MD BLOOD BANK LAB ORDER FAVIO Performing Organization Address City/[facility] Co de Phone Number [facility] * CBC (WITH DIFF) (12/05/2010 9:13 AM EDT) WBC 9.3 4.0 - 10.0 x10(3)/mcL CERNER MILLENNIUM RBC 4.05 3.93 - 5.22 x10(6)/mcL [facility]ERN[facility] MILLENNIUM Hemoglobin 12.2 11.2 - 15.7 gm/dL [facility]ERN[facility] MILLENNIUM Hematocrit 35.1 34.0 - 45.0 % CERNER MILLENNIUM MCV 86.7 79.0 - 94.0 fL CERNER MILLENNIUM MCH 30.1 26.6 - 32.2 pg CERNER MILLENNIUM MCHC 34.8 32.0 - 36.5 gm/dL [facility]ERN[facility] MILLENNIUM Platelets 268 145 - 370 x10(3)/mcL CERNER MILLENNIUM RDWSD 41.2 35.0 - 46.0 fL CERNER MILLENNIUM RDWCV 13.0 10.9 - 14.4 % CERNER MILLENNIUM MPV 9.6 9.0 - 12.0 fL [facility] Blood specimen (specimen) 12/05/2010 9:13 AM EDT 12/05/2010 9:17 AM EDT Roshan Mcdaniel MD HEMATOLOGY ORDERABLE S [facility] documented in this encounter Visit Diagnoses Not on filedocumented in this encounter Care Teams Sand Drier Relationship Specialty Start Date End Date Sonja Causey MD [address] [place] [address] PCP - General 07/18/10 09/26/16 documented as of this encounter
--- OUTSIDE RECORDS SUMMARY | 2024-03-19 08:54 | XMS_ITS | Encounter Summary ---
Author Organization [facility] [place] [address] Care Team Providers Care Steam Tender Name Role Phone Sonja Causey MD Primary Care Provider [phone] Reason for Visit * Reason Comments Routine Visit Encounter Details Date Type Department Care Team (Late st Contact Info) Description 01/19/2011 3:00 PM EDT Routine Obstetrics [place] [address] Tish Resendiz MD [facility] DR OBSTETRICS [place] [address] GA: 18w3d Social History Tobacco Use Types Packs/Day Years [...] - Inhaled Oxygen Concentration - - Weight 90.3 kg (199 lb) 01/19/2011 2:55 PM EDT Height - - Body Mass Index 31.17 11/23/2010 1:46 PM EDT documented in this encounter Progress Notes * Corrie Alvarez MD - 02/01/2011 11:50 AM EDT The case was discussed at the time of the visit or immediately after the visit. The assessment and plan were formulated in discussion with me and I agree with them as documented. I have reviewed the history, physical exam, assessment and plan with the resident. oCrrie Alvarez MD * Tish Resendiz MD - 01/19/2011 4:37 PM EDT Patient was seen for f/u US after presenting this morning with spotting. US showed anterior placenta, normal AMIRA, cervix 1.1 cm with funneling, and 5 mm bilateral pelviectasis. Full morphology scan was not done. The US was reviewed with Dr. Alvarez and Dr. New. Dr. New felt that patient's functional cervix is much longer than that measured, and that funnel was likely insignificant but warrants watching. Patient does not have a history of labor or incompetent cervix with her first two deliveries. 1. Situation explained to patient and . Recommended pelvic rest and modified bedrest until MFM evaluation. Patient agrees. Appointment made for Saturday with Dr. Martinez for ultrasound and MFM consult. 2. pelviectasis explained to patient and . Says that one of their sons had this too. Will follow up with a third trimester ultrasound. documented in this encounter Plan of Treatment Not on file documented as of this encounter Visit Diagnoses Diagnosis Pelviectasis Hydronephrosis Threatened labor Threatened premature labor, unspecified as to episode of care documented in this encounter Care Teams Steam Tender Relationship Specialty Start Date End Date Sonja Causey MD [address] [place] [address] PCP - General 07/18/10 09/26/16 documented as of this encounter
--- OUTSIDE RECORDS SUMMARY | 2024-03-19 08:54 | XMS_ITS | Encounter Summary ---
[place] [address] Care Team Providers Care Email Administrator Name Role Phone Sonja Causey MD Primary Care Provider Encounter Details Date Type Department Care Team (Late st Contact Info) Description 12/05/2010 8:15 AM EDT Procedure visit [address] [address] Social History Tobacco Use Types Packs/Day Years [...] on filedocumented in this encounter Care Teams Email Administrator Relationship Specialty Start Date End Date Sonja Causey MD [address] [place] [address] PCP - General 07/18/10 09/26/16 documented as of this encounter
--- OUTSIDE RECORDS SUMMARY | 2024-03-19 08:54 | XMS_ITS | Encounter Summary ---
Author Organization Replaced By [facility] [place] [address] Care Team Providers Care Active Directory Engineer Name Role Phone Snoja Causey MD Primary Care Provider Reason for Visit * Reason Comments Routine Visit ob check Encounter Details Date Type Department Care Team (Latest Contact Info) Description 01/01/2011 9:45 AM EDT Routine Obstetrics [place] [address] Corrie Alvarez MD [facility] DR OBSTETRICS & [place] [address] GA: 15w6d Discharge Disposition: Home Social History Tobacco Use [...] Sign Reading Time Taken Comments Blood Pressure 110/72 01/01/2011 10:00 AM EDT Pulse - - Temperature - - Respiratory Rate - - Oxygen Saturation - - Inhaled Oxygen Concentration - - Weight 89.5 kg (197 lb 6.4 oz) 01/01/2011 10:00 AM EDT Height - - Body Mass Index 30.92 11/23/2010 1:46 PM EDT documented in this encounter Progress Notes * Corrie Alvarez MD - 01/01/2011 10:30 AM EDT Subjective: Patient reports feeling well overall. Complains of intermittent left breast pain, feels shooting from nipple back. No rash or lesions that she has noticed. No cramping, LOF or vaginal bleeding. This is complicated by AMA, 2 prior C/S, rubella NI. Objective: VS reviewed. FH measures c/w dates FHT's 150 bpm Assessment: 40 yo P 2 at 15 6/7 wks. Prior C/S x 2 - wants TOLAC Integrated part II today Plan: Return to clinic in 2-3 weeks for morph and PNV and PRN. We discussed TOLAC with 2 prior CD. She understands a greater risk of rupture. WOuld not recommend IOL, and pt agrees. Will cont to discuss over the course of the . Corrie Alvarez MD documented in this encounter Miscellaneous Notes * Miscellaneous - Oscar Upper Lining Cementer - 01/19/2011 5:43 AM EDT documented in this encounter Plan of Treatment Not on file documented as of this encounter Visit Diagnoses Diagnosis - Primary state, incidental documented in this encounter Care Teams Active Directory Engineer Relationship Specialty Start Date End Date Sonja Causey MD [address] [place] [address] PCP - General 07/18/10 09/26/16 documented as of this encounter
--- OUTSIDE RECORDS SUMMARY | 2024-03-19 08:54 | XMS_ITS | Encounter Summary ---
[place] [address] Care Team Providers Care Spinner Concrete Pipe Name Role Phone Sonja Causey MD Primary Care Provider Reason for Visit * Reason Onset Date Comments Vaginal Bleeding 01/02/2011 minimal spottin g at 16 weeks. A+ Encounter Details Date Type Department Care Team (Late st Contact Info) Description 01/02/2011 Telephone Obstetrics [place] [address] Latesha Luna, RN Vaginal Bleeding (minimal spotting at 16 weeks. A+ ) Social History Tobacco Use Types Packs/Day Years [...] encounter Miscellaneous Notes * Telephone Encounter - Latesha Luna RN - 01/02/2011 11:55 AM EDT TELEPHONE NOTE Caller: Pt Reason for call: 16 weeks gestation, 3rd , noted scant spotting on tissue when going to bathroom. Seen yesterday--no exam, intercourse yesterday morning. No discomfort. U/S sched. For 01/24. Had nuchal translucency in November. Blood type A+ Assessment: Scant spotting at 16 weeks, intercourse 24hrs ago, no other symptoms. Plan/Instructions: Pt will monitor. Pt lives 1++hours away. Pt will call with update this afternoon. Pt will call for pain, increased bleeding. Reviewed with CDOC-Sharifa Kerr; monitor. AMMENScarlett 2:10pm, pt called back, bleeding has stopped, reassurance, discussion re: vascular cervix, reviewed during and after hour #'s with pt. Pt will call with any further bleeding, pain, questions or concerns. Patient verbalizes understanding and agrees with the plan. documented in this encounter Plan of Treatment Not on file documented as of this encounter Visit Diagnoses Not on filedocumented in this encounter Care Teams Spinner Concrete Pipe Relationship Specialty Start Date End Date Sonja Causey MD [address] [place] [address] PCP - General 07/18/10 09/26/16 documented as of this encounter
--- OUTSIDE RECORDS SUMMARY | 2024-03-19 08:54 | XMS_ITS | Encounter Summary ---
Author Organization [facility] [place] [address] Care Team Providers Care Sales Clerk Name Role Phone Sonja Causey MD Primary Care Provider [phone] Encounter Details Date Type Department Care Team (Late st Contact Info) Description 11/23/2010 Abstract Obstetrics [place] [address] Roshan Mcdaniel MD [facility] OBSTETRICS & [place] [address] Previous delivery affecting , antepartum; Family or maternal historic risk of congenital anomaly, antepartum Social History Tobacco Use Types Packs/Day Years [...] Reading Time Taken Comments Blood Pressure 92/52 11/23/2010 1:46 PM EDT Pulse - - Temperature - - Respiratory Rate - - Oxygen Saturation - - Inhaled Oxygen Concentration - - Weight 85.8 kg (189 lb 1.6 oz) 11/23/2010 1:46 P M EDT Height 170.2 cm (5' 7) 11/23/2010 1:46 PM EDT Body Mass Index 29.62 11/23/2010 1:46 PM EDT documented in this encounter Plan of Treatment Not on file documented as of this encounter Visit Diagnoses Diagnosis Previous delivery affecting , antepartum Previous delivery, antepartum condition or complication Family or maternal historic risk of congenital anomaly, antepartum Hereditary disease in family possibly affecting fetus, affecting management of mother, antepartum condition or complication documented in this encounter Care Teams Sales Clerk Relationship Specialty Start Date End Date Sonja Causey MD [address] [place] [address] PCP - General 07/18/10 09/26/16 documented as of this encounter
--- OUTSIDE RECORDS SUMMARY | 2024-03-19 08:54 | XMS_ITS | Encounter Summary ---
Author Organization [facility] [place] [address] Care Team Providers Care Bakery Products Checker Name Role Phone Sonja Causey MD Primary Care Provider [phone] Encounter Details Date Type Department Care Team (Latest Contact Info) Description 11/23/2010 1:30 PM EDT Initial Obstetrics [place] [address] Roshan Mcdaniel MD [facility] OBSTETRICS & [place] [address] Discharge Disposition: Home Social History Tobacco Use Types Packs/Day Years Used Date Smoking Tobacco: Never Assessed Comments Yes Sex and Gender Information Value Date Recorded Sex Assigned at Not on file Gender Identity Not on file Sexual Orientation Not on file documented as of this encounter Miscellaneous Notes * Miscellaneous - Oscar Network Developer - 11/24/2010 3:27 PM EDT documented in this encounter Plan of Treatment Not on file documented as of this encounter Procedures Procedure Name Priority Date/Time Associated Diagnosis Comments GC/CHLAM Routine 11/23/2010 2:45 PM EDT URINE CULTURE Routine 11/23/2010 1:15 PM EDT documented in this encounter Results * REFLEX LAB-GC/CHLAM (11/23/2010 2:45 PM EDT) GC Gene Amp Negative Negative [facility] Comment: The only FDA approved specimen types for this assay are cervix, vagina, urethra and urine. ??The sensitivity and specificity of the assay for other specimen types has not been determined. GC Source Cervical [facility] Chlamydia Gene Amp Negative Negative [facility] Comment: The only FDA approved specimen types for this assay are cervix, vagina, urethra and urine. ??The sensitivity and specificity of the assay for other specimen types has not been determined. Chlamydia Source Cervical [facility] Specimen of unknown material (specimen) 11/23/2010 2:45 PM EDT 11/23/2010 2:45 PM EDT Roshan Mcdaniel MD MICROBIOLOGY - GENER AL ORDERABLES [facility] * URINE CULTURE (11/23/2010 1:15 PM EDT) Urine Culture ? Patient Name: GIANA YEAGER ?Ordered By: ROSHAN MCDANIEL ? [place] ? MR#: [id number] ?LOC: ??5L ? /Sex: ??1970 (40 years), ? Female ? PROCEDURE: Urine Culture ?SOURCE: T CC ? COLLECTED: 11/23/2010 13:15 ? STARTED: 11/23/2010 14:36 ? FINAL REPORT ? Final Report ? Verified:2010 08:48 ? 1,000-9,000 cfu/ml Gram Positive organisms , probable contaminant ? JULIUS WESTBROOKENNIUM Urine specimen obtained by clean catch procedure (specimen) 11/23/2010 1:15 PM EDT 11/23/2010 2:21 PM EDT Roshan Mcdaniel MD MICROBIOLOGY - GENER AL ORDERABLES JULIUS CRUM documented in this encounter Visit Diagnoses Not on filedocumented in this encounter Care Teams Bakery Products Checker Relationship Specialty Start Date End Date Sonja Causey MD [address] [place] [address] PCP - General 07/18/10 09/26/16 documented as of this encounter
--- OUTSIDE RECORDS SUMMARY | 2024-03-19 08:54 | XMS_ITS | Encounter Summary ---
[place] [address] Care Team Providers Care Camera Technician Name Role Phone Sonja Causey MD Primary Care Provider [phone] Reason for Visit * Reason Onset Date Comments Vaginal Bleeding 01/19/2011 Encounter Details Date Type Department Care Team (Late st Contact Info) Description 01/19/2011 Telephone Obstetrics [place] [address] Jeimy Lion RN Vaginal Bleeding Social History Tobacco Use Types Packs/Day Years [...] encounter Miscellaneous Notes * Telephone Encounter - Jemiy Lion RN - 01/19/2011 8:39 AM EDT Team Julián/Kim, LEORA 06/[birth year]/11 who has port wine colored blood today. She has mild aching on the left side, no cramping. She did have intercourse 24 hours ago. This is the second time in 2 weeks she has woken with light bleeding 24 hours after intercourse. She has not had her 18 week u/s so placental location is unknown. Her morphology screen is scheduled for next week. Assessment: vaginal bleeding, heavier than spotting but still very light @ 18+2 weeks. [place] is A positive. Plan: will come for assessment of second trimester bleeding today @ 11:30am documented in this encounter Plan of Treatment Not on file documented as of this encounter Visit Diagnoses Not on filedocumented in this encounter Care Teams Camera Technician Relationship Specialty Start Date End Date Sonja Causey MD [address] [place] [address] PCP - General 07/18/10 09/26/16 documented as of this encounter
--- OUTSIDE RECORDS SUMMARY | 2024-03-19 08:54 | XMS_ITS | Encounter Summary ---
Author Organization [facility] [place] [address] Care Team Providers Care Virginia Line Attendant Name Role Phone Ann Justina LUND Primary Care Provider [phone] Encounter Details Date Type Department Care Team (Late st Contact Info) Description 02/06/2007 Orders [place] [address] Primo Nails MD [facility] [place] [address] Social History Tobacco Use Types Packs/Day Years [...] Associated Diagnosis Comments SURGICAL PATHOLOGY REPORT Routine 02/06/2007 4:04 PM EDT documented in this encounter Results * Surgical Pathology Report (02/06/2007 4:04 PM EDT) Surgical Pathology Report [id number] ? Location: The signing pathologist has (i) examined the relevant preparation(s) for the specimen(s) and (ii) rendered or confirmed the diagnosis(es). . ?Pathology Surgical Pathology Final Report Clinical Information Specimen Submitted: A - Mass: Left wrist Clinical Diagnosis: Excision mass L wrist. Gross Description Labeled/Fixativ e: ? Mass, left wrist; fresh. Qty/Size/Weight : ?Single, 1.1 x 0.6 x 0.3 cm. Tissue Description: ?? Soft, yellow-white fragment of tissue. Sections/Proces sing: ??Bisected. ??(T1) ??aje/EM Microscopic Description Slides reviewed, microscopic description not recorded. Formalin-fixed, paraffin-embedd ed tissue sections are studied for smooth muscel actin ??using the Avidin-Biotin complex technique with appropriate controls. ??The stains reveal strong staining of lesional cells. Diagnosis Mass, left wrist Intravascular leiomyoma CR-0 02/07/07 VAM 02/10/07 Verified by: ? Azeem Che MD ?Pathologist ?(Electronic Signature) The attending pathologist whose signature appears on this report has reviewed all diagnostic slides and has edited the gross and/or microscopic portion of the report in rendering the final pathologic diagnosis. JULIUS CRUM 02/06/2007 4:04 PM EDT Primo Nails MD PATHOLOGY/CYTOLOGY O RDERABLES JULIUS CRUM documented in this encounter Visit Diagnoses Not on filedocumented in this encounter Care Teams Virginia Line Attendant Relationship Specialty Start Date End Date Justina Juarez APRN [address] [place] [address] PCP - General Family Medicine 03/04/22 documented as of this encounter
--- OUTSIDE RECORDS SUMMARY | 2024-03-19 08:54 | XMS_ITS | Encounter Summary ---
[place] [address] Care Team Providers Care Merchandiser Seasonal Name Role Phone Sonja Causey MD Primary Care Provider [phone] Encounter Details Date Type Department Care Team (Latest Contact Info) Description 01/19/2011 1:33 PM EDT - 01/19/2011 11:59 PM EDT Hospital [place] [address] ; Antepartum bleeding Social History Tobacco Use Types Packs/Day Years [...] Associated Diagnosis Comments US OB LIMITED Routine 01/19/2011 2:42 PM EDT Antepartum bleeding documented in this encounter Results * US OBS limited (01/19/2011 2:42 PM EDT) Anatomical Region Laterality Modality Pelvis, Abdomen Ultrasound 01/19/2011 2:42 PM EDT Narrative 01/19/2011 2:51 PM EDT ?OBSTETRICS REPORT ? (Signed Final 01/19/2011 02:50 pm) Patient Info ID: ? [id number] ? : ??[birth year] (40 yrs) Name: ? GIANA GOLDMAN ? Visit Date: 01/19/2011 02:35 pm ? CHRISTELLE Performed By Performed By: ?? Argelia Patricia RDMS Associate: ?Griffin CLINTON, Marissa Fishman Attending: ?Allen CLINTON, César White Referred By: ?BURAK Kahn MD Accession#: ? [id number] Procedures UOBTV - Viability - Cervical Length - Transvaginal - ??[id number] UOBLIM - Amira - Postion Only ( 1 or more fetuses) - ?[id number] Indications Cervical length Evaluate for abruption Bleeding [...] ?LEORA: ?? 06/19/11 ------- Anatomy ------- Cranium: ?Limited Views Cavum: [...] Final 01/19/2011 02:50 pm) Patient Info ID: [id number] : [birth year] (40 yrs) Name: GIANA GOLDMAN Visit Date: 01/19/2011 02:35 pm CHRISTELLE Performed By Performed By: Argelia Patricia RDMS Associate: Marissa Moya MD Attending: César Villa MD Referred By: BURAK Kahn MD Procedures UOBTV - Viability - Cervical Length - Transvaginal - [id number] UOBLIM - Amira - Postion Only ( 1 or more fetuses) - [id number] Indications Cervical length Evaluate for abruption Bleeding at 18 weeks Evaluation Heart Rate: 138 bpm Cardiac Activity: Observed, normal rhythm Presentation: Transverse, head to maternal left Placenta: Anterior P. Cord Within Normal Limits Insertion: Amniotic Fluid AMIRA FV: Within normal limits -------- Biometry -------- Gestational Age LMP: 18w 3d Date: 09/12/10 LEORA: 06/19/11 Best: 18w 3d Det. By: LMP (09/12/10) LEORA: 06/19/11 ------- Anatomy ------- Cranium: Limited Views Cavum: [...] care documented in this encounter Care Teams Merchandiser Seasonal Relationship Specialty Start Date End Date Sonja Causey MD [address] [place] [address] PCP - General 07/18/10 09/26/16 documented as of this encounter
--- OUTSIDE RECORDS SUMMARY | 2024-03-19 08:54 | XMS_ITS | Encounter Summary ---
Author Organization [facility] Address [facility] [place] [address] Care Team Providers Care Mediation Commissioner Name Role Phone Sonja Causey MD Primary Care Provider [phone] Encounter Details Date Type Department Care Team (Latest Contact Info) Description 01/23/2011 10:48 AM EDT - 01/23/2011 11:59 PM EDT Hospital Encounter [place] [id number] CLINIC, Corrie Harp MD [facility] OBSTETRICS & [place] [address] Discharge Disposition: Home Social History Tobacco Use [...] Priority Date/Time Associated Diagnosis Comments US OB DETAILED MORPHOLOGY Routine 01/23/2011 12:34 PM EDT documented in this encounter Results * US OB TARGETED MORPHOLOGY (01/23/2011 12:34 PM EDT) Anatomical Region Laterality Modality Pelvis, Abdomen Ultrasound 01/23/2011 12:3 4 PM EDT Narrative 01/26/2011 9:44 AM EDT ? OBSTETRICS REPORT ? (Signed Final 01/26/2011 09:43 am) Patient Info ID: ?[id number] ?: ??[birth year] (40 yrs) Name: ?GIANA GOLDMAN ?Visit Date: 01/23/2011 12:04 pm ?CHRISTELLE Performed By Performed By: ?? Janina Edward RDMS Attending: ?Michelle CLINTON, [place] Referred By: ?KIT PRESTON MD Accession#: ? [id number] Procedures [facility] - Targeted Morphology - Genetics - ? [id number] UOBTV - Viability - Cervical Length - Transvaginal - ??[id number] Indications History of son with club foot History of son with VSD Evaluation Heart Rate: ??136 ? bpm Cardiac Activity: ??Observed, normal rhythm Presentation: ?Breech Placenta: ?Anterior P. Cord ?Within Normal Limits Insertion: Amniotic Fluid AMIRA FV: ?Normal -------- Biometry -------- BPD: ?45.5 ??mm ?G. Age: ?? 19w 5d HC: ?172.5 ??mm ?G. Age: ?? 19w 6d AC: ? 137 ?? mm ?G. Age: ?? 19w 1d FL: ? 31.3 ??mm ?G. Age: ?? 19w 5d HUM: ?31.1 ??mm ?G. Age: ?? 20w 2d CER: ?18.7 ??mm ?G. Age: ?? 18w 2d NFT: ?3.67 ??mm NB: ? 5.71 ??mm CI: ? 70.68 ??% ? 70 - 86 FL/HC: ? 18.1 ??% ? 16.1 - 18.3 HC/AC: ? 1.26 ?1.09 - 1.39 FL/BPD: ?68.8 ??% FL/AC: ? 22.8 ??% ? 20 - 24 Est. FW: ? 294 ??gm ?0 lb 10 oz Gestational Age LMP: ? 19w 0d ?Date: ??09/12/10 ? LEORA: ?? 06/19/11 U/S Today: ? 19w 4d ?LEORA: ?? 06/15/11 Best: ?19w 0d ?? Det. By: ??LMP ??(09/12/10) ?LEORA: ?? 06/19/11 Targeted Anatomy Central Nervous System Calvarium: ?Within Normal Limits Intracranial: ? Within Normal Limits Lat. Ventricles: ?Within Normal Limits Cerebellum: ? Within Normal Limits Choroid Plexus: ? Within Normal Limits Cisterna Magna: ? Within Normal Limits Spine Cervical: ? Visualized Thoracic: ? Visualized Lumbar: ? Visualized Sacral: ? Visualized Head/Neck Face: ? Within Normal Limits Nuchal Fold: ?Within Normal Limits Thorax Four Chamber: ? Within Normal Limits Cardiac Motion: ? Normal Rhythm R Outflow Tract: ?Visualized L Outflow Tract: ?Visualized Cardiac Wanda: ? Visualized Diaphragm: ?Visualized Abdomen Ventral Wall: ? Visualized Stomach: ?Visualized Lt Kidney: ?Dilated Rt Kidney: ?Dilated Bladder: ?Visualized Extremities Lt Humerus: ? Within Nomal Limits Rt Humerus: ? Within Normal Limits Lt Forearm: ? Within Normal Limits Rt Forearm: ? Within Normal Limits Lt Hand: ?Within Normal Limits Rt Hand: ?Within Normal Limits Lt Femur: ? Within Normal Limits Rt Femur: ? Within Normal Limits Lt Lower Leg: ? Within Normal Limits Rt Lower Leg: ? Within Normal Limits Lt Foot: ?Visualized Rt Foot: ?Visualized Other Umbilical Cord: ? 3 vessel cord Genitalia: ?Male Cord Insertion: ? WIthin Normal Limits Cervix Uterus Adnexa Cervical Length: ? 3 ? cm Cervix: ? No change with fundal pressure Left Ovary: ?? Not visualized Right Ovary: ??Not visualized Impression 2nd Trimester Renal Pyelectasis Summary Single intrauterine with a gestational age of 19w 0d based on LMP. Composite age based on the current ultrasound alone is 19w 4d. ?? Amniotic fluid volume is Normal. Current growth parameters are consistent ??indicating normal growth. Normal anatomic survey, with the exception of renal pyelectasis. Genetic sonogram shows mild renal pyelectasis. Transvaginal ultrasound done for cervical length. I ??viewed the images and agree with the above interpretation. Thank you for allowing us to participate in the care of GIANA YEAGER. Please do not hesitate to call if you have any questions. ? Renzo Martinez MD Electronically Signed Final Report ?? 01/26/2011 09:43 am Procedure Note Renzo Martinez MD - 01/26/2011 OBSTETRICS REPORT (Signed Final 01/26/2011 09:43 am) Patient Info ID: [id number] : [birth year] (40 yrs) Name: GIANA GOLDMAN Visit Date: 01/23/2011 12:04 pm CHRISTELLE Performed By Performed By: Janina Edward [facility] Attending: Renzo Martinez MD Referred By: KIT PRESTON MD Procedures [facility] - Targeted Morphology - Genetics - [id number] UOBTV - Viability - Cervical Length - Transvaginal - [id number] Indications History of son with club foot History of son with VSD Evaluation Heart Rate: 136 bpm Cardiac Activity: Observed, normal rhythm Presentation: Breech Placenta: Anterior P. Cord Within Normal Limits Insertion: Amniotic Fluid AMIRA FV: Normal -------- Biometry -------- BPD: 45.5 mm G. Age: 19w 5d HC: 172.5 mm G. Age: 19w 6d AC: 137 mm G. Age: 19w 1d FL: 31.3 mm G. Age: 19w 5d HUM: 31.1 mm G. Age: 20w 2d CER: 18.7 mm G. Age: 18w 2d NFT: 3.67 mm NB: 5.71 mm CI: 70.68 % 70 - 86 FL/HC: 18.1 % 16.1 - 18.3 HC/AC: 1.26 1.09 - 1.39 FL/BPD: 68.8 % FL/AC: 22.8 % 20 - 24 Est. FW: 294 gm 0 lb 10 oz Gestational Age LMP: 19w 0d Date: 09/12/10 LEORA: 06/19/11 U/S Today: 19w 4d LEORA: 06/15/11 Best: 19w 0d Det. By: LMP (09/12/10) LEORA: 06/19/11 Targeted Anatomy Central Nervous System Calvarium: Within Normal Limits Intracranial: Within Normal Limits Lat. Ventricles: Within Normal Limits Cerebellum: Within Normal Limits Choroid Plexus: Within Normal Limits Cisterna Magna: Within Normal Limits Spine Cervical: Visualized Thoracic: Visualized Lumbar: Visualized Sacral: Visualized Head/Neck Face: Within Normal Limits Nuchal Fold: Within Normal Limits Thorax Four Chamber: Within Normal Limits Cardiac Motion: Normal Rhythm R Outflow Tract: Visualized L Outflow Tract: Visualized Cardiac Wanda: Visualized Diaphragm: Visualized Abdomen Ventral Wall: Visualized Stomach: Visualized Lt Kidney: Dilated Rt Kidney: Dilated Bladder: Visualized Extremities Lt Humerus: Within Nomal Limits Rt Humerus: Within Normal Limits Lt Forearm: Within Normal Limits Rt Forearm: Within Normal Limits Lt Hand: Within Normal Limits Rt Hand: Within Normal Limits Lt Femur: Within Normal Limits Rt Femur: Within Normal Limits Lt Lower Leg: Within Normal Limits Rt Lower Leg: Within Normal Limits Lt Foot: Visualized Rt Foot: Visualized Other Umbilical Cord: 3 vessel cord Genitalia: Male Cord Insertion: WIthin Normal Limits Cervix Uterus Adnexa Cervical Length: 3 cm Cervix: No change with fundal pressure Left Ovary: Not visualized Right Ovary: Not visualized Impression 2nd Trimester Renal Pyelectasis Summary Single intrauterine with a gestational age of 19w 0d based on LMP. Composite age based on the current ultrasound alone is 19w 4d. Amniotic fluid volume is Normal. Current growth parameters are consistent indicating normal growth. Normal anatomic survey, with the exception of renal pyelectasis. Genetic sonogram shows mild renal pyelectasis. Transvaginal ultrasound done for cervical length. I viewed the images and agree with the above interpretation. Thank you for allowing us to participate in the care of GIANA YEAGER. Please do not hesitate to call if you have any questions. Renzo Martinez MD Electronically Signed Final Report 01/26/2011 09:43 am Corrie Alvarez MD IMG OB ORDERABLES documented in this encounter Visit Diagnoses Diagnosis state, incidental documented in this encounter Care Teams Mediation Commissioner Relationship Specialty Start Date End Date Sonja Causey MD [address] [place] [address] PCP - General 07/18/10 09/26/16 documented as of this encounter
== END 2024-03-19 08:51 | disposition home or self-care (01) ==
LOC: LBN 08:50
PROVIDERS: PCP Nurse Practitioner Family; Visit Provider Nurse Practitioner Family
DX: L91.8 Other hypertrophic disorders of the skin
CPT/HCPCS: 88304; 88305

== ENCOUNTER 2024-04-22 03:23 | Outpatient (CLI) | payer MEDICAID, SELFPAY ==
--- OUTSIDE RECORDS SUMMARY | 2024-04-22 03:30 | XMS_ITS | Encounter Summary ---
Author Organization [facility] Address [address] [place] [address] Care Team Providers Care Program Manager Environmental Planning Name Role Phone Sonja Causey MD Primary Care Provider [phone] Encounter Details Date Type Department Care Team (Late st Contact Info) Description 2024 Lab Requisition [facility] Pathology & Laboratory Medicine - [facility] [address] [place] [address] Adjovu, Justina, CEMETERY COUNSELOR [address] [place] [address] Encounter for other general examination [...] 16, PCR Negative Negative 03/12/2024 14:24 EDT [facility] HPV High Risk type 18, PCR Negative Negative 03/12/2024 14:24 T [facility] HPV other High Risk types, PCR Negative Negative 03/12/2024 14:24 T [facility] Comment: The following Other High Risk HPV types were not detected: ??31,33, 35, 39, 45, 51, 52, 56, 58, 59, 66 and 68. Pap Test CERVIX UTERI STRUCTURE / Unknown 03/04/2024 13:00 EDT 03/11/2024 14:28 EDT Justina Juarez NP MICROBIOLOGY - GENER AL ORDERABLES [facility] [address] [place], [place] [id number] * PAP TEST (03/04/2024 13:00 EDT) Specimens A. Cervix and/or Endocervix , ThinPrep Imaging System with Manual Evaluation 03/12/2024 14:24 [facility] Specimen Adequacy Satisfactory for Evaluation - transformation zone component present 03/12/2024 14:24 [facility] General Categorization Negative for intraepithelial lesion or malignancy 03/12/2024 14:24 [facility] Descriptive Diagnosis Reactive cellular changes associated with inflammation present (includes repair). 03/12/2024 14:24 [facility] Attestation By the signature below, the attending physician certifies that they have personally conducted a gross and/or microscopic examination of the described specimens and rendered or confirmed the above diagnosis. 03/12/2024 14:24 [facility] at 1424 Clinical History SEE BELOW 03/12/20 14:24 [facility] Performing Lab [facility] 03/12/2024 14:24 [facility] Scanned Images 03/12/2024 14:24 [facility] HPV High Risk type 16, PCR Negative 03/12/2024 14:24 EDT [facility] HPV High Risk type 18, PCR Negative 03/12/2024 14:24 EDT [facility] HPV Other High Risk Types, PCR Negative The following Other High Risk HPV types were not detected: 31,33, 35, 39, 45, 51, 52, 56, 58, 59, 66 and 68. 03/12/2024 14:24 EDT [facility] Pap Test CERVIX UTERI STRUCTURE / Unknown 03/04/2024 13:00 EDT 2024 11:27 EDT Justina Juarez CEMETERY COUNSELOR PATHOLOGY ORDERABLES Performing Organization Address City/State/[facility] Co de Phone Number [facility] [address] [place] [phone] documented in this encounter Visit Diagnoses Diagnosis Encounter for other general examination documented in this encounter Care Teams Program Manager Environmental Planning Relationship Specialty Start Date End Date Sonja Causey MD [address] [place] [address] PCP - General 07/06/15 documented as of this encounter
--- OUTSIDE RECORDS SUMMARY | 2024-04-22 03:30 | XMS_ITS | Encounter Summary ---
Author Organization [facility] Address [address] [place] [address] Care Team Providers Care Celery Packer Name Role Phone Sonja Causey MD Primary Care Provider [phone] Encounter Details Date Type Department Care Team (Late st Contact Info) Description 11/10/2020 Lab Requisition [facility] Pathology & Laboratory Medicine - [address] [address] Outr Resulting Lab, Provider Social History Tobacco [...] Outr Resulting Lab MICROBIOLOGY - GENERAL ORDERABLES [facility] [address] [place] [address] * COVID-19 TESTING (11/10/2020 9:41 EDT) COVID-19 rt-PCR Result Negative Negative 11/11/2020 13:01 EDT [facility] Comment: This test has not [...] developed and its performance characteristics determined by [facility]. It has not been cleared [...] testing. This test is based on the [facility] COVID-19 Emergency Use Authorization (EUA) assay, with minor modification as defined by the FDA Performed on the Kyrono 7 Pro RT-PCR System. Performing Lab [facility] 11/11/2020 13:01 EDT [facility] Swab 11/10/2020 9:41 EDT 11/10/2020 16:16 EDT Provider Outr Resulting Lab MICROBIOLOGY - GENERAL ORDERABLES [facility] [address] [place] [address] documented in this encounter Visit Diagnoses Not on filedocumented in this encounter Care Teams Celery Packer Relationship Specialty Start Date End Date Sonja Causey MD [address] [place] [address] PCP - General 07/06/15 documented as of this encounter
--- OUTSIDE RECORDS SUMMARY | 2024-04-22 03:30 | XMS_ITS | Encounter Summary ---
Author Organization [facility] Address [address] [place] [address] Care Team Providers Care Manager Customer Service Name Role Phone Sonja Causey MD Primary Care Provider [phone] Encounter Details Date Type Department Care Team (Late st Contact Info) Description 11/24/2021 Lab Requisition [facility] Pathology & Laboratory Medicine - [facility] [address] [place] [address] Vicenta Gordillo, DO [address] [place], [place] [id number] Encounter for other general examination Social History [...] management options, if applicable. 11/30/2021 13:13 [facility] Final Diagnosis A. COLON, 20CM, BIOPSY: - Hyperplastic polyp 11/30/2021 13:13 [facility] Attestation By the signature below, the attending physician certifies that they have 1) personally conducted a gross and/or microscopic examination of the described specimen(s), and/or personally interpreted the results of laboratory testing of the described specimen(s), and 2) personally rendered or confirmed the above diagnosis. 11/30/2021 13:13 [facility] at 1313 Clinical History CRC screen 11/30/2021 13:13 [facility] Gross Description A. Received in formalin labelled with proper patient identification (initials O, T) and polyp at 20 cm is a single fragment of parikh soft tissue (0.3 x 0.2 x 0.2 cm). The specimen is entirely submitted in A1. VILMA ELIZONDO(ASCP) 11/27/2021 11:34 11/30/2021 13:13 [facility] Performing Lab [facility] 11/30/2021 13:13 [facility] Scanned Images 11/30/2021 13:13 [facility] Tissue ENTIRE COLON / Unknown 11/24/2021 10:57 EDT 11/24/2021 16:53 EDT Vicenta Gordillo DO PATHOLOGY ORDERABLES [facility] [address] [place] [address] documented in this encounter Visit Diagnoses Diagnosis Encounter for other general examination documented in this encounter Care Teams Manager Customer Service Relationship Specialty Start Date End Date Sonja Causey MD [address] [place] [address] PCP - General 07/06/15 documented as of this encounter
--- OUTSIDE RECORDS SUMMARY | 2024-04-22 03:30 | XMS_ITS | Clinical Summary ---
Author Organization [facility] Address [address] [place] [address] Care Team Providers Care Plate Grinder Name Role Phone Sonja Causey MD Primary Care Provider [phone] Encounters Date Type Department Care Team Description 03/19/2024 Lab Requisition [facility] Pathology & Laboratory [address] [address] Justina Juarez NP Encounter for other general examination 2024 Lab Requisition [facility] Pathology & Laboratory [address] [address] Justina Juarez NP Encounter for other general [...] Date/Time Associated Diagnosis Comments SURGICAL PATHOLOGY Today 03/19/2024 8: 15 EDT Encounter for other general examination PAP TEST Today 03/04/2024 13:00 EDT Encounter for other general examination HPV DNA DETECTION WITH GENOTYPING, PCR Today 03/04/2024 13:00 EDT Encounter for other general examination from Last 3 Months Results * SURGICAL PATHOLOGY (03/19/2024 8:15 EDT) Note to Patient The following pathology results have been interpreted by your pathologist and may be available to you before your health provider has had the opportunity to review them. Please allow time for your provider to receive these results and explore management options, if applicable. 03/23/2024 11:15 [facility] Final Diagnosis A. SKIN OF MONS PUBIS, SHAVE BIOPSY: - Fibroepithelial skin tag. 03/23/2024 11:15 [facility] Attestation By the signature below, the attending physician certifies that they have 1) personally conducted a gross and/or microscopic examination of the described specimen(s), and/or personally interpreted the results of laboratory testing of the described specimen(s), and 2) personally rendered or confirmed the above diagnosis. 03/23/2024 11:15 [facility] at 1115 Microscopic Description There is a polypoid papule with a papillated epidermal surface. The stratum corneum is composed of a relatively normal layer of orthokeratin. The dermis is composed of loose fibrous connective tissue and dilated vessels. 03/23/2024 11:15 [facility] Clinical History Skin tag 03/23/2024 11:15 [facility] Gross Description A. Received in formalin labelled with proper patient identification (initials O, T) and mons pubis is a shave biopsy of a parikh-pink soft wrinkled pedunculated papule (1.7 x 1.2 x 0.3 cm). The margin is inked blue. The specimen is sectioned and submitted entirely in A1-A2. VILMA BECKER(ASCP) 03/20/2024 7:57 03/23/2024 11:15 [facility] Performing Lab [facility] 11:15 [facility] Scanned Images 03/23/2024 11:15 [facility] Tissue SPECIMEN FROM SKIN / Unknown 03/19/2024 8:15 EDT 03/19/2024 20:29 EDT Justina Juarez JO ANN PATHOLOGY ORDERABLES [facility] [address] [place] [phone] * PAP TEST (03/04/2024 13:00 EDT) Specimens A. Cervix and/or Endocervix , ThinPrep Imaging System with Manual Evaluation 03/12/2024 14:24 [facility] Specimen Adequacy Satisfactory for Evaluation - transformation zone component present 03/12/2024 14:24 [facility] General Categorization Negative for intraepithelial lesion or malignancy 03/12/2024 14:24 [facility] Descriptive Diagnosis Reactive cellular changes associated with inflammation present (includes repair). 03/12/2024 14:24 [facility] Attestation By the signature below, the attending physician certifies that they have personally conducted a gross and/or microscopic examination of the described specimens and rendered or confirmed the above diagnosis. 03/12/2024 14:24 [facility] at 1424 Clinical History SEE BELOW 03/12/20 14:24 [facility] Performing Lab [facility] 03/12/2024 14:24 [facility] Scanned Images 03/12/2024 14:24 [facility] HPV High Risk type 16, PCR Negative 03/12/2024 14:24 [facility] HPV High Risk type 18, PCR Negative 03/12/2024 14:24 [facility] HPV Other High Risk Types, PCR Negative The following Other High Risk HPV types were not detected: 31,33, 35, 39, 45, 51, 52, 56, 58, 59, 66 and 68. 03/12/2024 14:24 [facility] Pap Test CERVIX UTERI STRUCTURE / Unknown 03/04/2024 13:00 EDT 2024 11:27 EDT Justina Juarez NP PATHOLOGY ORDERABLES Performing Organization Address [facility]/ZIP Co de Phone Number [facility] [address] [place] [address] * HPV DNA DETECTION WITH GENOTYPING, PCR (03/04/2024 13:00 EDT) HPV High Risk type 16, PCR Negative Negative 03/12/2024 14:24 EDT [facility] HPV High Risk type 18, PCR Negative Negative 03/12/2024 14:24 EDT [facility] HPV other High Risk types, PCR Negative Negative 03/12/2024 14:24 EDT [facility] Comment: The following Other High Risk HPV types were not detected: ??31,33, 35, 39, 45, 51, 52, 56, 58, 59, 66 and 68. Pap Test CERVIX UTERI STRUCTURE / Unknown 03/04/2024 13:00 EDT 03/11/2024 14:28 EDT Justina Juarez NP MICROBIOLOGY - GENER AL ORDERABLES Performing Organization Address [facility] Co de Phone Number [facility] [address] [place] [address] from Last 3 Months Care Teams Plate Grinder Relationship Specialty Start Date End Date Sonja Causey MD [address] [place] [address] [facility] - General 07/06/15
--- OUTSIDE RECORDS SUMMARY | 2024-04-22 03:30 | XMS_ITS | Encounter Summary ---
Author Organization [facility] Address [address] [place] [address] Care Team Providers Care Change Consultant Name Role Phone Sonja Causey MD Primary Care Provider [phone] Encounter Details Date Type Department Care Team (Late st Contact Info) Description 03/19/2024 Lab Requisition [facility] Pathology & Laboratory Medicine - [facility] [address] [place] [address] Adjovu, Justina, GUITAR TEACHER [address] [place] [address] Encounter for other general examination [...] 15 EDT Encounter for other general examination documented in this encounter Results * SURGICAL PATHOLOGY (03/19/2024 8:15 EDT) Note to Patient The following pathology results have been interpreted by your pathologist and may be available to you before your health provider has had the opportunity to review them. Please allow time for your provider to receive these results and explore management options, if applicable. 03/23/2024 11:15 [facility] Final Diagnosis A. SKIN OF MONS PUBIS, SHAVE BIOPSY: - Fibroepithelial skin tag. 03/23/2024 11:15 [facility] Attestation By the signature below, the attending physician certifies that they have 1) personally conducted a gross and/or microscopic examination of the described specimen(s), and/or personally interpreted the results of laboratory testing of the described specimen(s), and 2) personally rendered or confirmed the above diagnosis. 03/23/2024 11:15 [facility] at 1115 Microscopic Description There is a polypoid papule with a papillated epidermal surface. The stratum corneum is composed of a relatively normal layer of orthokeratin. The dermis is composed of loose fibrous connective tissue and dilated vessels. 03/23/2024 11:15 [facility] Clinical History Skin tag 03/23/2024 11:15 [facility] Gross Description A. Received in formalin labelled with proper patient identification (initials O, T) and mons pubis is a shave biopsy of a parikh-pink soft wrinkled pedunculated papule (1.7 x 1.2 x 0.3 cm). The margin is inked blue. The specimen is sectioned and submitted entirely in A1-A2. VILMA BECKER(ASCP) 03/20/2024 7:57 03/23/2024 11:15 [facility] Performing Lab [facility] 11:15 [facility] Scanned Images 03/23/2024 11:15 [facility] Tissue SPECIMEN FROM SKIN / Unknown 03/19/2024 8:15 EDT 03/19/2024 20:29 EDT Justina Juarez NP PATHOLOGY ORDERABLES [facility] [address] [place] [address] documented in this encounter Visit Diagnoses Diagnosis Encounter for other general examination documented in this encounter Care Teams Change Consultant Relationship Specialty Start Date End Date Sonja Causey MD [address] [place] [address] PCP - General 07/06/15 documented as of this encounter
--- OUTSIDE RECORDS SUMMARY | 2024-04-22 03:30 | XMS_ITS | Referral Summary ---
Author Organization [facility] Address [address] [place] [address] Care Team Providers Care Pizza Delivery Driver Name Role Phone Sonja Causey MD Primary Care Provider [phone] Encounters Date Type Department Care Team Description 03/19/2024 Lab Requisition [facility] Pathology & Laboratory [address] [address] Justina Juarez NP Encounter for other general examination 2024 Lab Requisition [facility] Pathology & Laboratory [address] [address] Justina Juarez NP Encounter for other general [...] explore management options, if applicable. 03/23/2024 11:15 [facility] Final Diagnosis A. SKIN OF MONS PUBIS, SHAVE BIOPSY: - Fibroepithelial skin tag. 03/23/2024 11:15 [facility] Attestation By the signature below, the attending physician certifies that they have 1) personally conducted a gross and/or microscopic examination of the described specimen(s), and/or personally interpreted the results of laboratory testing of the described specimen(s), and 2) personally rendered or confirmed the above diagnosis. 03/23/2024 11:15 [facility] at 1115 Microscopic Description There is a polypoid papule with a papillated epidermal surface. The stratum corneum is composed of a relatively normal layer of orthokeratin. The dermis is composed of loose fibrous connective tissue and dilated vessels. 03/23/2024 11:15 [facility] Clinical History Skin tag 03/23/2024 11:15 [facility] Gross Description A. Received in formalin labelled with proper patient identification (initials O, T) and mons pubis is a shave biopsy of a parikh-pink soft wrinkled pedunculated papule (1.7 x 1.2 x 0.3 cm). The margin is inked blue. The specimen is sectioned and submitted entirely in A1-A2. VILMA BECKER(ASCP) 03/20/2024 7:57 03/23/2024 11:15 [facility] Performing Lab [facility] 11:15 [facility] Scanned Images 03/23/2024 11:15 [facility] Tissue SPECIMEN FROM SKIN / Unknown 03/19/2024 8:15 EDT 03/19/2024 20:29 EDT Justina Adjovu GENERATING STATION MECHANIC PATHOLOGY ORDERABLES [facility] [address] [place] [address] * PAP TEST (03/04/2024 13:00 EDT) Specimens A. Cervix and/or Endocervix , ThinPrep Imaging System with Manual Evaluation 03/12/2024 14:24 EDT [facility] Specimen Adequacy Satisfactory for Evaluation - transformation zone component present 03/12/2024 14:24 EDT [facility] General Categorization Negative for intraepithelial lesion or malignancy 03/12/2024 14:24 T [facility] Descriptive Diagnosis Reactive cellular changes associated with inflammation present (includes repair). 03/12/2024 14:24 T [facility] Attestation By the signature below, the attending physician certifies that they have personally conducted a gross and/or microscopic examination of the described specimens and rendered or confirmed the above diagnosis. 03/12/2024 14:24 [facility] at 1424 Clinical History SEE BELOW 03/12/20 14:24 [facility] Performing Lab [facility] 03/12/2024 14:24 [facility] Scanned Images 03/12/2024 14:24 [facility] HPV High Risk type 16, PCR Negative 03/12/2024 14:24 T [facility] HPV High Risk type 18, PCR Negative 03/12/2024 14:24 [facility] HPV Other High Risk Types, PCR Negative The following Other High Risk HPV types were not detected: 31,33, 35, 39, 45, 51, 52, 56, 58, 59, 66 and 68. 03/12/2024 14:24 T [facility] Pap Test CERVIX UTERI STRUCTURE / Unknown 03/04/2024 13:00 EDT 2024 11:27 EDT Justina Adjovu GENERATING STATION MECHANIC PATHOLOGY ORDERABLES [facility] [address] [place] [address] * HPV DNA DETECTION WITH GENOTYPING, PCR (03/04/2024 13:00 EDT) HPV High Risk type 16, PCR Negative Negative 03/12/2024 14:24 EDT [facility] HPV High Risk type 18, PCR Negative Negative 03/12/2024 14:24 EDT [facility] HPV other High Risk types, PCR Negative Negative 03/12/2024 14:24 EDT [facility] Comment: The following Other High Risk HPV types were not detected: ??31,33, 35, 39, 45, 51, 52, 56, 58, 59, 66 and 68. Pap Test CERVIX UTERI STRUCTURE / Unknown 03/04/2024 13:00 EDT 03/11/2024 14:28 EDT Justina Adjovu GENERATING STATION MECHANIC MICROBIOLOGY - GENER AL ORDERABLES Performing Organization Address City/[facility]/ZIP Co de Phone Number [facility] [address] [place] [address] from Last 3 Months Care Teams Pizza Delivery Driver Relationship Specialty Start Date End Date Sonja Causey MD [address] [place], [place] [address] PCP - General 07/06/15
--- OUTSIDE RECORDS SUMMARY | 2024-04-22 03:30 | XMS_ITS | Encounter Summary ---
Author Organization [facility] Address [address] [place] [address] Care Team Providers Care Electrician Machine Shop Name Role Phone Sonja Causey MD Primary Care Provider Encounter Details Date Type Department Care Team (Late st Contact Info) Description 01/05/2021 Lab Requisition [facility] Pathology & Laboratory Medicine - [address] [address] Outr Resulting Lab, Provider Social History Tobacco [...] Priority Date/Time Associated Diagnosis Comments [facility]COVID-19 TEST [facility] Today 01/05/2021 8:45 EDT COVID-19 TESTING Routine 01/05/2021 8:45 EDT documented in this encounter Results * COVID-19 TEST [facility] PCR (01/05/2021 8:45 EDT) Swab ENTIRE NASOPHARYNX / Unknown 01/05/2021 8:45 EDT 01/05/2021 17:10 EDT Provider Outr Resulting Lab MICROBIOLOGY - GENERAL ORDERABLES [facility] [address] [place] [address] * COVID-19 TESTING (01/05/2021 8:45 EDT) COVID-19 rt-PCR Result Negative Negative 01/06/2021 15:[address] [facility] Comment: This test has [...] developed and its performance characteristics determined by [facility]. It has not been cleared or [...] testing. This test is based on the [facility] COVID-19 Emergency Use Authorization (EUA) assay, with minor modification as defined by the FDA Performed on the Mettlo 7 Flex RT-PCR System. Performing Lab [facility] 01/06/2021 15:[address] [facility] Swab 01/05/2021 8:45 EDT 01/05/2021 17:10 EDT Provider Outr Resulting Lab MICROBIOLOGY - GENERAL ORDERABLES [facility] [address] [place] [address] documented in this encounter Visit Diagnoses Not on filedocumented in this encounter Care Teams Electrician Machine Shop Relationship Specialty Start Date End Date Sonja Causey MD [address] [place] [address] PCP - General 07/06/15 documented as of this encounter
--- OUTSIDE RECORDS SUMMARY | 2024-04-22 03:30 | XMS_ITS | Encounter Summary ---
Author Organization [facility] Address [address] [place] [address] Care Team Providers Care First Coat Sander Name Role Phone Sonja Causey MD Primary Care Provider [phone] Encounter Details Date Type Department Care Team (Late st Contact Info) Description 11/13/2023 Lab Requisition [facility] Pathology & Laboratory Medicine - [facility] [address] [place] [address] Outr Resulting Lab, Provider Social History Tobacco [...] 24.0 See Note mIU/mL 11/13/2023 17:55 EDT [facility] Comment: NOTE: Female Reference Ranges: [...] Resulting Lab CHEMISTRY & BLOOD GAS ORDERABLES [facility] [address] [place] [phone] * FSH (11/13/2023 8:21 EDT) FSH 47.4 See Note mIU/mL 11/13/2023 17:55 EDT [facility] Blood VENOUS BLOOD / Unknown 11/13/2023 8:21 EDT 11/13/2023 16:58 EDT Narrative [facility] - 11/13/2023 17:55 EDT NOTE: [...] & BLOOD GAS ORDERABLES Performing Organization Address [facility] Co de Phone Number [facility] [address] [place] [address] * CELIAC DISEASE PANEL (11/13/2023 8:21 EDT) Tissue Transglutaminase Antibody, IgA <4.0 <20.0 CU 11/14/2023 10:48 EDT [facility] Comment: A negative result may be due to IgA deficiency and does not rule out celiac disease. Negative: <20.0 CU Weak Positive: 20.0-30.0 CU Positive: >30.0 CU Results were obtained with the TelecardiaA Flash h-tTG IgA chemiluminescent immunoassay. Values obtained with different manufacturers' assay methods may not be used interchangeably. IgA 195 85 - 499 mg/dL 11/14/2023 10:48 EDT [facility] Celiac Disease Interpretation Negative Serology. Celiac disease unlikely. Approximately 10% of patients with celiac disease are seronegative. Patients who are already adhering to a gluten-free diet may also be seronegative. If celiac disease is highly clinically suspected, referral to gastroenterology for additional evaluation is recommended. 11/14/2023 10:48 EDT [facility] Blood VENOUS BLOOD / Unknown 11/13/2023 8:21 EDT 11/13/2023 16:58 EDT Provider Outr Resulting Lab IMMUNOLOGY A ND SEROLOGY ORDERABLES Performing Organization Address City/[facility] Co de Phone Number [facility] [address] [place] [address] documented in this encounter Visit Diagnoses Not on filedocumented in this encounter Care Teams First Coat Sander Relationship Specialty Start Date End Date Sonja Causey MD [address] [place], [place] [address] PCP - General 07/06/15 documented as of this encounter
--- OUTSIDE RECORDS SUMMARY | 2024-04-22 03:30 | XMS_ITS | Encounter Summary ---
Author Organization [facility] Address [address] [place] [address] Care Team Providers Care Regional Controller Name Role Phone Sonja Causey MD Primary Care Provider [phone] Encounter Details Date Type Department Care Team (Late st Contact Info) Description 11/11/2023 Lab Requisition [facility] Pathology & Laboratory Medicine - [address] [address] Outr Resulting Lab, Provider Social History Tobacco [...] H. Pylori Negative Negative 11/12/2023 14:15 EDT [facility] Comment:Indicates the absenc e of H. pylori stool antigen, (or the level of antigen is below that which can be detected by the assay) Feces SPECIMEN FROM RECTUM / Unknown 11/11/2023 6:45 EDT 11/11/2023 21:38 EDT Narrative [facility] - 11/12/2023 14:15 EDT New Liaison XL testing method used as of 06/17/2023 Provider Outr Resulting Lab MICROBIOLOGY - GENERAL ORDERABLES [facility] [address] [place], [place] [address] documented in this encounter Visit Diagnoses Not on filedocumented in this encounter Care Teams Regional Controller Relationship Specialty Start Date End Date Sonja Causey MD [address] [place], [place] [address] PCP - General 07/06/15 documented as of this encounter
--- OUTSIDE RECORDS SUMMARY | 2024-04-22 03:30 | XMS_ITS | Encounter Summary ---
Author Organization [facility] Address [address] [place] [address] Care Team Providers Care Semiconductor Processing Technician Name Role Phone Sonja Causey MD Primary Care Provider [phone] Encounter Details Date Type Department Care Team (Late st Contact Info) Description 05/18/[address] [facility] [phone] Franca Briceno, STOVE INSTALLER [address] [place] [id number] Social History Tobacco Use Types Packs/Day Years [...] ? GIANA YEAGER ? Accession #: ? [id number] ? : ? 1970 (Age: 49) ??F [...] types 16,18,31,33,35, 39,45,51,52,56,58, 59,66, and 68 by operations clerk mediated amplification. Comments Document reviewed and electronically signed by: ? System Interface ? Report date: 05/21/2019 By the signature above, the attending physician certifies that he/she has personally conducted a gross and/or microscopic examination of the described specimens and rendered or confirmed the above diagnosis. End of Report [facility] 05/18/2019 05/19/2019 Franca Briceno APRN PATHOLOGY ORDERAB LES [facility] [address] [place] [address] documented in this encounter Visit Diagnoses Not on filedocumented in this encounter Care Teams Semiconductor Processing Technician Relationship Specialty Start Date End Date Sonja Causey MD [address] [place], [place] [id number] PCP - General 07/06/15 documented as of this encounter
--- OUTSIDE RECORDS SUMMARY | 2024-04-22 03:31 | XMS_ITS | Encounter Summary ---
Author Organization [facility] Address [facility] [place] [address] Care Team Providers Care Actuarial Mathematician Name Role Phone Sonja Cannon MD Primary Care Provider [phone] Reason for Visit * Reason Comments Skin Lesion Encounter Details Date Type Department Care Team (Late st Contact Info) Description 08/11/2019 9:00 AM EST Office Visit Dermatology at [facility] [address] [place] [address] Lóen Gibson MD [facility] [address] KAMAL[place] [address] EIC (epidermal inclusion cyst) Social History Tobacco [...] the eyelid: unknown type 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
--- OUTSIDE RECORDS SUMMARY | 2024-04-22 03:31 | XMS_ITS | Encounter Summary ---
Author Organization [facility] Address [address] [place] [address] Care Team Providers Care Clam Treader Name Role Phone Unavailable Primary Care Provider Unavailabl e Encounter Details Date Type Department Care Team (Late st Contact Info) Description 04/23/2003 Results Only [facility] - Maple conversion [address] [place] [address] Joey Mendoza, DO [address] [facility] [address] [place] [address] Social History Tobacco Use Types Packs/Day Years [...] Name: ? TOYGIANA ? Accession #: ? [id number] ? : ? 1970 (Age: 33) ??F [...] seen as erythematous on endoscopic examination. ??([place] Document reviewed and electronically signed by: Silvio [...] is entirely submitted in one cassette. ??([facility] [place] End of Report S[facility] PIERSON 04/23/2003 04/27/2003 15: 41 EDT Joey Mendoza DO PATHOLOGY ORDER FAVIO S[facility] PIERSON [address] [place] [address] documented in this encounter Visit Diagnoses Not on filedocumented in this encounter
--- OUTSIDE RECORDS SUMMARY | 2024-04-22 03:31 | XMS_ITS | Encounter Summary ---
[place] [address] Care Team Providers Care Agent Broker Name Role Phone Sonja Charles MD Primary Care Provider [phone] Reason for Visit * Reason Comments Care Encounter Details Date Type Department Care Team (Latest Contact Info) Description 07/26/2011 11:30 AM EST Visit Obstetrics [place] [address] Jonathan New MD [facility] [address] OBSTET[place] [address] care and examination (Primary Dx) Discharge Disposition: [...] that includes Gynecologic cryosurgery; section; Delivery Only (17939) (06/14/2011); and Ligate Fallopian Tube (44370) (06/14/2011). Patient Active Problem List Diagnoses Date Noted ??? Hospital-Rubella non-immune status [V49.89CX] 12/06/2010 ??? Hospital-Vitamin B12 deficiency [266.2AM] 11/24/2010 ??? Hospital-Family or maternal historic risk of congenital anomaly, antepartum [655.23G] 11/24/2010 OB History Grav Para Term Abortions TAB SAB Ect Mult Living 3 3 3 3 # Outc Date GA Lbr [place]/2nd Wgt Sex Del Anes PTL Lv 1 TRM 03/28 38w0d 3.515kg(1tq10of) M LTCS Spinal Yes Comments: congenital VSD [...] stressed. Ms. Yeager plans to resume routine UROLOGY TEACHER care with her PCP. Serina New MD, MPH Cc:SONJA CHARLES MD [address] / [facility] [address] documented in this encounter Miscellaneous Notes * Miscellaneous - Oscar Barrel Leveler - 08/02/2011 11:26 AM EST documented in this encounter Plan of Treatment Not on file documented as of this encounter Procedures Procedure Name Priority Date/Time Associated Diagnosis Comments UROLOGY TEACHER CYTOLOGY FINAL REPORT Routine 07/26/2011 3:26 PM EST CYTOPATHOLOGY GYNECOLOGICAL Routine 07/26/2011 1:42 PM EST care and examination documented in this encounter Results * UROLOGY TEACHER CYTOLOGY FINAL REPORT (07/26/2011 3:26 PM EST) Bartender Manager Cytology Final Report ? [facility] ? Provider: ?? Jonathan NEW ?Pt. Name: ?? MARCELL YEAGER ?PRIYANKA ? Acc #: ?[id number] ?Pt. ? Col Date: ?? 07/26/2011 ? /Sex: ?1970,(41 years),Female ? Rec Date: ?? 07/26/2011 ? LOC: ?5L ? CYTOPATHOLOGY: ??UROLOGY TEACHER ? ---Adequacy--- ? Specimen submitted is satisfactory [...] by: ??ETHAN Kenny(ASCP), Sonja Duarte - ? Java Lead ? ---Clinical Information--- ? HPV Option: ? Reflex HPV ? Preparation: ?Liquid Based Pap ? Specimen Source: ?Cervical Endocervical LBP ? LMP: ?Unknown ? Hormones?: ?No ? Hysterectomy?: ?No ?: ?Yes ?: ?No ? I.U.D.?: ?No ? Pelvic Radiation: ? No ? Prior UROLOGY TEACHER Therapy?: ? No ? Hist Abnl Pap/Biopsy?: ??No ? Hist of HPV Vaccine?: ?? No ? Hist of Smoking?: ? No ? Hist of MCKENZIE exposure?: ??No ? Clinical Data, Significant Therapy and Clinical Impression: ? Note: ? [facility] ? Provider: ?? Jonathan NEW ?Pt. Name: ?? MARCELL YEAGER ?PRIYANKA ? Acc #: ?[id number] ?Pt. ? Col Date: ?? 07/26/2011 ? /Sex: ?1970,(41 years),Female ? Rec Date: ?? 07/26/2011 ? LOC: ?5L ? The Pap test is a screening test for cervical cancer with an inherent ? false-negative rate dependent upon several variables. ??For further ? information please contact the [facility] Laboratory. ? CYTOPATHOLOGY: ??UROLOGY TEACHER ? Reference: ??Mai CS. ??Orthopedic Tech of Pap Smear Results. ??In: ? Leonid [...] Priyanka New MD PATHOLOGY/CYTOLOG Y ORDERABLES [facility] documented in this encounter Visit Diagnoses Diagnosis care and examination- Primary Routine follow-up documented in this encounter Care Teams Agent Broker Relationship Specialty Start Date End Date Sonja Charles MD [address] [place] [address] PCP - General 07/18/10 09/26/16 documented as of this encounter
--- OUTSIDE RECORDS SUMMARY | 2024-04-22 03:31 | XMS_ITS | Encounter Summary ---
Author Organization [facility] Address [facility] [place] [address] Care Team Providers Care Coin Dealer Name Role Phone Sonja Cannon MD Primary Care Provider [phone] Reason for Visit * Reason Comments Wound Check Encounter Details Date Type Department Care Team (Late st Contact Info) Description 09/07/2019 11:00 AM EST Office Visit Dermatology at [facility] [address] [place] [address] León Gibson MD [facility] [address] KAM[place] [address] Hematoma Social History Tobacco Use Types Packs/Day [...] eyelid: unknown type ?? 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 LOT: [id number] EXP: December 2020 RTC: 09/11/2019 for suture removal The following photos were obtained with patient consent: Note initiated by CHEYANNE Romano. I, HCEYANNE Romano, have performed the documentation for this encounter in the presence of and acting as a scribe for León Gibson MD. I performed the services which were documented by the scribe, and I agree with the accuracy of the documentation in this encounter. León Gibson MD Reviewed and signed by: León Gibson MD Resident in Dermatology [facility] Patient seen and evaluated with staff secondary school special ed teacher: Johny Tolbert MD Section of Dermatology [facility] * Johny Tolbert MD - 09/07/2019 11:00 [...] site documented in this encounter Care Teams Coin Dealer Relationship Specialty Start Date End Date Sonja Cannon MD [address] [place] [address] PCP - General Internal Medicine 09/27/16 03/03/22 documented as of this encounter
--- OUTSIDE RECORDS SUMMARY | 2024-04-22 03:31 | XMS_ITS | Encounter Summary ---
[place] [address] Care Team Providers Care Field Property Loss Specialist Name Role Phone Sonja Causey MD Primary Care Provider [phone] Reason for Visit * Reason Onset Date Comments Results 12/05/2012 Encounter Details Date Type Department Care Team (Late st Contact Info) Description 12/05/2012 [place] [id number] Tete Moseley MD [facility] DR ALLERGY [place] [address] Results Social History Tobacco Use Types Packs/Day [...] +1SD 41.0 +2SD 127.0 Test Performed by: [place] [address] Project Construction Assistant Manager: Miko Clarke III, M.D. REVISED RESULTS -- REFERENCE VALUE -- Mean 13.2 +1SD 41.0 +2SD 127.0 REVISED REPORT, Previously reported as: 13.2 (Reported 11/27/2012 09:32) Test Performed by: [place] [address] Project Construction Assistant Manager: Miko Clarke III, M.D. Corrected from 13.2 kU/L [NA] on 12/01/12 17:26:21 EDT by Contributor_system, LINCOLN. ? ? Cat Epi IgE 11/26/2012 <0.35 Final Comment: Class 0 (Negative <0.35) Test Performed by: [place] [address] Project Construction Assistant Manager: Miko Clarke III, M.D. ? ? Dog Epi IgE 11/26/2012 <0.35 Final Comment: Class 0 (Negative <0.35) Test Performed by: [place] [address] Project Construction Assistant Manager: Miko Clarke III, M.D. ? ? Mites/D.F. IgE 11/26/2012 <0.35 Final Comment: Class 0 (Negative <0.35) Test Performed by: [place] [address] Project Construction Assistant Manager: Miko Clarke III, M.D. ? ? Mites/D.P. IgE 11/26/2012 <0.35 Final Comment: Class 0 (Negative <0.35) Test Performed by: [place] [address] Project Construction Assistant Manager: Miko Clarke III, M.D. ??? Glucose Lvl 11/26/2012 83 60 - 199 mg/dL Final Diabetes: >=200 mg/dL plus symptoms ??? BUN 11/26/2012 14 8 - 18 mg/dL Final ??? Creatinine 11/26/2012 0.70 0.70 - 1.20 mg/dL Final Comment: Please note that the pediatric reference intervals supplied above were not validated at [facility]. Results from pediatric patients should be interpreted [...] 0.00 - 0.05 x10(3)/mcL Final ??? Misc [place] 11/26/2012 Final Value: Test Result Flag Unit [...] approved by the FDA. Test Performed by: [facility] [address] [place] [address] Test results reviewed with Ms. Yeager. Her [...] on filedocumented in this encounter Care Teams Field Property Loss Specialist Relationship Specialty Start Date End Date Sonja Causey MD [address] [place] [address] PCP - General 07/18/10 09/26/16 documented as of this encounter
--- OUTSIDE RECORDS SUMMARY | 2024-04-22 03:31 | XMS_ITS | Encounter Summary ---
Author Organization [facility] Address [facility] [place] [address] Care Team Providers Care Unit Support Representative Name Role Phone Sonja Causey MD Primary Care Provider [phone] Encounter Details Date Type Department Care Team (Late st Contact Info) Description 05/24/2011 2:03 PM EDT - 05/24/2011 11:59 PM EDT Hospital Encounter ZUNSCHEDULED Angelica Monroe MD [facility] [place] [address] Discharge Disposition: Home Social History Tobacco Use [...] on filedocumented in this encounter Care Teams Unit Support Representative Relationship Specialty Start Date End Date Sonja Causey MD [address] [place] [address] PCP - General 07/18/10 09/26/16 documented as of this encounter
--- OUTSIDE RECORDS SUMMARY | 2024-04-22 03:31 | XMS_ITS | Encounter Summary ---
Author Organization [facility] Address [facility] [place] [address] Care Team Providers Care Substitute School Nurse Name Role Phone Sonja Cannon MD Primary Care Provider [phone] Reason for Visit * Reason Comments Suture / Staple Removal Encounter Details Date Type Department Care Team (Latest Contact Info) Description 09/11/2019 1:00 PM EST Clinical Support Dermatology at [facility] [address] [place] [address] CallLeón MD [facility] [address] KAM[place] [address] Visit for suture removal Social History Tobacco [...] by Addy Gibson MD Resident in Dermatology [facility] Staff quarry supervisor: Angelica White MD Section of Dermatology [facility] ? Jerrica Whitney MD Section of Dermatology [facility] * Angelica White MD - 09/11/2019 1:00 PM EST I was the supervising physician working with dermatology resident Dr. Gibson in the dermatology clinic during this patient visit. The level of Resident supervision for this patient visit was indirect supervision with direct supervision immediately available. (definition: [facility] Policy Statement on G raduate Medical [...] sutures documented in this encounter Care Teams Substitute School Nurse Relationship Specialty Start Date End Date Sonja Cannon MD [address] [place] [address] PCP - General Internal Medicine 09/27/16 03/03/22 documented as of this encounter
--- OUTSIDE RECORDS SUMMARY | 2024-04-22 03:31 | XMS_ITS | Encounter Summary ---
Author Organization [facility] Address [address] [place] [address] Care Team Providers Care Cushion Sewer Name Role Phone Unavailable Primary Care Provider Unavailabl e Encounter Details Date Type Department Care Team (Late st Contact Info) Description 10/13/2004 Results Only [facility] [address] [place] [address] Pal Zuleta MD [address] [place] [address] Social History Tobacco Use Types Packs/Day Years [...] ? GIANA YEAGER ? Accession #: ? [id number] : ? 1970 (Age: 34) ??F ?Collect [...] Zuleta MD PATHOLOGY ORDERABLES Performing Organization Address City/State/[facility] Co de Phone Number SANDY PIERSON [address] [place] [address] documented in this encounter Visit Diagnoses Not on filedocumented in this encounter
--- OUTSIDE RECORDS SUMMARY | 2024-04-22 03:31 | XMS_ITS | Encounter Summary ---
Author Organization [facility] Address [facility] [place] [address] Care Team Providers Care Other Spatial Scientist Name Role Phone Sonja Causey MD Primary Care Provider [phone] Encounter Details Date Type Department Care Team (Late st Contact Info) Description 06/14/2011 12:40 PM EDT - 06/14/2011 2:28 PM [place] [phone] Rosie Hastings MD [facility] OBSTETRICS & [place] [address] @ DELIVERY (WRVU 16.13) Social History Tobacco [...] this in detail. Call your doctor or wash driller helper for: Fever more than 100.5 Heavy bleeding [...] follow up appointment. You may call the [facility] at any time for guidance or for answers to questions that come up prior to you follow up appointment. Your [facility] Provider can be reached during office hours at [facility] Follow-up Clinic AFTER OFFICE HOURS for the manager of maintenance or wash driller helper husbandry person Provider electronic signature confirms that discharge instructions [...] two older sons Martha and Doreen Where: [place], [place] Approx time in community: Years Social Resources: Intact couple. employed. 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 Have [place] Medicaid and WIC in place. Have local family support : Grandparents. Extended family in area for support: YES Cognitive Resources: Intact Childbirth Education: Yes/No Educational level: High School Functional Status: Ambulatory, Independent, Without limitations. C/S recovery with limitations on lifting/driving x 2 weeks. Complications requiring follow-up: Financial Resources: [place] Health Insurance Coverage: [place] Cleat Blanker Chosen: Dr. James Mathews MD Baby's Name: [...] Vt Healthy Babies: Referral to [facility]: [facility] DME ordered : None Breast Pump: N/A Other: Have infant car seat, own transportation, and adequate family support. No direct referrals made at this time. . CRC: Rosie Kuhn RNC/ Jackelyn Flores. Beeper 5760 * Nash Beaulieu MD - 06/15/2011 5:36 [...] MD - 06/14/2011 1:02 PM EDT Inpatient FAST FOOD CASHIER - Admission Interval Note I have reviewed [...] Discharge date: 06/16/2011 Attending Physician: Dr. Beaulieu [facility] Term Delivery Discharge Summary Discharge Diagnoses: Primary [...] Discharge Medications Giana Yeager Home Medication Instructions TAMIR:[id number] Printed on:06/17/11 2681 Medication Information MULTIVITAMIN ORAL CYANOCOBALAMIN, VITAMIN B-12, [...] this in detail. Call your doctor or wash driller helper for: Fever more than 100.5 Heavy bleeding [...] follow up appointment. You may call the [facility] at any time for guidance or for answers to questions that come up prior to you follow up appointment. Your [facility] Provider can be reached during office hours at [facility] Follow-up Clinic AFTER OFFICE HOURS for the manager of maintenance or wash driller helper husbandry person Provider electronic signature confirms that discharge instructions [...] Faye Huffman - 06/14/2011 4:09 PM EDT [facility] Operative Note Patient Name: Giana Yeager : [id number] MR#: [id number] Case Date: 06/14/2011 Surgeon: Surgeon(s) and Role: [...] was then clamped and cut and the infant was handed off to pediatricians. The placenta [...] this time bilateral tubal ligation was performed [facility]. The fallopian tubes were individually identified and followed to their fimbriated ends. The mid isthmic portion of the tube was grasped with a Deniz and elevated to form a knuckle of [...] her room in stable condition with her . All counts were correct times two. Dr. [...] (ml): 1000 Information for the patient's : iGo Yeager [[id number]] Delivery 06/14/2011 1:58 PM by Lower Segment [...] providers: Delivery Assist Delivery Nurse Registered Nurse Salvage Mechanic Surgeon Cleat Blanker Faye Arora Additional information: Forceps: Vacuum: Breech: [...] 06/14/2011 10:50 AM EDT TYPE AND SCREEN ([facility]/CGP/GIUSEPPE) Routine 06/14/2011 10:50 AM EDT SURGICAL PATHOLOGY REPORT Routine 06/14/2011 10:23 AM EDT documented in this encounter Results * (ABNORMAL) A-DIFF (06/15/2011 5:10 AM EDT) Neutrophil % 82.0(H) 34.0 - 71.0 % CERNER MILLENNIUM Neutrophil Absolute 11.46(H) 1.50 - 6.30 x10(3)/mc L CERNER MILLENNIUM Lymph % 8.7(L) 19.0 - 53.0 % CERNER MILLENNIUM Lymphocytes Abs 1.2 1.0 - 3.6 x10(3)/mc L CERNER MILLENNIUM Monocyte % 8.4 4.0 - 13.0 % CERNER MILLENNIUM Monocyte Abs 1.2(H) 0.2 - 1.0 x10(3)/mc L CERNER MILLENNIUM Eos % 0.6 0.0 - 7.0 % CERNER MILLENNIUM Eosinophils Abs 0.1 0.0 - 0.5 x10(3)/mc L CERNER MILLENNIUM Basophil % 0.1 0.0 - 2.0 % CERNER MILLENNIUM Baso Absolute 0.0 0.0 - 0.2 x10(3)/mc L CERNER MILLENNIUM Immature Gran % 0.20 0.00 - 0.66 % CERNER MILLENNIUM Comment: Immature granulocytes(IG's)percentage and absolute count will include metamyelocytes, myelocytes, and promyelocytes. Blood smears from CBCs yielding IG's will be scanned manually for concordance. If this scan disagrees with the automated IG or if promyelocytes are noted, a manual differential will be performed. Immature Gran Absolute 0.03 0.00 - 0.05 x10(3)/mc L CERNER MILLENNIUM Blood specimen (specimen) 06/15/2011 5:10 AM EDT 06/15/2011 5:23 AM EDT Rosie Hastings MD HEMATOLOGY ORDERABL ES CERDAVID WESTBROOKENNIUM * (ABNORMAL) CBC (with Diff) (06/15/2011 5:10 AM EDT) White Blood Cell 14.0(H) 4.0 - 10.0 x10(3)/mc L CERNER MILLENNIUM Red Blood Cell 3.30(L) 3.93 - 5.22 x10(6)/mc L CERNER MILLENNIUM Hemoglobin 9.3(L) 11.2 - 15.7 gm/dL CERNER MILLENNIUM Hematocrit 27.7(L) 34.0 - 45.0 % CERNER MILLENNIUM Mean Cell Volume 83.9 79.0 - 94.0 fL CERNER MILLENNIUM Mean Cell Hemoglobin 28.2 26.6 - 32.2 pg CERNER MILLENNIUM Mean Cell Hemoglobin Concentration 33.6 32.0 - 36.5 gm/dL CERNER MILLENNIUM Platelet 251 145 - 370 x10(3)/mc L CERNER MILLENNIUM RDW Standard Deviation 44.5 35.0 - 46.0 fL CERNER MILLENNIUM RDW coefficient of variation 14.5(H) 10.9 - 14.4 % CERNER MILLENNIUM Mean Platelet Volume 10.2 9.0 - 12.0 fL CERNER MILLENNIUM Blood specimen (specimen) 06/15/2011 5:10 AM EDT 06/15/2011 5:23 AM EDT Rosie Hastings MD HEMATOLOGY ORDERABL ES [facility] * Surgical Pathology Report (06/14/2011 4:12 PM EDT) Surgical Pathology Report [id number] ? Location: ; BP18; B The signing pathologist has (i) [...] Hastings MD PATHOLOGY/CYTOLOGY ORDERABLES Performing Organization Address [facility] de Phone Number JULIUS CRUM * Specimen to Pathology (surgical or derm) (06/14/2011 4:10 PM EDT) AP Specimen 06/14/2011 4:10 PM EDT 06/14/2011 4:10 PM EDT Narrative UNANER LUISIUM - 06/14/2011 4:10 PM EDT Specimen requisition ordered. ??Separate Pathology report to follow Rosie Hastings MD PATHOLOGY/CYTOLOGY ORDERABLES Performing Organization Address [facility] de Phone Number JULIUS CRUM * Specimen to Pathology (surgical or derm) (06/14/2011 4:03 PM EDT) AP Specimen 06/14/2011 4:03 PM EDT 06/14/2011 4:04 PM EDT Narrative CERNER MILLENNIUM - 06/14/2011 4:04 PM EDT Specimen requisition ordered. ??Separate Pathology report to follow Rosie Hastings MD PATHOLOGY/CYTOLOGY ORDERABLES Performing Organization Address [facility] Phone Number [facility] * Specimen to Pathology (surgical or derm) (06/14/2011 4:03 PM EDT) AP Specimen 06/14/2011 4:03 PM EDT 06/14/2011 4:04 PM EDT Narrative JULIUS SMITHIUM - 06/14/2011 4:04 PM EDT Specimen requisition ordered. ??Separate Pathology report to follow Rosie Hastings MD PATHOLOGY/CYTOLOGY ORDERABLES Performing Organization Address [facility] Phone Number [facility] * Specimen to Pathology (surgical or derm) (06/14/2011 1:52 PM EDT) AP Specimen 06/14/2011 1:52 PM EDT 06/14/2011 1:52 PM EDT Narrative [facility] - 06/14/2011 1:52 PM EDT Specimen requisition ordered. ??Separate Pathology report to follow Rosie Hastings MD PATHOLOGY/CYTOLOGY ORDERABLES Performing Organization Address [facility] de Phone Number [facility] * Specimen to Pathology (surgical or derm) (06/14/2011 1:49 PM EDT) AP Specimen 06/14/2011 1:49 PM EDT 06/14/2011 1:49 PM EDT Narrative UNANER LUISIUM - 06/14/2011 1:49 PM EDT Specimen requisition ordered. ??Separate Pathology report to follow Rosie Hastings MD PATHOLOGY/CYTOLOGY ORDERABLES Performing Organization Address [facility] Co de Phone Number [facility] * (ABNORMAL) A-DIFF (06/14/2011 10:50 AM EDT) Neutrophil % 77.0(H) 34.0 - 71.0 % CERDAVID WESTBROOKENNIUM Neutrophil Absolute 7.63(H) 1.50 - 6.30 x10(3)/mc L CERNER MILLENNIUM Lymph % 13.5(L) 19.0 - 53.0 % CERNER MILLENNIUM Lymphocytes Abs 1.3 1.0 - 3.6 x10(3)/mc L CERNER MILLENNIUM Monocyte % 8.2 4.0 - 13.0 % CERNER MILLENNIUM Monocyte Abs 0.8 0.2 - 1.0 x10(3)/mc L CERNER MILLENNIUM Eos % 0.8 0.0 - 7.0 % CERNER MILLENNIUM Eosinophils Abs 0.1 0.0 - 0.5 x10(3)/mc L CERNER MILLENNIUM Basophil % 0.2 0.0 - 2.0 % CERNER MILLENNIUM Baso Absolute 0.0 0.0 - 0.2 x10(3)/mc L CERNER MILLENNIUM Immature Gran % 0.30 0.00 - 0.66 % CERNER MILLENNIUM Comment: Immature granulocytes(IG's)percentage and absolute count will include metamyelocytes, myelocytes, and promyelocytes. Blood smears from CBCs yielding IG's will be scanned manually for concordance. If this scan disagrees with the automated IG or if promyelocytes are noted, a manual differential will be performed. Immature Gran Absolute 0.03 0.00 - 0.05 x10(3)/mc L JULIUS SMITHIUM Blood specimen (specimen) 06/14/2011 10:50 AM EDT 06/14/2011 11:13 AM EDT Rosie Hastings MD HEMATOLOGY ORDERABL ES JULIUS SMITHIUM * ANTIBODY SCREEN (06/14/2011 10:50 AM EDT) Pathologist [facility] Ab Screen Interp Negative JULIUS SMITHIUM Expires at [id number] on: [id number] JULIUS SMITHIUM Blood specimen (specimen) 06/14/2011 10:50 AM EDT 06/14/2011 11:13 AM EDT Rosie Hastings MD BLOOD BANK LAB ARIJonathan WARREN Performing Organization Address [facility]/ZIP Co de Phone Number CERDAVID SMITHIUM * ABO/RH TYPING (06/14/2011 10:50 AM EDT) ABORH Type A Pos CERNER MILLENNIUM Blood specimen (specimen) 06/14/2011 10:50 AM EDT 06/14/2011 11:13 AM EDT Rosie Hastings MD BLOOD BANK LAB ORDJonathan ALISADONG Performing Organization Address [facility] Co de Phone Number CERDAVID MILLENNIUM * (ABNORMAL) CBC (with Diff) (06/14/2011 10:50 AM EDT) White Blood Cell 9.9 4.0 - 10.0 x10(3)/mc L CERNER MILLENNIUM Red Blood Cell 3.99 3.93 - 5.22 x10(6)/mc L CERNER MILLENNIUM Hemoglobin 11.3 11.2 - 15.7 gm/dL CERNER MILLENNIUM Hematocrit 33.5(L) 34.0 - 45.0 % CERNER MILLENNIUM Mean Cell Volume 84.0 79.0 - 94.0 fL CERNER MILLENNIUM Mean Cell Hemoglobin 28.3 26.6 - 32.2 pg CERNER MILLENNIUM Mean Cell Hemoglobin Concentration 33.7 32.0 - 36.5 gm/dL CERNER MILLENNIUM Platelet 298 145 - 370 x10(3)/mc L CERNER MILLENNIUM RDW Standard Deviation 43.9 35.0 - 46.0 fL CERNER MILLENNIUM RDW coefficient of variation 14.4 10.9 - 14.4 % CERNER MILLENNIUM Mean Platelet Volume 10.6 9.0 - 12.0 fL CERNER MILLENNIUM Blood specimen (specimen) 06/14/2011 10:50 AM EDT 06/14/2011 11:13 AM EDT Rosie Hastings MD HEMATOLOGY ORDERABL ES Performing Organization Address [facility] Co de Phone Number CERNER MILLENNIUM * Surgical Pathology Report (06/14/2011 10:23 AM EDT) Surgical Pathology Report [id number] ? Location: BP; BP18; B The signing [...] ?? Carney discoid placenta. ?? Membranes: ? Thatcher, semitransparent with marginal insertion. ?? Cord: ?62.0 x 1.4 cm; three vessels; eccentric insertion. ?? Surface: ? Thatcher-purple, smooth, and glistening, with prominent ?vasculature, unremarkable. ?? Maternal Surface: ??Intact, red-brown, and spongy with diffuse ?calcification. ?? Parenchyma: ?The specimen is serially sectioned at 0.5-cm to ?1.0-cm intervals. ??Sections show red, hemorrhagic, ?spongy, unremarkable parenchyma. Sections/Processing : ??Permanent Mold Supervisor sections are submitted as follows: ?(1) membrane [...] in rendering the final pathologic diagnosis. [facility] 06/14/2011 10:2 3 AM EDT Rosie Hastings MD PATHOLOGY/CYTOLOGY ORDERABLES [facility] documented in this encounter Visit Diagnoses [...] (Due)1314 (New Bag - Provider: Paige Rashid, RN) citric acid-sodium citrate (BICITRA) oral solution 30 mL (CANCELED) 30 mL, Oral, MEDICAID BILLER TO O.R., On Emelia 06/14/11 at 1030, Routine 1030 (Due)1314 (Given - Provider: Paige Rashid, RN) docusate sodium (COLACE) capsule 100 mg 100 mg, Oral, 2 TIMES DAILY, First dose on Emelia 06/14/11 at 2100, Until Discontinued, Routine 2100 (Not Given - Provider: Rosalia Hale RN - Reason: See comment - Comment: pt nauseated) 0103 (Given - Provider: Renzo Villafana, RN)0810 (Given - Provider: Tequila Parmar RN) 0900 (Given - Provider: Paige Rashid, BONY) lactated ringers 500 mL IV bolus (COMPLETED) 500 mL, at 500 mL/hr, Intravenous, ONCE, 1 dose, On Emelia 11 at 1030, Prior to epidural placement or [...] Tequila Parmar RN)2300 (Given - Provider: Renzo Villafana, BONY) measles, mumps and rubella vaccine (MMR) vaccine [...] EVERY 4 HOURS PRN, Starting on Emelia 11 at 1609, Until 06/16/11 at 1611, Pain, [...] Routine documented in this encounter Care Teams Other Spatial Scientist Relationship Specialty Start Date End Date Sonja Causey MD [address] [place] [address] PCP - General 07/18/10 09/26/16 documented as of this encounter
--- OUTSIDE RECORDS SUMMARY | 2024-04-22 03:31 | XMS_ITS | Encounter Summary ---
Author Organization [facility] Address [facility] [place] [address] Care Team Providers Care Field Sales Consultant Name Role Phone Justina Juarez APRN Primary Care Provider [phone] Reason for Visit * Consultation (Routine) - Closed Specialty Diagnoses / Procedures Referred By Tomasa ledesma Referred To Contact Dermatology Diagnoses Melanocytic nevus, unspecified location Sofia Delaney L, KEVON [address] [place] [address] [facility] [address] [place] [address] Referral ID Status Reason Start Date Expiration Date V isits Requested Visits Authorized [id number] Closed Consult, Test & Treat PCP Updated and/or Approved 03/05/2022 03/05/2023 6 6 Encounter Details Date Type Department Care Team (Late st Contact Info) Description 03/29/2022 1:20 PM EDT Office Visit Dermatology at [facility] [address] [place] [address] Lashay Reed MD [facility] DR [address] [place] [address] Multiple benign nevi; Seborrheic keratoses; [...] for irritated nevus/ISK removal [x]Note routed to alumni secretary []Recall placed in scheduling system []Appointment scheduled at checkout Scribe attestation: Liliana Gregory has performed the documentation for this encounter in the presence of and acting as a scribe for Lashay Reed MD. I performed the above scribed service and agree with the accuracy of the documentation in this encounter. Reviewed and signed by: Lashay Reed MD Dermatology [facility] Patient seen and evaluated with staff director risk: Liliana Marrero MD Dermatology [facility] * Liliana Marrero MD - [...] physician's note. Liliana Marrero MD Staff Physician [facility] documented in this encounter Plan of [...] acquired documented in this encounter Care Teams Field Sales Consultant Relationship Specialty Start Date End Date ShaylamaxineJustina sanKEVON [address] [place] [address] PCP - General Family Medicine 03/04/22 documented as of this encounter
--- OUTSIDE RECORDS SUMMARY | 2024-04-22 03:31 | XMS_ITS | Encounter Summary ---
[place] [address] Care Team Providers Care Biological Technical Officer Name Role Phone Sonja Causey MD Primary Care Provider [phone] Reason for Visit * Reason Onset Date Comments Care 06/21/2011 Encounter Details Date Type Department Care Team (Late st Contact Info) Description 06/21/2011 Telephone Obstetrics [place] [phone] Jeimy Lion, metal tube cutter Care Social History Tobacco Use Types Packs/Day [...] will be bringing him today to the procurement officer for the third time for a weight [...] care documented in this encounter Care Teams Biological Technical Officer Relationship Specialty Start Date End Date Sonja Causey MD [address] [place] [address] PCP - General 07/18/10 09/26/16 documented as of this encounter
--- OUTSIDE RECORDS SUMMARY | 2024-04-22 03:31 | XMS_ITS | Clinical Summary ---
[place] [address] Care Team Providers Care Coal Feeder Operator Name Role Phone Justina Juarez APRN Primary Care Provider [phone] Allergies Active Allergy Reactions Criticality Noted Date [...] Date/Time Associated Diagnosis Comments COMPREHENSIVE METABOLIC PANEL Routine 11/26/2012 11:21 AM EDT Chronic urticaria INSTITUTIONAL RESEARCH COORDINATOR CYTOLOGY FINAL REPORT Routine 07/26/2011 3:26 PM EST HIV SCREEN, 4TH GENERATION ([facility]/CGP/APD/NLH) Routine 12/05/2010 9:13 AM EDT from Last 3 Months or Most Recently Relevant to Health Maintenance Results * Comprehensive metabolic panel (non-fasting) (11/26/2012 11:21 AM EDT) Glucose 83 60 - 199 mg/dL [facility] MILLENNIUM Comment:Diabetes: >=200 mg/d L plus symptoms Blood Urea Nitrogen 14 8 - 18 mg/dL [facility]ERNER MILLENNIUM Creatinine 0.70 0.70 - 1.20 mg/dL [facility]ER MILLENNIUM Comment: Please note that the pediatric reference intervals supplied above were not validated at [facility]. Results from pediatric patients should be interpreted [...] 104 98 - 107 mmol/L [facility]ERNER MILLENNIUM Carbon Dioxide 26 22 - 31 mmol/L [facility] MILLENNIUM Anion Gap 11 5 - 15 mmol/L CERNER MILLENNIUM Calcium 9.1 8.5 - 10.5 mg/dL CERNER MILLENNIUM Protein, Total 7.4 6.4 - 8.3 gm/dL CERNER MILLENNIUM Albumin 4.6 3.2 - 5.2 gm/dL CERNER MILLENNIUM Aspartate Aminotransferase 17 0 - 30 unit/L CERNER MILLENNIUM Alanine Aminotransferase 9 0 - 30 unit/L CERNER MILLENNIUM Alkaline Phosphatase 66 40 - 104 unit/L CERNER MILLENNIUM Bilirubin, Total 0.2 0.2 - 1.3 mg/dL CERNER MILLENNIUM Bilirubin, Direct <0.1 0.0 - 0.3 mg/dL CERNER MILLENNIUM Est Glomerular Filtration Rate >60 >=60 CERNER MILLENNIUM Comment: The National [...] Lab Tete Moseley MD CHEMISTRY ORDERABLES [facility] * INSTITUTIONAL RESEARCH COORDINATOR CYTOLOGY FINAL REPORT (07/26/2011 3:26 PM EST) Privacy Director Cytology Final Report ? [facility] ? Provider: ?? PSCHIRRER, E ?Pt. Name: ?? RAE YEAGERNAVDEEPMatilda GOLDMAN ?PRIYANKA ? Acc #: ?[id number] ?Pt. ? Col Date: ?? 07/26/2011 ? /Sex: ?1970,(41 years),Female ? Rec Date: ?? 07/26/2011 ? LOC: ?5L ? CYTOPATHOLOGY: ??INSTITUTIONAL RESEARCH COORDINATOR ? ---Adequacy--- ? Specimen submitted is satisfactory [...] by: ??ETHAN Kenny(ASCP), Sonja Duarte - ? Underwear Trimmer ? ---Clinical Information--- ? HPV Option: ? Reflex HPV ? Preparation: ?Liquid Based Pap ? Specimen Source: ?Cervical Endocervical LBP ? LMP: ?Unknown ? Hormones?: ?No ? Hysterectomy?: ?No ?: ?Yes ?: ?No ? I.U.D.?: ?No ? Pelvic Radiation: ? No ? Prior INSTITUTIONAL RESEARCH COORDINATOR Therapy?: ? No ? Hist Abnl Pap/Biopsy?: ??No ? Hist of HPV Vaccine?: ?? No ? Hist of Smoking?: ? No ? Hist of MCKENZIE exposure?: ??No ? Clinical Data, Significant Therapy and Clinical Impression: ? Note: ? [facility] ? Provider: ?? PSCHIRRER, E ?Pt. Name: ?? MARCELL YEAGER ?PRIYANKA ? Acc #: ?[id number] ?Pt. ? Col Date: ?? 07/26/2011 ? /Sex: ?1970,(41 years),Female ? Rec Date: ?? 07/26/2011 ? LOC: ?5L ? The Pap test is a screening test for cervical cancer with an inherent ? false-negative rate dependent upon several variables. ??For further ? information please contact the [facility] Laboratory. ? CYTOPATHOLOGY: ??INSTITUTIONAL RESEARCH COORDINATOR ? Reference: ??Abendroth CS. ??Expander of Pap Smear Results. ??In: ? Leonid BS, [facility], ed. ??The Pap Smear. ??[place]: ??Hermelindo, 2002: ? 71-77. [facility]US SM[facility] 07/26/2011 3:26 PM EST Jonathan New MD PATHOLOGY/CYTOLOG Y ORDERABLES [facility] * HIV (12/05/2010 9:13 AM EDT) HIV 1/2 Ab Negative CERDAVID SMITHIUM Blood specimen (specimen) 12/05/2010 9:13 AM EDT 12/05/2010 9:17 AM EDT Roshan Mcdaniel MD CHEMISTRY ORDERABLES [facility] from Last 3 Months or Most Recently Relevant to Health Maintenance Advance Directives * Full Code (Latest Code Status on File) Date Activated Date Inactivated Comments 06/14/2011 10:15 AM 06/14/2011 4:04 PM Question Answer Comments Order Status: Initial Order Does patient have decision m aking capacity? Yes, Order is based on Patients wishes. Care Teams Coal Feeder Operator Relationship Specialty Start Date End Date Justina Juarez APRN [address] [place] [address] [address] [place] [address] PCP - General Family Medicine 03/04/22
--- OUTSIDE RECORDS SUMMARY | 2024-04-22 03:31 | XMS_ITS | Encounter Summary ---
[place] [address] Care Team Providers Care Sanitation Worker Name Role Phone Justina Juarez APRN Primary [...] on filedocumented in this encounter Care Teams Sanitation Worker Relationship Specialty Start Date End Date Justina Juarez APRN [address] [place] [address] PCP - General Family Medicine 03/04/22 documented as of this encounter
--- OUTSIDE RECORDS SUMMARY | 2024-04-22 03:31 | XMS_ITS | Encounter Summary ---
[place] [address] Care Team Providers Care Marble Supervisor Name Role Phone Sonja Cannon MD Primary Care Provider [phone] Reason for Visit * Reason Comments Skin Check Encounter Details Date Type Department Care Team (Late st Contact Info) Description 10/09/2016 10:00 AM EST Office Visit Dermatology at [place] [address] [place] [phone] Nikhil Calles MD [address] [facility] [place] [address] Nevus; Seborrheic keratosis Social History Tobacco Use [...] keratosis documented in this encounter Care Teams Marble Supervisor Relationship Specialty Start Date End Date Sonja Cannon MD [address] [place] [address] PCP - General Internal Medicine 09/27/16 03/03/22 documented as of this encounter
--- OUTSIDE RECORDS SUMMARY | 2024-04-22 03:31 | XMS_ITS | Encounter Summary ---
Author Organization [facility] Address [address] [place] [address] Care Team Providers Care Pharmacy Intake Technician Name Role Phone Unavailable Primary Care Provider Unavailabl e Encounter Details Date Type Department Care Team (Late st Contact Info) Description 05/24/2008 Before PRISM Converted Visit (Maple) [facility] - Maple conversion [address] [place] [address] Sonja Causey MD [address] [place], [place] [id number] Social History Tobacco Use Types Packs/Day Years [...] GENER AL ORDERABLES [facility] [address] [place] [address] * CYTOPATHOLOGY (05/24/2008 0:00 EDT) Pathology Report: CYTOPATHOLOGY REPORT ? Reports generated via electronic interface contain original data; ? however they are lacking the format of the original report. ? Caution should be taken when reading/interpreti ng unformatted reports. ? Name: ? GIANA YEAGER ? Accession #: ? [id number] ? : ? 1970 (Age: 38) ??F [...] Causey MD PATHOLOGY ORDERABLES Performing Organization Address City/State/[facility] Co de Phone Number [facility] [address] [place] [address] documented in this encounter Visit Diagnoses Not on filedocumented in this encounter
--- OUTSIDE RECORDS SUMMARY | 2024-04-22 03:31 | XMS_ITS | Encounter Summary ---
Author Organization [facility] Address [facility] [place] [address] Care Team Providers Care Supervisor Forming And Tempering Name Role Phone Sonja Cannon MD Primary Care Provider [phone] Reason for Visit * Reason Comments Procedure Encounter Details Date Type Department Care Team (Latest Contact Info) Description 09/02/2019 11:00 AM EST Procedure visit Dermatology at [facility] [address] [place] [address] León Gibson MD [facility] DR [address] [place] [address] Neoplasm of uncertain behavior of skin Social [...] first week unless told differently. 5. Some legal archivist may need to be delayed or delegated [...] as often as is recommended by your push button switch assembler, for new skin cancers. This is once [...] it. If after hours, please call the fire hydrant operator or [phone] and ask for the push button switch assembler on-call. If you have any non-urgent questions or concerns, please feel free to call my office or contact me through our patient portal, [employer], at [email or web address] How to contact us during business hours Dermatology at [facility] [address]: documented in this encounter Progress Notes [...] Dermatology Procedure Note Surgeon: León Gibson MD Wood Products Manufacturer: Kathie Mathews LPN Preferred name: Giana Preferred [...] to call the clinic or the on-call push button switch assembler over the weekend. Follow up: 10 days for suture removal or sooner as needed. Instructed patient to call with any questions or concerns. Signatures: Kathie Karimi LPN, have performed the documentation for this encounter in the presence of andacting as a scribe for León Gibson MD. Reviewed and signed by Addy Gibson MD Resident in Dermatology [facility] Patient seen in conjunction with staff push button switch assembler: Jerrica Aviles MD Section of Dermatology [facility] * Jerrica Aviles MD - 09/02/2019 11:00 [...] Surgical Pathology Report (09/02/2019 1:43 PM EST) Final Diagnosis [id number] ? Location: [facility] The signing pathologist has (i) examined the relevant preparation(s) for the specimen(s) and (ii) rendered or confirmed the diagnosis(es). . ?Surgical Pathology DIAGNOSIS A. Skin, left chest, ?? excision: - Epidermal inclusion cyst with rupture and inflammatory reaction Electronically signed by: ??MomCharley vivar MD Verified: ??09/05/2019 ?Dermatopatholo gist Performed at: ??-[facility] [place] [place], [place], [place] CLINICAL INFORMATION Specimen Submitted: A - [...] labeled A1-A8. ??ejr 09/05/2019 2:40 PM EST [facility] EPIDERMOID CYST / Unknown 09/02/2019 1:43 PM EST 09/02/2019 1:43 PM EST León Gibson MD PATHOLOGY/CYTOLOGY O JOSE Performing Organization Address [facility] Co de Phone Number [facility] [place] [address] * Specimen to Pathology (09/02/2019 1:43 PM EST) AP Specimen 09/02/2019 1:43 PM EST 09/03/2019 10:01 AM EST Narrative [facility] - 09/03/2019 10:01 AM EST Specimen requisition ordered. ??Separate Pathology report to follow Resulting Agency Comment Spec In Lab Jerrica Aviles MD PATHOLOGY/CYTOLOGY O JOSE Performing Organization Address [facility]/ZIP Co de Phone Number [facility] [place] [address] documented in this encounter Visit Diagnoses Diagnosis Neoplasm of uncertain behavior of skin documented in this encounter Care Teams Supervisor Forming And Tempering Relationship Specialty Start Date End Date Sonja Cannon MD [address] [place] [address] PCP - General Internal Medicine 09/27/16 03/03/22 documented as of this encounter
--- OUTSIDE RECORDS SUMMARY | 2024-04-22 03:31 | XMS_ITS | Encounter Summary ---
Author Organization [facility] Address [address] [place] [address] Care Team Providers Care Gauger Chief Delivery Name Role Phone Unavailable Primary Care Provider Unavailabl e Encounter Details Date Type Department Care Team (Late st Contact Info) Description 02/17/2007 Results Only [facility] - Maple conversion [address] [place] [address] Gladys Charles MD [address] [place], [place] [phone] Social History Tobacco Use Types Packs/Day Years [...] Name: ? TOYGIANA ? Accession #: ? [id number] : ? 1970 (Age: 36) ??F ?Collect Date: ? 02/17/2007 Location: ? [facility] ? Receive Date: ? 02/19/2007 Provider: ?GLADYS CHARLES MD Copy to: ? Specimen/Source: ?ThinPrep Pap Test, Cervix/Endocervix, processed on [employer] ThinPrep Imaging System, with manual evaluation Last [...] End of Report [facility] 02/17/2007 02/19/2007 Gladys Charles MD PATHOLOGY ORDERABLES [facility] [address] [place] [address] documented in this encounter Visit Diagnoses Not on filedocumented in this encounter
--- OUTSIDE RECORDS SUMMARY | 2024-04-22 03:31 | XMS_ITS | Encounter Summary ---
[place] [address] Care Team Providers Care Manager Intensive Care Name Role Phone Sonja Causey MD Primary Care Provider [phone] Reason for Visit * Reason Comments Routine Visit Encounter Details Date Type Department Care Team (Latest Contact Info) Description 05/31/2011 2:00 PM EDT Routine Obstetrics [place] [address] Angelica Monroe MD [facility] OBSTETRICS [place] [address] GA: [id number] Discharge Disposition: Home Social History [...] 06/07/2011 02:39 pm) Patient Info ID: ? [id number] ? : ??[birth year] (41 yrs) Name: ? GIANA GOLDMAN ? Visit Date: 06/07/2011 02:21 pm ? CHRISTELLE Performed By Performed By: ?? ALICIA Haas ??Madelyn Attending: ?Naty [place], Julieta Mcleod Referred By: ?BURAK Kahn MD Accession#: ? [id number] Service(s) Provided UOBFOL - Efw - Growth - Reevaluation - [place] ?[id number] - [id number] Indications Patient would like assessment of the [...] Final 06/07/2011 02:39 pm) Patient Info ID: [id number] : [birth year] (41 yrs) Name: GIANA GOLDMAN Visit Date: 06/07/2011 02:21 pm CHRISTELLE Performed By Performed By: ALICIA Haas Attending: Julieta Alfonso MD Referred By: BURAK Kahn MD Service(s) Provided UOBFOL - Efw - Growth - Reevaluation - [place] [id number] - [phone] Indications Patient would like assessment of the [...] status documented in this encounter Care Teams Manager Intensive Care Relationship Specialty Start Date End Date Sonja Cauesy MD [address] [place] [address] PCP - General 07/18/10 09/26/16 documented as of this encounter
--- OUTSIDE RECORDS SUMMARY | 2024-04-22 03:31 | XMS_ITS | Encounter Summary ---
Author Organization [facility] Address [facility] [place] [address] Care Team Providers Care System Software Developer Name Role Phone Sonja Cannon MD Primary Care Provider [phone] Reason for Visit * Reason Comments Cyst * Consultation (Routine) - Closed Specialty Diagnoses / Procedures Referred By Tomasa ledesma Referred To Contact Dermatology Diagnoses skin lesion of chest wall Kalpana Holcomb J, LEVELER HELPER [address] [place] [address] [facility] Dermatology [address] [place] [address] Referral ID Status Reason Start Date Expiration Date V isits Requested Visits Authorized [id number] Closed Consult, Test & Treat Connection Center 07/08/2018 07/08/2019 1 1 Encounter Details Date Type Department Care Team (Late st Contact Info) Description 08/13/2018 10:30 AM EST Office Visit Dermatology at [facility] [address] [place] [address] Chelsea Araujo MD [facility] [place] [address] Sharri Ayala PA [facility] [place] [address] Seborrheic keratoses; EIC (epidermal inclusion cyst) Social [...] if areas become inflamed or irritated. LOS: [id number] RTC: PRN Note initiated by Bridget Echeverria [...] Reviewed and signed by Sharri Ayala PA-C [facility] Patient seen in conjunction with staff crane mechanic: Chelsea Araujo MD Section of Dermatology [facility] * Chelsea Araujo MD - 08/13/2018 10:30 AM EST Patient referred for approx 1.5 cm EIC on the left upper chest Discussed dx, tx options, currently asymptomatic and no intervention today Otherwise benign waist up skin exam including SKs and few benign nevi as outlined in PA note Patient seen in conjunction with Sharri Ayala PA-C (Bri) Signed by: CHELSEA ARAUJO MD Section of Dermatology [facility] documented in this encounter Plan of Treatment Not on file documented as of this encounter Visit Diagnoses Diagnosis Seborrheic keratoses Other seborrheic keratosis EIC (epidermal inclusion cyst) Sebaceous cyst documented in this encounter Care Teams System Software Developer Relationship Specialty Start Date End Date Sonja Cannon MD [address] [place] [address] PCP - General Internal Medicine 09/27/16 03/03/22 documented as of this encounter
--- OUTSIDE RECORDS SUMMARY | 2024-04-22 03:31 | XMS_ITS | Encounter Summary ---
Author Organization [facility] Address [address] [place] [address] Care Team Providers Care Rod Greaser Name Role Phone Sonja Causey MD Primary Care Provider [phone] Encounter Details Date Type Department Care Team (Late st Contact Info) Description 05/08/2016 Results Only [facility] [phone] Waleska Bender Jr., MD [address] [place] [phone] Social History Tobacco Use Types Packs/Day Years [...] ? GIANA YEAGER ? Accession #: ? [id number] ? : ? 1970 (Age: 46) ??F [...] Armenta 05/09/2016 4:26 PM End of Report [facility] 05/08/2016 14:5 5 EDT 05/09/2016 14:55 EDT Waleska Bender Jr., MD PATHOLO GY ORDERABLES [facility] [address] [place] [address] documented in this encounter Visit Diagnoses Not on filedocumented in this encounter Care Teams Rod Greaser Relationship Specialty Start Date End Date Sonja Causey MD [address] [place] [address] PCP - General 07/06/15 documented as of this encounter
--- OUTSIDE RECORDS SUMMARY | 2024-04-22 03:31 | XMS_ITS | Encounter Summary ---
Author Organization [facility] Address [address] [place] [address] Care Team Providers Care Pulmonary Physician Name Role Phone Unavailable Primary Care Provider Unavailabl e Encounter Details Date Type Department Care Team (Late st Contact Info) Description 09/02/2012 Results Only [facility] [phone] Lani Martinez MD [address] [place] [address] Social History Tobacco Use Types Packs/Day Years [...] types 16,18,31,33,35, 39,45,51,52,56,58, 59,66, and 68 by chemical engineering technician mediated amplification. Comments Document reviewed and electronically signed by: ? System Interface ? Report date: 09/09/2012 By the signature above, the attending physician certifies that he/she has personally conducted a gross and/or microscopic examination of the described specimens and rendered or confirmed the above diagnosis. End of Report [facility] 09/02/2012 09/03/2012 Lani Martinez MD PATHOLOGY ORDERABLES [facility] [address] [place] [address] documented in this encounter Visit Diagnoses Not on filedocumented in this encounter
--- OUTSIDE RECORDS SUMMARY | 2024-04-22 03:31 | XMS_ITS | Encounter Summary ---
[place] [address] Care Team Providers Care Rubber Liner Name Role Phone Sonja Causey MD Primary Care Provider [phone] Encounter Details Date Type Department Care Team (Latest Contact Info) Description 06/07/2011 12:57 PM EDT - 06/07/2011 11:59 PM EDT Hospital [place] [phone] Previous section Social History Tobacco Use Types [...] 06/07/2011 02:39 pm) Patient Info ID: ? [id number] ? : ??[birth year] (41 yrs) Name: ? MARCELL GOLDMAN ? Visit Date: 06/07/2011 02:21 pm ? CHRISTELLE Performed By Performed By: ?? ALICIA Haas ??Madelyn Attending: ?Naty [place], Julieta Mcleod Referred By: ?BURAK Kahn MD Accession#: ? [id number] Service(s) Provided UOBFOL - Efw - Growth - Reevaluation - [place] ?[id number] - [id number] Indications Patient would like assessment of the [...] Final 06/07/2011 02:39 pm) Patient Info ID: [id number] : [birth year] (41 yrs) Name: MARCELL GOLDMAN Visit Date: 06/07/2011 02:21 pm CHRISTELLE Performed By Performed By: ALICIA Haas Attending: Julieta Alfonso MD Referred By: BURAK Kahn MD Service(s) Provided UOBFOL - Efw - Growth - Reevaluation - [place] [id number] - [phone] Indications Patient would like assessment of the [...] us to participate in the care of [facility]ilda GOLDMAN CHRISTELLE. Please do not hesitate to call if you have any questions. Julieta Gomez MD Electronically Signed Final Report 06/07/2011 02:39 pm Angelica Monroe MD IMG OB ORDERABLES documented in this encounter Visit Diagnoses Diagnosis Previous section Other postprocedural status documented in this encounter Care Teams Rubber Liner Relationship Specialty Start Date End Date Sonja Causey MD [address] [place] [address] PCP - General 07/18/10 09/26/16 documented as of this encounter
--- OUTSIDE RECORDS SUMMARY | 2024-04-22 03:31 | XMS_ITS | Encounter Summary ---
Author Organization [facility] Address [facility] [place] [address] Care Team Providers Care Armed Security Officer Name Role Phone Justina Juarez APRN Primary Care Provider [phone] Reason for Visit * Reason Comments Advice Only BBR - has met previo usly for same thing * Consultation (Routine) - Closed Specialty Diagnoses / Procedures Referred By Tomasa t Referred To Contact Plastic Surgery Diagnoses Macromastia BBR Consult Justina Juarez APRN [address] [place] [address] [facility] [address] [place] [address] Referral ID Status Reason Start Date Expiration Date V isits Requested Visits Authorized [id number] Closed Consult, Test & Treat PCP Updated and/or Approved 07/09/2022 07/09/2023 6 6 Encounter Details Date Type Department Care Team (Late st Contact Info) Description 01/10/2023 10:00 AM EDT Office [place] [address] Lesley Dailey MD [facility] [place] [address] Macromastia Social History Tobacco Use Types Packs/Day [...] to your surgery. Day of Surgery A chain saw driver is required at time of discharge. If [...] For questions pertaining to your surgical date [phone] For nursing related questions [phone] On weekends, holidays or after office hours: Call and ask the paper bag press operator to page the Plastic Surgery Resident construction plumber. documented in this encounter Progress Notes * [...] ?? DELIVERY performed by [facility] at [facility] ??? PRO LIGATE FALLOPIAN TUBE 06/14/2011 [...] surgery is best done at a realistic alf stable weight. We talked about the outpatient [...] there may possibly be some asymmetry. Yepez, [place], or [place] Pattern Incision: More scarring on [...] Timeframe: Elective Procedure: Bilateral breast reduction CPT: 90648, 41703 Surgical Technique: Yepze, FNG Surgical site: Breasts Side: Bilateral Anesthesia: [...] breast documented in this encounter Care Teams Armed Security Officer Relationship Specialty Start Date End Date Justina Juarez APRN [address] [place], [place] [address] [address] [place] [address] PCP - General Family Medicine 03/04/22 documented as of this encounter
--- OUTSIDE RECORDS SUMMARY | 2024-04-22 03:31 | XMS_ITS | Encounter Summary ---
Author Organization [facility] Address [address] [place] [address] Care Team Providers Care Mutual Fund Analyst Name Role Phone Sonja Causey MD Primary Care Provider Encounter Details Date Type Department Care Team (Latest Contact Info) Description 05/08/2016 11:26 EDT - 05/08/2016 23:59 EDT Hospital Encounter [address] [address] Unknown, Provider, Discharge Disposition: Auto Discharge Social [...] on filedocumented in this encounter Care Teams Mutual Fund Analyst Relationship Specialty Start Date End Date Sonja Causey MD [address] [place] [address] PCP - General 07/06/15 documented as of this encounter
--- OUTSIDE RECORDS SUMMARY | 2024-04-22 03:31 | XMS_ITS | Encounter Summary ---
Author Organization [facility] [place] [address] Care Team Providers Care Free Lance Artist Name Role Phone Sonja Causey MD Primary Care Provider [phone] Reason for Visit * Reason Comments Skin Lesion left face and back Skin Check Encounter Details Date Type Department Care Team (Late st Contact Info) Description 04/08/2012 1:00 PM EDT [place] [address] Orville Ahumada MD [facility] [address] [place] [address] SK (seborrheic keratosis) (Primary Dx); FH: skin [...] 3 children, does not smoke, lives in [facility] Does not smoke Review of Systems: [...] concerns. Orville Ahumada MD Resident in Dermatology [facility] Patient seen and evaluated with staff laboratory worker: Alejandro Dias MD Section of Dermatology [facility] documented in this encounter Plan of Treatment Not on file documented as of this encounter Visit Diagnoses Diagnosis SK (seborrheic keratosis)- Primary Other seborrheic keratosis FH: skin cancer Family history of other specified malignant neoplasm Congenital nevus of face Benign neoplasm of skin of other and unspecified parts of face documented in this encounter Care Teams Free Lance Artist Relationship Specialty Start Date End Date Sonja Causey MD [address] [place] [address] PCP - General 07/18/10 09/26/16 documented as of this encounter
--- OUTSIDE RECORDS SUMMARY | 2024-04-22 03:31 | XMS_ITS | Encounter Summary ---
Author Organization [facility] Address [facility] [place] [address] Care Team Providers Care Sinter Feeder Name Role Phone Sonja Cannon MD Primary Care Provider [phone] Reason for Visit * Reason Comments Advice Only BBR * Consultation (Routine) - Closed Specialty Diagnoses / Procedures Referred By Tomasa ledesma Referred To Contact Plastic Surgery Diagnoses Breast reduction Mariama Dugan APRN [address] [facility] [place] [address] [facility] [address] [place] [address] Referral ID Status Reason Start Date Expiration Date V isits Requested Visits Authorized [id number] Closed Evaluate and Treat [facility] 07/03/2016 07/03/2017 1 1 Encounter Details Date Type Department Care Team (Late st Contact Info) Description 09/27/2016 9:30 AM EST Office [place] [address] Riki Berkowitz MD [facility] [place] [address] Macromastia Social History Tobacco Use [...] appointment. Feel free to call our office [phone] if you have any questions or concerns. [...] ?? DELIVERY performed by VÍCTOR GOODWIN at [facility] ??? Pro ligate fallopian tube 06/14/2011 FALLOPIAN TUBE(S), TRANSECTION OR LIGATION, ABD APPROACH performed by VÍCTOR GOODWIN at [facility] Family History Problem Relation Age [...] of her breast-related symptoms. She watched the [employer] video on breast reduction, and was provided [...] surgery is best done at a realistic [place] [facility] stable weight. We talked about the outpatient [...] revisions for scarring or asymmetry.) Yepez or [place] Pattern Incision: More scarring on breast, but [...] Timeframe: Elective Procedure: Bilateral breast reduction CPT: 17546 Surgical Technique: Yepez w/ FNG Surgical site: [...] breast documented in this encounter Care Teams Sinter Feeder Relationship Specialty Start Date End Date Sonja Cannon MD [address] [place] [address] PCP - General Internal Medicine 09/27/16 03/03/22 documented as of this encounter
--- OUTSIDE RECORDS SUMMARY | 2024-04-22 03:31 | XMS_ITS | Encounter Summary ---
[place] [address] Care Team Providers Care Metal Mine Inspector Name Role Phone Justina Juarez APRN Primary Care Provider Encounter Details Date Type Department Care Team (Late st Contact Info) Description 09/06/2022 Notes Only [place] [phone] Marla Barrett Social History Tobacco Use Types [...] on filedocumented in this encounter Care Teams Metal Mine Inspector Relationship Specialty Start Date End Date Justina Juarez APRN [address] [place], [place] [address] PCP - General Family Medicine 03/04/22 documented as of this encounter
--- OUTSIDE RECORDS SUMMARY | 2024-04-22 03:31 | XMS_ITS | Encounter Summary ---
Author Organization [facility] [place] [address] Care Team Providers Care Dredge Mechanic Name Role Phone Sonja Causey MD Primary Care Provider [phone] Encounter Details Date Type Department Care Team (Late st Contact Info) Description 06/14/2011 1:13 PM EDT Anesthesia [place] [phone] Kirill Blandon MD [facility] [place] [address] Anesthesia Record Procedure Summary Procedure Name Responsible [...] 1050; 06/16/11; 1038 06/14/11 1050 by Paige Rashid RN 06/16/11 1038 by Paige Rashid RN (Retired) Epidural Lumbar 06/14/11 1333 by Aleja Almeida V, DOOR LINER 06/16/11 1038 by Paige Rashid RN Urethral Catheter 06/14/11; 1336; indwelling double lumen catheter; 100% silicone; 16; inserted; 1; leg bag to dependent drainage; 06/15/11; 0636 06/14/11 1336 by Aleja Almeida V, DOOR LINER 06/15/11 0636 by Paige Adan RN documented in this encounter Social [...] - 06/15/2011 9:06 AM EDT Patient: Giana Aguillon Toy Procedure(s) Performed: ?? DELIVERY - combined spinal/epidural; [...] that this was done elsewhere (not at [facility]). No record of TNS at her last , which was done at [facility]. ) Airway Mallampati: II Dental - normal [...] on filedocumented in this encounter Care Teams Dredge Mechanic Relationship Specialty Start Date End Date Sonja Causey MD [address] [place] [address] PCP - General 07/18/10 09/26/16 documented as of this encounter
--- OUTSIDE RECORDS SUMMARY | 2024-04-22 03:31 | XMS_ITS | Encounter Summary ---
Author Organization [facility] [place] [address] Care Team Providers Care Home Manager Name Role Phone Sonja Causey MD Primary Care Provider [phone] Encounter Details Date Type Department Care Team (Latest Contact Info) Description 06/14/2011 8:53 AM EDT - 06/16/2011 2:09 PM EDT Hospital [place] [phone] Susanne Kerr MD [facility] OBSTET[facility]ICS [place] [address] Rosie Hastings MD [facility] OBSTETRICS [place] [address] Discharge Disposition: Home Social History Tobacco Use [...] this in detail. Call your doctor or outsoles channel opener for: Fever more than 100.5 Heavy bleeding [...] follow up appointment. You may call the [facility] at any time for guidance or for answers to questions that come up prior to you follow up appointment. Your [facility] Provider can be reached during office hours at [facility] Follow-up Clinic AFTER OFFICE HOURS for the distresser or outsoles channel opener financial institution treasurer Provider electronic signature confirms that discharge instructions [...] two older sons Martha and Doreen Where: [place], [place] Approx time in community: Years Social [...] 2 weeks. Complications requiring follow-up: Financial Resources: [place] Health Insurance Coverage: [place] Medicaid Mine Deputy Chosen: Dr. James Mathews MD Baby's Name: [...] time.) [facility] (n/a) [facility] Healthy Babies: Referral to Leora Pepe [facility] Parent [facility]: [facility]; [facility] [place] [facility] DME ordered : None Breast Pump: N/A Other: Have car seat, own transportation, and adequate family support. No direct referrals made at this time. . CRC: Rosie Kuhn RNC/ Jackelyn Flores. Beeper 2549 * Nash Beaulieu MD - 06/15/2011 5:36 [...] MD - 06/14/2011 1:02 PM EDT Inpatient SELLING UNDERWRITER - Admission Interval Note I have reviewed [...] Discharge date: 06/16/2011 Attending Physician: Dr. Beaulieu [facility] Term Delivery Discharge Summary [...] Discharge Medications Giana Yeager Home Medication Instructions TAMIR:[id number] Printed on:06/17/11 4321 Medication Information MULTIVITAMIN ORAL CYANOCOBALAMIN, VITAMIN B-12, [...] this in detail. Call your doctor or outsoles channel opener for: Fever more than 100.5 Heavy bleeding [...] follow up appointment. You may call the [facility] at any time for guidance or for answers to questions that come up prior to you follow up appointment. Your [facility] Provider can be reached during office hours at [facility] Follow-up Clinic AFTER OFFICE HOURS for the distresser or outsoles channel opener financial institution treasurer Provider electronic signature confirms that discharge instructions [...] Faye Huffman - 06/14/2011 4:09 PM EDT [facility] Operative Note Patient Name: Giana Yeager : [id number] MR#: [id number] Case Date: 06/14/2011 Surgeon: Surgeon(s) and Role: [...] this time [facility] The fallopian tubes were individually identified and followed to their fimbriated ends. The mid isthmic portion of the tube was grasped with a Anthony and elevated to form a knuckle of [...] Information for the patient's : Gio Yeager [[id number]] Delivery 06/14/2011 1:58 PM by Lower Segment [...] sent? No Complications: None Placenta: Delivered: appearance [place] Measurements: Weight: 8 lb 0.4 oz (3640 g) Height: 20.08 Head circumference: 36 cm Chest circumference: Other providers: Delivery Assist Delivery Nurse Registered Nurse Towel Cabinet Repairer Surgeon Mine Deputy Faye Arora Additional information: Forceps: Vacuum: Breech: [...] Rosie Hastings MD HEMATOLOGY ORDERABL ES CERDAVID CRUM * Surgical Pathology Report (06/14/2011 4:12 PM EDT) Surgical Pathology Report [id number] ? Location: BP; BP18; B The signing [...] report in rendering the final pathologic diagnosis. [facility] 06/14/2011 4:12 PM EDT Rosie Hastings MD PATHOLOGY/CYTOLOGY ORDERABLES Performing Organization Address [facility] Co de Phone Number [facility] * Specimen to Pathology (surgical or derm) (06/14/2011 4:10 PM EDT) AP Specimen 06/14/2011 4:10 PM EDT 06/14/2011 4:10 PM EDT Narrative [facility] - 06/14/2011 4:10 PM EDT Specimen requisition ordered. ??Separate Pathology report to follow Rosie Hastings MD PATHOLOGY/CYTOLOGY ORDERABLES Performing Organization Address [facility] Co de Phone Number JULIUS CRUM * Specimen to Pathology (surgical or derm) (06/14/2011 4:03 PM EDT) AP Specimen 06/14/2011 4:03 PM EDT 06/14/2011 4:04 PM EDT Narrative [facility] - 06/14/2011 4:04 PM EDT Specimen requisition ordered. ??Separate Pathology report to follow Rosie Hastings MD PATHOLOGY/CYTOLOGY ORDERABLES Performing Organization Address [facility] Co de Phone Number JULIUS CRUM * Specimen to Pathology (surgical or derm) (06/14/2011 4:03 PM EDT) AP Specimen 06/14/2011 4:03 PM EDT 06/14/2011 4:04 PM EDT Narrative [facility] - 06/14/2011 4:04 PM EDT Specimen requisition ordered. ??Separate Pathology report to follow Rosie Hastings MD PATHOLOGY/CYTOLOGY ORDERABLES Performing Organization Address [facility] Co de Phone Number J[facility]US CR[facility] * Specimen to Pathology (surgical or derm) (06/14/2011 1:52 PM EDT) AP Specimen 06/14/2011 1:52 PM EDT 06/14/2011 1:52 PM EDT Narrative [facility] - 06/14/2011 1:52 PM EDT Specimen requisition ordered. ??Separate Pathology report to follow Rosie Hastings MD PATHOLOGY/CYTOLOGY ORDERABLES Performing Organization Address [facility] Co de Phone Number JUL[facility]US CR[facility] * Specimen to Pathology (surgical or derm) (06/14/2011 1:49 PM EDT) AP Specimen 06/14/2011 1:49 PM EDT 06/14/2011 1:49 PM EDT Narrative [facility] - 06/14/2011 1:49 PM EDT Specimen requisition ordered. ??Separate Pathology report to follow Rosie Hastings MD PATHOLOGY/CYTOLOGY ORDERABLES Performing Organization Address [facility]/ZIP Co de Phone Number CERNER MILLENNIUM * (ABNORMAL) A-DIFF (06/14/2011 10:50 AM EDT) Neutrophil % 77.0(H) 34.0 - 71.0 % CERNER MILLENNIUM Neutrophil Absolute 7.63(H) 1.50 - 6.30 x10(3)/mc [...] Absolute 0.03 0.00 - 0.05 x10(3)/mc L CERDAVID WESTBROOKENNIUM Blood specimen (specimen) 06/14/2011 10:50 AM EDT 06/14/2011 11:13 AM EDT Rosie Hastings MD HEMATOLOGY ORDERABL ES JULIUS SMITHIUM * ANTIBODY SCREEN (06/14/2011 10:50 AM EDT) Ab Screen Interp Negative CERDAVID WESTBROOKENNIUM Expires at 9 on: [id number] CERNER MILLENNIUM Blood specimen (specimen) 06/14/2011 10:50 AM EDT 06/14/2011 11:13 AM EDT Rosie Hastings MD BLOOD BANK LAB VIVI CUELLARDONG Performing Organization Address [facility]/ZIP Co de Phone Number JULIUS SMITHIUM * ABO/RH TYPING (06/14/2011 10:50 AM EDT) ABORH Type A Pos CERNER PIETROENNIUM Blood specimen (specimen) 06/14/2011 10:50 AM EDT 06/14/2011 11:13 AM EDT Rosie Hastings MD BLOOD BANK LAB VIVI ALISADONG Performing Organization Address [facility] Co de Phone Number JULIUS WESTBROOKENNIUM * (ABNORMAL) CBC (with Diff) (06/14/2011 10:50 [...] JULIUS CRUM * Surgical Pathology Report (06/14/2011 10:23 AM EDT) Surgical Pathology Report [id number] ? Location: BP; BP18; B The signing [...] ?? Carney discoid placenta. ?? Membranes: ? [place], semitransparent with marginal insertion. ?? Cord: ?62.0 x 1.4 cm; three vessels; eccentric insertion. ?? Surface: ? [place]-purple, smooth, and glistening, with prominent ?vasculature, unremarkable. ?? Maternal Surface: ??Intact, red-brown, and spongy with diffuse ?calcification. ?? Parenchyma: ?The specimen is serially sectioned at 0.5-cm to ?1.0-cm intervals. ??Sections show red, hemorrhagic, ?spongy, unremarkable parenchyma. Sections/Processing : ??E Business Consultant sections are submitted as follows: ?(1) membrane [...] in rendering the final pathologic diagnosis. [facility] 06/14/2011 10:2 3 AM EDT Rosie Hastings MD PATHOLOGY/CYTOLOGY ORDERABLES [facility] documented in this encounter Visit Diagnoses Not [...] oral solution 30 mL 30 mL, Oral, GALLEY BOY TO O.R., On Emelia 06/14/11 at 1030, [...] solution 30 mL (CANCELED) 30 mL, Oral, GALLEY BOY TO O.R., On Emelia 06/14/11 at 1030, [...] condition 1050 (Given - Provider: Paige Rashid, BOYN) PRN Medication Order 06/14/2011 06/15/2011 06/16/2011 acetaminophen [...] RN) 0102 (Given - Provider: Renzo Villafana, RN)0940 (Given - Provider: Paige Rashid, BONY) [...] Routine documented in this encounter Care Teams Home Manager Relationship Specialty Start Date End Date Sonja Causey MD [address] [place] [address] PCP - General 07/18/10 09/26/16 documented as of this encounter
--- OUTSIDE RECORDS SUMMARY | 2024-04-22 03:31 | XMS_ITS | Encounter Summary ---
Author Organization [facility] Address [address] [place] [address] Care Team Providers Care Senior Sales Representative Name Role Phone Unavailable Primary Care Provider Unavailabl e Encounter Details Date Type Department Care Team (Late st Contact Info) Description 09/08/2002 Results Only [facility] - Maple conversion [address] [place] [address] Remington Alcala [address] [place] [address] Social History Tobacco Use Types Packs/Day Years [...] Name: ? CHRISTELLEGIANA ? Accession #: ? [id number] : ? 1970 (Age: 32) ??F ?Collect [...] Alcala CNM PATHOLOGY ORDERABLES Performing Organization Address City/State/[facility] Co de Phone Number SANDY PIERSON [address] [place] [address] documented in this encounter Visit Diagnoses Not on filedocumented in this encounter
--- OUTSIDE RECORDS SUMMARY | 2024-04-22 03:31 | XMS_ITS | Encounter Summary ---
Author Organization [place] [address] Care Team Providers Care Women Nurse Name Role Phone Sonja Causey MD Primary Care Provider [phone] Reason for Visit * Reason Comments Pre-op Exam 1 WEEK , H&P FOR C/S f/u u/s Encounter Details Date Type Department Care Team (Late st Contact Info) Description 06/07/2011 2:00 PM EDT Routine Obstetrics [place] [address] Dilma Desai MD [facility] DR OBSTETRICS [place] [address] GA: 38w2d Discharge Disposition: Home Social History [...] vaginally. I explained that all of the [facility] providers recommend against trial of labor but [...] Anes PTL Lv 1 TRM 03/28 38w0d 3.515kg(6ll36dm) M LTCS Spinal Yes Comments: congenital VSD [...] YEAGER Ordered By: SULEMA PAM NEWJOSE MR#: [id number] LOC: 5L /Sex: 1970 (40 years), Female [...] ??? GLUCFASTING -- -- -- -- ??? [id number] 116 -- -- -- ??? HA1C -- -- -- -- ??? [id number] -- -- -- -- ??? [id number] -- -- -- -- ??? AST -- [...] Anes PTL Lv 1 TRM 8 38w0d 3.515kg(1rw65tw) M LTCS Spinal Yes Comments: congenital VSD [...] MARCELL YEAGER Ordered By: PAM LEONE MR#: [id number] LOC: 5L /Sex: 1970 (40 years), Female [...] ??? GLUCFASTING -- -- -- -- ??? [id number] 116 -- -- -- ??? HA1C -- -- -- -- ??? [id number] -- -- -- -- ??? [id number] -- -- -- -- ??? AST -- [...] Primary documented in this encounter Care Teams Women Nurse Relationship Specialty Start Date End Date Sonja Causey MD [address] [place] [address] PCP - General 07/18/10 09/26/16 documented as of this encounter
--- OUTSIDE RECORDS SUMMARY | 2024-04-22 03:31 | XMS_ITS | Encounter Summary ---
[place] [address] Care Team Providers Care Nurseryman Assistant Name Role Phone Justina Juarez APRN Primary Care Provider Encounter Details Date Type Department Care Team (Late st Contact Info) Description 10/19/2022 Telephone [place] [phone] Marla Barrett Social History Tobacco Use Types [...] on filedocumented in this encounter Care Teams Nurseryman Assistant Relationship Specialty Start Date End Date Justina Juarez APRN [address] [place] [address] PCP - General Family Medicine 03/04/22 documented as of this encounter
--- OUTSIDE RECORDS SUMMARY | 2024-04-22 03:31 | XMS_ITS | Encounter Summary ---
[place] [address] Care Team Providers Care Ingredient Scaler Helper Name Role Phone Sonja Causey MD Primary Care Provider [phone] Encounter Details Date Type Department Care Team (Late st Contact Info) Description 06/22/2011 Telephone Obstetrics [place] [address] Fernando Cummings MD [facility] DR OBSTETRICS & [place] [address] Social History Tobacco Use Types Packs/Day Years [...] uterus documented in this encounter Care Teams Ingredient Scaler Helper Relationship Specialty Start Date End Date Sonja Causey MD [address] [place] [address] PCP - General 07/18/10 09/26/16 documented as of this encounter
--- OUTSIDE RECORDS SUMMARY | 2024-04-22 03:31 | XMS_ITS | Encounter Summary ---
Author Organization [facility] Address [address] [place] [address] Care Team Providers Care Mortgage Consultant Name Role Phone Unavailable Primary Care Provider Unavailabl e Encounter Details Date Type Department Care Team (Late st Contact Info) Description 09/13/2003 Results Only [facility] - Maple conversion [address] [place] [address] Pal Zuleta MD [address] [place] [address] Social History Tobacco Use Types Packs/Day Years [...] ? GIANA YEAGER ? Accession #: ? [id number] : ? 1970 (Age: 33) ??F ?Collect [...] Zuleta MD PATHOLOGY ORDERABLES SANDY PIERSON [address] [place] [address] documented in this encounter Visit Diagnoses Not on filedocumented in this encounter
--- OUTSIDE RECORDS SUMMARY | 2024-04-22 03:31 | XMS_ITS | Encounter Summary ---
Author Organization [facility] Address [address] [place] [address] Care Team Providers Care Makeup Artist Name Role Phone Unavailable Primary Care Provider Unavailabl e Encounter Details Date Type Department Care Team (Late st Contact Info) Description 02/05/2006 Results Only [facility] - Maple conversion [address] [place] [address] Argelia Willingham, [address] [place] [id number] Social History Tobacco Use Types Packs/Day Years [...] ? MARCELL YEAGER ? Accession #: ? [id number] : ? 1970 (Age: 35) ??F ?Collect Date: ? 02/05/2006 Location: ? [facility] ? Receive Date: ? 02/06/2006 Provider: ?ARGELIA WILLINGHAM BORING MACHINE OPERATOR VERTICAL Copy to: ? Specimen/Source: ?ThinPrep Pap Test, Cervix/Endocervix, processed on [employer] ThinPrep Imaging System, with manual evaluation Last [...] Report SANDY PIERSON 02/05/2006 02/06/2006 Argelia Willingham BORING MACHINE OPERATOR VERTICAL PATHOLOGY ORDERABLES [facility] [address] [place] [address] documented in this encounter Visit Diagnoses Not on filedocumented in this encounter
--- OUTSIDE RECORDS SUMMARY | 2024-04-22 03:31 | XMS_ITS | Encounter Summary ---
Author Organization [facility] Address [address] [place] [address] Care Team Providers Care Estimator Binding Name Role Phone Sonja Causey MD Primary Care Provider [phone] Encounter Details Date Type Department Care Team (Late st Contact Info) Description 04/19/2005 Before PRISM Converted Visit (Maple) [facility] - Maple conversion [address] [place] [address] Pal Mantilla MD Social History Tobacco Use Types Packs/Day Years Used Date Smoking Tobacco: Never Assessed Sex and Gender Information Value Date Recorded Sex Assigned at Not on file Gender Identity Not on file Sexual Orientation Not on file documented as of this encounter Plan of Treatment Not on file documented as of this encounter Procedures Procedure Name Priority Date/Time Associated Diagnosis Comments CUSTODIAL DETAILED 04/19/2005 16:57 EDT documented in this encounter Results * CUSTODIAL DETAILED (04/19/2005 16:57 EDT) Anatomical Region Laterality Modality Other 04/19/2005 16:5 7 EDT Narrative 03/31/2009 5:21 EDT detailed Please refer to the separate [facility] report. Please see separate Echocardiography report. Procedure Note Maria Del Carmen Alcala MD - 03/31/2009 detailed Please refer to the separate [facility] report. Please see separate Echocardiography report. Pal Mantilla MD IMG US CUSTODIAL ORDERABLE S documented in this encounter Visit Diagnoses Not on filedocumented in this encounter Care Teams Estimator Binding Relationship Specialty Start Date End Date Sonja Causey MD [address] [place] [address] PCP - General 07/06/15 documented as of this encounter
--- OUTSIDE RECORDS SUMMARY | 2024-04-22 03:31 | XMS_ITS | Encounter Summary ---
[place] [address] Care Team Providers Care Mailing Machine Operator Name Role Phone Sonja Cannon MD Primary Care Provider [phone] Encounter Details Date Type Department Care Team (Late st Contact Info) Description 06/04/2017 Telephone [place] [address] Kaitlyn Aguirre Social History Tobacco Use Types [...] on filedocumented in this encounter Care Teams Mailing Machine Operator Relationship Specialty Start Date End Date Sonja Cannon MD [address] [place] [address] PCP - General Internal Medicine 09/27/16 03/03/22 documented as of this encounter
--- OUTSIDE RECORDS SUMMARY | 2024-04-22 03:31 | XMS_ITS | Encounter Summary ---
Author Organization [facility] [address] Care Team Providers Care Configuration Developer Name Role Phone Justina Juarez APRN Primary Care Provider Reason for Referral * Consultation (Routine) - Closed Specialty Diagnoses / Procedures Referred By Tomasa ledesma Referred To Contact Dermatology Diagnoses Melanocytic nevus, unspecified location Sofia Delaney APRN [address] [place] [address] [facility] [address] [place] [address] Referral ID Status Reason Start Date Expiration Date V isits Requested Visits Authorized [id number] Closed Consult, Test & Treat PCP Updated and/or Approved 03/05/2022 03/05/2023 6 6 Encounter Details Date Type Department Care Team (Late st Contact Info) Description 03/05/2022 Transcribe Orders eDH Incoming Referrals [phone] Sofia Delaney APRN [address] [place], [place] [id number] Melanocytic nevus, unspecified location Social History Tobacco [...] location documented in this encounter Care Teams Configuration Developer Relationship Specialty Start Date End Date Justina Juarez APRN [address] [place] [address] [address] [place] [address] PCP - General Family Medicine 03/04/22 documented as of this encounter
--- OUTSIDE RECORDS SUMMARY | 2024-04-22 03:31 | XMS_ITS | Encounter Summary ---
Author Organization [facility] [place] [address] Care Team Providers Care Wastewater Treatment Plant Chemist Name Role Phone Sonja Causey MD Primary Care Provider [phone] Reason for Visit * Reason Comments Urticaria Encounter Details Date Type Department Care Team (Late st Contact Info) Description 11/26/2012 9:15 AM EDT [place] [address] Tete Moseley MD [facility] [address] [place] [address] Chronic urticaria (Primary Dx); Alopecia Discharge Disposition: [...] ?? DELIVERY performed by VÍCTOR GOODWIN at [facility] ??? Ligate fallopian tube 06/14/2011 FALLOPIAN TUBE(S), TRANSECTION OR LIGATION, ABD APPROACH performed by VÍCTOR GOODWIN at [facility] Review of Systems Constitutional: Negative [...] Mauricio PGY-2 Internal Medicine, Allergy/Immunology Elective Pager [phone] documented in this encounter Plan of Treatment Not on file documented as of this encounter Procedures Procedure Name Priority Date/Time Associated Diagnosis Comments [facility] Routine 11/26/2012 1 :06 PM [...] AM EDT Chronic urticaria COMPREHENSIVE METABOLIC PANEL Routine 11/26/2012 11:21 AM EDT Chronic urticaria documented in this encounter Results * [facility] (11/26/2012 1:06 PM EDT) Pathologist [facility] [place] Test ?Result ?Flag ??Unit ??RefValue [...] approved by the FDA. Test Performed by: [employer] [address] [place] [address] [facility] Blood specimen (specimen) 11/26/2012 1:06 PM EDT 11/26/2012 1:30 PM EDT Narrative Resulting Agency Comment Spec In Lab Tete Moseley MD LAB SEND OUT ORDERAB LES CERNER MILLENNIUM * Differential, Automated (11/26/2012 11:21 AM EDT) Neutrophil % 64.4 34.0 - 71.0 % CERNER MILLENNIUM Neutrophil Absolute 5.47 1.50 - 6.30 x10(3)/mcL CERNER MILLENNIUM Lymph % 25.8 19.0 - 53.0 % CERNER MILLENNIUM Lymphocytes Abs 2.2 1.0 - 3.6 x10(3)/mcL CERNER MILLENNIUM Monocyte % 8.1 4.0 - 13.0 % CERNER MILLENNIUM Monocyte Abs 0.7 0.2 - 1.0 x10(3)/mcL CERNER MILLENNIUM Eos % 1.4 0.0 - 7.0 % CERNER MILLENNIUM Eosinophils Abs 0.1 0.0 - 0.5 x10(3)/mcL CERNER MILLENNIUM Basophil % 0.2 0.0 - 2.0 % CERNER MILLENNIUM Baso Absolute 0.0 0.0 - 0.2 x10(3)/mcL CERNER MILLENNIUM Immature Gran % 0.10 0.00 - 0.66 % CERNER MILLENNIUM Comment: Immature granulocytes(IG's)percentage and absolute count will include metamyelocytes, myelocytes, and promyelocytes. Blood smears from CBCs yielding IG's will be scanned manually for concordance. If this scan disagrees with the automated IG or if promyelocytes are noted, a manual differential will be performed. Immature Gran Absolute 0.01 0.00 - 0.05 x10(3)/mcL [facility] MILLENNI[facility] Blood specimen (specimen) 11/26/2012 11:21 AM EDT 11/26/2012 11:26 AM EDT Tete Moseley MD HEMATOLOGY ORDERABLE S JULIUS SMITHIUM * Miscellaneous Lab request (11/26/2012 11:21 AM EDT) Label Request received in lab. CERNER MILLENNIUM Specimen of unknown material (specimen) 11/26/2012 11:21 AM EDT 11/26/2012 11:26 AM EDT Tete Moseley MD LAB SEND OUT ORDERAB LES CERDAVID SMITHIUM * Comprehensive metabolic panel (non-fasting) (11/26/2012 11:21 AM EDT) Glucose 83 60 - 199 mg/dL CERNER MILLENNIUM Comment:Diabetes: >=200 mg/d L plus symptoms Blood Urea Nitrogen 14 8 - 18 mg/dL CERNER MILLENNIUM Creatinine 0.70 0.70 - 1.20 mg/dL CERNER MILLENNIUM Comment: Please note that the pediatric reference intervals supplied above were not validated at [facility]. Results from pediatric patients [...] MILLENNIUM Est Glomerular Filtration Rate >60 >=[address] [facility] Comment: The National Kidney Disease Education Program [...] In Lab Tete Moseley MD CHEMISTRY ORDERABLES Performing Organization Address City/State/[facility] Co de Phone Number [facility] * House Dust Mites/D.P., IgE (11/26/2012 11:21 AM EDT) House Dust Mites/DP, IgE <0.35 kU/L CERNER MILLENNIUM Comment: Class 0 (Negative <0.35) Test Performed by: [place] [address] [employer] Steward/Stewardess: Miko Clarke III, M.D. Blood specimen (specimen) 11/26/2012 11:21 AM EDT 11/26/2012 1:07 PM EDT Narrative Resulting Agency Comment Spec In Lab Tete Moseley MD IMMUNOLOGY ORDERABLE S Performing Organization Address [facility] Co de Phone Number [facility] * House Dust Mites/D.F., IgE (11/26/2012 11:21 AM EDT) Mites/D.F. IgE <0.35 kU/L CERNE R MILLENNIUM Comment: Class 0 (Negative <0.35) Test Performed by: [place] [address] [employer] Steward/Stewardess: Miko Clarke III, M.D. Blood specimen (specimen) 11/26/2012 11:21 AM EDT 11/26/2012 1:07 PM EDT Narrative Resulting Agency Comment Spec In Lab Tete Moseley MD IMMUNOLOGY ORDERABLE S Performing Organization Address City/[facility] Co de Phone Number [facility] * Dog Epithelium IgE (11/26/2012 11:21 AM EDT) Dog Epithel, IgE <0.35 kU/L CER NER MILLENNIUM Comment: Class 0 (Negative <0.35) Test Performed by: [address] [address] [employer] Steward/Stewardess: Miko Clarke III, M.D. Blood specimen (specimen) 11/26/2012 11:21 AM EDT 11/26/2012 1:07 PM EDT Narrative Resulting Agency Comment Spec In Lab Tete Moseley MD IMMUNOLOGY ORDERABLE S Performing Organization Address City/[facility]/ZIP Co de Phone Number JULIUS CRUM * Cat Epithelium IgE (11/26/2012 11:21 AM EDT) Cat Epithel, IgE <0.35 kU/L CER NER MILLENNIUM Comment: Class 0 (Negative <0.35) Test Performed by: [place] [address] [employer] Steward/Stewardess: Miko Clarke III, M.D. Blood specimen (specimen) 11/26/2012 11:21 AM EDT 11/26/2012 1:07 PM EDT Narrative Resulting Agency Comment Spec In Lab Tete Moseley MD IMMUNOLOGY ORDERABLE S Performing Organization Address [facility]/ZIP Co de Phone Number JULIUS SMITHIUM * Immunoglobulin E (IgE) (11/26/2012 11:21 AM EDT) IgE, Total 15.9 kU/L [facility] Comment: -- REFERENCE VALUE -- Mean ??13.2 +1SD ??41.0 +2SD 127.0 Test Performed by: [place] [address] [employer] Steward/Stewardess: Miko Clarke III, M.D. REVISED RESULTS -- REFERENCE VALUE -- Mean ??13.2 +1SD ??41.0 +2SD 127.0 REVISED REPORT, Previously reported as: 13.2 (Reported 11/27/2012 09:32) Test Performed by: [place] [address] [employer] Steward/Stewardess: Miko Clarke III, M.D. Corrected from 13.2 kU/L [NA] on 12/01/12 17:26:21 EDT by Contributor_system, [place]. Blood specimen (specimen) 11/26/2012 11:21 AM EDT 11/26/2012 1:07 PM EDT Narrative Resulting Agency Comment Spec In Lab Tete Moseley MD IMMUNOLOGY ORDERABLE S [facility] MILL[facility] * FRANNIE (11/26/2012 11:21 AM EDT) FRANNIE Neg Neg CERNER MILLENNIUM Blood specimen (specimen) 11/26/2012 11:21 AM EDT 11/26/2012 2:19 PM EDT Narrative Resulting Agency Comment Spec In Lab Tete Moseley MD LAB SEND OUT ORDERAB LES [facility] * Thyroid peroxidase antibody (11/26/2012 11:21 AM EDT) Thyroperoxidase Ab <10 <=34 IU/mL [facility] Blood specimen (specimen) 11/26/2012 11:21 AM EDT 11/26/2012 2:19 PM EDT Narrative Resulting Agency Comment Spec In Lab Tete Moseley MD IMMUNOLOGY ORDERABLE S [facility] * TSH (11/26/2012 11:21 AM EDT) Thyroid Stimulating Hormone 3.58 0.27 - 4.20 mcIU/mL [facility] MILLENNIUM Blood specimen (specimen) 11/26/2012 11:21 AM EDT 11/26/2012 11:26 AM EDT Narrative Resulting Agency Comment Spec In Lab Tete Moseley MD CHEMISTRY ORDERABLES [facility] * CBC (with Diff) (11/26/2012 11:21 AM EDT) White Blood Cell 8.5 4.0 - 10.0 x10(3)/mcL CERNER MILLENNIUM Red Blood Cell 4.71 3.93 - 5.22 x10(6)/mcL CERNER MILLENNIUM Hemoglobin 14.0 11.2 - 15.7 gm/dL CERNER MILLENNIUM Hematocrit 41.7 34.0 - 45.0 % CERNER MILLENNIUM Mean Cell Volume 88.5 79.0 - 94.0 fL CERNER MILLENNIUM Mean Cell Hemoglobin 29.7 26.6 - 32.2 pg CERNER MILLENNIUM Mean Cell Hemoglobin Concentration 33.6 32.0 - 36.5 gm/dL CERNER MILLENNIUM Platelet 355 145 - 370 x10(3)/mcL CERNER MILLENNIUM RDW Standard Deviation 42.5 35.0 - 46.0 fL CERNER MILLENNIUM RDW coefficient of variation 13.1 10.9 - 14.4 % CERNER MILLENNIUM Mean Platelet Volume 9.7 9.0 - 12.0 fL CERNER MILLENNIUM Blood specimen (specimen) 11/26/2012 11:21 AM EDT 11/26/2012 11:26 AM EDT Narrative Resulting Agency Comment Spec In Lab Tete Moseley MD HEMATOLOGY ORDERABLE S JULIUS CRUM documented in this encounter Visit Diagnoses Diagnosis Chronic urticaria- Primary Other specified urticaria Alopecia Alopecia, unspecified documented in this encounter Care Teams Wastewater Treatment Plant Chemist Relationship Specialty Start Date End Date Sonja Causey MD [address] [place] [address] PCP - General 07/18/10 09/26/16 documented as of this encounter
--- OUTSIDE RECORDS SUMMARY | 2024-04-22 03:31 | XMS_ITS | Encounter Summary ---
Author Organization [facility] Address [address] [place] [address] Care Team Providers Care Pocketed Spring Assembler Name Role Phone Unavailable Primary Care Provider Unavailabl e Encounter Details Date Type Department Care Team (Late st Contact Info) Description 11/15/2014 Results Only [facility] [phone] Lani Martinez MD [address] [place] [address] Social History Tobacco Use Types Packs/Day Years [...] ? MARCELL YEAGER ? Accession #: ? [id number] ? : ? 1970 (Age: 44) ??F [...] types 16,18,31,33,35, 39,45,51,52,56,58, 59,66, and 69 by touch up carver mediated amplification. Comments Document reviewed and electronically signed by: ? System Interface ? Report date: 11/23/2014 By the signature above, the attending physician certifies that he/she has personally conducted a gross and/or microscopic examination of the described specimens and rendered or confirmed the above diagnosis. End of Report [facility] 11/15/2014 11/16/2014 Lani Martinez MD PATHOLOGY ORDERABLES [facility] [address] [place] [address] documented in this encounter Visit Diagnoses Not on filedocumented in this encounter
--- OUTSIDE RECORDS SUMMARY | 2024-04-22 03:31 | XMS_ITS | Encounter Summary ---
[place] [address] Care Team Providers Care Director Of Cardiology Service Line Name Role Phone Justina Juarez APRN Primary Care Provider [phone] Reason for Referral * Consultation (Routine) - Closed Specialty Diagnoses / Procedures Referred By Tomasa ledesma Referred To Contact Plastic Surgery Diagnoses Macromastia BBR Consult Justina Juarez APRN [address] [place] [address] [facility] [address] [address] Referral ID Status Reason Start Date Expiration Date V isits Requested Visits Authorized [id number] Closed Consult, Test & Treat PCP Updated and/or Approved 07/09/2022 07/09/2023 6 6 Encounter Details Date Type Department Care Team (Late st Contact Info) Description 07/09/2022 Transcribe Orders eDH Incoming Referrals [phone] Justina Juarez APRN [address] [place], [place] [id number] Macromastia Social History Tobacco Use Types Packs/Day [...] breast documented in this encounter Care Teams Director Of Cardiology Service Line Relationship Specialty Start Date End Date Justina Juarez APRN [address] [place] [address] PCP - General Family Medicine 03/04/22 documented as of this encounter
--- OUTSIDE RECORDS SUMMARY | 2024-04-22 03:32 | XMS_ITS | Encounter Summary ---
Author Organization [facility] [place] [address] Care Team Providers Care Director Of Hospitality Name Role Phone Sonja Causey MD Primary Care Provider [phone] Reason for Visit * Reason Comments Routine Visit follow up ultraso und Encounter Details Date Type Department Care Team (Latest Contact Info) Description 02/07/2011 3:30 PM EDT Routine Obstetrics [place] [phone] CLINIC, Jonathan Malone MD [facility] OBSTETRICS [place] [address] GA: [id number] Discharge Disposition: Home Social History [...] Final 03/16/2011 01:39 pm) Patient Info ID: ?[id number] ?: ??[birth year] (41 yrs) Name: ?MARCELL GOLDMAN ?Visit Date: 03/16/2011 01:21 pm ?CHRI[facility]ELLE Performed By Performed By: ?? Natividad Brock [facility] Associate: ?Martín CLINTON, Tish Cruz Attending: ?Julián CLINTON, Dilma Arce Referred By: ?KARLOS MATHEW MD Accession#: ? [id number] Procedures UOBFOL - Efw - Growth - Reevaluation - Carney ?[id number] - [id number] Indications Low TAMMY-A Evaluation Num Of Fetuses: ?1 Preg. Location: ?Uterus Gest. Sac: ? Visualized Heart Rate: ??138 ? bpm Cardiac Activity: ??Observed, normal rhythm Presentation: ?Cephalic Placenta: ?Anterior P. Cord ?Within Normal Limits Insertion: Amniotic Fluid AMIRA FV: ?Normal AMRIA Sum: ? 15.03 ?? cm ? Larg [...] reviewed by the attending Procedure Note Dilma Galelgo MD - 03/16/2011 OBSTETRICS REPORT (Signed Final 03/16/2011 01:39 pm) Patient Info ID: [id number] : [birth year] (41 yrs) Name: MARCELL GOLDMAN Visit Date: 03/16/2011 01:21 pm CHRISTELLE Performed By Performed By: Natividad Brock [facility] Associate: Tish Resendiz MD Attending: Dilma Gallego MD Referred By: KARLOS MATHEW MD Procedures UOBFOL - Efw - Growth - Reevaluation - Carney 10210 - [id number] Indications Low TAMMY-A Evaluation Num Of Fetuses: [...] incidental documented in this encounter Care Teams Director Of Hospitality Relationship Specialty Start Date End Date Gresser, Sonja, MD [address] [place] [address] PCP - General 07/18/10 09/26/16 documented as of this encounter
--- OUTSIDE RECORDS SUMMARY | 2024-04-22 03:32 | XMS_ITS | Encounter Summary ---
[place] [address] Care Team Providers Care Semi Driver Name Role Phone Sonja Causey MD Primary Care Provider [phone] Reason for Visit * Reason Onset Date Comments Vaginal Bleeding 01/19/2011 Encounter Details Date Type Department Care Team (Late st Contact Info) Description 01/19/2011 Telephone Obstetrics [place] [phone] Jeimy Lion RN Vaginal Bleeding Social History [...] Telephone Encounter - Jeimy Lion RN - 01/19/2011 8:39 AM EDT [...] on filedocumented in this encounter Care Teams Semi Driver Relationship Specialty Start Date End Date Sonja Causey MD [address] [place] [address] PCP - General 07/18/10 09/26/16 documented as of this encounter
--- OUTSIDE RECORDS SUMMARY | 2024-04-22 03:32 | XMS_ITS | Encounter Summary ---
[place] [address] Care Team Providers Care Order Dispatcher Name Role Phone Sonja Causey MD Primary Care Provider [phone] Reason for Visit * Reason Comments Routine Visit Encounter Details Date Type Department Care Team (Latest Contact Info) Description 04/27/2011 4:15 PM EDT Routine Obstetrics [place] [address] Brian Mancera MD [facility] OBSTETRICS [place] [address] GA: 32w3d Discharge Disposition: Home Social History [...] applicable documented in this encounter Care Teams Order Dispatcher Relationship Specialty Start Date End Date Sonja Causey MD [address] [place] [address] PCP - General 07/18/10 09/26/16 documented as of this encounter
--- OUTSIDE RECORDS SUMMARY | 2024-04-22 03:32 | XMS_ITS | Encounter Summary ---
Author Organization [place] [address] Care Team Providers Care Quality Supervisor Name Role Phone Sonja Causey MD Primary Care Provider [phone] Encounter Details Date Type Department Care Team (Late st Contact Info) Description 12/05/2010 Orders Only Obstetrics [place] [address] Roshan Mcdaniel MD [facility] OBSTETRICS & [place] [address] Social History Tobacco Use Types Packs/Day Years [...] 12/05/2010 09:49 am) Patient Info ID: ? [id number] ? : ??[birth year] (40 yrs) Name: ? GIANA GOLDMAN ? Visit Date: 12/05/2010 08:45 am ? CHRISTELLE Performed By Performed By: ?? Kaitlyn Jules RDMS Associate: ?Jesus LCINTON, Mo Attending: ?Allen CLINTON, César White Referred By: ?SULEMA OROZCO MD Accession#: ? [id number] Procedures UNT - Nuchal Translucency - First Trimester ? 53009 Screening - [id number] Indications First ??Trimester Screening - Check Nuchal [...] us to participate in the care of [facility] YEAGER. Please do not hesitate to call if you have any questions. ?César Villa MD Electronically Signed Final Report ?? 12/05/2010 09:49 am Film and interpretation reviewed by the attending Procedure Note César Villa MD - 12/05/2010 OBSTETRICS REPORT (Signed Final 12/05/2010 09:49 am) Patient Info ID: [id number] : [birth year] (40 yrs) Name: GIANA GOLDMAN Visit Date: 12/05/2010 08:45 am CHRISTELLE Performed By Performed By: Kaitlyn Jules RDMS Associate: Mo Lee MD Attending: César Villa MD Referred By: SULEMA OROZCO MD Procedures UNT - Nuchal Translucency - First Trimester 79209 Screening - [id number] Indications First Trimester Screening - Check Nuchal [...] on filedocumented in this encounter Care Teams Quality Supervisor Relationship Specialty Start Date End Date Sonja Causey MD [address] [place] [address] PCP - General 07/18/10 09/26/16 documented as of this encounter
--- OUTSIDE RECORDS SUMMARY | 2024-04-22 03:32 | XMS_ITS | Encounter Summary ---
[place] [address] Care Team Providers Care Claims Adjuster Supervisor Name Role Phone Sonja Causey MD Primary Care Provider [phone] Encounter Details Date Type Department Care Team (Late st Contact Info) Description 03/16/2011 1:00 PM EDT - 03/16/2011 11:59 PM EDT Hospital [place] [address] Social History Tobacco Use Types Packs/Day Years [...] Final 03/16/2011 01:39 pm) Patient Info ID: ?[id number] ?: ??[birth year] (41 yrs) Name: ?MARCELL GOLDMAN ?Visit Date: 03/16/2011 01:21 pm ?CHRISTELLE Performed By Performed By: ?? Natividad Brock [facility] Associate: ?Martín CLINTON, Tish Cruz Attending: ?Julián CLINTON, Dilma Arce Referred By: ?KARLOS MATHEW MD Accession#: ? [id number] Procedures UOBFOL - Efw - Growth - Reevaluation - Carney ?75446 - [id number] Indications Low TAMMY-A Evaluation Num Of Fetuses: [...] Final 03/16/2011 01:39 pm) Patient Info ID: [id number] : [birth year] (41 yrs) Name: MARCELL GOLDMAN Visit Date: 03/16/2011 01:21 pm CHRISTELLE Performed By Performed By: Natividad Brock [facility] Associate: Tish Resendiz MD Attending: Dilma Gallego MD Referred By: KARLOS MATHEW MD Procedures UOBFOL - Efw - Growth - Reevaluation - Carney 73256 - [id number] Indications Low TAMMY-A Evaluation Num Of Fetuses: [...] incidental documented in this encounter Care Teams Claims Adjuster Supervisor Relationship Specialty Start Date End Date Sonja Causey MD [address] [place] [address] PCP - General 07/18/10 09/26/16 documented as of this encounter
--- OUTSIDE RECORDS SUMMARY | 2024-04-22 03:32 | XMS_ITS | Encounter Summary ---
[place] [address] Care Team Providers Care Desulphuring Operator Name Role Phone Sonja Causey MD Primary Care Provider [phone] Encounter Details Date Type Department Care Team (Late st Contact Info) Description 04/27/2011 3:15 PM EDT - 04/27/2011 11:59 PM EDT Hospital [place] [address] Social History Tobacco Use Types Packs/Day Years [...] 04/27/2011 03:51 pm) Patient Info ID: ? [id number] ? : ??[birth year] (41 yrs) Name: ? GIANA GOLDMAN ? Visit Date: 04/27/2011 03:36 pm ? CHRISTELLE Performed By Performed By: ?? Janina Edward RDMS Associate: ?Randolph CLINTON, Obdulio Lake Attending: ?Pauly CLINTON, Anyi Bassett Referred By: ?CALDERON Kahn MD Accession#: ? [id number] Procedures UOBFOL - Efw - Growth - Reevaluation - Carney ?96760 - [id number] Indications Efw, Growth Evaluation Heart Rate: ??138 [...] Final 04/27/2011 03:51 pm) Patient Info ID: [id number] : [birth year] (41 yrs) Name: GIANA GOLDMAN Visit Date: 04/27/2011 03:36 pm CHRISTELLE Performed By Performed By: Janina Edward RDMS Associate: Obdulio Dickson MD Attending: Anyi Coats MD Referred By: CALDERON Kahn MD Procedures UOBFOL - Efw - Growth - Reevaluation - Carney 21919 - [id number] Indications Efw, Growth Evaluation Heart Rate: 138 [...] on filedocumented in this encounter Care Teams Desulphuring Operator Relationship Specialty Start Date End Date Sonja Causey MD [address] [place] [address] PCP - General 07/18/10 09/26/16 documented as of this encounter
--- OUTSIDE RECORDS SUMMARY | 2024-04-22 03:32 | XMS_ITS | Encounter Summary ---
Author Organization [facility] [place] [address] Care Team Providers Care Windshield Wiper Repairer Name Role Phone Sonja Causey MD Primary Care Provider [phone] Reason for Visit * Reason Comments Routine Visit Encounter Details Date Type Department Care Team (Latest Contact Info) Description 01/24/2011 4:00 PM EDT Routine Obstetrics [place] [address] Nash Beaulieu MD [facility] OBSTETRICS [place] [address] GA: 19w1d Discharge Disposition: Home Social History [...] incidental documented in this encounter Care Teams Windshield Wiper Repairer Relationship Specialty Start Date End Date Sonja Causey MD [address] [place] [address] PCP - General 07/18/10 09/26/16 documented as of this encounter
--- OUTSIDE RECORDS SUMMARY | 2024-04-22 03:32 | XMS_ITS | Encounter Summary ---
[place] [address] Care Team Providers Care Grease Refiner Operator Name Role Phone Sonja Causey MD Primary Care Provider [phone] Encounter Details Date Type Department Care Team (Late st Contact Info) Description 04/16/2011 External Results Obstetrics [place] [address] Renzo Baptiste, RN Social History Tobacco Use [...] * Glucose 1 Hour Post Prandial (03/21/2011) Glucose Post Prandial, 1 Hour 116 Blood specimen (specimen) 03/21/2011 Dilma Gallego MD CHEMISTRY ORDERABL ES documented in this encounter Visit Diagnoses Not on filedocumented in this encounter Care Teams Grease Refiner Operator Relationship Specialty Start Date End Date Sonja Causey MD [address] [place] [address] PCP - General 07/18/10 09/26/16 documented as of this encounter
--- OUTSIDE RECORDS SUMMARY | 2024-04-22 03:32 | XMS_ITS | Encounter Summary ---
[place] [address] Care Team Providers Care Fish Roe Processor Name Role Phone Sonja Causey MD Primary Care Provider [phone] Reason for Visit * Reason Comments LOW TAMMY-A Encounter Details Date Type Department Care Team (Late st Contact Info) Description 01/24/2011 11:00 AM EDT Office Visit Obstetrics [place] [address] Simi Gleason, [facility] OBSTETRICS [place] [address] Positive screening test (Primary Dx) Social History [...] genetic conditions. Consanguinity denied.Giana Aguillon is of Ukrainian, Arabic, Armenian, Hinduism decent and Jerome is of Armenian macedonian, Arabic,Ukrainian and decent. Assessment and Plan: The patient???s screen revealed a low TAMMY-A level of 0.29 MoM, which is less than the first percentile (<=0.29 MoM). In addition to its utility in aneuploidy screening, low TAMMY-A has been associated with an increased risk for adverse outcomes including spontaneous loss, low weight, preeclampsia, gestational hypertension, and . Follow-up ultrasounds at 28 and 32 weeks may be indicated to assess growth. She came in today to discuss the implications of these results further. documented in this encounter Plan of Treatment Not on file documented as of this encounter Visit Diagnoses Diagnosis Positive screening test- Primary Abnormal findings on screening documented in this encounter Care Teams Fish Roe Processor Relationship Specialty Start Date End Date Sonja Causey MD [address] [place] [address] PCP - General 07/18/10 09/26/16 documented as of this encounter
--- OUTSIDE RECORDS SUMMARY | 2024-04-22 03:32 | XMS_ITS | Encounter Summary ---
[place] [address] Care Team Providers Care Closing Manager Name Role Phone Sonja Causey MD Primary Care Provider [phone] Encounter Details Date Type Department Care Team (Late st Contact Info) Description 02/07/2011 2:18 PM EDT - 02/07/2011 11:59 PM EDT Hospital [place] [address] Social History Tobacco Use Types Packs/Day Years [...] 02/07/2011 02:51 pm) Patient Info ID: ? [id number] ? : ??[birth year] (40 yrs) Name: ? MARCELL GOLDMAN ? Visit Date: 02/07/2011 02:39 pm ? CHRISTELLE Performed By Performed By: ?? ALICIA Haas ??Madelyn Attending: ?Pauly CLINTON, Anyi Bassett Referred By: ?HYACINTH Skaggs MD Accession#: ? [id number] Procedures UOBTV - Viability - Cervical Length - Transvaginal - ??[id number] UOBLIM - Amira - Postion Only ( 1 or more fetuses) - ?[id number] Indications Viability, transvaginal AFV only Evaluation Gest. [...] Final 02/07/2011 02:51 pm) Patient Info ID: [id number] : 72 (40 yrs) Name: MARCELL GOLDMAN Visit Date: 02/07/2011 02:39 pm CHRISTELLE Performed By Performed By: ALICIA Haas Attending: Anyi Coats MD Referred By: HYACINTH Skaggs MD Procedures UOBTV - Viability - Cervical Length - Transvaginal - [id number] UOBLIM - Amira - Postion Only ( 1 or more fetuses) - [id number] Indications Viability, transvaginal AFV only Evaluation Gest. [...] incidental documented in this encounter Care Teams Closing Manager Relationship Specialty Start Date End Date Sonja Causey MD [address] [place] [address] PCP - General 07/18/10 09/26/16 documented as of this encounter
--- OUTSIDE RECORDS SUMMARY | 2024-04-22 03:32 | XMS_ITS | Encounter Summary ---
[place] [address] Care Team Providers Care Steward/Stewardess Name Role Phone Sonja Causey MD Primary Care Provider [phone] Encounter Details Date Type Department Care Team (Latest Contact Info) Description 01/19/2011 1:33 PM EDT - 01/19/2011 11:59 PM EDT Hospital [place] [address] ; Antepartum bleeding Social History Tobacco Use [...] 01/19/2011 02:50 pm) Patient Info ID: ? [id number] ? : ??[birth year] (40 yrs) Name: ? GIANA GOLDMAN ? Visit Date: 01/19/2011 02:35 pm ? CHRISTELLE Performed By Performed By: ?? Argelia Patricia RDMS Associate: ?Griffin CLINTON, Marissa Fishman Attending: ?Allen CLINTON, César White Referred By: ?BURAK Kahn MD Accession#: ? [id number] Procedures UOBTV - Viability - Cervical Length - Transvaginal - ??[id number] UOBLIM - Amira - Postion Only ( 1 or more fetuses) - ?[id number] Indications Cervical length Evaluate for abruption Bleeding [...] Final 01/19/2011 02:50 pm) Patient Info ID: [id number] : 72 (40 yrs) Name: GIANA GOLDMAN Visit Date: 01/19/2011 02:35 pm CHRISTELLE Performed By Performed By: Argelia Patricia RDMS Associate: Marissa Moya MD Attending: César Villa MD Referred By: BURAK Kahn MD Procedures UOBTV - Viability - Cervical Length - Transvaginal - [id number] UOBLIM - Amira - Postion Only ( 1 or more fetuses) - [id number] Indications Cervical length Evaluate for abruption Bleeding [...] care documented in this encounter Care Teams Steward/Stewardess Relationship Specialty Start Date End Date Sonja Causey MD [address] [place] [address] PCP - General 07/18/10 09/26/16 documented as of this encounter
--- OUTSIDE RECORDS SUMMARY | 2024-04-22 03:32 | XMS_ITS | Encounter Summary ---
Author Organization [facility] [place] [address] Care Team Providers Care Stripper Color Name Role Phone Sonja Causey MD Primary Care Provider [phone] Encounter Details Date Type Department Care Team (Latest Contact Info) Description 11/23/2010 1:30 PM EDT Initial Obstetrics [place] [address] Roshan Mcdaniel MD [facility] OBSTETRICS [place] [address] Discharge Disposition: Home Social History Tobacco Use Types Packs/Day Years Used Date Smoking Tobacco: Never Assessed Comments Yes Sex and Gender Information Value Date Recorded Sex Assigned at Not on file Gender Identity Not on file Sexual Orientation Not on file documented as of this encounter Miscellaneous Notes * Miscellaneous - Oscar Composition Mixer - 11/24/2010 3:27 PM EDT documented in this encounter Plan of Treatment Not on file documented as of this encounter Procedures Procedure Name Priority Date/Time Associated Diagnosis Comments GC/CHLAM Routine 11/23/2010 2:45 PM EDT URINE CULTURE Routine 11/23/2010 1:15 PM EDT documented in this encounter Results * REFLEX LAB-GC/CHLAM (11/23/2010 2:45 PM EDT) GC Gene Amp Negative Negative [facility] Comment: The only FDA approved specimen types for this assay are cervix, vagina, urethra and urine. ??The sensitivity and specificity of the assay for other specimen types has not been determined. GC Source Cervical [facility] Chlamydia Gene Amp Negative Negative [facility] Comment: The only FDA approved specimen types for this assay are cervix, vagina, urethra and urine. ??The sensitivity and specificity of the assay for other specimen types has not been determined. Chlm Source Cervical [facility] Specimen of unknown material (specimen) 11/23/2010 2:45 PM EDT 11/23/2010 2:45 PM EDT Roshan Mcdaniel MD MICROBIOLOGY - GENER AL ORDERABLES [facility] * URINE CULTURE (11/23/2010 1:15 PM EDT) Urine Culture ? Patient Name: GIANA YEAGER ?Ordered By: ROSHAN MCDANIEL ? [place] ? MR#: [id number] ?LOC: ??5L ? /Sex: ??1970 (40 years), [...] Mcdaniel MD MICROBIOLOGY - GENER AL ORDERABLES Performing Organization Address City/State/ZIP Co pa Phone Number JULIUS CRUM documented in this encounter Visit Diagnoses Not on filedocumented in this encounter Care Teams Stripper Color Relationship Specialty Start Date End Date Sonja Causey MD [address] [place] [address] PCP - General 07/18/10 09/26/16 documented as of this encounter
--- OUTSIDE RECORDS SUMMARY | 2024-04-22 03:32 | XMS_ITS | Encounter Summary ---
Author Organization [facility] [place] [address] Care Team Providers Care Senior Technical Project Manager Name Role Phone Justina Juarez APRN Primary Care Provider Encounter Details Date Type Department Care Team (Late st Contact Info) Description 02/06/2007 Orders [place] [address] Primo Nails MD [facility] DR [place] [address] Social History Tobacco Use Types Packs/Day Years [...] 4:04 PM EDT) Surgical Pathology Report [id number] ? Location: The signing pathologist has (i) [...] on filedocumented in this encounter Care Teams Senior Technical Project Manager Relationship Specialty Start Date End Date Justina Juarez APRN [address] [place] [address] PCP - General Family Medicine 03/04/22 documented as of this encounter
--- OUTSIDE RECORDS SUMMARY | 2024-04-22 03:32 | XMS_ITS | Encounter Summary ---
Author Organization [place] [address] Care Team Providers Care Delicatessen Slicer Name Role Phone Sonja Causey MD Primary Care Provider [phone] Encounter Details Date Type Department Care Team (Latest Contact Info) Description 01/01/2011 10:56 AM EDT - 01/01/2011 11:59 PM EDT Hospital [place] [address] Sigrid Denton MD [facility] [address] OBSTETRICS [place] [address] Discharge Disposition: Home Social History Tobacco Use [...] INTEGRATED SCREENING 2 (01/01/2011 11:13 AM EDT) Intergrated Screening Part 2 (WIH) Screen Negative [facility] Comment: Please see scanned report in Chart Review under the Non-DH Laboratory Heading. Test performed by [facility], [address], [place] [address] Blood specimen (specimen) 01/01/2011 11:13 AM EDT 01/04/2011 4:15 PM EDT Roshan Mcdaniel MD LAB SEND OUT ORDERAB LES [facility] documented in this encounter Visit Diagnoses Not on filedocumented in this encounter Care Teams Delicatessen Slicer Relationship Specialty Start Date End Date Sonja Causey MD [address] [place] [address] PCP - General 07/18/10 09/26/16 documented as of this encounter
--- OUTSIDE RECORDS SUMMARY | 2024-04-22 03:32 | XMS_ITS | Encounter Summary ---
Author Organization [facility] [place] [address] Care Team Providers Care Detective Chief Name Role Phone Sonja Causey MD Primary Care Provider [phone] Reason for Visit * Reason Comments Routine Visit Encounter Details Date Type Department Care Team (Late st Contact Info) Description 01/19/2011 3:00 PM EDT Routine Obstetrics [place] [address] Tish Resendiz MD [facility] OBSTETRICS [place] [address] GA: 18w3d Social History Tobacco Use Types [...] exam, assessment and plan with the resident. Corrie Alvarez MD * Tish Resendiz MD - [...] care documented in this encounter Care Teams Detective Chief Relationship Specialty Start Date End Date Sonja Causey MD [address] [place] [address] PCP - General 07/18/10 09/26/16 documented as of this encounter
--- OUTSIDE RECORDS SUMMARY | 2024-04-22 03:32 | XMS_ITS | Encounter Summary ---
Author Organization [facility] [place] [address] Care Team Providers Care Egg Pasteurizer Name Role Phone Sonja Causey MD Primary Care Provider [phone] Reason for Visit * Reason Comments Routine Visit Encounter Details Date Type Department Care Team (Latest Contact Info) Description 04/13/2011 4:45 PM EDT Routine Obstetrics [place] [address] Brian Mancera MD [facility] OBSTETRICS & [place] [address] GA: 30w3d Discharge Disposition: Home Social History [...] complication documented in this encounter Care Teams Egg Pasteurizer Relationship Specialty Start Date End Date Sonja Causey MD [address] [place] [address] PCP - General 07/18/10 09/26/16 documented as of this encounter
--- OUTSIDE RECORDS SUMMARY | 2024-04-22 03:32 | XMS_ITS | Encounter Summary ---
[place] [address] Care Team Providers Care Airplane Rental Clerk Name Role Phone Sonja Causey MD Primary Care Provider [phone] Reason for Visit * Reason Onset Date Comments Vaginal Bleeding 01/02/2011 minimal spottin g at 16 weeks. A+ Encounter Details Date Type Department Care Team (Late st Contact Info) Description 01/02/2011 Telephone Obstetrics [place] [address] Latesha Luna, RN Vaginal Bleeding [...] on filedocumented in this encounter Care Teams Airplane Rental Clerk Relationship Specialty Start Date End Date Sonja Causey MD [address] [place] [address] PCP - General 07/18/10 09/26/16 documented as of this encounter
--- OUTSIDE RECORDS SUMMARY | 2024-04-22 03:32 | XMS_ITS | Encounter Summary ---
[facility] [place] [address] Care Team Providers Care Property Maintenance Technician Name Role Phone Sonja Causey MD Primary Care Provider [phone] Reason for Visit * Reason Comments Vaginal Bleeding spotting @ 18wks Encounter Details Date Type Department Care Team (Latest Contact Info) Description 01/19/2011 11:30 AM EDT Routine Obstetrics [place] [address] Linh Zimmer, [facility]STET[facility] [place] [address] GA: 18w3d Discharge Disposition: Home Social History [...] 01/19/2011 02:50 pm) Patient Info ID: ? [id number] ? : [birth year] (40 yrs) Name: ? MARCELL GOLDMAN ? Visit Date: 01/19/2011 02:35 pm ? CHRISTELLE Performed By Performed By: ?? Argelia Patricia RDMS Associate: ?Griffin CLINTON, Marissa Fishman Attending: ?Allen CLINTON, César White Referred By: ?BURAK Kahn MD Accession#: ? [id number] Procedures UOBTV - Viability - Cervical Length - Transvaginal - ??[id number] UOBLIM - Amira - Postion Only ( 1 or more fetuses) - ?[id number] Indications Cervical length Evaluate for abruption Bleeding [...] Final 01/19/2011 02:50 pm) Patient Info ID: [id number] : [birth year] (40 yrs) Name: MARCELL GOLDMAN Visit Date: 01/19/2011 02:35 pm CHRISTELLE Performed By Performed By: Argelia Patricia RDMS Associate: Marissa Moya MD Attending: César Villa MD Referred By: BURAK Kahn MD Procedures UOBTV - Viability - Cervical Length - Transvaginal - 64175 [id number] UOBLIM - Amira - Postion Only ( 1 or more fetuses) - [id number] Indications Cervical length Evaluate for abruption Bleeding [...] care documented in this encounter Care Teams Property Maintenance Technician Relationship Specialty Start Date End Date Sonja Causey MD [address] [place] [address] PCP - General 07/18/10 09/26/16 documented as of this encounter
--- OUTSIDE RECORDS SUMMARY | 2024-04-22 03:32 | XMS_ITS | Encounter Summary ---
[place] [address] Care Team Providers Care General Practitioner Name Role Phone Sonja Causey MD Primary Care Provider [phone] Encounter Details Date Type Department Care Team (Late st Contact Info) Description 03/16/2011 2:00 PM EDT Clinical Support Obstetrics [place] [address] Social History Tobacco Use Types Packs/Day Years [...] on filedocumented in this encounter Care Teams General Practitioner Relationship Specialty Start Date End Date Sonja Causey MD [address] [place] [address] PCP - General 07/18/10 09/26/16 documented as of this encounter
--- OUTSIDE RECORDS SUMMARY | 2024-04-22 03:32 | XMS_ITS | Encounter Summary ---
Author Organization [facility] [place] [address] Care Team Providers Care Inside Sales Account Executive Name Role Phone Sonja Causey MD Primary Care Provider [phone] Encounter Details Date Type Department Care Team (Late st Contact Info) Description 11/23/2010 Abstract Obstetrics [place] [address] Roshan Mcdaniel MD [facility] OBSTETRICS & [place] [address] Previous delivery affecting , antepartum; Family or [...] complication documented in this encounter Care Teams Inside Sales Account Executive Relationship Specialty Start Date End Date Sonja Causey MD [address] [place] [address] PCP - General 07/18/10 09/26/16 documented as of this encounter
--- OUTSIDE RECORDS SUMMARY | 2024-04-22 03:32 | XMS_ITS | Encounter Summary ---
Author Organization [facility] Address [facility] [place] [address] Care Team Providers Care Clinical Review Specialist Name Role Phone Sonja Causey MD Primary Care Provider Encounter Details Date Type Department Care Team (Latest Contact Info) Description 01/23/2011 10:48 AM EDT - 01/23/2011 11:59 PM EDT Hospital En[place] [address] CLINIC, Corrie Harp MD [facility] [place] [address] Discharge Disposition: Home Social History Tobacco Use [...] Final 01/26/2011 09:43 am) Patient Info ID: ?[id number] ?: ??[birth year] (40 yrs) Name: ?GIANA GOLDMAN ?Visit Date: 01/23/2011 12:04 pm ?CHRISTELLE Performed By Performed By: ?? Janina Edward RDMS Attending: ?Michelle CLINTON, Renzo Lake Referred By: ?KIT PRESTON MD Accession#: ? [id number] Procedures [facility] - Targeted Morphology - Genetics - ? [id number] UOBTV - Viability - Cervical Length - Transvaginal - ??17665 [id number] Indications History of son with club foot [...] Tract: ?Visualized L Outflow Tract: ?Visualized Cardiac [place]: ? Visualized Diaphragm: ?Visualized Abdomen Ventral Wall: [...] Final 01/26/2011 09:43 am) Patient Info ID: [id number] : [birth year] (40 yrs) Name: GIANA GOLDMAN Visit Date: 01/23/2011 12:04 pm CHRISTELLE Performed By Performed By: Janina Edward [facility] Attending: Renzo Martinez MD Referred By: KIT PRESTON MD Procedures [facility] - Targeted Morphology - Genetics - [id number] UOBTV - Viability - Cervical Length - Transvaginal - 75522 [id number] Indications History of son with club foot [...] Tract: Visualized L Outflow Tract: Visualized Cardiac [place]: Visualized Diaphragm: Visualized Abdomen Ventral Wall: Visualized [...] incidental documented in this encounter Care Teams Clinical Review Specialist Relationship Specialty Start Date End Date Sonja Causey MD [address] [place] [address] PCP - General 07/18/10 09/26/16 documented as of this encounter
--- OUTSIDE RECORDS SUMMARY | 2024-04-22 03:32 | XMS_ITS | Encounter Summary ---
Author Organization [facility] [place] [address] Care Team Providers Care Sea Foam Kiss Maker Name Role Phone Sonja Causey MD Primary Care Provider [phone] Encounter Details Date Type Department Care Team (Latest Contact Info) Description 12/05/2010 9:03 AM EDT - 12/05/2010 11:59 PM EDT [place] [address] Susanne Kerr MD [facility] OBSTETRICS & [place] [address] Discharge Disposition: Home Social History Tobacco Use [...] 9:13 AM EDT HIV SCREEN, 4TH GENERATION ([facility]/CGP/APD/NLH) Routine 12/05/2010 9:13 AM EDT HEPATITIS B SURFACE ANTIGEN Routine 12/05/2010 9:13 AM EDT CBC (WITH DIFF) Routine 12/05/2010 9:13 AM EDT ANTIBODY SCREEN Routine 12/05/2010 9:13 AM EDT documented in this encounter Results * (ABNORMAL) REFLEX LAB-A-DIFF (12/05/2010 9:13 AM EDT) Neutrophil % 76.5(H) 34.0 - 71.0 % [facility] Neutrophil Absolute 7.14(H) 1.50 - 6.30 x10(3)/mc L [facility] Lymph % 16.3(L) 19.0 - 53.0 % [facility]ILLENNI[facility] Lymphocytes Abs 1.5 1.0 - 3.6 x10(3)/mc L CERN[facility] MILLENNIUM Monocyte % 6.5 4.0 - 13.0 % CERN[facility] MILLENNIUM Monocyte Abs 0.6 0.2 - 1.0 x10(3)/mc L [facility]ILLENNIUM Eos % 0.4 0.0 - 7.0 % CERNER [...] differential will be performed. Immature Gran Absolute 0.02 0.00 - 0.05 x10(3)/mc L [facility] Blood specimen (specimen) 12/05/2010 9:13 AM EDT 12/05/2010 9:17 AM EDT Roshan Mcdaniel MD HEMATOLOGY ORDERABLE S [facility] * INTEGRATED SCREENING 1 (12/05/2010 9:13 AM EDT) Pathologist [facility] Intergrated Screening Part 1 (WIH) See Note [facility] Comment: Part 1 of the Integrated Screen was drawn. ??For results of the Integrated Screen a second serum sample drawn at 15-21 weeks gestation is required. Test performed by [facility], [facility] [address] [address] Blood specimen (specimen) 12/05/2010 9:13 AM EDT 12/05/2010 10:45 AM EDT Roshan Mcdaniel MD LAB SEND OUT ORDERAB LES [facility] * HIV (12/05/2010 9:13 AM EDT) Pathologist [facility] HIV 1/2 Ab Negative [facility] Blood specimen (specimen) 12/05/2010 9:13 AM EDT 12/05/2010 9:17 AM EDT Roshan Mcdaniel MD CHEMISTRY ORDERABLES Performing Organization Address [facility] de Phone Number [facility] * (ABNORMAL) RUBELLA ANTIBODY, IGG (12/05/2010 9:13 AM EDT) Rubella Antibody IgG Negative(A ) Positive [facility] Blood specimen (specimen) 12/05/2010 9:13 AM EDT 12/05/2010 9:17 AM EDT Roshan Mcdaniel MD CHEMISTRY ORDERABLES Performing Organization Address [facility] [place] de Phone Number [facility] * HEPATITIS B SURFACE ANTIGEN (12/05/2010 9:13 AM EDT) Hepatitis B Surface Antigen Negative Negative [facility] Blood specimen (specimen) 12/05/2010 9:13 AM EDT 12/05/2010 9:17 AM EDT Roshan Mcdaniel MD CHEMISTRY ORDERABLES Performing Organization Address [facility] de Phone Number [facility] * SYPHILIS ANTIBODY, IGG (12/05/2010 9:13 AM EDT) Syphilis IgG Negative Negative [facility] Blood specimen (specimen) 12/05/2010 9:13 AM EDT 12/05/2010 11:27 AM EDT Roshan Mcdaniel MD CHEMISTRY ORDERABLES Performing Organization Address [facility] Co de Phone Number [facility] * REFLEX LAB-ANTIBODY SCREEN (12/05/2010 9:13 AM EDT) Ab Screen Interp Negative [facility] Expires at [id number] on: [id number] [facility] Blood specimen (specimen) 12/05/2010 9:13 AM EDT 12/05/2010 9:17 AM EDT Roshan Mcdaniel MD BLOOD BANK LAB ORDER FAVIO [facility] * REFLEX LAB-ABO/RH TYPING (12/05/2010 9:13 AM EDT) ABORH Type A Pos [facility] Blood specimen (specimen) 12/05/2010 9:13 AM EDT 12/05/2010 9:17 AM EDT Roshan Mcdaniel MD BLOOD BANK LAB ORDER FAVIO Performing Organization Address City/[facility]/ZIP Co de Phone Number [facility] * CBC (WITH DIFF) (12/05/2010 9:13 AM EDT) White Blood Cell 9.3 4.0 - 10.0 x10(3)/mcL [facility] Red Blood Cell 4.05 3.93 - 5.22 x10(6)/mcL [facility] Hemoglobin 12.2 11.2 - 15.7 gm/dL [facility] Hematocrit 35.1 34.0 - 45.0 % [facility] Mean Cell Volume 86.7 79.0 - 94.0 fL [facility] Mean Cell Hemoglobin 30.1 26.6 - 32.2 pg [facility] Mean Cell Hemoglobin Concentration 34.8 32.0 - 36.5 gm/dL [facility] Platelet 268 145 - 370 x10(3)/mcL [facility] RDW Standard Deviation 41.2 35.0 - 46.0 fL [facility] RDW coefficient of variation 13.0 10.9 - 14.4 % [facility]ILL[facility] Mean Platelet Volume 9.6 9.0 - 12.0 fL [facility] Blood specimen (specimen) 12/05/2010 9:13 AM EDT 12/05/2010 9:17 AM EDT Rsohan Mcdaniel MD HEMATOLOGY ORDERABLE S [facility] documented in this encounter Visit Diagnoses Not on filedocumented in this encounter Care Teams Sea Foam Kiss Maker Relationship Specialty Start Date End Date Sonja Causey MD [address] [place] [address] PCP - General 07/18/10 09/26/16 documented as of this encounter
--- OUTSIDE RECORDS SUMMARY | 2024-04-22 03:32 | XMS_ITS | Encounter Summary ---
Author Organization [facility] [place] [address] Care Team Providers Care Respiratory Medicine Physician Name Role Phone Sonja Causey MD Primary Care Provider [phone] Reason for Visit * Reason Onset Date Comments Emesis 04/07/2011 Encounter Details Date Type Department Care Team (Late st Contact Info) Description 04/07/2011 Telephone Obstetrics [place] [address] Fernando Cummings MD [facility] DR OBSTETRICS & [place] [address] Emesis Social History Tobacco Use Types Packs/Day [...] other symptoms, she will call back. FERNANDO CUMIMNGS 04/07/2011 documented in this encounter Plan of Treatment Not on file documented as of this encounter Visit Diagnoses Not on filedocumented in this encounter Care Teams Respiratory Medicine Physician Relationship Specialty Start Date End Date Sonja Causey MD [address] [place] [address] PCP - General 07/18/10 09/26/16 documented as of this encounter
--- OUTSIDE RECORDS SUMMARY | 2024-04-22 03:32 | XMS_ITS | Encounter Summary ---
Author Organization [facility] [place] [address] Care Team Providers Care Magazine Keeper Name Role Phone Sonja Causey MD Primary Care Provider Reason for Visit * Reason Comments Routine Visit Encounter Details Date Type Department Care Team (Latest Contact Info) Description 05/24/2011 1:15 PM EDT Routine Obstetrics [place] [address] Aimee Beaulieu MD [facility] OBSTETRICS & [place] [address] GA: 36w2d Discharge Disposition: Home Social History [...] By: AIMEE BEAULIEU ? [place] ? MR#: [id number] ?LOC: ??5L ? /Sex: ??1970 (41 years), ? Female ? PROCEDURE: Group B Streptococcus Culture ?SOURCE: Vag/Rectal ? COLLECTED: 05/24/2011 14:00 ? STARTED: 05/24/2011 15:43 ? FINAL REPORT ? Final Report ? Verified: 011 10:07 ? No Group B Streptococci isolated ? PRELIMINARY REPORT ? Preliminary Report ? Verified: 011 11:05 ? Culture in progress ? [facility] Pooled specimen from vaginal introitus and rectal swab (specimen) 05/24/2011 2:00 PM EDT 05/24/2011 3:42 PM EDT Aimee Beaulieu MD MICROBIOLOGY - GENER AL ORDERABLES [facility] * POCT urine dipstick (05/24/2011) POC Sp [place] 1.002 - 1.030 POC pH, UA 5.0 [...] influenza documented in this encounter Care Teams Magazine Keeper Relationship Specialty Start Date End Date Sonja Causey MD [address] [place] [address] PCP - General 07/18/10 09/26/16 documented as of this encounter
--- OUTSIDE RECORDS SUMMARY | 2024-04-22 03:32 | XMS_ITS | Encounter Summary ---
Author Organization [facility] [place] [address] Care Team Providers Care Psych Specialist Name Role Phone Sonja Causey MD Primary Care Provider [phone] Reason for Visit * Reason Comments Routine Visit Encounter Details Date Type Department Care Team (Latest Contact Info) Description 12/05/2010 10:00 AM EDT Routine Obstetrics [place] [address] Dalila Galicia MD [facility] [address] OBSTETRICS [place] [address] GA: 12w0d Discharge Disposition: Home Social History [...] incidental documented in this encounter Care Teams Psych Specialist Relationship Specialty Start Date End Date Sonja Causey MD [address] [place] [address] PCP - General 07/18/10 09/26/16 documented as of this encounter
--- OUTSIDE RECORDS SUMMARY | 2024-04-22 03:32 | XMS_ITS | Encounter Summary ---
Author Organization [facility] [place] [address] Care Team Providers Care Magician/Illusionist Name Role Phone Sonja Causey MD Primary Care Provider [phone] Encounter Details Date Type Department Care Team (Latest Contact Info) Description 02/07/2011 1:02 PM EDT - 02/07/2011 11:59 PM EDT Hospital Encounter Non-[place] [address] CARDIO, ECHO SIXTY MIN APPT None Renzo Martinez MD [facility] OBSTETRICS & [place] [address] Family or maternal historic risk of congenital [...] CHRISTELLE GOLDMAN ? (Age): 1970(40) Med Rec#: ?[id number] ?Sex: ?F ? Site Loc: ?[facility] ?Ht / Wt: ??(cm)/(kg) ? Pt. Loc: ? Echo Lab ?BSA: ? Study Date: ?02/07/2011 ?Pt. Type: Outpatient Study Quality: ? Tape: ? Referring: Renzo Martinez Business Relationship Manager: Carlin Amado Diagnosis:CPT Code(s): ?? Echo Full (50404), ?? Doppler Full (55692), ??Color Doppler (36446), Indication(s): ??Family hx of CHD Rhythm: SUMMARY: 1. A echocardiogram was performed at 21 weeks gestation due to history of prior child with ventricular septal defect. ??Cnel-go-ygba quality images were obtained. ?? 2. No [...] 02/09/2011 08:31:26 Images reviewed and interpretation verified [facility] Cardiac Ultrasound Laboratory Procedure Note 02/09/2011 Procedure: Pediatric Echocardiogram Patient: CHRISTELLE GOLDMAN (Age): 1970(40) Med Rec#: [id number] Sex: F Site Loc: [facility] Ht / Wt: (cm)/(kg) Pt. Loc: Echo Lab BSA: Study Date: 02/07/2011 Pt. Type: Outpatient Study Quality: Tape: Referring: Renzo Martinez Business Relationship Manager: Carlin Amado Diagnosis:CPT Code(s): Echo Full (00246), Doppler Full (11097), Color Doppler (22947), Indication(s): Family hx of CHD Rhythm: SUMMARY: 1. A echocardiogram was performed at 21 weeks gestation due to history of prior child with ventricular septal defect. Sace-na-fogj quality images were obtained. 2. No cardiac [...] 02/09/2011 08:31:26 Images reviewed and interpretation verified [facility] Cardiac Ultrasound Laboratory Renzo Martinez MD ECHO ORDERABLES documented in this encounter Visit Diagnoses Diagnosis Family or maternal historic risk of congenital anomaly, antepartum Hereditary disease in family possibly affecting fetus, affecting management of mother, antepartum condition or complication documented in this encounter Care Teams Magician/Illusionist Relationship Specialty Start Date End Date Sonja Causey MD [address] [place] [address] PCP - General 07/18/10 09/26/16 documented as of this encounter
--- OUTSIDE RECORDS SUMMARY | 2024-04-22 03:32 | XMS_ITS | Encounter Summary ---
[place] [address] Care Team Providers Care Converting Supervisor Name Role Phone Sonja Causey MD Primary Care Provider [phone] Reason for Visit * Reason Comments Routine Visit Encounter Details Date Type Department Care Team (Latest Contact Info) Description 05/15/2011 3:30 PM EDT Routine Obstetrics [place] [address] Angelica Monroe MD [facility] DR OBSTETRICS [place] [address] GA: 35w0d Discharge Disposition: Home Social History [...] status documented in this encounter Care Teams Converting Supervisor Relationship Specialty Start Date End Date Sonja Causey MD [address] [place] [address] PCP - General 07/18/10 09/26/16 documented as of this encounter
--- OUTSIDE RECORDS SUMMARY | 2024-04-22 03:32 | XMS_ITS | Encounter Summary ---
Author Organization [facility] [address] Care Team Providers Care Oven Laborer Name Role Phone Sonja Causey MD Primary Care Provider [phone] Encounter Details Date Type Department Care Team (Late st Contact Info) Description 03/16/2011 1:00 PM EDT Routine [facility] [address] [place] [address] Dilma Gallego MD [facility] OBSTETRICS [place] [address] GA: 26w3d Discharge Disposition: Home Social History [...] GCT but would like it done in [facility]. Plan f/u US in ~ 6 [...] screening documented in this encounter Care Teams Oven Laborer Relationship Specialty Start Date End Date Sonja Causey MD [address] [place] [address] PCP - General 07/18/10 09/26/16 documented as of this encounter
--- OUTSIDE RECORDS SUMMARY | 2024-04-22 03:32 | XMS_ITS | Encounter Summary ---
[place] [address] Care Team Providers Care Wind Energy Project Manager Name Role Phone Sonja Causey MD Primary Care Provider [phone] Encounter Details Date Type Department Care Team (Late st Contact Info) Description 12/05/2010 8:15 AM EDT Procedure visit [address] [address] Social History Tobacco Use Types Packs/Day Years [...] on filedocumented in this encounter Care Teams Wind Energy Project Manager Relationship Specialty Start Date End Date Sonja Causey MD [address] [place] [address] PCP - General 07/18/10 09/26/16 documented as of this encounter
--- OUTSIDE RECORDS SUMMARY | 2024-04-22 03:32 | XMS_ITS | Encounter Summary ---
Author Organization [facility] [place] [address] Care Team Providers Care Gas Operations Analyst Name Role Phone Sonja Causey MD Primary Care Provider [phone] Reason for Visit * Reason Comments Routine Visit ob check Encounter Details Date Type Department Care Team (Latest Contact Info) Description 01/01/2011 9:45 AM EDT Routine Obstetrics [place] [address] Corrie Alvarez MD [facility] [address] OBSTETRICS [place] [address] GA: 15w6d Discharge Disposition: Home Social History [...] encounter Miscellaneous Notes * Miscellaneous - Oscar Bromination Equipment Operator - 01/19/2011 5:43 AM EDT documented in this encounter Plan of Treatment Not on file documented as of this encounter Visit Diagnoses Diagnosis - Primary state, incidental documented in this encounter Care Teams Gas Operations Analyst Relationship Specialty Start Date End Date Sonja Causey MD [address] [place] [address] PCP - General 07/18/10 09/26/16 documented as of this encounter
--- OUTSIDE RECORDS SUMMARY | 2024-04-22 03:32 | XMS_ITS | Encounter Summary ---
[place] [address] Care Team Providers Care Senior Health Consultant Name Role Phone Sonja Causey MD Primary Care Provider [phone] Encounter Details Date Type Department Care Team (Late st Contact Info) Description 04/12/2011 Abstract Obstetrics [place] [address] Dilma Paul, RN Social History Tobacco Use [...] filedocumented in this encounter Care Teams Senior Health Consultant Relationship Specialty Start Date End Date Sonja Causey MD [address] [place] [address] PCP - General 07/18/10 09/26/16 documented as of this encounter
--- OUTSIDE RECORDS SUMMARY | 2024-04-22 03:32 | XMS_ITS | Encounter Summary ---
[place] [address] Care Team Providers Care Restoration Technician Name Role Phone Sonja Causey MD Primary Care Provider [phone] Encounter Details Date Type Department Care Team (Late st Contact Info) Description 01/19/2011 Orders Only Obstetrics [place] [address] Corrie Alvarez MD [facility] [address] OBSTETRICS [place] [address] (Primary Dx) Social History Tobacco Use Types [...] incidental documented in this encounter Care Teams Restoration Technician Relationship Specialty Start Date End Date Sonja Causey MD [address] [place] [address] PCP - General 07/18/10 09/26/16 documented as of this encounter
[2024-04-22 09:11] LABS: Hemoglobin A1C 6.1 % (<5.7)
[2024-04-22 09:46] LABS: TSH (W/Ref FT4) 5.58 uIU/mL (0.36-3.74); Vitamin D 25 Total 22.6 ng/mL (30-100)
[2024-04-22 10:04] LABS: FREE T4 1.02 ng/dL (0.76-1.46)
[2024-04-23 15:49] LABS: Hepatitis C Ab w Rflx HCV PCR Negative (Negative)
[2024-04-23 15:50] LABS: HBs Antibody, Quant <3.1 mIU/mL (See Note); HIV-1/2 Ag & Ab Screen Negative (Negative); Hep B Surface Ab Negative (See Note); Hepatitis B Core Antibody Negative (Negative); Hepatitis B Surface Antigen Negative (Negative)
== END 2024-04-22 03:24 | disposition home or self-care (01) ==
LOC: LBO 03:23
PROVIDERS: PCP Nurse Practitioner Family; Visit Provider Nurse Practitioner Family
DX: R79.89 Other specified abnormal findings of blood chemistry (principal); Z11.4 Encounter for screening for human immunodeficiency virus [HIV]; Z11.59 Encounter for screening for other viral diseases; E55.9 Vitamin D deficiency, unspecified; R73.03 Prediabetes
CPT/HCPCS: 36415; 82306; 86704; 86706; 86803; 87340; 87389; 83036; 84439; 84443

== ENCOUNTER 2025-05-05 03:01 | Outpatient (CLI) | payer MEDICAID, SELFPAY ==
--- NOTE | 2025-05-05 05:35 | DI.MAMMO_ITS ---
Exam(s) MAMMO SCREENING EXAM: MAMMO SCREENING CLINICAL HISTORY: screening Z12.39 TECHNIQUE: Mammograms were interpreted according to the usual protocol including computer analysis with CAD system, tomosynthesis and C-view imaging. COMPARISON: 2016 through 2022 FINDINGS: The breasts are composed of heterogeneously dense fibroglandular densities, Breast Density category C. No suspicious masses or suspicious microcalcifications are seen. Multiple benign calcifications are again noted bilaterally. No skin thickening or abnormal axillary lymph nodes are seen. There has been no significant change from prior exams. IMPRESSION: BI-RADS Category 2 - Negative Mammogram with benign findings. Yearly screening mammography is recommended. Breast Density: Category C - The breasts are heterogeneously dense, which may obscure small masses. Breast density Category C or D implies that the patient has dense breast tissue. Dense breast tissue can make it harder to find cancer on a mammogram. Dense breast tissue is also associated with an increased risk of breast cancer. This information about the result of the mammogram report was provided to the patient to raise their awareness. Use this report when you speak with the patient about their risks for breast cancer, which includes their family history. At that time, you may recommend additional screening tests (Ultrasound or MRI) as these tests may add significant information. A negative radiographic report should not delay biopsy if a dominant or clinically suspicious mass is present. Up to ten percent of cancers are not identified on mammography. A negative report may reinforce clinical impression. Adenosis and dense breasts may obscure an underlying neoplasm. False positive reports average 6 to 10%.
== END 2025-05-05 03:21 ==
LOC: DI 03:01
PROVIDERS: PCP Nurse Practitioner Family; Visit Provider Nurse Practitioner Family
DX: Z12.31 Encounter for screening mammogram for malignant neoplasm of breast (principal)
CPT/HCPCS: 77063; 77067

== ENCOUNTER 2025-06-16 15:39 | Emergency (ER) | payer MEDICAID, SELFPAY ==
[2025-06-16] VITALS (17 sets, daily range): BP systolic 139–199; BP diastolic 73–88; PULSE 69–91; RESP 8–25; O2SAT 95–99
--- NOTE | 2025-06-16 15:45 | DI.CT_ITS ---
Exam(s) CT CHEST/ABD/PEL W CT THORACIC LUMBAR SPINE REC EXAM: CT CHEST/ABD/PEL W CLINICAL HISTORY: trauma: Low back/hip pain, 7ft fall off ladder. TECHNIQUE: Imaging Protocol: Axial computed tomography images with coronal and sagittal reformatted images were created and reviewed. Computer aided detection (CAD) was utilized. Axial, coronal and sagittal images of the thoracic and lumbar spine were reconstructed in bone and soft tissue algorithm. CONTRAST MATERIAL: Intravenous: Omnipaque 350 Contrast volume:75 ml Oral: no COMPARISON: CT CT THORACIC LUMBAR SPINE REC from 06/16/2025 FINDINGS: CHEST: Pulmonary parenchyma: No consolidation. No dominant measurable mass. Tracheobronchial tree: No bronchiectasis. No mucous plugging.No bronchial wall thickening. Pleura: No effusion or pneumothorax. Mediastinum: Within normal limits. Pulmonary arteries: No visible emboli. Cardiovascular: No pericardial effusion. Thoracic aorta non-dilated. Bones/thoracic spine: Unremarkable for age. Endplate osteophytes. No lytic or blastic lesions. No compression fractures. No visible rib fractures. Soft tissues: Unremarkable. ABDOMEN and PELVIS: Liver: Zoed-xn-pkkrvuhv Paddock steatosis. No evidence of liver injury. No suspicious mass. Gallbladder and biliary tract: No evidence of stones or wall thickening. No biliary dilatation. Pancreas: Normal density, no abnormal calcifications or inflammatory process. Spleen: Normal. Kidneys: Normal size, contour and axis. No radiodense stones. No obstructive uropathy. No suspicious masses seen. Adrenal glands: No masses seen. Aorta: Abdominal portion non-dilated. Lymph nodes: Within normal limits. Soft tissues: No paraspinal hematomas. No significant hematoma or swelling in the subcutaneous fat. Bladder: Unremarkable. Bowel: No obstruction or bowel wall thickening. The appendix is normal. Normal quantity of stool. Peritoneal cavity: No ascites. No focal collection. No mesenteric inflammatory response. No free air. Bones/lumbar spine: There are fractures of the right transverse processes from L2 through L4 which are mildly displaced. There are no additional fractures elsewhere in the lumbar spine. No pelvic fractures. The disc spaces are maintained. Mild degenerative changes. Reproductive organs: Unremarkable for age. IMPRESSION: No acute abnormality in the chest. Mildly displaced transverse process fractures on the right from L2 through L4. No additional fractures. No visceral organ injury. Findings called to Dr. Ellis of the emergency department. RADIATION DOSE DELIVERED: Total DLP DATA REPOSITORY: All CT scans at this facility are submitted to the National Radiology Data Registry (NRDR) Dose Index Registry (DIR) with the [employer] (ACR). RADIATION OPTIMIZATION: All CT scans at this facility use at least one of these dose optimization techniques: automated exposure control; mA and/or kV adjustment per patient size (includes targeted exams where dose is matched to clinical indication); or iterative reconstruction.
--- NOTE | 2025-06-16 15:45 | DI.CT_ITS ---
Exam(s) CT HEAD CERVICAL SPINE WO EXAM: CT HEAD CERVICAL SPINE WO CLINICAL HISTORY: Fall off ladder. TECHNIQUE: Imaging Protocol: Axial computed tomography images with coronal and sagittal reformatted images were created and reviewed COMPARISON: CT CT THORACIC LUMBAR SPINE REC from 06/16/2025 FINDINGS: Head CT Ventricles and Extra axial spaces: Normal in size and morphology for the patient's age. Hemorrhage: None. Cerebral parenchyma: No evidence of mass or acute infarct. Midline shift: None. Brainstem/Cerebellum: Normal. Calvarium: Normal. Visualized Paranasal sinuses/Mastoids: Clear. Soft tissues: Unremarkable. Cervical Spine CT BONES: Vertebral body heights are maintained. Alignment is normal. There is no evidence of acute fracture. Mild degenerative disc changes and facet degenerative changes are seen . SOFT TISSUES: No paraspinal hematoma. The airway appears intact. No pneumothorax is seen at the lung apices. IMPRESSION: Head CT: No acute abnormality. C-spine CT: No acute abnormality. RADIATION DOSE DELIVERED: Total DLP DATA REPOSITORY: All CT scans at this facility are submitted to the National Radiology Data Registry (NRDR) Dose Index Registry (DIR) with the [employer] (ACR). RADIATION OPTIMIZATION: All CT scans at this facility use at least one of these dose optimization techniques: automated exposure control; mA and/or kV adjustment per patient size (includes targeted exams where dose is matched to clinical indication); or iterative reconstruction.
--- NOTE | 2025-06-16 15:54 | DI.RAD_ITS ---
Exam(s) XR TIB/FIB LT EXAM: XR TIB/FIB LT CLINICAL HISTORY: fall from ladder, anterior distal warren pain. TECHNIQUE: 2D digital imaging was performed. Two views. COMPARISON: CR XR FOOT LT COMPLETE from 05/04/2022 FINDINGS: BONES: No acute fracture is present. No bony destructive lesion is seen. Visualized portion of knee and ankle joints are unremarkable. Prior ACL repair. Spurring at medial malleolus. Calcaneal enthesophytes. SOFT TISSUE: Normal. IMPRESSION: Unremarkable radiographs of the left tibia and fibula. DATA REPOSITORY: RADIATION DOSE DELIVERED:
[2025-06-16] MEDS: ACETAMINOPHEN 1,000 MG/100 ML BAG 400 MG IVPB (16:04)
[2025-06-16 16:06] LABS: Abs Immature Grans 0.03 10^3/uL (0.0-0.06); HCT 40.3 % (36.0-46.0); HGB 13.7 g/dL (11.2-15.7); Immature Grans % 0.3 %; MCH 29.1 pg (27.0-33.0); MCHC 34.0 % (32.0-36.0); MCV 86 fL (80-95); MPV 9.3 fL (8.0-11.0); Platelet Count 331 10^3/uL (130-400); RBC 4.70 10^6/uL (3.93-5.22); RDW 13.0 % (11.7-14.6); RDW-SD 40.8 fL; WBC 9.51 10^3/uL (4.4-10.8)
[2025-06-16 16:19] LABS: INR 1.0 (0.9-1.1); PTT Activated 26.7 sec (20.6-30.2); Prothrombin Time 10.1 sec (9.1-11.1)
[2025-06-16 16:27] LABS: ALT 16 U/L (14-59); AST 22 U/L (15-37); Albumin 4.1 g/dL (3.4-5.0); Alkaline Phosphatase 92 U/L (46-116); Anion Gap 13.8 mmol/L (3-11); BUN 12 mg/dL (7-18); Bilirubin, Total 0.3 mg/dL (0.2-1.0); CO2 23.2 mmol/L (21.0-32.0); Calcium 9.3 mg/dL (8.5-10.1); Chloride 103 mmol/L (98-107); Estimated GFR 87.50 (mL/min/1.73m2); Glucose 113 mg/dL (74-106); Lipase 38 U/L (<78); Potassium 3.5 mmol/L (3.5-5.1); Sodium 140 mmol/L (136-145); Total Protein 8.2 g/dL (6.4-8.2)
[2025-06-16 16:28] LABS: Troponin I < 4 ng/L (<or=51)
[2025-06-16] MEDS: Normal Saline - Diluent 50 ML VIAL IJ (16:38)
[2025-06-16] MEDS: Normal Saline Flush 10 ML SYR IVP (16:43)
[2025-06-16] MEDS: Omnipaque 350 MG/ML 100 ML BTL IJ (16:44)
--- NOTE | 2025-06-16 17:08 | ED.GENADUL_ITS ---
Discharge Plan Disposition Patient Disposition: Home Condition: Stable Discharge Details Clinical Impression: Fracture of transverse process of lumbar vertebra Primary Care Provider: Justina Juarez ED Provider: Lisa De La Cruz Home Meds and New Rx's Prescriptions: No Action cyanocobalamin (vitamin B-12) 500 mcg tablet 500 mcg PO DAILY cholecalciferol (vitamin D3) 1,000 UNIT capsule 1,000 unit PO DAILY Discharge Instructions Instructions: Managing acute pain at home Additional Instructions: You were seen in the emergency department today for evaluation after a fall off a ladder. In our department you had a full physical examination performed, and had laboratory studies and imaging performed. You had fractures of the right sided transverse processes of lumbar vertebrae L2-L4. These are the wings that extend from the body of the vertebra itself, and is considered a stable fracture pattern, meaning you do not require surgery or bracing. It is safe to stand and walk, and the most important aspect of recovery is good pain management. You should use Tylenol, Lidoderm patches (which can be purchased [id number]), and can consider talking to your primary care provider about trialing NSAIDs, which are on your allergy list due to hemorrhage. The remainder of your imaging was reassuring, and there was no sign of bleeding inside your brain, fracture of your neck, or damage to your internal organs. The x-ray of your lower leg was negative. Please follow-up with your primary care provider in the next few days to discuss this visit and any symptoms that change, worsen, or persist. Thank you for allowing us to be part of your care. Discharge Data Discharge Date/Time-TO BE ENTERED AT DEPARTURE: 06/16/25 18:23 HPI General Mode of arrival: wheelchair . Date/Time Provider Initiated Documentation: 06/16/25 15:44 . Limitations to Documentation: no limitations . Information obtained by: patient, family and old records reviewed . HPI Narrative: This is a 55-year-old female patient with a history of hyperlipidemia, prediabetes, who is presenting for evaluation after a fall. The patient was a standing a ladder getting into a loft, was carrying a basket of laundry, and fell from the top of the ladder approximately 7 feet. She landed striking the back of her head, had some blurriness of her vision for about 30 seconds but did not lose consciousness. States that she had significant pain in the back of her head, her lower back/hip, and in her left lower extremity. She was able to transfer from the car to the wheelchair, but did have significant discomfort when doing so. Prior to this event patient was in her normal state of health Related Data Home Medications ?Medication ?Instructions ?Recorded ?Confirmed cholecalciferol (vitamin D3) 25 1,000 unit PO DAILY 06/16/25 mcg (1,000 unit) capsule cyanocobalamin (vitamin B-12) 500 500 mcg PO DAILY 03/1606/16/25 mcg tablet Allergies Allergy/AdvReac Type Severity Reaction Status Date / Time NSAIDS (Non-Steroidal Allergy Unknown unexplained Unverified 06/16/25 15:54 Anti-Inflamma bleed post birthing Pyrazolones (Pyrazoles) Allergy Unknown unknown Unverified 06/16/25 15:54 Salicylates * (Salicylates Allergy Unknown unexplained Unverified 06/16/25 15:54 *RETIRED-02/20/16) bleed post birthing General Stated Complaint: Trauma TALI: 2 Exam Narrative Exam Narrative: Gen: awake and alert, in no apparent distress. Appears uncomfortable HEENT: PERRL, EOMs full and without nystagmus. External ears and nose normal, mucous membranes moist. Scalp atraumatic, midface without tenderness or deformity, teeth and tongue uninjured Neck: Supple, full range of motion, no cervical spine tenderness or step-offs Lungs: No increased work of breathing, lung sounds clear and equal bilaterally without wheezes, rhonchi, or rales. CV: Heart with regular rate and rhythm, no murmurs auscultated. Strong and symmetrical radial pulses. Abdomen: Soft, nondistended, non-tender to palpation. No rigidity, rebound tenderness, or guarding. MSK: No joint swelling, no redness. Full ROM without limitation, no external traumatic findings. No tenderness to palpation of the T spine, right sided lower back tenderness without overlying skin changes. The patient's left buttock is tender, pelvis stable to AP compression. Bilateral upper extremities atraumatic, lower extremities notable for abrasion and small swelling over the distal left warren, no deformity. The affected left ankle and knee are atraumatic with full range of motion, strong DP pulses, full sensation and circulation distal to that injury. Skin: No rashes or lesions to visualized skin. Normal color, warm, and dry. Neuro: Cranial nerves II-XII intact and symmetrical bilaterally. 5/5 strength in all muscle groups x4 extremities. No sensory deficits. Stood and pivoted without difficulty from car to wheelchair and to bed. Psych: Appropriate for situation. Course Vital Signs Vital signs: Vital Signs Pulse 91 H 06/16/25 15:46 Respiratory Rate 24 06/16/25 15:46 Blood Pressure 199/88 H 06/16/25 15:46 Pulse Oximetry 99 06/16/25 15:46 Pulse 76 06/16/25 17:00 Pulse 76 06/16/25 17:00 Respiratory Rate 8 L 06/16/25 17:00 Respiratory Effort Normal, Non-Labored 06/16/25 16:07 Blood Pressure 148/81 H 06/16/25 17:00 Blood Pressure Mean 103 06/16/25 17:00 Pulse Oximetry 97 06/16/25 17:00 Oxygen Delivery Method Room Air 06/16/25 15:46 Oxygen Flow Rate 0 06/16/25 15:46 Lab/Test Results Lab/Test Results: Laboratory Tests Range/Units 06/16/25 15:57 WBC (4.4-10.8) 10^3/uL 9.51 RBC (3.93-5.22) 10^6/uL 4.70 Hgb (11.2-15.7) g/dL 13.7 Hct (36.0-46.0) % 40.3 MCV (80-95) fL 86 MCH (27.0-33.0) pg 29.1 MCHC (32.0-36.0) % 34.0 RDW (11.7-14.6) % 13.0 Plt Count (130-400) 10^3/uL 331 MPV (8.0-11.0) fL 9.3 Immature Gran % % 0.3 Neutrophils % % 62.7 Lymphocytes % % 28.1 Monocytes % % 7.4 Eosinophils % % 1.2 Basophils % % 0.3 Nucleated RBC % (0.0-0.3) % 0.0 Absolute Neutrophils (1.2-6.7) 10^3/uL 5.97 Absolute Lymphocytes (1.2-3.4) 10^3/uL 2.67 Absolute Monocytes (0.1-0.8) 10^3/uL 0.70 Absolute Eosinophils (0.0-0.7) 10^3/uL 0.11 Absolute Basophils (0.0-0.2) 10^3/uL 0.03 PT (9.1-11.1) sec 10.1 INR (0.9-1.1) 1.0 APTT (20.6-30.2) sec 26.7 Sodium (136-145) mmol/L 140 Potassium (3.5-5.1) mmol/L 3.5 Chloride (98-107) mmol/L 103 Carbon Dioxide (21.0-32.0) mmol/L 23.2 Anion Gap (3-11) mmol/L 13.8 H BUN (7-18) mg/dL 12 Creatinine (0.55-1.02) mg/dL 0.8 Est GFR (CKD-EPI 2020) (mL/min/1.73m2) 87.50 Glucose (74-106) mg/dL 113 H Calcium (8.5-10.1) mg/dL 9.3 Total Bilirubin (0.2-1.0) mg/dL 0.3 AST (15-37) U/L 22 ALT (14-59) U/L 16 Alkaline Phosphatase (46-116) U/L 92 Troponin I (<or=51) ng/L < 4 Total Protein (6.4-8.2) g/dL 8.2 Albumin (3.4-5.0) g/dL 4.1 Lipase (<78) U/L 38 Medical Decision Making This is a 55-year-old female patient presenting for evaluation of head, low back and hip pain after falling from a ladder. My differential includes but is not limited to intracranial hemorrhage, skull fracture, concussion, spine fracture, certainly considered intrathoracic and intra-abdominal pathology including rib fracture, pneumothorax, pulmonary contusion, hollow viscus injury, solid organ injury, pelvis fracture. Considered specific extremity injuries to include contusion, fracture, dislocation, sprain/strain of the lower extremity on the left. No neurodeficits to significantly increase my concern for spinal cord injury. The patient was in her normal state of health prior to this event and this was a mechanical fall, and have low concern for medical abnormalities as the result of her trauma. Our primary survey per ATLS standards was intact, a full head to toe examination performed as noted above and the patient was hemodynamically appropriate. We provided the patient with a dose of Tylenol for symptomatic management given a reported allergy to NSAIDs. The patient will be taken for CT scans of the head, C/T/L-spine, and chest abdomen pelvis. I will obtain trauma labs to include CBC, CMP, magnesium, troponin, PT/INR, lipase. -I independently interpreted the laboratory studies, which show no significant leukocytosis, anemia, or thrombocytopenia. The chemistry panel is without evidence of electrolyte abnormality, kidney dysfunction, or liver injury. Troponin negative, lipase low. I reviewed the patient's CT imaging and discussed the results with the radiologist. She has evidence of transverse process fractures of the right sided L2-L4, otherwise no acute traumatic findings on the extent of her imaging. She certainly may have a mild concussion given the blurriness of vision at the time of strike, though at this time is without significant dizziness, nausea or vomiting, confusion, etc. I provided the patient with a Lidoderm patch, and counseled her on multimodal pain management. Given the stability of the fracture, she is appropriate to follow-up with her outpatient providers, and she specifically request that we do not provide her with narcotic pain medications. She road tested appropriately without difficulty with ambulation, and at this time, the patient has had a full medical evaluation and is safe for discharge to home. They are hemodynamically stable, ambulatory, and tolerating PO. They are understanding of the follow-up plan and return precautions. They left our facility without incident. Lisa De La Cruz MD [facility] All Active Problems (Updated 06/16/25 @ 17:39 by Lisa De La Cruz MD) Fracture of transverse process of lumbar vertebra (Acute) Change in bowel habits (Chronic) Rectal bleeding (Chronic) Abdominal bloating (Chronic) Hyperlipidemia (Chronic) Prediabetes (Chronic) Subclinical hypothyroidism (Acute) Macromastia (Chronic) Vitamin D deficiency (Chronic) Medical History GERD (gastroesophageal reflux disease) Ocular migraine Migraine headache with aura Vitamin B12 deficiency Gastrointestinal hemorrhage Post UGI. Small bowel F/thru=neg. Colonoscopy neg 08/2003 Depressive disorder Surgical History S/P excision of ganglion cyst History of colonoscopy (~11/24/21) History of repair of anterior cruciate ligament of left knee S/P section x3 History of bilateral ligation of fallopian tubes Family History Mother No problems noted. Father Heart disease Myocardial infarction Brother No problems noted. Son No problems noted. Son No problems noted. Son No problems noted. Maternal Grandfather No problems noted. 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 Pets and animals: Yes Pets and animals: cat(s) and dog(s) Sexually active: Yes Do you think of yourself as: straight/heterosexual Current gender identity: female What is your relationship status?: How often do you talk on the phone with friends or family?: twice per week How often do you get together with friends or relatives?: once per week Do you belong to any clubs or organized social groups?: no Panel score (0-1 are the most socially isolated patients): 2 What type of physical activity do you participate in: walking Duration: 30-45 minutes/day Frequency: 3-4 times per week Sigrid/Amish: Non evangelical Special sigrid needs: No Seatbelt use: always Helmet use: Yes Helmet use: always Drive intox or ride w/intox otr company driver: No Working smoke detector in home: Yes Carbon monox detector in home: Yes Firearms in home: No Do you feel safe at home: Yes Do you feel safe in your relationship?: Yes Victim of physical abuse: No Victim of emotional abuse: No Victim of sexual abuse: No Would you like helpful sources: No Female Reproductive History Menstrual control method: permanent sterilization History History 6 Para 3 Hx # Term Pregnancies Multiple births Hx # Pregnancies Ectopic pregnancies AB induced 3 Hx Number of Living Children 3 AB spontaneous
[2025-06-16] MEDS: Lidocaine 5% Patch 1 PATCH TP (17:33)
== END 2025-06-16 18:23 | disposition home or self-care (01) ==
LOC: ER 17:50
PROVIDERS: Emergency Provider Emergency Medicine; PCP Nurse Practitioner Family
DX: S32.018A Other fracture of first lumbar vertebra, initial encounter for closed fracture (principal); S32.028A Other fracture of second lumbar vertebra, initial encounter for closed fracture; S32.038A Other fracture of third lumbar vertebra, initial encounter for closed fracture; S32.048A Other fracture of fourth lumbar vertebra, initial encounter for closed fracture; S70.12XA Contusion of left thigh, initial encounter; E78.5 Hyperlipidemia, unspecified; W11.XXXA Fall on and from ladder, initial encounter
CPT/HCPCS: 36415; 74177; 80053; 83690; 96365; 96375; 99285; 70450; 71260; 72125; 73590; 84484; 85025; 85610; 85730; J0131; J3490

== ENCOUNTER 2025-06-19 12:20 | Emergency (ER) | payer MEDICAID, SELFPAY ==
[2025-06-19 12:21] VITALS: BP 132/75; PULSE 78; RESP 16; O2SAT 96
--- NOTE | 2025-06-19 12:48 | ED.GENADUL_ITS ---
Discharge Plan Disposition Patient Disposition: Home Condition: Stable Discharge Details Clinical Impression: Contusion of left thigh, initial encounter, Leg swelling Primary Care Provider: Justina Juarez ED Provider: Dominique Schwartz Home Meds and New Rx's Prescriptions: No Action cyanocobalamin (vitamin B-12) 500 mcg tablet 500 mcg PO DAILY cholecalciferol (vitamin D3) 1,000 UNIT capsule 1,000 unit PO DAILY Discharge Instructions Instructions: Taking care of bruises Additional Instructions: You will need an ultrasound to further evaluate the concern that brought you into the ER today. Please call her diagnostic imaging department on the next business day which would be Saturday to schedule this exam at your earliest convenience. The phone number is [phone] the hours are Saturday through Saturday starting at 6 AM. I did already order you this ultrasound so they will know which test needs to be scheduled. Please use an Reilly wrap, apply ice and elevate the leg over the next 2 days. Please return to the emergency department for any shortness of breath, weakness in your leg, increased swelling, increased problems with blood circulation or concerns. Referrals: Justina Juarez, [facility] [Primary Care Provider, Medicine] - 5 days Referral Note: ER follow-up, call for an appointment Discharge Orders Other Ambulatory Orders: US lower extremity venous LT (Routine) Timeframe: 3 Days Facility: [facility] - Location: DIAGNOSTIC IMAGING Ordered By: Dominique Schwartz [facility] General Mode of arrival: ambulatory . Date/Time Provider Initiated Documentation: 06/19/25 12:29 . Limitations to Documentation: no limitations . Information obtained by: patient, RN notes reviewed and old records reviewed . HPI Narrative: 55 year old female presents to the ER with a cc of bruising and coolness to her left lower posterior leg after a fall off a ladder 3 days ago. Reports bruising noticed today to the back of her left leg and feeling cool and tingly. No loss of movement, no weakness or radiculopathy. Patient does have right L1 1 through L4 transverse process fractures. I did review the other imaging and no evidence for any bleeding intra-abdominaly. Related Data Home Medications ?Medication ?Instructions ?Recorded ?Confirmed cholecalciferol (vitamin D3) 25 1,000 unit PO DAILY 06/16/25 mcg (1,000 unit) capsule cyanocobalamin (vitamin B-12) 500 500 mcg PO DAILY 03/1606/16/25 mcg tablet Allergies Allergy/AdvReac Type Severity Reaction Status Date / Time NSAIDS (Non-Steroidal Allergy Unknown unexplained Unverified 06/16/25 15:54 Anti-Inflamma bleed post birthing Pyrazolones (Pyrazoles) Allergy Unknown unknown Unverified 06/16/25 15:54 Salicylates * (Salicylates Allergy Unknown unexplained Unverified 06/16/25 15:54 *RETIRED-02/20/16) bleed post birthing General Stated Complaint: Vascular TALI: 3 Review of Systems Musculoskeletal Musculoskeletal: Reports as per HPI Integumentary/Breasts Skin/Breast: Reports unusual bruising Exam Skin Full body images: 2 1. Contusion 2. Abrasion Course Vital Signs Vital signs: Vital Signs Pulse 78 06/19/25 12:21 Respiratory Rate 16 06/19/25 12:21 Blood Pressure 132/75 06/19/25 12:21 Pulse Oximetry 96 06/19/25 12:21 Pulse 78 06/19/25 12:21 Respiratory Rate 16 06/19/25 12:21 Blood Pressure 132/75 06/19/25 12:21 Blood Pressure Position Sitting 06/19/25 12:21 Pulse Oximetry 96 06/19/25 12:21 Oxygen Delivery Method Room Air 06/19/25 12:21 Oxygen Flow Rate 0 06/19/25 12:21 Medical Decision Making 55 year old female presents to the ER with a cc of bruising and coolness to her left lower posterior leg after a fall off a ladder 3 days ago. Reports bruising noticed today to the back of her left leg and feeling cool and tingly. No loss of movement, no weakness or radiculopathy. Patient does have right L1 1 through L4 transverse process fractures. I did review the other imaging and no evidence for any bleeding intra-abdominaly. Will order an outpatient ultrasound, will instruct patient to elevate apply ice and a Reilly bandage. Will discuss strict return instructions to return for any shortness of breath, worsening swelling, worsening coolness or any concerns. She verbalized understanding. This text was generated using [employer] system, please disregard any oddities of phrase or misspellings. PFSH All Active Problems (Updated 06/19/25 @ 12:56 by Dominique Schwartz NP) Leg swelling (Acute) Contusion of left thigh, initial encounter (Acute) Fracture of transverse process of lumbar vertebra (Acute) Change in bowel habits (Chronic) Rectal bleeding (Chronic) Abdominal bloating (Chronic) Hyperlipidemia (Chronic) Prediabetes (Chronic) Subclinical hypothyroidism (Acute) Macromastia (Chronic) Vitamin D deficiency (Chronic) Medical History GERD (gastroesophageal reflux disease) Ocular migraine Migraine headache with aura Vitamin B12 deficiency Gastrointestinal hemorrhage Post UGI. Small bowel F/thru=neg. Colonoscopy neg 08/2003 Depressive disorder Surgical History S/P excision of ganglion cyst History of colonoscopy (~11/24/21) History of repair of anterior cruciate ligament of left knee S/P section x3 History of bilateral ligation of fallopian tubes Family History Mother No problems noted. Father Heart disease Myocardial infarction Brother No problems noted. Son No problems noted. Son No problems noted. Son No problems noted. Maternal Grandfather No problems noted. 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 Pets and animals: Yes Pets and animals: cat(s) and dog(s) Sexually active: Yes Do you think of yourself as: straight/heterosexual Current gender identity: female What is your relationship status?: How often do you talk on the phone with friends or family?: twice per week How often do you get together with friends or relatives?: once per week Do you belong to any clubs or organized social groups?: no Panel score (0-1 are the most socially isolated patients): 2 What type of physical activity do you participate in: walking Duration: 30-45 minutes/day Frequency: 3-4 times per week Sigrid/Adventism: Non yazidi Special sigrid needs: No Seatbelt use: always Helmet use: Yes Helmet use: always Drive intox or ride w/intox drive away driver: No Working smoke detector in home: Yes Carbon monox detector in home: Yes Firearms in home: No Do you feel safe at home: Yes Do you feel safe in your relationship?: Yes Victim of physical abuse: No Victim of emotional abuse: No Victim of sexual abuse: No Would you like helpful sources: No Female Reproductive History Menstrual control method: permanent sterilization History History 2 6 Para 3 Hx # Term Pregnancies Multiple births Hx # Pregnancies Ectopic pregnancies AB induced 3 Hx Number of Living Children 3 AB spontaneous
[2025-06-19 13:15] VITALS: BP 118/78; PULSE 82; RESP 16; O2SAT 96
[2025-06-19 13:16] VITALS: RESP 16
== END 2025-06-19 13:32 | disposition home or self-care (01) ==
PROVIDERS: Emergency Provider Registered Nurse Emergency; PCP Nurse Practitioner Family
DX: S70.12XA Contusion of left thigh, initial encounter; M79.89 Other specified soft tissue disorders; W11.XXXD Fall on and from ladder, subsequent encounter; S32.040D Wedge compression fracture of fourth lumbar vertebra, subsequent encounter for fracture with routine healing; S32.030D Wedge compression fracture of third lumbar vertebra, subsequent encounter for fracture with routine healing; S32.020D Wedge compression fracture of second lumbar vertebra, subsequent encounter for fracture with routine healing
CPT/HCPCS: 99283; 99282